=== PATIENT | male | born 1935 | race Caucasian/White ===

== ENCOUNTER → 2016-04-09 | Outpatient (REF) | payer MEDICARE, OTHER ==
[~2016-04-09] MED LIST: /TAMS4CA OR; ARTI99.0 OU; ARTISOL10 OU; ASPI81TA85 PO; AUGM875T27 PO; AZIT250T3 PO; BOTOX100 UNIT IM; CARB25TA PO; COLA100C PO; COLA100C2 OR; DELT1TAB PO; DULC5TAB PO; FISH500C PO; FLEEENE4 PR; FLOM5CAP PO; GABA300C3 PO; GLUC1000 OR; HUMALOG INJ; HUMALOG PEN SQ; HYDR25TA6 OR; INSUDET SC; INSUHUMDS SC; LEVE1INJ5 SC; LEVO137T2 PO; LISI20TA PO; LISI20TA5 OR; LISI20TA5 PO; LYRI100C10 PO; LYRI150C PO; LYRI75CA PO; M-VI27TA PO; MAGN400T5 PO; METF500T4 PO; METH-107 PO; MIRA3350 PO; MOM30SS PO; MULTIVIT PO; NEUR300C PO; NORC5TAB PO; OMACOR PO; OMEP20TA7 OR; OXYC15TA66 PO; PERC5TAB6 PO; PERC5TAB8 OR; POLYOPD OU; POTA99TA PO; PRED1TABL PO; PRED5TA PO; PRED5TAB OR; PRED5TAB PO; PRIL20CA PO; REGL5TAB2 PO; ROBA500T PO; ROXI1TAB2 PO; SENO8.6T2 PO; SERT50TA2 PO; SINE25TA2 OR; SINE25TA5 PO; SOMA350T PO; SYNT137T OR; SYNT137T PO; THERGRAN PO; TIZA4CAP3 PO; TRAM50TA2 PO; TYLE325T5 PO; ULTR100T6 PO; VITAMIN D50000 UNT PO; VITMTA PO; ZOLO50TA OR; carb/levo PO; novalog
[2016-04-09 16:04] LABS: CALCIUM LEVEL 8.6 MG/DL (8.8-10.2); CREATININE FOR GFR 1.41 MG/DL (0.70-1.30); GLOMERULAR FILTRATION RATE 51.5 (>35)
== END | disposition home or self-care (01) ==
LOC: M SFHCPLAZ 14:17
PROVIDERS: ATTEND Internal Medicine
DX: E11.29 Type 2 diabetes mellitus with other diabetic kidney complication (principal)

== ENCOUNTER → 2016-04-11 | Outpatient (CLI) | payer MEDICARE, OTHER ==
[~2016-04-11] MED LIST changes: +ISOVUE-370 76% 100ML VIAL (Q9967) As Ordered ONE
--- NOTE | 2016-04-11 12:03 | REP ---
CT study of the chest with IV contrast: History: Abnormal chest x-ray, [facility]. Comparison chest x-ray March 23, 2016. Comparison chest CT study is from December 16, 2015. The prior CT study showed right upper lobe and right lower lobe infiltrates. CT contrast dose: 75 ml of Isovue [address] findings: The previously noted infiltrates have resolved. No pulmonary mass lesion is seen. There are several old granulomatous calcifications noted in the right middle lobe. There are also several granulomatous calcifications in the lingular segment of the left upper lobe. No pulmonary mass or significant nodule is seen. No bony destructive lesion is seen. Granulomatous lymph node calcifications are seen in the right hilus and the subcarinal region. Heavy vascular calcification is seen along the course of the left coronary artery. No hilar or mediastinal adenopathy or mass lesion is seen. A small sliding-type hiatal hernia is noted. Cholecystectomy clips are seen. No adrenal abnormality is observed. Stable peripancreatic lymph nodes are again noted. Impression: Old granulomatous calcific residuals. Previously noted infiltrates have resolved. Stable upper abdominal lymph nodes. Small sliding-type hiatal hernia. Vascular calcification especially along the course of the left coronary artery. Otherwise no active disease. Signed by Juan Carlos Mckeon MD 04/11/2016 02:57 P
== END | disposition home or self-care (01) ==
LOC: M RAD 10:10
PROVIDERS: ATTEND Internal Medicine
DX: R93.8 Abnormal findings on diagnostic imaging of other specified body structures (principal); K44.9 Diaphragmatic hernia without obstruction or gangrene; I25.10 Atherosclerotic heart disease of native coronary artery without angina pectoris
CPT/HCPCS: 71260; Q9967

== ENCOUNTER → 2016-04-11 | Outpatient (CLI) | payer MEDICARE, OTHER ==
[~2016-04-11] MED LIST changes: -ISOVUE-370 76% 100ML VIAL (Q9967) As Ordered ONE; +PRIL20CA9 PO
--- NOTE | 2016-04-14 01:13 | ECWPNPC ---
PATIENT NAME: JUAN PABLO NARANJO : 1935 GENDER: MALE VISIT DATE: 04/11/2016 DISCHARGE DATE: 04/11/16 1614 VISIT LOCKED DATE TIME: PHYSICIAN: MEGHA DREW RESOURCE: MEGHA DREW REASON FOR APPOINTMENT 1. LOW BACK PAIN HISTORY OF PRESENT ILLNESS HISTORY OF PRESENT ILLNESS: PAIN THE PATIENT DESCRIBES THE PAIN... 81 YEAR OLD MALE PATIENT WITH HISTORY OF CHRONIC LOW BACK AND LEG PAIN. PATIENT DESCRIBES THE PAIN SHOOTING AND STABBING WITH A PAIN SCORE OF 8/10. MR. NARANJO STATES THAT HE HAS SEEN DR. MEJÍA WHO HAD HIM RECEIVE ANOTHER MRI FOR A POSSIBLE SURGERY. CURRENTLY THE PATIENT IS USING TRAMADOL AND LYRICA WHICH HE STATES HELPS WITH THE PAIN. MR. NARANJO STATES THAT HE IS RELATIVELY PAIN FREE UNTIL HE HAS TO WALK AND THEN HE HAS A SHOOTING PAIN THAT STARTS IN HIS LOWER BACK AND SHOOTS DOWN BOTH OF HIS LEGS. PATIENT DENIES UNEXPLAINABLE WEIGHT LOSS, FEVER, CHILLS, NEW CHANGES ON HIS URINARY OR BOWEL CONTROL. FALL RISK SCREENING: SCREENING :NO FALLS IN THE PAST YEAR CURRENT MEDICATIONS TAKING FLONASE 50 MCG/DOSE INHALER 2 SPRAYS IN EACH NOSTRIL NASALLY ONCE DAILY NEEDED TAKING SYNTHROID 137 MCG TABLET 1 TABLET EVERY MORNING ON AN EMPTY STOMACH ORALLY ONCE A DAY TAKING HUMALOG KWIKPEN 100 UNIT/ML SOLUTION INJECTION SUBCUTANEOUS PER SS THREE TIMES A DAY MDD 25 UNITS TAKING MULTIVITAMIN TABLETS ORALLY DAILY TAKING PRILOSEC 20 MG CAPSULE DELAYED RELEASE 1 CAPSULE ORALLY ONCE A DAY TAKING TYLENOL EXTRA STRENGTH 500 MG TABLET 1 TABLET NEEDED ORALLY EVERY 8 HRS NEEDED TAKING MAG-OX 400 400 MG TABLET 2 TABS ORALLY BID TAKING SINEMET 25-100 MG TABLET 3 TABLETS ORALLY THREE TIMES A DAY TAKING PREDNISONE 5 MG TABLET 1 TAB(S) ORALLY ONCE A DAY TAKING BLOOD GLUCOSE TEST - STRIP DIRECTED IN VITRO, DX: E11.9 ONE TOUCH ULTRA BLUE--TEST GLUCOSES 4 TIMES A DAY AND NEEDED TAKING ASPIR-81 81 MG TABLET DELAYED RELEASE 1 TABLET ORALLY ONCE A DAY TAKING LEVEMIR FLEXTOUCH 100 UNIT/ML SOLUTION PEN-INJECTOR 16 UNITS SUBCUTANEOUS TWICE DAILY. DX:E11.9 TAKING FLOMAX 0.4 MG CAPSULE EXTENDED RELEASE 24 HOUR 1 CAPSULE 30 MINUTES AFTER THE SAME MEAL EACH DAY ORALLY ONCE A DAY TAKING LYRICA 150 MG CAPSULE 1 CAPSULE ORALLY CODE D FOR CHRONIC PAIN 3 TIMES PER DAY FOR PAIN MDD3 TAKING TRAMADOL HCL 50 MG TABLET 1 ORALLY CODE D CHRONIC PAIN Q8H PRN MDD2 MEDICATION LIST REVIEWED AND RECONCILED WITH THE PATIENT PAST MEDICAL HISTORY DIABETES HIGH BLOOD PRESSURE THYROID CARDIAC CATH PARKINSON'S DISEASE DIABETES ALLERGIES N.K.D.A. SURGICAL HISTORY RIGHT INGUINAL HERNIA REPAIR IN THE PAST KNEE SURGERY LEFT 1975 CHOLECYSTECTOMY CATARACT EXTRACTION OD 02/06 CATARACT EXTRACTION OS 04/09 RIGHT EYE PTOSIS REPAIR 04/10 L3, L4, L5 RIGHT LAMINECTOMY 07/11/10 LAD CORONARY ARTERY STENT PLACEMENT JULY 2010 COLONOSCOPY 01/2015 FAMILY HISTORY NO FAMILY HISTORY DOCUMENTED. SOCIAL HISTORY GENERAL: TOBACCO USE ARE YOU A:NONSMOKER LEARNING BARRIERS / SPECIAL NEEDS ORIENTED TO PLAN OF CARE: PATIENT, PAIN MANAGEMENT PATIENT, ORIENTED TO PLAN OF CARE: PATIENT, PAIN MANAGEMENT PATIENT. NEW PATIENT PAIN DIARY TODAY'S VISITNOTES FROM 0-10, WHAT LEVEL IS YOUR PAIN TODAY?0 PAIN CLINIC PFS, CLERGY, PUBLIC HEALTH REFERRALS PFS REFERRAL NEEDED?NO CLERGY REFERRAL NEEDED?NO PUBLIC HEALTH REFERRAL NEEDED?NO WAS THE PROVIDER NOTIFIED OF ANY PERTINENT INFO?NO PFS REFERRAL NEEDED?NO CLERGY REFERRAL NEEDED?NO PUBLIC HEALTH REFERRAL NEEDED?NO WAS THE PROVIDER NOTIFIED OF ANY PERTINENT INFO?NO HOSPITALIZATION/MAJOR DIAGNOSTIC PROCEDURE SURGERY RELATED REVIEW OF SYSTEMS CONSTITUTIONAL: ANY CHANGE IN YOUR MEDICAL CONDITION? NO . CHILLS NO . FEVER NO . INFECTION: DO YOU HAVE NEW INFECTIONS? NO . DO YOU HAVE HISTORY OF MRSA? NO . MUSCULOSKELETAL: ANY NEW PATTERNS OF PAIN OR NUMBNESS? NO . GASTROENTEROLOGY: ANY NEW CHANGE IN BOWEL CONTROL? NO . GENITOURINARY: ANY NEW CHANGE IN BLADDER CONTROL? NO . IS THERE A CHANCE YOU COULD BE ? NO . HEMATOLOGY/LYMPH: DO YOU TAKE ANY BLOOD THINNERS? (FOR EXAMPLE- COUMADIN, PLAVIX, AGGRENOX, PLATEL, PRADAXA, OR XARELTO) NO . WHEN WAS YOUR LAST DOSE? DATE: TIME: . NEUROLOGY: HAVE YOU FALLEN IN THE PAST 6 MONTHS? NO . ANY NEW EXTREMITY NUMBNESS OR WEAKNESS? NO . CARDIOLOGY: DO YOU HAVE A PACEMAKER OR DEFIBRILLATOR? NO . RESPIRATORY: HAVE YOU BEEN SICK IN THE PAST WEEK? NO . FEVER NO . FLU LIKE SYMPTOMS? NO . COUGH NO . INTEGUMENTARY: DO YOU HAVE ANY RASHES OR OPEN SORES? NO . ALLERGIC/IMMUNO: ARE YOU ALLERGIC TO SHELLFISH OR IV DYE? NO . ANY NEW ALLERGIES? NO . PSYCHIATRIC: DO YOU HAVE THOUGHTS OF HURTING YOURSELF OR SOMEONE ELSE? NO . ARE YOU ABUSED, NEGLECTED, OR IN AN UNSAFE ENVIRONMENT? NO . ENDOCRINOLOGY: ARE YOU DIABETIC? YES . OTHER: DO YOU NEED ANY PRESCRIPTIONS? YES LYRICA AND TRAMDOL . IF YES, PLEASE LIST: ____ . ANY NEW PROBLEMS WITH YOUR MEDICATIONS? NO . WHEN DID YOU LAST EAT? ____ . WHEN DID YOU LAST DRINK? ____ . WHAT DID YOU LAST DRINK? ____ . NAME OF PERSON DRIVING YOU HOME? ____ . DO YOU HAVE ANY OTHER QUESTIONS OR CONCERNS NO . REVIEWED BY: PROVIDER: MEGHA DREW MD . VITAL SIGNS WT 201 LBS, HT 70 IN, BMI 28.84 INDEX, BP 168/90 MM HG, HR 70 /MIN, RR 18 /MIN, TEMP 95.7 F, OXYGEN SAT % 95%, NA INITIALS SC 14:42. EXAMINATION : PATIENT IS ALERT O X 3 AND COOPERATIVE. THERE IS TENDERNESS IN THE LOWER BACK AND IN THE PARASPINAL MUSCLE GROUP CLOSE TO THE SURGICAL SITE. LEFT LEG IS WEAKER THAN THE RIGHT LEG. PATIENT USES CANE TO AMBULATE. MRI OF THE LUMBAR SPINE DONE ON 04/26/15 SHOWS CANAL STENOSIS AT L2-L3 THROUGH L4-L5, DISC BULGES AT L2-L3 THROUGH L5-S1, AND HYPERTROPHY. ASSESSMENTS POSTLAMINECTOMY SYNDROME, NOT ELSEWHERE CLASSIFIED - M96.1 (PRIMARY) INTERVERTEBRAL DISC DISORDERS WITH RADICULOPATHY, LUMBAR REGION - M51.16 INTERVERTEBRAL DISC DISORDERS WITH RADICULOPATHY, LUMBOSACRAL REGION - M51.17 TREATMENT POSTLAMINECTOMY SYNDROME, NOT ELSEWHERE CLASSIFIED REFILL LYRICA CAPSULE, 150 MG, 1 CAPSULE, ORALLY CODE D FOR CHRONIC PAIN, 3 TIMES PER DAY FOR PAIN MDD3, 60 DAYS, 180, REFILLS 0 REFILL TRAMADOL HCL TABLET, 50 MG, 1, ORALLY CODE D CHRONIC PAIN, Q8H PRN MDD2, 60 DAYS, 120, REFILLS 0 NOTES: WE DISCUSSED SEVERAL ISSUES WITH MR. NARANJO'S PAIN MANAGEMENT CASE. AT THIS TIME THE PATIENT WILL CONTINUE WITH THE SAME MEDICATION REGIME BEFORE. PATIENT DENIES ABUSE OF MEDICATION, DENIES USE OF ILLEGAL SUBSTANCES, AND STATES THAT HE ONLY USES THE MEDICATION FOR PAIN MANAGEMENT. MR. NARANJO WILL HAVE A URINE TOXICOLOGY REPORT DONE AT TODAY'S VISIT. PATIENT WILL BE SEEING DR. MEJÍA TO DISCUSS THE RECENT MRI THE PATIENT HAD. I WOULD LIKE TO SPEAK WITH DR. MEJÍA ABOUT THIS PATIENT AND POSSIBLE OPTIONS OTHER THEN SURGERY. MR. NARANJO WILL RETURN TO THE CLINIC IN 10 WEEKS TO FURTHER DISCUSS HIS CASE WITH ROSHAN GORE. PROCEDURE CODES FA211 ESTABILISHED PATIENT [facility] CHARGE G8427 DOC MEDS VERIFIED W/PT OR RE G8730 PAIN ASSESS POS TOOL F/U PLAN DOC FOLLOW UP 10 WEEKS ELECTRONICALLY SIGNED BY MEGHA DREW MD ON 04/13/2016 AT 06:15 PM EST DISCLAIMER : THIS IS A VISIT SUMMARY EXTRACTED FROM THE [employer] CHART. IT IS NOT A COPY OF THE [employer] PROGRESS NOTE. KRISTINA
== END ==
LOC: M PAIN 14:20
PROVIDERS: ATTEND Anesthesiology
DX: M96.1 Postlaminectomy syndrome, not elsewhere classified (principal); M51.16 Intervertebral disc disorders with radiculopathy, lumbar region; M51.17 Intervertebral disc disorders with radiculopathy, lumbosacral region; G89.29 Other chronic pain; M54.5 Low back pain; Z79.891 Long term (current) use of opiate analgesic; Z79.82 Long term (current) use of aspirin; Z79.4 Long term (current) use of insulin; E11.9 Type 2 diabetes mellitus without complications; I10 Essential (primary) hypertension; E07.9 Disorder of thyroid, unspecified; G20 Parkinson's disease
CPT/HCPCS: 71260; G0463; Q9967

== ENCOUNTER → 2016-06-29 | Outpatient (CLI) | payer MEDICARE, OTHER ==
[~2016-06-29] MED LIST changes: -COLA100C PO; +COLA100C3 PO; +GABA-282 PO; -GABA300C3 PO; +NORC1TAB4 PO; -NORC5TAB PO
--- NOTE | 2016-06-30 23:38 | ECWPNPC ---
PATIENT NAME: JUAN PABLO NARANJO : 1935 GENDER: MALE VISIT DATE: 06/29/2016 DISCHARGE DATE: 06/29/16 1229 VISIT LOCKED DATE TIME: PHYSICIAN: ROSHAN GONZALEZ RESOURCE: ROSHAN GONZALEZ REASON FOR APPOINTMENT 1. LOW BACK/LEG PAIN HISTORY OF PRESENT ILLNESS HISTORY OF PRESENT ILLNESS: HERE FOR F/U AND MANAGEMENT OF CHRONIC LOW BACK PAIN.DESCRIBES PAIN INTERMITTENT MUSCLE CRAMPING IN LOW BACK.COMPLAINING OF FORGETFULLNESS LATELY AND IS WONDERING IF THIS COULD BE RELATED TO LYRICA.RATING PAIN VAS 6/10.REPORTS INTERMITTENT LOWER EXTREMITY WEAKNESS THAT CAUSES HIM TO GO TO HIS KNEES.THIS IS UNPREDICTABLE AND CAN HAPPEN WALKING SHORT DISTANCE OR LONG DISTANCE.HAS SEEN NEUROLOGY HERE LOCALLY WELL IN [place].HAS HX OF PARKINSONS SYNDROME. FALL RISK SCREENING: SCREENING :NO FALLS IN THE PAST YEAR CURRENT MEDICATIONS TAKING FLONASE 50 MCG/DOSE INHALER 2 SPRAYS IN EACH NOSTRIL NASALLY ONCE DAILY NEEDED TAKING HUMALOG KWIKPEN 100 UNIT/ML SOLUTION INJECTION SUBCUTANEOUS PER SS THREE TIMES A DAY MDD 25 UNITS TAKING MULTIVITAMIN TABLETS ORALLY DAILY TAKING PRILOSEC 20 MG CAPSULE DELAYED RELEASE 1 CAPSULE ORALLY ONCE A DAY TAKING TYLENOL EXTRA STRENGTH 500 MG TABLET 1 TABLET NEEDED ORALLY EVERY 8 HRS NEEDED TAKING MAG-OX 400 400 MG TABLET 2 TABS ORALLY BID TAKING SINEMET 25-100 MG TABLET 3 TABLETS ORALLY THREE TIMES A DAY TAKING PREDNISONE 5 MG TABLET 1 TAB(S) ORALLY ONCE A DAY TAKING BLOOD GLUCOSE TEST - STRIP DIRECTED IN VITRO, DX: E11.9 ONE TOUCH ULTRA BLUE--TEST GLUCOSES 4 TIMES A DAY AND NEEDED TAKING ASPIR-81 81 MG TABLET DELAYED RELEASE 1 TABLET ORALLY ONCE A DAY TAKING LEVEMIR FLEXTOUCH 100 UNIT/ML SOLUTION PEN-INJECTOR 16 UNITS SUBCUTANEOUS TWICE DAILY. DX:E11.9 TAKING FLOMAX 0.4 MG CAPSULE EXTENDED RELEASE 24 HOUR 1 CAPSULE 30 MINUTES AFTER THE SAME MEAL EACH DAY ORALLY ONCE A DAY TAKING LYRICA 150 MG CAPSULE 1 CAPSULE ORALLY CODE D FOR CHRONIC PAIN 3 TIMES PER DAY FOR PAIN MDD3 TAKING TRAMADOL HCL 50 MG TABLET 1 ORALLY CODE D CHRONIC PAIN Q8H PRN MDD2 TAKING SYNTHROID 137 MCG TABLET 1 TABLET EVERY MORNING ON AN EMPTY STOMACH ORALLY ONCE A DAY MEDICATION LIST REVIEWED AND RECONCILED WITH THE PATIENT PAST MEDICAL HISTORY DIABETES HIGH BLOOD PRESSURE THYROID CARDIAC CATH PARKINSON'S DISEASE DIABETES ALLERGIES N.K.D.A. SOCIAL HISTORY GENERAL: PAIN CLINIC PFS, CLERGY, PUBLIC HEALTH REFERRALS CLERGY REFERRAL NEEDED?NO WAS THE PROVIDER NOTIFIED OF ANY PERTINENT INFO?NO PFS REFERRAL NEEDED?NO PUBLIC HEALTH REFERRAL NEEDED?NO PATIENT: ____. REVIEW OF SYSTEMS CONSTITUTIONAL: ANY CHANGE IN YOUR MEDICAL CONDITION? NO . RECENT ILLNESS DENIES . CHILLS NO . FEVER NO . WEIGHT LOSS DENIES . INFECTION: DO YOU HAVE NEW INFECTIONS? NO . DO YOU HAVE HISTORY OF MRSA? NO . MUSCULOSKELETAL: ANY NEW PATTERNS OF PAIN OR NUMBNESS? YES, PAIN LEFT SHOULDER, HE THINKS IT IS COMING FROM HIS NECK . GASTROENTEROLOGY: ANY NEW CHANGE IN BOWEL CONTROL? YES, CONSTIPATED ALL THE TIME . GENITOURINARY: ANY NEW CHANGE IN BLADDER CONTROL? NO . IS THERE A CHANCE YOU COULD BE ? NO . HEMATOLOGY/LYMPH: DO YOU TAKE ANY BLOOD THINNERS? (FOR EXAMPLE- COUMADIN, PLAVIX, AGGRENOX, PLATEL, PRADAXA, OR XARELTO) NO . WHEN WAS YOUR LAST DOSE? DATE: TIME: . NEUROLOGY: HAVE YOU FALLEN IN THE PAST 6 MONTHS? NO . ANY NEW EXTREMITY NUMBNESS OR WEAKNESS? NO . CARDIOLOGY: DO YOU HAVE A PACEMAKER OR DEFIBRILLATOR? NO . CHEST PAIN DENIES . SHORTNESS OF BREATH DENIES . RESPIRATORY: HAVE YOU BEEN SICK IN THE PAST WEEK? NO . FEVER NO . FLU LIKE SYMPTOMS? NO . COUGH NO, DENIES . SHORTNESS OF BREATH DENIES . INTEGUMENTARY: DO YOU HAVE ANY RASHES OR OPEN SORES? NO . ALLERGIC/IMMUNO: ARE YOU ALLERGIC TO SHELLFISH OR IV DYE? NO . ANY NEW ALLERGIES? NO . PSYCHIATRIC: DO YOU HAVE THOUGHTS OF HURTING YOURSELF OR SOMEONE ELSE? NO . ARE YOU ABUSED, NEGLECTED, OR IN AN UNSAFE ENVIRONMENT? NO . ENDOCRINOLOGY: ARE YOU DIABETIC? YES FSBS 147 THIS A.M. . OTHER: DO YOU NEED ANY PRESCRIPTIONS? YES . IF YES, PLEASE LIST: ____LYRICA, TRAMADOL . ANY NEW PROBLEMS WITH YOUR MEDICATIONS? NO . WHEN DID YOU LAST EAT? ____ . WHEN DID YOU LAST DRINK? ____ . WHAT DID YOU LAST DRINK? ____ . NAME OF PERSON DRIVING YOU HOME? ____ . DO YOU HAVE ANY OTHER QUESTIONS OR CONCERNS YES, FORGETTING THINGS ALL THE TIME. NOT SURE IF IT IS RELATED TO THE LYRICA . REVIEWED BY: PROVIDER: ROSHAN GORE . VITAL SIGNS WT 197.4 LBS, HT 70 IN, BMI 28.32 INDEX, BP 160/74 MM HG, HR 75 /MIN, RR 18 /MIN, TEMP 97.4 F, OXYGEN SAT % 95%, NA INITIALS AW 11:27, REVIEWED BY: AD. EXAMINATION GENERAL EXAMINATION: LUNGS:LUNG SOUNDS ARE CLEAR. HEART:HEART RATE REGULAR. MUSCULOSKELETAL:*, MUSCLE STRENGTH TESTING 3/5 RIGHT LOWER EXTREMITY.4/5 LEFT LOWER EXTREMITY. , PALPATION: NEGATIVE FOR PAIN OVER L/S SPINE. NEGATIVE FOR PAIN OVER L/S PARASPINALS.NORMAL SENSATION LIGHT TOUCH LOWER EXTREMITIES.. DIAGNOSTIC:MRI L/S SPINE-REVIEWED. NEUROLOGICAL: TREMORS:RESTING TREMOR RIGHT HAND NOTED .RHYTHMIC SWAYING OF HEAD AND NECK/EXTRAPYRAMIDAL MOTIONS NOTED.. ASSESSMENTS POSTLAMINECTOMY SYNDROME, NOT ELSEWHERE CLASSIFIED - M96.1 (PRIMARY) INTERVERTEBRAL DISC DISORDERS WITH RADICULOPATHY, LUMBAR REGION - M51.16 INTERVERTEBRAL DISC DISORDERS WITH RADICULOPATHY, LUMBOSACRAL REGION - M51.17 TREATMENT POSTLAMINECTOMY SYNDROME, NOT ELSEWHERE CLASSIFIED DECREASE LYRICA CAPSULE, 100 MG, 1 CAPSULE, ORALLY, Q8-12H DIRECTED MDD3-3X DAILY X10 DAYS,2 TAB DAILY X10 DAYS THEN ONE DAILY X5 DAYS THEN D/C, 25 DAYS, 55, REFILLS 0 REFILL TRAMADOL HCL TABLET, 50 MG, 1, ORALLY CODE D CHRONIC PAIN, Q8H PRN MDD2, 60 DAYS, 120, REFILLS 0 PROCEDURE CODES FA211 ESTABILISHED PATIENT [facility] FACILITY CHARGE G8730 PAIN ASSESS POS TOOL F/U PLAN DOC G8427 DOC MEDS VERIFIED W/PT OR RE DISPOSITION & COMMUNICATION FOLLOW UP 6 WEEKS ELECTRONICALLY SIGNED BY BAO WILSON ON 06/29/2016 AT 01:22 PM EDT DISCLAIMER : THIS IS A VISIT SUMMARY EXTRACTED FROM THE [facility] [facility] CHART. IT IS NOT A COPY OF THE [facility] [facility] PROGRESS NOTE. MTDD
== END ==
LOC: M PAIN 11:20
PROVIDERS: ATTEND Nurse Practitioner Family
DX: Z09 Encounter for follow-up examination after completed treatment for conditions other than malignant neoplasm (principal); G89.29 Other chronic pain; M96.1 Postlaminectomy syndrome, not elsewhere classified; M51.16 Intervertebral disc disorders with radiculopathy, lumbar region; M51.17 Intervertebral disc disorders with radiculopathy, lumbosacral region; E11.9 Type 2 diabetes mellitus without complications; G20 Parkinson's disease; Z79.4 Long term (current) use of insulin; Z79.52 Long term (current) use of systemic steroids; Z79.82 Long term (current) use of aspirin; Z79.891 Long term (current) use of opiate analgesic

== ENCOUNTER → 2016-07-23 | Outpatient (REF) | payer MEDICARE, OTHER ==
[2016-07-23 11:56] LABS: MEAN CORPUSCULAR HEMOGLOBIN 28.9 pg (27.0-33.0); MEAN CORPUSCULAR HGB CONC 31.9 g/dl (32.0-36.5); MEAN CORPUSCULAR VOLUME 90.7 fl (80.0-96.0); RED CELL DISTRIBUTION WIDTH 15.3 % (11.5-14.5); WHITE BLOOD COUNT 6.1 K/mm3 (4.0-10.0)
[2016-07-23 12:09] LABS: ALBUMIN 3.4 GM/DL (3.2-5.2); ALBUMIN/GLOBULIN RATIO 1.06 (1.00-1.93); ALKALINE PHOSPHATASE 135 U/L (45-117); ALT/SGPT 13 U/L (12-78); ANION GAP 5 MEQ/L (8-16); AST/SGOT 20 U/L (15-37); BILIRUBIN,TOTAL 0.5 MG/DL (0.2-1.0); BLOOD UREA NITROGEN 32 MG/DL (7-18); CALCIUM LEVEL 8.5 MG/DL (8.8-10.2); CARBON DIOXIDE LEVEL 35 MEQ/L (21-32); CHLORIDE LEVEL 103 MEQ/L (98-107); CHOLESTEROL LEVEL 140 MG/DL (<200); CREATININE FOR GFR 1.11 MG/DL (0.70-1.30); GLOMERULAR FILTRATION RATE > 60.0 (>35); GLUCOSE, FASTING 104 MG/DL (83-110); POTASSIUM SERUM 4.1 MEQ/L (3.5-5.1); SODIUM LEVEL 143 MEQ/L (136-145); TOTAL PROTEIN 6.6 GM/DL (6.4-8.2); TRIGLYCERIDES LEVEL 56 MG/DL (<150)
== END ==
LOC: M SFHCPLAZ 09:17
PROVIDERS: ATTEND Internal Medicine
DX: Z51.81 Encounter for therapeutic drug level monitoring (principal); Z79.52 Long term (current) use of systemic steroids; E11.29 Type 2 diabetes mellitus with other diabetic kidney complication; I25.10 Atherosclerotic heart disease of native coronary artery without angina pectoris

== ENCOUNTER → 2016-08-10 | Outpatient (CLI) | payer MEDICARE, OTHER ==
--- NOTE | 2016-08-23 01:35 | ECWPNPC ---
PATIENT NAME: JUAN PABLO NARANJO : 1935 GENDER: MALE VISIT DATE: 08/10/2016 DISCHARGE DATE: 08/10/16 1144 VISIT LOCKED DATE TIME: PHYSICIAN: ROSHAN GONZALEZ RESOURCE: ROSHAN GONZALEZ REASON FOR APPOINTMENT 1. FOLLOWUP HISTORY OF PRESENT ILLNESS HISTORY OF PRESENT ILLNESS: HERE FOR F/U AND MANAGEMENT OF CHRONIC LOW BACK PAIN.DESCRIBES PAIN INTERMITTENT MUSCLE CRAMPING IN LOW BACK.WAS COMPLAINING OF FORGETFULLNESS LAST VISIT SO WE REDUCED AND DISCONTINUED LYRICA.THERE WAS NO CHANGE IN HIS MENTATION BUT HE IS HAVING INCREASE IN PAIN. RATING PAIN VAS 7/10.REPORTS INTERMITTENT LOWER EXTREMITY WEAKNESS THAT CAUSES HIM TO GO TO HIS KNEES.THIS IS UNPREDICTABLE AND CAN HAPPEN WALKING SHORT DISTANCE OR LONG DISTANCE.HAS SEEN NEUROLOGY HERE LOCALLY WELL IN [place].HAS HX OF PARKINSONS SYNDROME.DESCRIBES MUSCLE SPASM TYPE PAIN. PAIN THE PATIENT DESCRIBES THE PAIN... THE PATIENT DESCRIBES THE PAIN... FALL RISK SCREENING: SCREENING :NO FALLS IN THE PAST YEAR CURRENT MEDICATIONS TAKING FLONASE 50 MCG/DOSE INHALER 2 SPRAYS IN EACH NOSTRIL NASALLY ONCE DAILY NEEDED TAKING HUMALOG KWIKPEN 100 UNIT/ML SOLUTION INJECTION SUBCUTANEOUS PER SS THREE TIMES A DAY MDD 25 UNITS TAKING MULTIVITAMIN TABLETS ORALLY DAILY TAKING PRILOSEC 20 MG CAPSULE DELAYED RELEASE 1 CAPSULE ORALLY ONCE A DAY TAKING TYLENOL EXTRA STRENGTH 500 MG TABLET 1 TABLET NEEDED ORALLY EVERY 8 HRS NEEDED TAKING MAG-OX 400 400 MG TABLET 2 TABS ORALLY THREE TIMES DAILY TAKING BLOOD GLUCOSE TEST - STRIP DIRECTED IN VITRO, DX: E11.9 ONE TOUCH ULTRA BLUE--TEST GLUCOSES 4 TIMES A DAY AND NEEDED TAKING ASPIR-81 81 MG TABLET DELAYED RELEASE 1 TABLET ORALLY ONCE A DAY TAKING LEVEMIR FLEXTOUCH 100 UNIT/ML SOLUTION PEN-INJECTOR 16 UNITS SUBCUTANEOUS TWICE DAILY. DX:E11.9 TAKING FLOMAX 0.4 MG CAPSULE EXTENDED RELEASE 24 HOUR 1 CAPSULE 30 MINUTES AFTER THE SAME MEAL EACH DAY ORALLY ONCE A DAY TAKING LYRICA 100 MG CAPSULE 1 CAPSULE ORALLY BID TAKING TRAMADOL HCL 50 MG TABLET 1 ORALLY CODE D CHRONIC PAIN Q8H PRN MDD2 TAKING SYNTHROID 137 MCG TABLET 1 TABLET EVERY MORNING ON AN EMPTY STOMACH ORALLY ONCE A DAY TAKING SINEMET 25-100 MG TABLET 3 TABLETS ORALLY THREE TIMES A DAY TAKING PREDNISONE 5 MG TABLET 1 TAB(S) ORALLY ONCE A DAY, OR DIRECTED MEDICATION LIST REVIEWED AND RECONCILED WITH THE PATIENT PAST MEDICAL HISTORY DIABETES HIGH BLOOD PRESSURE THYROID CARDIAC CATH PARKINSON'S DISEASE DIABETES ALLERGIES N.K.D.A. SURGICAL HISTORY RIGHT INGUINAL HERNIA REPAIR IN THE PAST KNEE SURGERY LEFT 1974 CHOLECYSTECTOMY CATARACT EXTRACTION OD 02/06 CATARACT EXTRACTION OS 04/09 RIGHT EYE PTOSIS REPAIR 04/10 L3, L4, L5 RIGHT LAMINECTOMY 07/11/10 LAD CORONARY ARTERY STENT PLACEMENT JULY 2010 COLONOSCOPY 01/2015 HOSPITALIZATION/MAJOR DIAGNOSTIC PROCEDURE SURGERY RELATED REVIEW OF SYSTEMS CONSTITUTIONAL: ANY CHANGE IN YOUR MEDICAL CONDITION? NO. PT REPORTS HE IS TRYING TO TAPER DOWN ON PAIN MEDICATIONS HE EXPRESSES GREAT CONCERN OF ADDICTION. PT STATES THAT HE TAKES TRAMADOL ONCE DAILY, RATES PAIN 10. PT EXPRESSES DIFFICULTY IN RATING PAIN. PT STATES PAIN IS WORST IN AM HE HAS TO CRAWL TO BATHROOM FOR PAIN. THEN PAIN GETS A LITTLE BETTER. PT STATES THAT PAIN COMES IN WAVES AND CAN BE DEBILITATING. . CHILLS NO . FEVER NO . INFECTION: DO YOU HAVE NEW INFECTIONS? NO . DO YOU HAVE HISTORY OF MRSA? NO . MUSCULOSKELETAL: ANY NEW PATTERNS OF PAIN OR NUMBNESS? NO . GASTROENTEROLOGY: ANY NEW CHANGE IN BOWEL CONTROL? NO . GENITOURINARY: ANY NEW CHANGE IN BLADDER CONTROL? NO . IS THERE A CHANCE YOU COULD BE ? NO . HEMATOLOGY/LYMPH: DO YOU TAKE ANY BLOOD THINNERS? (FOR EXAMPLE- COUMADIN, PLAVIX, AGGRENOX, PLATEL, PRADAXA, OR XARELTO) NO . WHEN WAS YOUR LAST DOSE? DATE: TIME: . NEUROLOGY: HAVE YOU FALLEN IN THE PAST 6 MONTHS? NO . ANY NEW EXTREMITY NUMBNESS OR WEAKNESS? NO . CARDIOLOGY: DO YOU HAVE A PACEMAKER OR DEFIBRILLATOR? NO . RESPIRATORY: HAVE YOU BEEN SICK IN THE PAST WEEK? NO . FEVER NO . FLU LIKE SYMPTOMS? NO . COUGH NO . INTEGUMENTARY: DO YOU HAVE ANY RASHES OR OPEN SORES? NO . ALLERGIC/IMMUNO: ARE YOU ALLERGIC TO SHELLFISH OR IV DYE? NO . ANY NEW ALLERGIES? NO . PSYCHIATRIC: DO YOU HAVE THOUGHTS OF HURTING YOURSELF OR SOMEONE ELSE? NO . ARE YOU ABUSED, NEGLECTED, OR IN AN UNSAFE ENVIRONMENT? NO . ENDOCRINOLOGY: ARE YOU DIABETIC? YES . OTHER: DO YOU NEED ANY PRESCRIPTIONS? YES. LYRICA . IF YES, PLEASE LIST: ____ . ANY NEW PROBLEMS WITH YOUR MEDICATIONS? NO . WHEN DID YOU LAST EAT? ____ . WHEN DID YOU LAST DRINK? ____ . WHAT DID YOU LAST DRINK? ____ . NAME OF PERSON DRIVING YOU HOME? ____ . DO YOU HAVE ANY OTHER QUESTIONS OR CONCERNS NO . REVIEWED BY: PROVIDER: ROSHAN GORE . VITAL SIGNS WT 194.8 LBS, HT 70 IN, BMI 27.95 INDEX, BP 121/69 MM HG, HR 87 /MIN, RR 18 /MIN, TEMP 98.2 F, OXYGEN SAT % 95%, SAFE IN ENV? (Y/N) Y, NA INITIALS SC10:45, REVIEWED BY: EM. EXAMINATION GENERAL EXAMINATION: LUNGS:LUNG SOUNDS ARE CLEAR. HEART:HEART RATE REGULAR. MUSCULOSKELETAL:*, MUSCLE STRENGTH TESTING 3/5 RIGHT LOWER EXTREMITY.4/5 LEFT LOWER EXTREMITY. , PALPATION: NEGATIVE FOR PAIN OVER L/S SPINE. NEGATIVE FOR PAIN OVER L/S PARASPINALS.NORMAL SENSATION LIGHT TOUCH LOWER EXTREMITIES.. DIAGNOSTIC:MRI L/S SPINE-REVIEWED. NEUROLOGICAL: TREMORS:RESTING TREMOR RIGHT HAND NOTED .RHYTHMIC SWAYING OF HEAD AND NECK/EXTRAPYRAMIDAL MOTIONS NOTED.. ASSESSMENTS POSTLAMINECTOMY SYNDROME, NOT ELSEWHERE CLASSIFIED - M96.1 (PRIMARY) INTERVERTEBRAL DISC DISORDERS WITH RADICULOPATHY, LUMBAR REGION - M51.16 INTERVERTEBRAL DISC DISORDERS WITH RADICULOPATHY, LUMBOSACRAL REGION - M51.17 TREATMENT POSTLAMINECTOMY SYNDROME, NOT ELSEWHERE CLASSIFIED REFILL TRAMADOL HCL TABLET, 50 MG, 1, ORALLY CODE D CHRONIC PAIN, Q8H PRN MDD2, 60 DAYS, 120, REFILLS 0 INCREASE LYRICA CAPSULE, 100 MG, 1 CAPSULE, ORALLY, THREE TIMES DAILY, 30 DAY(S), 90, REFILLS 2 START BACLOFEN TABLET, 10 MG, 1/2, ORALLY, THREE TIMES A DAY, 30 DAY(S), 45, REFILLS 1 PREVENTIVE MEDICINE PAIN CLINIC TEACHING: MEDICATIONS BACLOFEN INFORMATION REVIEWED WITH AND GIVEN TO PT. PT EXPRESSES UNDERSTANDING.. PROCEDURE CODES FA211 ESTABILISHED PATIENT [facility] CHARGE T7416 PAIN ASSESS POS TOOL F/U PLAN DOC G8427 DOC MEDS VERIFIED W/PT OR RE DISPOSITION & COMMUNICATION FOLLOW UP 4 WEEKS (REASON: MEDICINE MANAGEMENT) ELECTRONICALLY SIGNED BY BAO WILSON ON 08/22/2016 AT 02:21 PM EDT DISCLAIMER : THIS IS A VISIT SUMMARY EXTRACTED FROM THE [employer] CHART. IT IS NOT A COPY OF THE [employer] PROGRESS NOTE. KRISTINA
== END | disposition home or self-care (01) ==
LOC: M PAIN 10:40
PROVIDERS: ATTEND Nurse Practitioner Family
DX: G89.29 Other chronic pain (principal); M96.1 Postlaminectomy syndrome, not elsewhere classified; M51.16 Intervertebral disc disorders with radiculopathy, lumbar region; M51.17 Intervertebral disc disorders with radiculopathy, lumbosacral region; E11.9 Type 2 diabetes mellitus without complications; I10 Essential (primary) hypertension; E07.9 Disorder of thyroid, unspecified; G20 Parkinson's disease; Z79.899 Other long term (current) drug therapy; Z79.4 Long term (current) use of insulin; Z79.82 Long term (current) use of aspirin

== ENCOUNTER → 2016-09-07 | Outpatient (CLI) | payer MEDICARE, OTHER ==
--- NOTE | 2016-09-08 00:49 | ECWPNPC ---
PATIENT NAME: JUAN PABLO NARANJO : 1935 GENDER: MALE VISIT DATE: 09/07/2016 DISCHARGE DATE: 09/07/16 1144 VISIT LOCKED DATE TIME: PHYSICIAN: ROSHAN GONZALEZ RESOURCE: ROSHAN GONZALEZ HISTORY OF PRESENT ILLNESS HISTORY OF PRESENT ILLNESS: HERE FOR F/U AND MANAGEMENT OF CHRONIC LOW BACK PAIN. RATING PAIN VAS 8/10.REPORTS INTERMITTENT LOWER EXTREMITY WEAKNESS THAT CAUSES HIM TO GO TO HIS KNEES.THIS IS UNPREDICTABLE AND CAN HAPPEN WALKING SHORT DISTANCE OR LONG DISTANCE.HAS SEEN NEUROLOGY HERE LOCALLY WELL IN [place].HAS HX OF PARKINSONS SYNDROME.DESCRIBES MUSCLE SPASM TYPE PAIN.CURRENTLY TAKING LYRICA 100MG DAILY,BACLOFEN 10MG 1/2 TAB TID AND TRAMADOL 50MG TID.CONTINUES WITH SIGNIFICANT AMOUNT OF PAIN.DISCUSSED MEDICATION ADJUSTMENTS. PAIN THE PATIENT DESCRIBES THE PAIN... THE PATIENT DESCRIBES THE PAIN... THE PATIENT DESCRIBES THE PAIN... FALL RISK SCREENING: SCREENING :NO FALLS IN THE PAST YEAR CURRENT MEDICATIONS TAKING FLONASE 50 MCG/DOSE INHALER 2 SPRAYS IN EACH NOSTRIL NASALLY ONCE DAILY NEEDED TAKING HUMALOG KWIKPEN 100 UNIT/ML SOLUTION INJECTION SUBCUTANEOUS PER SS THREE TIMES A DAY MDD 25 UNITS TAKING PRILOSEC 20 MG CAPSULE DELAYED RELEASE 1 CAPSULE ORALLY ONCE A DAY TAKING TYLENOL EXTRA STRENGTH 500 MG TABLET 1 TABLET NEEDED ORALLY EVERY 8 HRS NEEDED TAKING MAG-OX 400 400 MG TABLET 2 TABS ORALLY THREE TIMES DAILY TAKING BLOOD GLUCOSE TEST - STRIP DIRECTED IN VITRO, DX: E11.9 ONE TOUCH ULTRA BLUE--TEST GLUCOSES 4 TIMES A DAY AND NEEDED TAKING ASPIR-81 81 MG TABLET DELAYED RELEASE 1 TABLET ORALLY ONCE A DAY TAKING LEVEMIR FLEXTOUCH 100 UNIT/ML SOLUTION PEN-INJECTOR 16 UNITS SUBCUTANEOUS TWICE DAILY. DX:E11.9 TAKING FLOMAX 0.4 MG CAPSULE EXTENDED RELEASE 24 HOUR 1 CAPSULE 30 MINUTES AFTER THE SAME MEAL EACH DAY ORALLY ONCE A DAY TAKING SYNTHROID 137 MCG TABLET 1 TABLET EVERY MORNING ON AN EMPTY STOMACH ORALLY ONCE A DAY TAKING SINEMET 25-100 MG TABLET 3 TABLETS ORALLY THREE TIMES A DAY TAKING PREDNISONE 5 MG TABLET 1 1/2 TAB(S) ORALLY ONCE A DAY, OR DIRECTED TAKING TRAMADOL HCL 50 MG TABLET 1 ORALLY CODE D CHRONIC PAIN Q8H PRN MDD2, NOTES: TAKING TID TAKING LYRICA 100 MG CAPSULE 1 CAPSULE ORALLY THREE TIMES DAILY, NOTES: ONLY TAKING DAILY TAKING BACLOFEN 10 MG TABLET 1/2 ORALLY THREE TIMES A DAY NOT-TAKING MULTIVITAMIN TABLETS ORALLY DAILY MEDICATION LIST REVIEWED AND RECONCILED WITH THE PATIENT PAST MEDICAL HISTORY DIABETES HIGH BLOOD PRESSURE THYROID CARDIAC CATH PARKINSON'S DISEASE DIABETES SURGICAL HISTORY RIGHT INGUINAL HERNIA REPAIR IN THE PAST KNEE SURGERY LEFT 1974 CHOLECYSTECTOMY CATARACT EXTRACTION OD 02/06 CATARACT EXTRACTION OS 04/09 RIGHT EYE PTOSIS REPAIR 04/10 L3, L4, L5 RIGHT LAMINECTOMY 07/11/10 LAD CORONARY ARTERY STENT PLACEMENT JULY 2010 COLONOSCOPY 01/2015 HOSPITALIZATION/MAJOR DIAGNOSTIC PROCEDURE SURGERY RELATED REVIEW OF SYSTEMS CONSTITUTIONAL: ANY CHANGE IN YOUR MEDICAL CONDITION? NO . CHILLS NO . FEVER NO . INFECTION: DO YOU HAVE NEW INFECTIONS? NO . DO YOU HAVE HISTORY OF MRSA? NO . MUSCULOSKELETAL: ANY NEW PATTERNS OF PAIN OR NUMBNESS? YES, LEGS GET &QUOT;ELECTRIC SHOCK&QUOT; THROUGH THEM CAUSING HIM TO COLLASP . GASTROENTEROLOGY: ANY NEW CHANGE IN BOWEL CONTROL? NO . GENITOURINARY: ANY NEW CHANGE IN BLADDER CONTROL? NO . IS THERE A CHANCE YOU COULD BE ? NO . HEMATOLOGY/LYMPH: DO YOU TAKE ANY BLOOD THINNERS? (FOR EXAMPLE- COUMADIN, PLAVIX, AGGRENOX, PLATEL, PRADAXA, OR XARELTO) NO . WHEN WAS YOUR LAST DOSE? DATE: TIME: . NEUROLOGY: HAVE YOU FALLEN IN THE PAST 6 MONTHS? NO . ANY NEW EXTREMITY NUMBNESS OR WEAKNESS? NO . CARDIOLOGY: DO YOU HAVE A PACEMAKER OR DEFIBRILLATOR? NO . RESPIRATORY: HAVE YOU BEEN SICK IN THE PAST WEEK? NO . FEVER NO . FLU LIKE SYMPTOMS? NO . COUGH NO . INTEGUMENTARY: DO YOU HAVE ANY RASHES OR OPEN SORES? NO . ALLERGIC/IMMUNO: ARE YOU ALLERGIC TO SHELLFISH OR IV DYE? NO . ANY NEW ALLERGIES? NO . PSYCHIATRIC: DO YOU HAVE THOUGHTS OF HURTING YOURSELF OR SOMEONE ELSE? NO . ARE YOU ABUSED, NEGLECTED, OR IN AN UNSAFE ENVIRONMENT? NO . ENDOCRINOLOGY: ARE YOU DIABETIC? YES . OTHER: DO YOU NEED ANY PRESCRIPTIONS? YES . IF YES, PLEASE LIST: TRAMADOL, BACLOFEN . ANY NEW PROBLEMS WITH YOUR MEDICATIONS? NO . WHEN DID YOU LAST EAT? ____ . WHEN DID YOU LAST DRINK? ____ . WHAT DID YOU LAST DRINK? ____ . NAME OF PERSON DRIVING YOU HOME? ____ . DO YOU HAVE ANY OTHER QUESTIONS OR CONCERNS TAKING THE TRAMADOL TID AND IS TRYING TO CUT DOWN ON THE LYRICA SO IS ONLY TAKING IT DAILY. HAS TO CRAWL TO THE BR DURING THE NIGHT DUE TO THE PAIN. . REVIEWED BY: PROVIDER: ROSHAN GORE . VITAL SIGNS WT 191.8 LBS, HT 70 IN, BMI 27.52 INDEX, BP 145/70 MM HG, HR 79 /MIN, RR 16 /MIN, TEMP 97.2 F, OXYGEN SAT % 92%, NA INITIALS TL 1058, REVIEWED BY: AD. EXAMINATION GENERAL EXAMINATION: LUNGS:LUNG SOUNDS ARE CLEAR. HEART:HEART RATE REGULAR. MUSCULOSKELETAL:*, MUSCLE STRENGTH TESTING 3/5 RIGHT LOWER EXTREMITY.4/5 LEFT LOWER EXTREMITY. , PALPATION: NEGATIVE FOR PAIN OVER L/S SPINE. NEGATIVE FOR PAIN OVER L/S PARASPINALS.NORMAL SENSATION LIGHT TOUCH LOWER EXTREMITIES.. DIAGNOSTIC:MRI L/S SPINE-REVIEWED. ASSESSMENTS POSTLAMINECTOMY SYNDROME, NOT ELSEWHERE CLASSIFIED - M96.1 (PRIMARY) INTERVERTEBRAL DISC DISORDERS WITH RADICULOPATHY, LUMBOSACRAL REGION - M51.17 TREATMENT POSTLAMINECTOMY SYNDROME, NOT ELSEWHERE CLASSIFIED INCREASE TRAMADOL HCL TABLET, 50 MG, 1, ORALLY, Q 4-6H PRN MDD4, 30 DAY(S), 120, REFILLS 2, NOTES: TAKING TID CONTINUE LYRICA CAPSULE, 100 MG, 1 CAPSULE, ORALLY, THREE TIMES DAILY, NOTES: ONLY TAKING DAILY INCREASE BACLOFEN TABLET, 10 MG, 1, ORALLY, THREE TIMES A DAY, 30 DAY(S), 90, REFILLS 2 PROCEDURE CODES FA211 ESTABILISHED PATIENT [facility] FACILITY CHARGE G8730 PAIN ASSESS POS TOOL F/U PLAN DOC G8427 DOC MEDS VERIFIED W/PT OR RE DISPOSITION & COMMUNICATION FOLLOW UP 6 WEEKS ELECTRONICALLY SIGNED BY BAO WILSON ON 09/07/2016 AT 11:55 AM EDT DISCLAIMER : THIS IS A VISIT SUMMARY EXTRACTED FROM THE [employer] CHART. IT IS NOT A COPY OF THE [employer] PROGRESS NOTE. MTDD
== END ==
LOC: M PAIN 11:00
PROVIDERS: ATTEND Nurse Practitioner Family
DX: G89.29 Other chronic pain (principal); M96.1 Postlaminectomy syndrome, not elsewhere classified; M51.17 Intervertebral disc disorders with radiculopathy, lumbosacral region; E11.9 Type 2 diabetes mellitus without complications; G20 Parkinson's disease; E07.9 Disorder of thyroid, unspecified; Z79.4 Long term (current) use of insulin; Z79.82 Long term (current) use of aspirin; Z79.52 Long term (current) use of systemic steroids; Z79.899 Other long term (current) drug therapy

== ENCOUNTER → 2016-10-24 | Outpatient (CLI) | payer MEDICARE, OTHER ==
[~2016-10-24] MED LIST changes: -AUGM875T27 PO; +AUGM875T28 PO; +AZIT-12 PO; -AZIT250T3 PO; +BACL10TA2 PO; -COLA100C3 PO; +COLA100C5 PO; -LYRI100C10 PO; -METH-107 PO; +METH1TAB40 PO; +PERC5TAB12 PO; -PERC5TAB6 PO; +PREG100CA PO; -SENO8.6T2 PO; +SENO8.6T5 PO
--- NOTE | 2016-11-16 00:36 | ECWPNPC ---
PATIENT NAME: JUAN PABLO NARANJO : 1935 GENDER: MALE VISIT DATE: 10/24/2016 DISCHARGE DATE: 10/24/16 1145 VISIT LOCKED DATE TIME: PHYSICIAN: ROSHAN GONZALEZ RESOURCE: ROSHAN GONZALEZ HISTORY OF PRESENT ILLNESS HISTORY OF PRESENT ILLNESS: HERE FOR F/U AND MANAGEMENT OF CHRONIC LOW BACK PAIN. RATING PAIN VAS 8/10.REPORTS INTERMITTENT LOWER EXTREMITY WEAKNESS THAT CAUSES HIM TO GO TO HIS KNEES.THIS IS UNPREDICTABLE AND CAN HAPPEN WALKING SHORT DISTANCE OR LONG DISTANCE.HAS SEEN NEUROLOGY HERE LOCALLY WELL IN [place].HAS HX OF PARKINSONS SYNDROME.DESCRIBES MUSCLE SPASM TYPE PAIN.CURRENTLY TAKING LYRICA 100MG DAILY,BACLOFEN 10MG 1/2 TAB TID AND TRAMADOL 50MG TID.CONTINUES WITH SIGNIFICANT AMOUNT OF PAIN.DISCUSSED MEDICATION ADJUSTMENTS. PAIN THE PATIENT DESCRIBES THE PAIN... THE PATIENT DESCRIBES THE PAIN... THE PATIENT DESCRIBES THE PAIN... THE PATIENT DESCRIBES THE PAIN... PAIN THE PATIENT DESCRIBES THE PAIN... THE PATIENT DESCRIBES THE PAIN... THE PATIENT DESCRIBES THE PAIN... THE PATIENT DESCRIBES THE PAIN... FALL RISK SCREENING: SCREENING :NO FALLS IN THE PAST YEAR CURRENT MEDICATIONS TAKING FLONASE 50 MCG/DOSE INHALER 2 SPRAYS IN EACH NOSTRIL NASALLY ONCE DAILY NEEDED TAKING HUMALOG KWIKPEN 100 UNIT/ML SOLUTION INJECTION SUBCUTANEOUS PER SS THREE TIMES A DAY MDD 25 UNITS TAKING PRILOSEC 20 MG CAPSULE DELAYED RELEASE 1 CAPSULE ORALLY ONCE A DAY TAKING TYLENOL EXTRA STRENGTH 500 MG TABLET 1 TABLET NEEDED ORALLY EVERY 8 HRS NEEDED TAKING MAG-OX 400 400 MG TABLET 2 TABS ORALLY THREE TIMES DAILY TAKING BLOOD GLUCOSE TEST - STRIP DIRECTED IN VITRO, DX: E11.9 ONE TOUCH ULTRA BLUE--TEST GLUCOSES 4 TIMES A DAY AND NEEDED TAKING ASPIR-81 81 MG TABLET DELAYED RELEASE 1 TABLET ORALLY ONCE A DAY TAKING LEVEMIR FLEXTOUCH 100 UNIT/ML SOLUTION PEN-INJECTOR 16 UNITS SUBCUTANEOUS TWICE DAILY. DX:E11.9 TAKING FLOMAX 0.4 MG CAPSULE EXTENDED RELEASE 24 HOUR 1 CAPSULE 30 MINUTES AFTER THE SAME MEAL EACH DAY ORALLY ONCE A DAY TAKING SYNTHROID 137 MCG TABLET 1 TABLET EVERY MORNING ON AN EMPTY STOMACH ORALLY ONCE A DAY TAKING SINEMET 25-100 MG TABLET 3 TABLETS ORALLY THREE TIMES A DAY TAKING PREDNISONE 5 MG TABLET 1 1/2 TAB(S) ORALLY ONCE A DAY, OR DIRECTED TAKING TRAMADOL HCL 50 MG TABLET 1 ORALLY Q 4-6H PRN MDD4, NOTES: TAKING TID TAKING LYRICA 100 MG CAPSULE 1 CAPSULE ORALLY THREE TIMES DAILY, NOTES: ONLY TAKING DAILY TAKING BACLOFEN 10 MG TABLET 1 ORALLY THREE TIMES A DAY NOT-TAKING MULTIVITAMIN TABLETS ORALLY DAILY MEDICATION LIST REVIEWED AND RECONCILED WITH THE PATIENT PAST MEDICAL HISTORY DIABETES HIGH BLOOD PRESSURE THYROID CARDIAC CATH PARKINSON'S DISEASE DIABETES ALLERGIES N.K.D.A. SURGICAL HISTORY RIGHT INGUINAL HERNIA REPAIR IN THE PAST KNEE SURGERY LEFT 1974 CHOLECYSTECTOMY CATARACT EXTRACTION OD 02/06 CATARACT EXTRACTION OS 04/09 RIGHT EYE PTOSIS REPAIR 04/10 L3, L4, L5 RIGHT LAMINECTOMY 07/11/10 LAD CORONARY ARTERY STENT PLACEMENT JULY 2010 COLONOSCOPY 01/2015 HOSPITALIZATION/MAJOR DIAGNOSTIC PROCEDURE SURGERY RELATED REVIEW OF SYSTEMS REVIEWED BY: PROVIDER: ROSHAN GORE . CONSTITUTIONAL: ANY CHANGE IN YOUR MEDICAL CONDITION? NO . CHILLS NO . FEVER NO . INFECTION: DO YOU HAVE NEW INFECTIONS? NO . DO YOU HAVE HISTORY OF MRSA? NO . MUSCULOSKELETAL: ANY NEW PATTERNS OF PAIN OR NUMBNESS? NO . GASTROENTEROLOGY: ANY NEW CHANGE IN BOWEL CONTROL? NO . GENITOURINARY: ANY NEW CHANGE IN BLADDER CONTROL? NO . IS THERE A CHANCE YOU COULD BE ? NO . HEMATOLOGY/LYMPH: DO YOU TAKE ANY BLOOD THINNERS? (FOR EXAMPLE- COUMADIN, PLAVIX, AGGRENOX, PLATEL, PRADAXA, OR XARELTO) NO . WHEN WAS YOUR LAST DOSE? DATE: TIME: . NEUROLOGY: HAVE YOU FALLEN IN THE PAST 6 MONTHS? NO . ANY NEW EXTREMITY NUMBNESS OR WEAKNESS? NO . CARDIOLOGY: DO YOU HAVE A PACEMAKER OR DEFIBRILLATOR? NO . RESPIRATORY: HAVE YOU BEEN SICK IN THE PAST WEEK? NO . FEVER NO . FLU LIKE SYMPTOMS? NO . COUGH NO . INTEGUMENTARY: DO YOU HAVE ANY RASHES OR OPEN SORES? NO . ALLERGIC/IMMUNO: ARE YOU ALLERGIC TO SHELLFISH OR IV DYE? NO . ANY NEW ALLERGIES? NO . PSYCHIATRIC: DO YOU HAVE THOUGHTS OF HURTING YOURSELF OR SOMEONE ELSE? NO . ARE YOU ABUSED, NEGLECTED, OR IN AN UNSAFE ENVIRONMENT? NO . ENDOCRINOLOGY: ARE YOU DIABETIC? YES . OTHER: DO YOU NEED ANY PRESCRIPTIONS? NO . IF YES, PLEASE LIST: ____ . ANY NEW PROBLEMS WITH YOUR MEDICATIONS? NO . WHEN DID YOU LAST EAT? ____ . WHEN DID YOU LAST DRINK? ____ . WHAT DID YOU LAST DRINK? ____ . NAME OF PERSON DRIVING YOU HOME? ____ . DO YOU HAVE ANY OTHER QUESTIONS OR CONCERNS NO . VITAL SIGNS WT 186.8 LBS, HT 70 IN, BMI 26.80 INDEX, BP 149/71 MM HG, HR 74 /MIN, RR 16 /MIN, TEMP 97.9 F, OXYGEN SAT % 93%, SAFE IN ENV? (Y/N) Y, NA INITIALS ID 11:[id number], REVIEWED BY: EM. EXAMINATION GENERAL EXAMINATION: LUNGS:LUNG SOUNDS ARE CLEAR. HEART:HEART RATE REGULAR. MUSCULOSKELETAL:*, MUSCLE STRENGTH TESTING 3/5 RIGHT LOWER EXTREMITY.4/5 LEFT LOWER EXTREMITY. , PALPATION: NEGATIVE FOR PAIN OVER L/S SPINE. NEGATIVE FOR PAIN OVER L/S PARASPINALS.NORMAL SENSATION LIGHT TOUCH LOWER EXTREMITIES.. DIAGNOSTIC:MRI L/S SPINE-REVIEWED. ASSESSMENTS POSTLAMINECTOMY SYNDROME, NOT ELSEWHERE CLASSIFIED - M96.1 (PRIMARY) INTERVERTEBRAL DISC DISORDERS WITH RADICULOPATHY, LUMBOSACRAL REGION - M51.17 TREATMENT POSTLAMINECTOMY SYNDROME, NOT ELSEWHERE CLASSIFIED CONTINUE TRAMADOL HCL TABLET, 50 MG, 1, ORALLY, Q 4-6H PRN MDD4, NOTES: TAKING TID CONTINUE LYRICA CAPSULE, 100 MG, 1 CAPSULE, ORALLY, THREE TIMES DAILY, NOTES: ONLY TAKING DAILY INCREASE BACLOFEN TABLET, 10 MG, 2, ORALLY, BID, 30 DAY(S), 120, REFILLS 1 NOTES: SLOWLY INCREASE BACLOFEN 10MG TWO TAB IN AM AND ONE TAB AT BEDTIME X 5 DAYS THEN TRY 2 TAB AM AND PM, FALLS CARE PLAN: 1. RECOMMEND REMOVING ALL THROW RUGS. 2. RECOMMEND NIGHT LIGHTS 3. RECOMMEND WEARING RUBBER SOLED SHOES AND TO NOT GO BAREFOOT. 4.. ADVISED TO CHANGE POSITION SLOWLY FROM SUPINE TO STANDING TO AVOID DIZZINESS. 5. ADVISED TO USE ASSISTIVE DEVICE SUCH CANE OR WALKER 6. USE LIF[employer]INE SERVICES OR KEEP PORTABLE PHONE READILY AVAILABLE. PROCEDURE CODES FA211 ESTABILISHED PATIENT [facility] FACILITY CHARGE G3849 BP SCR PRFRM RCMDD DEFIND SCR INTVL G3185 PAIN ASSESS POS TOOL F/U PLAN DOC 3016F PT SCRND UNHLTHY [place] USE 1123F ACP DISCUSS/DSCN MKR DOCD 0518F FALL PLAN OF CARE DOCD G8427 DOC MEDS VERIFIED W/PT OR RE G8420 BMI<30 AND >=22 CALC & DOCU 3288F FALL RISK ASSESSMENT DOCD DISPOSITION & COMMUNICATION FOLLOW UP 2 MONTHS ELECTRONICALLY SIGNED BY BAO WILSON ON 11/14/2016 AT 05:16 PM EDT DISCLAIMER : THIS IS A VISIT SUMMARY EXTRACTED FROM THE [employer] CHART. IT IS NOT A COPY OF THE [employer] PROGRESS NOTE. MTDJordan
== END ==
LOC: M PAIN 11:00
PROVIDERS: ATTEND Nurse Practitioner Family
DX: M96.1 Postlaminectomy syndrome, not elsewhere classified (principal); M51.17 Intervertebral disc disorders with radiculopathy, lumbosacral region; G89.29 Other chronic pain; Z79.4 Long term (current) use of insulin; Z79.82 Long term (current) use of aspirin; Z79.84 Long term (current) use of oral hypoglycemic drugs; Z79.891 Long term (current) use of opiate analgesic; Z79.899 Other long term (current) drug therapy

== ENCOUNTER 2016-11-05 17:00 | Emergency (ER) | payer MEDICARE, OTHER ==
[~2016-11-05] VITALS: Ht 177.8 cm; Wt 84.0 kg
[~2016-11-05 17:00] MED LIST changes: -BACL10TA2 PO
[2016-11-05] MEDS ORDERED: BACL10TA2 PO (17:14)
[2016-11-05] MEDS ORDERED: MORPHINE 2 MG/ML 1ML SYRINGE IV PRN (19:30)
[2016-11-05] MEDS ORDERED: NS 1,000 ML IV ONE (19:30)
[2016-11-05] MEDS ORDERED: READI-CAT 2 PO ONE ×2 (19:50→20:50)
[2016-11-05 19:56] LABS: BASO % 0.4 % (0.0-1.0); EOS # 0.1 K/mm3 (0.0-0.50); EOS % 1.3 % (0.0-3.0); LARGE UNSTAINED CELL # 0.1 K/mm3 (0.0-0.4); LARGE UNSTAINED CELL % 0.8 % (0.0-4.0); LYMPH # 0.9 K/mm3 (1.5-4.5); LYMPH % 11.6 % (24.0-44.0); MEAN CORPUSCULAR HEMOGLOBIN 30.8 pg (27.0-33.0); MEAN CORPUSCULAR VOLUME 93.4 fl (80.0-96.0); MONO # 0.5 K/mm3 (0.0-0.8); MONO % 6.1 % (0.0-5.0); NEUTROPHILS # 6.2 K/mm3 (1.8-7.7); NEUTROPHILS % 79.8 % (36.0-66.0); PLATELET COUNT, AUTOMATED 178 k/mm3 (150-450); RED CELL DISTRIBUTION WIDTH 14.3 % (11.5-14.5); WHITE BLOOD COUNT 7.7 K/mm3 (4.0-10.0)
[2016-11-05 20:28] LABS: ALBUMIN 3.8 GM/DL (3.2-5.2); ALBUMIN/GLOBULIN RATIO 1.15 (1.00-1.93); ALKALINE PHOSPHATASE 137 U/L (45-117); ALT/SGPT 7 U/L (12-78); ANION GAP 7 MEQ/L (8-16); AST/SGOT 18 U/L (15-37); BILIRUBIN,DIRECT 0.2 MG/DL (0.0-0.2); BILIRUBIN,TOTAL 0.7 MG/DL (0.2-1.0); BLOOD UREA NITROGEN 22 MG/DL (7-18); CALCIUM LEVEL 8.9 MG/DL (8.8-10.2); CARBON DIOXIDE LEVEL 33 MEQ/L (21-32); CHLORIDE LEVEL 103 MEQ/L (98-107); GLOMERULAR FILTRATION RATE > 60.0 (>35); GLUCOSE, FASTING 89 MG/DL (83-110); POTASSIUM SERUM 4.2 MEQ/L (3.5-5.1); SODIUM LEVEL 143 MEQ/L (136-145); TOTAL PROTEIN 7.1 GM/DL (6.4-8.2)
--- NOTE | 2016-11-05 23:30 | REPUSA ---
CLINICAL HISTORY: Right lower quadrant pain. TECHNIQUE: CT abdomen and pelvis without contrast. Total DLP 617.4 mGy*cm COMPARISON: December 16, 2015. CT ABDOMEN WITHOUT CONTRAST: Lung bases: No lung base infiltrate or effusion. Coronary artery calcification. Calcified hilar lymph nodes and lower lobe nodules. Esophagus: Contrast in the esophagus may represent reflux. Small hiatal hernia. Liver: Decreased size may indicate cirrhosis. No intrahepatic ductal dilation. Gallbladder: Cholecystectomy. Pancreas: Severe atrophy. Small islands of pancreatic tissue versus lymph nodes are noted in the panc reatic beta. Bowel loops: Nondistended. Spleen: Normal size. Adrenals: Normal size. Right kidney: Nonobstructive 3 mm upper pole stone without hydronephrosis. Small parapelvic cysts. Left kidney: No stones or hydronephrosis. Small parapelvic cysts. Aorta: Normal caliber. Peritoneum: No free air. Lumbar spine: Severe spondylotic changes at multiple levels with mild levoscoliosis. Right L4 laminec [place]. CT PELVIS WITHOUT CONTRAST: Colon: Multiple colonic diverticula without evidence of diverticulitis. There is a 7.5 cm stool ball in the rectum. Appendix: Normal appendix is seen. Bladder: Normally distended. Pelvic organs: Prostate 5 cm diameter. Peritoneum: No fluid. Inguinal: Fat is noted within both inguinal canals. IMPRESSION: 1. No acute abdominal findings to explain right lower quadrant symptoms. Normal appendix. 2. Diverticulosis without CT evidence of diverticulitis. 3. Small hiatal hernia with evidence of barium reflux. 4. Right nephrolithiasis without evidence of ureteral stones or hydronephrosis. 5. Mild prostatomegaly. 6. Severe lumbar spondylosis with levoscoliosis.
[2016-11-05] MEDS: FLEET ENEMA PR PRN ×2 (23:50→23:51)
[2016-11-06] MEDS ORDERED: traMADol 50 MG TAB PO ONE (00:30)
[2016-11-06] MEDS ORDERED: MIRA3350 PO (00:33)
[2016-11-06 00:47] VITALS: BP 193/92
== END 2016-11-06 00:53 | disposition home or self-care (01) ==
LOC: M ED 17:00
DX: K59.00 Constipation, unspecified (principal); R14.2 Eructation; E11.9 Type 2 diabetes mellitus without complications; K57.92 Diverticulitis of intestine, part unspecified, without perforation or abscess without bleeding; G20 Parkinson's disease; K44.9 Diaphragmatic hernia without obstruction or gangrene; N40.0 Benign prostatic hyperplasia without lower urinary tract symptoms; M54.9 Dorsalgia, unspecified; Z95.5 Presence of coronary angioplasty implant and graft; Z91.041 Radiographic dye allergy status; Z79.899 Other long term (current) drug therapy; Z79.82 Long term (current) use of aspirin; Z79.4 Long term (current) use of insulin; Z79.52 Long term (current) use of systemic steroids

== ENCOUNTER → 2016-11-30 | Outpatient (REF) | payer MEDICARE, OTHER ==
[~2016-11-30] MED LIST changes: +BACL10TA2 PO
[2016-11-30 13:03] LABS: ALBUMIN 3.2 GM/DL (3.2-5.2); ALBUMIN/GLOBULIN RATIO 1.03 (1.00-1.93); ALKALINE PHOSPHATASE 151 U/L (45-117); ALT/SGPT 26 U/L (12-78); ANION GAP 5 MEQ/L (8-16); AST/SGOT 14 U/L (15-37); BILIRUBIN,TOTAL 0.4 MG/DL (0.2-1.0); BLOOD UREA NITROGEN 23 MG/DL (7-18); CALCIUM LEVEL 8.1 MG/DL (8.8-10.2); CARBON DIOXIDE LEVEL 33 MEQ/L (21-32); CHLORIDE LEVEL 104 MEQ/L (98-107); CREATININE FOR GFR 1.09 MG/DL (0.70-1.30); GLOMERULAR FILTRATION RATE > 60.0 (>35); GLUCOSE, FASTING 132 MG/DL (83-110); POTASSIUM SERUM 4.5 MEQ/L (3.5-5.1); SODIUM LEVEL 142 MEQ/L (136-145); TOTAL PROTEIN 6.3 GM/DL (6.4-8.2)
== END ==
LOC: M SFHCPLAZ 09:44
PROVIDERS: ATTEND Internal Medicine
DX: E11.29 Type 2 diabetes mellitus with other diabetic kidney complication (principal); M35.3 Polymyalgia rheumatica; E03.9 Hypothyroidism, unspecified

== ENCOUNTER → 2017-01-02 | Outpatient (CLI) | payer MEDICARE, OTHER ==
--- NOTE | 2017-01-22 01:57 | ECWPNPC ---
PATIENT NAME: JUAN PABLO NARANJO : 1935 GENDER: MALE VISIT DATE: 01/02/2017 DISCHARGE DATE: 01/02/17 1219 VISIT LOCKED DATE TIME: PHYSICIAN: ROSHAN GONZALEZ RESOURCE: ROSHAN GONZALEZ REASON FOR APPOINTMENT 1. MEDS HISTORY OF PRESENT ILLNESS HISTORY OF PRESENT ILLNESS: HERE FOR F/U AND MANAGEMENT OF CHRONIC LOW BACK PAIN. RATING PAIN VAS 8/10.REPORTS INTERMITTENT LOWER EXTREMITY WEAKNESS THAT CAUSES HIM TO GO TO HIS KNEES.THIS IS UNPREDICTABLE AND CAN HAPPEN WALKING SHORT DISTANCE OR LONG DISTANCE.HAS SEEN NEUROLOGY HERE LOCALLY WELL IN [place].HAS HX OF PARKINSONS SYNDROME.STARTED BACLOFEN 10MG TIDBHAS BEEN VERY HELPFUL AT REDUCING SEVERE MUSCLE SPASM PAIN.CURRENTLY TAKING LYRICA 100MG TID,BACLOFEN 10MG TAB TID AND TRAMADOL 50MG TID.CONTINUES WITH SIGNIFICANT AMOUNT OF PAIN BUT OVERALL DOING BETTER WITH THIS REGIMEN. PAIN THE PATIENT DESCRIBES THE PAIN... THE PATIENT DESCRIBES THE PAIN... THE PATIENT DESCRIBES THE PAIN... THE PATIENT DESCRIBES THE PAIN... THE PATIENT DESCRIBES THE PAIN... FALL RISK SCREENING: SCREENING :NO FALLS IN THE PAST YEAR CURRENT MEDICATIONS TAKING FLONASE 50 MCG/DOSE INHALER 2 SPRAYS IN EACH NOSTRIL NASALLY ONCE DAILY NEEDED TAKING PRILOSEC 20 MG CAPSULE DELAYED RELEASE 1 CAPSULE ORALLY ONCE A DAY TAKING TYLENOL EXTRA STRENGTH 500 MG TABLET 1 TABLET NEEDED ORALLY EVERY 8 HRS NEEDED TAKING MAG-OX 400 400 MG TABLET 2 TABS ORALLY TWICE DAILY TAKING ASPIR-81 81 MG TABLET DELAYED RELEASE 1 TABLET ORALLY ONCE A DAY TAKING LEVEMIR FLEXTOUCH 100 UNIT/ML SOLUTION PEN-INJECTOR 18 UNITS SUBCUTANEOUS TWICE DAILY. DX:E11.9 TAKING SYNTHROID 137 MCG TABLET 1 TABLET EVERY MORNING ON AN EMPTY STOMACH ORALLY ONCE A DAY TAKING SINEMET 25-100 MG TABLET 3 TABLETS ORALLY THREE TIMES A DAY TAKING TRAMADOL HCL 50 MG TABLET 1 ORALLY Q 4-6H PRN MDD4, NOTES: TAKES ABOUT 3 OR 4 DAILY TAKING LYRICA 100 MG CAPSULE 1 CAPSULE ORALLY THREE TIMES DAILY TAKING BLOOD GLUCOSE TEST - STRIP DIRECTED IN VITRO, DX: E11.9 ONE TOUCH ULTRA BLUE--TEST GLUCOSES 4 TIMES A DAY AND NEEDED TAKING FLOMAX 0.4 MG CAPSULE EXTENDED RELEASE 24 HOUR 1 CAPSULE 30 MINUTES AFTER THE SAME MEAL EACH DAY ORALLY ONCE A DAY TAKING HUMALOG KWIKPEN 100 UNIT/ML SOLUTION INJECTION SUBCUTANEOUS PER SS THREE TIMES A DAY MDD 25 UNITS TAKING PREDNISONE 5 MG TABLET 1 TAB ORALLY ONCE DAILY TAKING BACLOFEN 10 MG TABLET 1 TABLET WITH FOOD OR MILK ORALLY TID NOT-TAKING CHLORTHALIDONE 25 MG TABLET 1/2 TABLET IN THE MORNING ORALLY ONCE A DAY MEDICATION LIST REVIEWED AND RECONCILED WITH THE PATIENT PAST MEDICAL HISTORY DIABETES HIGH BLOOD PRESSURE THYROID CARDIAC CATH PARKINSON'S DISEASE DIABETES ALLERGIES N.K.D.A. SOCIAL HISTORY GENERAL: TOBACCO USE ARE YOU A: NONSMOKER . ALCOHOL SCREENING HOW OFTEN DID YOU HAVE A DRINK CONTAINING ALCOHOL IN THE PAST YEAR? MONTHLY OR LESS (1 POINT) , DID YOU HAVE A DRINK CONTAINING ALCOHOL IN THE PAST YEAR? YES , POINTS 0 , INTERPRETATION NEGATIVE . RECREATIONAL DRUG USE DRUG USE? NO . CAFFEINE CAFFEINE USE?YES HOW OFTEN AND HOW MUCH? 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 MARITAL STATUS: . ZOROASTRIANISM NO ISLAM BELIEFS THAT WOULD IMPACT HEALTH CARE. LANGUAGE ZAMBIAN. 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 REVIEW OF SYSTEMS REVIEWED BY: PROVIDER: ROSHAN GORE . CONSTITUTIONAL: ANY CHANGE IN YOUR MEDICAL CONDITION? NO . CHILLS NO . FEVER NO . INFECTION: DO YOU HAVE NEW INFECTIONS? NO . DO YOU HAVE HISTORY OF MRSA? NO . MUSCULOSKELETAL: ANY NEW PATTERNS OF PAIN OR NUMBNESS? NO . GASTROENTEROLOGY: ANY NEW CHANGE IN BOWEL CONTROL? NO . GENITOURINARY: ANY NEW CHANGE IN BLADDER CONTROL? NO . IS THERE A CHANCE YOU COULD BE ? NO . HEMATOLOGY/LYMPH: DO YOU TAKE ANY BLOOD THINNERS? (FOR EXAMPLE- COUMADIN, PLAVIX, AGGRENOX, PLATEL, PRADAXA, OR XARELTO) NO . WHEN WAS YOUR LAST DOSE? DATE: TIME: . NEUROLOGY: HAVE YOU FALLEN IN THE PAST 6 MONTHS? NO, BUT LOSES BALANCE. BEEN HAVING PROBLEMS WITH EARS AND SEES ENT NEXT WEEK . ANY NEW EXTREMITY NUMBNESS OR WEAKNESS? NO . CARDIOLOGY: DO YOU HAVE A PACEMAKER OR DEFIBRILLATOR? NO . RESPIRATORY: HAVE YOU BEEN SICK IN THE PAST WEEK? NO . FEVER NO . FLU LIKE SYMPTOMS? NO . COUGH NO . INTEGUMENTARY: DO YOU HAVE ANY RASHES OR OPEN SORES? NO . ALLERGIC/IMMUNO: ARE YOU ALLERGIC TO SHELLFISH OR IV DYE? NO . ANY NEW ALLERGIES? NO . PSYCHIATRIC: DO YOU HAVE THOUGHTS OF HURTING YOURSELF OR SOMEONE ELSE? NO . ARE YOU ABUSED, NEGLECTED, OR IN AN UNSAFE ENVIRONMENT? NO . ENDOCRINOLOGY: ARE YOU DIABETIC? YES . OTHER: DO YOU NEED ANY PRESCRIPTIONS? YES . IF YES, PLEASE LIST: LYRICA . ANY NEW PROBLEMS WITH YOUR MEDICATIONS? NO . WHEN DID YOU LAST EAT? ____ . WHEN DID YOU LAST DRINK? ____ . WHAT DID YOU LAST DRINK? ____ . NAME OF PERSON DRIVING YOU HOME? ____ . DO YOU HAVE ANY OTHER QUESTIONS OR CONCERNS NO . VITAL SIGNS WT 192.0 LBS, HT 70 IN, BMI 27.55 INDEX, BP 125/60 MM HG, HR 78 /MIN, RR 18 /MIN, TEMP 98.8 F, OXYGEN SAT % 94%, NA INITIALS AW 1147, REVIEWED BY: CS. EXAMINATION GENERAL EXAMINATION: LUNGS:LUNG SOUNDS ARE CLEAR. HEART:HEART RATE REGULAR. MUSCULOSKELETAL:*, MUSCLE STRENGTH TESTING 3/5 RIGHT LOWER EXTREMITY.4/5 LEFT LOWER EXTREMITY. , PALPATION: NEGATIVE FOR PAIN OVER L/S SPINE. NEGATIVE FOR PAIN OVER L/S PARASPINALS.NORMAL SENSATION LIGHT TOUCH LOWER EXTREMITIES.. DIAGNOSTIC:MRI L/S SPINE-REVIEWED. ASSESSMENTS POSTLAMINECTOMY SYNDROME, NOT ELSEWHERE CLASSIFIED - M96.1 (PRIMARY) INTERVERTEBRAL DISC DISORDERS WITH RADICULOPATHY, LUMBOSACRAL REGION - M51.17 TREATMENT POSTLAMINECTOMY SYNDROME, NOT ELSEWHERE CLASSIFIED REFILL TRAMADOL HCL TABLET, 50 MG, 1, ORALLY, Q 4-6H PRN MDD4, 30 DAY(S), 120, REFILLS 2, NOTES: TAKES ABOUT 3 OR 4 DAILY REFILL LYRICA CAPSULE, 100 MG, 1 CAPSULE, ORALLY, THREE TIMES DAILY, 30 DAY(S), 90, REFILLS 2 CONTINUE BACLOFEN TABLET, 10 MG, 1 TABLET WITH FOOD OR MILK, ORALLY, TID, 30 DAYS, 90 TABLET, REFILLS 2 PROCEDURE CODES FA211 ESTABILISHED PATIENT [facility] CHARGE G8730 PAIN ASSESS POS TOOL F/U PLAN DOC G8427 DOC MEDS VERIFIED W/PT OR RE DISPOSITION & COMMUNICATION FOLLOW UP 3 MONTHS ELECTRONICALLY SIGNED BY BAO WILSON ON 01/21/2017 AT 09:00 AM EDT DISCLAIMER : THIS IS A VISIT SUMMARY EXTRACTED FROM THE [employer] CHART. IT IS NOT A COPY OF THE [employer] PROGRESS NOTE. DEANDRED
== END ==
LOC: M PAIN 10:45
PROVIDERS: ATTEND Nurse Practitioner Family
DX: G89.29 Other chronic pain (principal); M96.1 Postlaminectomy syndrome, not elsewhere classified; M51.17 Intervertebral disc disorders with radiculopathy, lumbosacral region; E11.9 Type 2 diabetes mellitus without complications; G20 Parkinson's disease; Z79.4 Long term (current) use of insulin; Z79.52 Long term (current) use of systemic steroids; Z79.899 Other long term (current) drug therapy

== ENCOUNTER → 2017-01-03 | Outpatient (CLI) | payer MEDICARE, OTHER ==
--- NOTE | 2017-01-03 16:01 | REP ---
CT Head without contrast HISTORY: Headache COMPARISON: 11/05/2013 Areas of decreased attenuation are present in the periventricular white matter. This represents small-vessel ischemic disease. There is no intraparenchymal hemorrhage, acute infarct, mass or midline shift. The ventricular system and cortical sulci are dilated consistent with minimal volume loss. There is no extra cerebral collection. There is no fracture. A diffuse heterogeneous mixed density is present in the calvarium. This may represent Paget's disease. The calvarium is minimally thickened. The visualized sinuses are clear. IMPRESSION: 1. Small vessel ischemic disease. 2. Minimal volume loss. Signed by Fabiano Celestin MD 01/03/2017 03:53 P
[2017-01-03 16:45] LABS: BASO % 0.2 % (0.0-1.0); EOS # 0.1 10^3/uL (0.0-0.50); EOS % 0.3 % (0.0-3.0); IMMATURE GRANULOCYTE % 0.4 % (0-0); LYMPH # 0.9 10^3/uL (1.5-4.5); LYMPH % 5.6 % (24.0-44.0); MEAN CORPUSCULAR HEMOGLOBIN 30.6 pg (27.0-33.0); MEAN CORPUSCULAR VOLUME 95.8 fl (80.0-96.0); MONO # 0.7 10^3/uL (0.0-0.8); MONO % 4.4 % (0.0-5.0); NEUTROPHILS # 13.9 10^3/uL (1.8-7.7); NEUTROPHILS % 89.1 % (36.0-66.0); PLATELET COUNT, AUTOMATED 150 10^3/uL (150-450); RED CELL DISTRIBUTION WIDTH 13.9 % (11.5-14.5); WHITE BLOOD COUNT 15.6 10^3/uL (4.0-10.0)
[2017-01-03 16:53] LABS: ADD MORPHOLOGY? NO
[2017-01-03 17:03] LABS: ALBUMIN 3.2 GM/DL (3.2-5.2); ALBUMIN/GLOBULIN RATIO 1.1 (1.00-1.93); BILIRUBIN,TOTAL 0.7 MG/DL (0.2-1.0); CALCIUM LEVEL 8.2 MG/DL (8.8-10.2); CREATININE FOR GFR 1.26 MG/DL (0.70-1.30); GLOMERULAR FILTRATION RATE 58.6 (>35); POTASSIUM SERUM 4.4 MEQ/L (3.5-5.1); TOTAL PROTEIN 6.1 GM/DL (6.4-8.2)
== END ==
LOC: M LAB 15:08
PROVIDERS: ATTEND Physician Assistant
DX: S00.83XA Contusion of other part of head, initial encounter (principal); R51 Headache; R50.9 Fever, unspecified; I73.9 Peripheral vascular disease, unspecified; G93.9 Disorder of brain, unspecified; X58.XXXA Exposure to other specified factors, initial encounter; Y92.9 Unspecified place or not applicable; Y93.9 Activity, unspecified; Y99.9 Unspecified external cause status

== ENCOUNTER → 2017-01-04 | Outpatient (REF) | payer MEDICARE, OTHER ==
[2017-01-04 19:38] LABS: BASO % 0.3 % (0.0-1.0); EOS # 0.1 10^3/uL (0.0-0.50); EOS % 0.9 % (0.0-3.0); IMMATURE GRANULOCYTE % 0.3 % (0-0); LYMPH # 0.8 10^3/uL (1.5-4.5); MEAN CORPUSCULAR HEMOGLOBIN 30.3 pg (27.0-33.0); MEAN CORPUSCULAR HGB CONC 31.6 g/dl (32.0-36.5); MONO # 0.8 10^3/uL (0.0-0.8); MONO % 6.7 % (0.0-5.0); NEUTROPHILS # 9.5 10^3/uL (1.8-7.7); NEUTROPHILS % 84.8 % (36.0-66.0); PLATELET COUNT, AUTOMATED 146 10^3/uL (150-450); RED CELL DISTRIBUTION WIDTH 13.8 % (11.5-14.5); WHITE BLOOD COUNT 11.2 10^3/uL (4.0-10.0)
[2017-01-04 20:07] LABS: ERYTHROCYTE SEDIMENTATION RATE 7 mm/hr (0-20)
== END ==
LOC: M SFHCPLAZ 15:48
PROVIDERS: ATTEND Family Medicine
DX: D72.829 Elevated white blood cell count, unspecified (principal); R74.8 Abnormal levels of other serum enzymes; G44.52 New daily persistent headache (NDPH)
CPT/HCPCS: 81002; 84075; 85025; 85652; 86140; G0463

== ENCOUNTER → 2017-01-07 | Outpatient (REF) | payer MEDICARE, OTHER | LOC: M SFHCPLAZ 12:39 | PROVIDERS: ATTEND Family Medicine | DX: G44.52 New daily persistent headache (NDPH) (principal) | CPT/HCPCS: 36415; 86140; G0463 ==

== ENCOUNTER → 2017-01-11 | Outpatient (CLI) | payer MEDICARE, OTHER ==
--- NOTE | 2017-01-11 11:06 | REP ---
MR BRAIN WITHOUT CONTRAST: HISTORY: Headache. COMPARISON: 05/13/2015 Areas of increased signal intensity on T2-weighted images are present in the periventricular and subcortical white matter. This represents small vessel ischemic disease. There is no intraparenchymal hemorrhage, infarct, mass or midline shift. The ventricular system and cortical sulci are dilated consistent with minimal volume loss. There is no extracerebral collection. The sinuses are clear. IMPRESSION: 1. Small vessel ischemic disease. 2. Minimal volume loss. Signed by Fabiano Celestin MD 01/11/2017 11:28 A
== END ==
LOC: M RAD 09:57
PROVIDERS: ATTEND Family Medicine
DX: G44.52 New daily persistent headache (NDPH) (principal); I73.9 Peripheral vascular disease, unspecified

== ENCOUNTER 2017-03-10 14:53 | Emergency (ER) | payer MEDICARE, OTHER ==
[~2017-03-10] VITALS: Ht 170.2 cm; Wt 81.8 kg
[2017-03-10 15:56] LABS: BASO % 0.3 % (0.0-1.0); EOS # 0.1 10^3/uL (0.0-0.50); EOS % 1.6 % (0.0-3.0); IMMATURE GRANULOCYTE % 0.3 % (0-0); LYMPH # 0.7 10^3/uL (1.5-4.5); LYMPH % 9.1 % (24.0-44.0); MEAN CORPUSCULAR HEMOGLOBIN 29.8 pg (27.0-33.0); MEAN CORPUSCULAR HGB CONC 31.8 g/dl (32.0-36.5); MEAN CORPUSCULAR VOLUME 93.7 fl (80.0-96.0); MONO # 0.6 10^3/uL (0.0-0.8); MONO % 7.6 % (0.0-5.0); NEUTROPHILS # 6.5 10^3/uL (1.8-7.7); NEUTROPHILS % 81.1 % (36.0-66.0); PLATELET COUNT, AUTOMATED 143 10^3/uL (150-450); RED CELL DISTRIBUTION WIDTH 14.3 % (11.5-14.5)
[2017-03-10 16:08] LABS: ALBUMIN 3.1 GM/DL (3.2-5.2); ALBUMIN/GLOBULIN RATIO 0.82 (1.00-1.93); BILIRUBIN,DIRECT 0.1 MG/DL (0.0-0.2); BILIRUBIN,TOTAL 0.6 MG/DL (0.2-1.0); CALCIUM LEVEL 8.1 MG/DL (8.8-10.2); CREATININE FOR GFR 1.62 MG/DL (0.70-1.30); GLOMERULAR FILTRATION RATE 43.9 (>35); POTASSIUM SERUM 4.5 MEQ/L (3.5-5.1); TOTAL PROTEIN 6.9 GM/DL (6.4-8.2)
[2017-03-10] MEDS ORDERED: NS 1,000 ML IV ONE (18:00)
[2017-03-10 18:48] VITALS: BP 176/84
--- NOTE | 2017-03-11 07:35 | REP ---
REASON FOR EXAM: Trauma. COMPARISON: 01/03/2017, which showed no acute disease. Today's exam is unchanged from the prior exam. There is small vessel ischemic disease and minimal volume loss status quo. There is no change in the ventricles or sulci. There is no change in the deep white matter. There are no extra-axial fluid collections. There is no shift of the midline structures. There is no change in the appearance of the skull. The imaged paranasal sinuses and mastoid air cells are unchanged. IMPRESSION: No acute intracranial pathology. Stable exam and findings as described above. Signed by Poncho Ojeda DO 03/11/2017 02:06 P
[2017-03-11] MEDS ORDERED: PREG100CA PO (18:58)
[2017-03-11] MEDS ORDERED: MIRA3350 PO (18:58)
[2017-03-11] MEDS ORDERED: BOTO10VL IM (19:14)
[2017-03-11] MEDS ORDERED: VITMTA PO (19:14)
[2017-03-11] MEDS ORDERED: COLA100C5 PO (19:14)
[2017-03-11] MEDS ORDERED: LEVE1INJ5 SC (19:22)
== END 2017-03-10 19:07 | disposition home or self-care (01) ==
LOC: M ED 14:53
DX: G20 Parkinson's disease (principal); R26.89 Other abnormalities of gait and mobility; I25.10 Atherosclerotic heart disease of native coronary artery without angina pectoris; E11.9 Type 2 diabetes mellitus without complications; I10 Essential (primary) hypertension; Z95.5 Presence of coronary angioplasty implant and graft; Z79.4 Long term (current) use of insulin; Z79.899 Other long term (current) drug therapy; Z79.52 Long term (current) use of systemic steroids; Z79.82 Long term (current) use of aspirin; Z91.041 Radiographic dye allergy status; Z88.8 Allergy status to other drugs, medicaments and biological substances

== ENCOUNTER 2017-03-11 13:43 | Inpatient (IN) | payer MEDICARE, OTHER ==
[2017-03-11 14:58] LABS: BASO % 0.4 % (0.0-1.0); EOS % 0.1 % (0.0-3.0); HEMATOCRIT 42.5 % (42.0-52.0); HEMOGLOBIN 13.5 g/dl (14.0-18.0); IMMATURE GRANULOCYTE % 0.4 % (0-0); LYMPH # 0.3 10^3/uL (1.5-4.5); LYMPH % 4.5 % (24.0-44.0); MEAN CORPUSCULAR HEMOGLOBIN 29.3 pg (27.0-33.0); MEAN CORPUSCULAR HGB CONC 31.8 g/dl (32.0-36.5); MEAN CORPUSCULAR VOLUME 92.2 fl (80.0-96.0); MONO # 0.3 10^3/uL (0.0-0.8); MONO % 3.6 % (0.0-5.0); NEUTROPHILS # 6.9 10^3/uL (1.8-7.7); PLATELET COUNT, AUTOMATED 121 10^3/uL (150-450); RED BLOOD COUNT 4.61 10^6/uL (4.30-6.10); RED CELL DISTRIBUTION WIDTH 14.5 % (11.5-14.5); WHITE BLOOD COUNT 7.6 10^3/uL (4.0-10.0)
[2017-03-11 15:04] LABS: ANION GAP 6 MEQ/L (8-16); BLOOD UREA NITROGEN 44 MG/DL (7-18); CARBON DIOXIDE LEVEL 30 MEQ/L (21-32); CHLORIDE LEVEL 103 MEQ/L (98-107); CREATININE FOR GFR 1.64 MG/DL (0.70-1.30); GLOMERULAR FILTRATION RATE 43.2 (>35); GLUCOSE, FASTING 330 MG/DL (83-110); SODIUM LEVEL 139 MEQ/L (136-145)
[2017-03-11 15:11] LABS: POTASSIUM SERUM 5.5 MEQ/L (3.5-5.1)
[2017-03-11] MEDS: NS 500 ML IV (15:21)
[2017-03-11 15:40] LABS: ESTIMATED AVERAGE GLUCOSE 160 MG/DL (60-110); HEMOGLOBIN A1c 7.2 %
[2017-03-11] MEDS: SINEMET 25-100 MG TAB PO ×2 (16:41→22:43)
[2017-03-11 16:54] LABS: BEDSIDE GLUCOSE 264 MG/DL (83-110)
[2017-03-11] MEDS: LORazepam 2 MG/ML VIAL (J2060) IV (18:50)
[2017-03-11 19:09] LABS: ANION GAP 8 MEQ/L (8-16); BLOOD UREA NITROGEN 42 MG/DL (7-18); CALCIUM LEVEL 7.7 MG/DL (8.8-10.2); CARBON DIOXIDE LEVEL 27 MEQ/L (21-32); CHLORIDE LEVEL 106 MEQ/L (98-107); CREATININE FOR GFR 1.63 MG/DL (0.70-1.30); GLOMERULAR FILTRATION RATE 43.6 (>35); GLUCOSE, FASTING 330 MG/DL (83-110); SODIUM LEVEL 141 MEQ/L (136-145)
[2017-03-11 19:18] LABS: POTASSIUM SERUM 5.7 MEQ/L (3.5-5.1)
[2017-03-11] MEDS ORDERED: DEXTROSE 50% 50 ML SYRINGE IV (20:15)
[2017-03-11] MEDS ORDERED: GLUCAGON FOR INJ 1 MG VIAL (J1610) SC (20:15)
[2017-03-11] MEDS ORDERED: GLUCOSE 4 GM CHEW TABLET PO (20:15)
[2017-03-11 20:30] LABS: MAGNESIUM LEVEL 2.7 MG/DL (1.8-2.4)
[2017-03-11 22:19] LABS: BEDSIDE GLUCOSE 277 MG/DL (83-110)
[2017-03-11] MEDS: TAMSULOSIN 0.4 MG CAP PO (22:41)
[2017-03-11] MEDS: traMADol 50 MG TAB PO (22:42)
[2017-03-11] MEDS: PREGABALIN 100 MG CAP (LYRICA) PO (22:42)
[2017-03-11] MEDS: LEVEMIR (INSULIN DETEMIR) 1 UNITS/0.01ML SC (22:43)
[2017-03-11] MEDS: MAGNESIUM OXIDE 400 MG TAB (MAG-OX) PO (22:43)
[2017-03-11] MEDS: ENOXAPARIN 30 MG/0.3 ML SYR (J1650) SC (22:44)
[2017-03-11] MEDS: HumaLOG INSULIN (NovoLOG) PER UNIT SC (22:54)
[2017-03-11] MEDS: POLYVINYL ALCOHOL OPHTH SOLN 15 ML(LIQUITEARS) OU ×2 (22:55→23:19)
[2017-03-12] MEDS: POLYVINYL ALCOHOL OPHTH SOLN 15 ML(LIQUITEARS) OU ×11 (02:16→20:33)
[2017-03-12] MEDS: LEVOTHYROXINE 137MCG TABLET (0.137MG) PO (06:22)
[2017-03-12 06:46] LABS: HEMATOCRIT 37.6 % (42.0-52.0); HEMOGLOBIN 12.1 g/dl (14.0-18.0); MEAN CORPUSCULAR HEMOGLOBIN 29.4 pg (27.0-33.0); MEAN CORPUSCULAR HGB CONC 32.2 g/dl (32.0-36.5); MEAN CORPUSCULAR VOLUME 91.3 fl (80.0-96.0); PLATELET COUNT, AUTOMATED 119 10^3/uL (150-450); RED BLOOD COUNT 4.12 10^6/uL (4.30-6.10); RED CELL DISTRIBUTION WIDTH 14.5 % (11.5-14.5); WHITE BLOOD COUNT 6.4 10^3/uL (4.0-10.0)
[2017-03-12 07:03] LABS: ALBUMIN 2.6 GM/DL (3.2-5.2); ALKALINE PHOSPHATASE 104 U/L (45-117); ALT/SGPT < 6 U/L (12-78); ANION GAP 4 MEQ/L (8-16); AST/SGOT 12 U/L (7-37); BILIRUBIN,TOTAL 0.6 MG/DL (0.2-1.0); BLOOD UREA NITROGEN 44 MG/DL (7-18); CALCIUM LEVEL 7.5 MG/DL (8.8-10.2); CARBON DIOXIDE LEVEL 31 MEQ/L (21-32); CHLORIDE LEVEL 107 MEQ/L (98-107); CREATININE FOR GFR 1.59 MG/DL (0.70-1.30); GLOMERULAR FILTRATION RATE 44.8 (>35); GLUCOSE, FASTING 200 MG/DL (83-110); MAGNESIUM LEVEL 2.8 MG/DL (1.8-2.4); POTASSIUM SERUM 4.7 MEQ/L (3.5-5.1); SODIUM LEVEL 142 MEQ/L (136-145); TOTAL PROTEIN 5.5 GM/DL (6.4-8.2)
[2017-03-12] MEDS: MIRALAX *UNIT DOSE* 17GM PACKET PO (08:10)
[2017-03-12] MEDS: MAGNESIUM OXIDE 400 MG TAB (MAG-OX) PO ×2 (08:10→20:31)
[2017-03-12] MEDS: SINEMET 25-100 MG TAB PO ×3 (08:10→20:32)
[2017-03-12] MEDS: DOCUSATE SODIUM 100 MG CAP PO (08:11)
[2017-03-12] MEDS: predniSONE 5 MG TAB PO (08:11)
[2017-03-12] MEDS: OMEPRAZOLE 20 MG CAP PO (08:11)
[2017-03-12] MEDS: ASPIRIN 81 MG ENTERIC TAB PO (08:11)
[2017-03-12] MEDS: MULTIVITAMINS/MINERALS THERAP 1 TAB PO (08:11)
[2017-03-12] MEDS: traMADol 50 MG TAB PO ×3 (08:11→20:31)
[2017-03-12] MEDS: PREGABALIN 100 MG CAP (LYRICA) PO (08:11)
[2017-03-12] MEDS: HumaLOG INSULIN (NovoLOG) PER UNIT SC ×4 (08:12→21:00)
[2017-03-12 12:30] LABS: BEDSIDE GLUCOSE 110 MG/DL (83-110)
[2017-03-12 12:34] LABS: AMMONIA 12 uMOL/L (<32)
[2017-03-12] MEDS: NS 1,000 ML IV (12:48)
[2017-03-12 12:55] LABS: FREE THYROXINE INDEX 3.2 % (1.4-3.8); T UPTAKE 38 % (33-40); THYROXINE (T4) 8.4 UG/DL (4.5-12.0)
[2017-03-12 16:30] LABS: BEDSIDE GLUCOSE 153 MG/DL (83-110)
[2017-03-12 17:44] LABS: BEDSIDE GLUCOSE 166 MG/DL (83-110)
[2017-03-12 18:08] LABS: AMORPHOUS SEDIMENT SMALL (NEGATIVE); APPEARANCE, URINE HAZY (CLEAR); BACTERIA, URINE AUTO 1+ (NEGATIVE); BILIRUBIN, URINE AUTO NEGATIVE (NEGATIVE); BLOOD, URINE BLOOD 2+ (NEGATIVE); COLOR, URINE YELLOW (YELLOW); GLUCOSE, URINE (UA) AUTO NEGATIVE (NEGATIVE); KETONE, URINE AUTO NEGATIVE (NEGATIVE); LEUKOCYTE ESTERASE, URINE AUTO NEGATIVE (NEGATIVE); NITRITE, URINE AUTO NEGATIVE (NEGATIVE); PROTEIN, URINE AUTO 2+ mg/dL (NEGATIVE); RBC, URINE AUTO 12 /HPF (0-3); SPECIFIC GRAVITY URINE AUTO 1.005 (1.002-1.035); SQUAMOUS EPITHELIAL CELL UR AU 1 /HPF (0-6); UROBILINOGEN, URINE AUTO 0.2 mg/dL (0.0-2.0); WBC, URINE AUTO 1 /HPF (0-3)
[2017-03-12 20:24] LABS: BEDSIDE GLUCOSE 243 MG/DL (83-110)
[2017-03-12] MEDS: ENOXAPARIN 30 MG/0.3 ML SYR (J1650) SC (20:30)
[2017-03-12] MEDS: TAMSULOSIN 0.4 MG CAP PO (20:32)
[2017-03-13] MEDS: POLYVINYL ALCOHOL OPHTH SOLN 15 ML(LIQUITEARS) OU ×13 (01:00→23:00)
[2017-03-13] MEDS: LEVOTHYROXINE 137MCG TABLET (0.137MG) PO (05:41)
[2017-03-13 07:09] LABS: HEMATOCRIT 40.1 % (42.0-52.0); HEMOGLOBIN 12.9 g/dl (14.0-18.0); MEAN CORPUSCULAR HEMOGLOBIN 29.7 pg (27.0-33.0); MEAN CORPUSCULAR HGB CONC 32.2 g/dl (32.0-36.5); MEAN CORPUSCULAR VOLUME 92.2 fl (80.0-96.0); PLATELET COUNT, AUTOMATED 116 10^3/uL (150-450); RED BLOOD COUNT 4.35 10^6/uL (4.30-6.10); RED CELL DISTRIBUTION WIDTH 14.3 % (11.5-14.5); WHITE BLOOD COUNT 6.7 10^3/uL (4.0-10.0)
[2017-03-13 07:29] LABS: ALBUMIN 2.9 GM/DL (3.2-5.2); ALBUMIN/GLOBULIN RATIO 0.88 (1.00-1.93); ALKALINE PHOSPHATASE 112 U/L (45-117); ALT/SGPT 7 U/L (12-78); ANION GAP 7 MEQ/L (8-16); AST/SGOT 22 U/L (7-37); BILIRUBIN,TOTAL 0.7 MG/DL (0.2-1.0); BLOOD UREA NITROGEN 44 MG/DL (7-18); CARBON DIOXIDE LEVEL 30 MEQ/L (21-32); CHLORIDE LEVEL 100 MEQ/L (98-107); CREATININE FOR GFR 1.54 MG/DL (0.70-1.30); GLOMERULAR FILTRATION RATE 46.5 (>35); GLUCOSE, FASTING 270 MG/DL (83-110); SODIUM LEVEL 137 MEQ/L (136-145); TOTAL PROTEIN 6.2 GM/DL (6.4-8.2)
[2017-03-13] MEDS: MAGNESIUM OXIDE 400 MG TAB (MAG-OX) PO ×2 (08:09→21:54)
[2017-03-13] MEDS: MULTIVITAMINS/MINERALS THERAP 1 TAB PO (08:09)
[2017-03-13] MEDS: SINEMET 25-100 MG TAB PO ×3 (08:09→21:54)
[2017-03-13] MEDS: HumaLOG INSULIN (NovoLOG) PER UNIT SC ×4 (08:09→21:00)
[2017-03-13] MEDS: DOCUSATE SODIUM 100 MG CAP PO (08:09)
[2017-03-13] MEDS: MIRALAX *UNIT DOSE* 17GM PACKET PO (08:09)
[2017-03-13] MEDS: ASPIRIN 81 MG ENTERIC TAB PO (08:10)
[2017-03-13] MEDS: PREGABALIN 50 MG CAP (LYRICA) PO ×2 (08:10→21:54)
[2017-03-13] MEDS: traMADol 50 MG TAB PO (08:10)
[2017-03-13] MEDS: OMEPRAZOLE 20 MG CAP PO (08:10)
[2017-03-13] MEDS: predniSONE 5 MG TAB PO (08:11)
[2017-03-13 10:51] LABS: BEDSIDE GLUCOSE 145 MG/DL (83-110)
[2017-03-13 10:51] LABS: BEDSIDE GLUCOSE 186 MG/DL (83-110)
[2017-03-13] MEDS: ENOXAPARIN 30 MG/0.3 ML SYR (J1650) SC (21:52)
[2017-03-13] MEDS: QUEtiapine FUMARATE 12.5 MG HALF-TAB PO (21:53)
[2017-03-13] MEDS: TAMSULOSIN 0.4 MG CAP PO (21:53)
[2017-03-14] MEDS: POLYVINYL ALCOHOL OPHTH SOLN 15 ML(LIQUITEARS) OU ×12 (01:00→23:00)
[2017-03-14 01:29] LABS: BEDSIDE GLUCOSE 218 MG/DL (83-110)
[2017-03-14] MEDS: LEVOTHYROXINE 137MCG TABLET (0.137MG) PO (05:53)
[2017-03-14 06:35] LABS: BEDSIDE GLUCOSE 150 MG/DL (83-110)
[2017-03-14 06:35] LABS: BEDSIDE GLUCOSE 209 MG/DL (83-110)
[2017-03-14 06:44] LABS: HEMATOCRIT 39.9 % (42.0-52.0); HEMOGLOBIN 12.7 g/dl (14.0-18.0); MEAN CORPUSCULAR HEMOGLOBIN 29.3 pg (27.0-33.0); MEAN CORPUSCULAR HGB CONC 31.8 g/dl (32.0-36.5); MEAN CORPUSCULAR VOLUME 91.9 fl (80.0-96.0); PLATELET COUNT, AUTOMATED 105 10^3/uL (150-450); RED BLOOD COUNT 4.34 10^6/uL (4.30-6.10); RED CELL DISTRIBUTION WIDTH 14.4 % (11.5-14.5); WHITE BLOOD COUNT 6.3 10^3/uL (4.0-10.0)
[2017-03-14 09:54] LABS: ALBUMIN 2.6 GM/DL (3.2-5.2); ALBUMIN/GLOBULIN RATIO 0.87 (1.00-1.93); ALKALINE PHOSPHATASE 109 U/L (45-117); ALT/SGPT 7 U/L (12-78); ANION GAP 7 MEQ/L (8-16); AST/SGOT 17 U/L (7-37); BILIRUBIN,TOTAL 0.6 MG/DL (0.2-1.0); BLOOD UREA NITROGEN 43 MG/DL (7-18); CALCIUM LEVEL 7.6 MG/DL (8.8-10.2); CARBON DIOXIDE LEVEL 27 MEQ/L (21-32); CHLORIDE LEVEL 104 MEQ/L (98-107); CREATININE FOR GFR 1.48 MG/DL (0.70-1.30); GLOMERULAR FILTRATION RATE 48.6 (>35); GLUCOSE, FASTING 225 MG/DL (83-110); POTASSIUM SERUM 4.9 MEQ/L (3.5-5.1); SODIUM LEVEL 138 MEQ/L (136-145); TOTAL PROTEIN 5.6 GM/DL (6.4-8.2)
[2017-03-14] MEDS: MIRALAX *UNIT DOSE* 17GM PACKET PO (10:03)
[2017-03-14] MEDS: DOCUSATE SODIUM 100 MG CAP PO (10:04)
[2017-03-14] MEDS: OMEPRAZOLE 20 MG CAP PO (10:04)
[2017-03-14] MEDS: SINEMET 25-100 MG TAB PO ×2 (10:04→15:05)
[2017-03-14] MEDS: MAGNESIUM OXIDE 400 MG TAB (MAG-OX) PO ×2 (10:04→21:42)
[2017-03-14] MEDS: predniSONE 5 MG TAB PO (10:04)
[2017-03-14] MEDS: ASPIRIN 81 MG ENTERIC TAB PO (10:04)
[2017-03-14] MEDS: MULTIVITAMINS/MINERALS THERAP 1 TAB PO (10:04)
[2017-03-14] MEDS: HumaLOG INSULIN (NovoLOG) PER UNIT SC ×4 (10:05→21:00)
[2017-03-14 10:07] LABS: BEDSIDE GLUCOSE 319 MG/DL (83-110)
[2017-03-14 11:57] LABS: BEDSIDE GLUCOSE 180 MG/DL (83-110)
[2017-03-14 16:59] LABS: BEDSIDE GLUCOSE 98 MG/DL (83-110)
[2017-03-14] MEDS: traMADol 50 MG TAB PO (17:04)
[2017-03-14 21:01] LABS: BEDSIDE GLUCOSE 174 MG/DL (83-110)
[2017-03-14] MEDS: TAMSULOSIN 0.4 MG CAP PO (21:42)
[2017-03-14] MEDS: QUEtiapine FUMARATE 25 MG TAB PO (21:42)
[2017-03-14] MEDS: ENOXAPARIN 30 MG/0.3 ML SYR (J1650) SC (21:43)
[2017-03-15] MEDS: POLYVINYL ALCOHOL OPHTH SOLN 15 ML(LIQUITEARS) OU ×12 (01:00→23:00)
[2017-03-15] MEDS: LEVOTHYROXINE 137MCG TABLET (0.137MG) PO (05:21)
[2017-03-15 07:32] LABS: BEDSIDE GLUCOSE 175 MG/DL (83-110)
[2017-03-15 08:00] LABS: HEMATOCRIT 39.9 % (42.0-52.0); HEMOGLOBIN 12.8 g/dl (14.0-18.0); MEAN CORPUSCULAR HEMOGLOBIN 29.4 pg (27.0-33.0); MEAN CORPUSCULAR HGB CONC 32.1 g/dl (32.0-36.5); MEAN CORPUSCULAR VOLUME 91.7 fl (80.0-96.0); PLATELET COUNT, AUTOMATED 104 10^3/uL (150-450); RED BLOOD COUNT 4.35 10^6/uL (4.30-6.10); RED CELL DISTRIBUTION WIDTH 14.7 % (11.5-14.5); WHITE BLOOD COUNT 6.4 10^3/uL (4.0-10.0)
[2017-03-15 08:22] LABS: ALBUMIN 2.6 GM/DL (3.2-5.2); ALBUMIN/GLOBULIN RATIO 0.87 (1.00-1.93); ALKALINE PHOSPHATASE 103 U/L (45-117); ALT/SGPT 10 U/L (12-78); ANION GAP 7 MEQ/L (8-16); AST/SGOT 18 U/L (7-37); BILIRUBIN,TOTAL 0.7 MG/DL (0.2-1.0); BLOOD UREA NITROGEN 40 MG/DL (7-18); CALCIUM LEVEL 7.7 MG/DL (8.8-10.2); CARBON DIOXIDE LEVEL 27 MEQ/L (21-32); CHLORIDE LEVEL 106 MEQ/L (98-107); CREATININE FOR GFR 1.53 MG/DL (0.70-1.30); GLOMERULAR FILTRATION RATE 46.7 (>35); GLUCOSE, FASTING 210 MG/DL (83-110); SODIUM LEVEL 140 MEQ/L (136-145); TOTAL PROTEIN 5.6 GM/DL (6.4-8.2)
[2017-03-15 08:27] LABS: POTASSIUM SERUM 5.3 MEQ/L (3.5-5.1)
[2017-03-15] MEDS: HumaLOG INSULIN (NovoLOG) PER UNIT SC ×4 (08:59→20:32)
[2017-03-15] MEDS: ASPIRIN 81 MG ENTERIC TAB PO (09:00)
[2017-03-15] MEDS: SINEMET 25-100 MG TAB PO ×3 (09:00→16:59)
[2017-03-15] MEDS: OMEPRAZOLE 20 MG CAP PO (09:00)
[2017-03-15] MEDS: MULTIVITAMINS/MINERALS THERAP 1 TAB PO (09:00)
[2017-03-15] MEDS: DOCUSATE SODIUM 100 MG CAP PO (09:00)
[2017-03-15] MEDS: predniSONE 5 MG TAB PO (09:00)
[2017-03-15] MEDS: MAGNESIUM OXIDE 400 MG TAB (MAG-OX) PO ×2 (09:00→20:32)
[2017-03-15] MEDS: MIRALAX *UNIT DOSE* 17GM PACKET PO (09:00)
[2017-03-15] MEDS: traMADol 50 MG TAB PO ×2 (09:36→20:33)
[2017-03-15 12:14] LABS: BEDSIDE GLUCOSE 176 MG/DL (83-110)
[2017-03-15] MEDS: NS 750 ML IV (13:15)
[2017-03-15 16:55] LABS: BEDSIDE GLUCOSE 149 MG/DL (83-110)
[2017-03-15 20:30] LABS: BEDSIDE GLUCOSE 237 MG/DL (83-110)
[2017-03-15] MEDS: QUEtiapine FUMARATE 50 MG TAB PO (20:32)
[2017-03-15] MEDS: TAMSULOSIN 0.4 MG CAP PO (20:32)
[2017-03-15] MEDS: ENOXAPARIN 30 MG/0.3 ML SYR (J1650) SC (20:33)
[2017-03-15] MEDS: diphenhydrAMINE INJ 50MG/ML VIAL (J1200) IM (21:31)
[2017-03-16] MEDS: POLYVINYL ALCOHOL OPHTH SOLN 15 ML(LIQUITEARS) OU ×12 (01:20→23:00)
[2017-03-16] MEDS: LEVOTHYROXINE 137MCG TABLET (0.137MG) PO (05:15)
[2017-03-16 07:08] LABS: HEMATOCRIT 36.7 % (42.0-52.0); HEMOGLOBIN 11.9 g/dl (14.0-18.0); MEAN CORPUSCULAR HEMOGLOBIN 29.9 pg (27.0-33.0); MEAN CORPUSCULAR HGB CONC 32.4 g/dl (32.0-36.5); MEAN CORPUSCULAR VOLUME 92.2 fl (80.0-96.0); PLATELET COUNT, AUTOMATED 107 10^3/uL (150-450); RED BLOOD COUNT 3.98 10^6/uL (4.30-6.10); RED CELL DISTRIBUTION WIDTH 14.8 % (11.5-14.5); WHITE BLOOD COUNT 6.3 10^3/uL (4.0-10.0)
[2017-03-16 07:35] LABS: ALBUMIN 2.5 GM/DL (3.2-5.2); ALBUMIN/GLOBULIN RATIO 0.83 (1.00-1.93); ALKALINE PHOSPHATASE 97 U/L (45-117); ALT/SGPT 11 U/L (12-78); ANION GAP 3 MEQ/L (8-16); AST/SGOT 19 U/L (7-37); BILIRUBIN,TOTAL 0.7 MG/DL (0.2-1.0); BLOOD UREA NITROGEN 38 MG/DL (7-18); CALCIUM LEVEL 7.7 MG/DL (8.8-10.2); CARBON DIOXIDE LEVEL 31 MEQ/L (21-32); CHLORIDE LEVEL 106 MEQ/L (98-107); CREATININE FOR GFR 1.42 MG/DL (0.70-1.30); GLOMERULAR FILTRATION RATE 50.9 (>35); GLUCOSE, FASTING 218 MG/DL (83-110); SODIUM LEVEL 140 MEQ/L (136-145); TOTAL PROTEIN 5.5 GM/DL (6.4-8.2)
[2017-03-16] MEDS: predniSONE 5 MG TAB PO (08:20)
[2017-03-16] MEDS: OMEPRAZOLE 20 MG CAP PO (08:20)
[2017-03-16] MEDS: methylPREDNISolone INJ 125 MG/2 ML VIAL (J2930) IV (08:20)
[2017-03-16] MEDS: ASPIRIN 81 MG ENTERIC TAB PO (08:21)
[2017-03-16] MEDS: DOCUSATE SODIUM 100 MG CAP PO (08:21)
[2017-03-16] MEDS: MULTIVITAMINS/MINERALS THERAP 1 TAB PO (08:21)
[2017-03-16] MEDS: MAGNESIUM OXIDE 400 MG TAB (MAG-OX) PO ×2 (08:21→21:10)
[2017-03-16] MEDS: SINEMET 25-100 MG TAB PO ×3 (08:21→18:05)
[2017-03-16] MEDS: HumaLOG INSULIN (NovoLOG) PER UNIT SC ×4 (08:22→20:59)
[2017-03-16 11:45] LABS: BEDSIDE GLUCOSE 127 MG/DL (83-110)
[2017-03-16] MEDS: MIRALAX *UNIT DOSE* 17GM PACKET PO (12:00)
[2017-03-16] MEDS: QUEtiapine FUMARATE 25 MG TAB PO (15:14)
[2017-03-16 17:27] LABS: BEDSIDE GLUCOSE 236 MG/DL (83-110)
[2017-03-16 20:54] LABS: BEDSIDE GLUCOSE 224 MG/DL (83-110)
[2017-03-16] MEDS: traMADol 50 MG TAB PO (21:09)
[2017-03-16] MEDS: TAMSULOSIN 0.4 MG CAP PO (21:09)
[2017-03-16] MEDS: QUEtiapine FUMARATE 100 MG TAB PO (21:10)
[2017-03-16] MEDS: ENOXAPARIN 30 MG/0.3 ML SYR (J1650) SC (21:10)
[2017-03-16] MEDS ORDERED: LORazepam 1 MG TAB PO (22:00)
[2017-03-16] MEDS ORDERED: LORazepam 1 MG TAB As Ordered (22:10)
[2017-03-16] MEDS: LORazepam 1 MG TAB PO (22:45)
[2017-03-16] MEDS: LORazepam 2 MG/ML VIAL (J2060) IV ×2 (22:46→23:06)
[2017-03-17] MEDS ORDERED: LORazepam 2 MG/ML VIAL (J2060) IV (00:30)
[2017-03-17] MEDS: POLYVINYL ALCOHOL OPHTH SOLN 15 ML(LIQUITEARS) OU ×12 (01:00→23:00)
[2017-03-17] MEDS: OLANZapine INTRAMUSCULAR 10 MG VIAL (S0166) IM (02:59)
[2017-03-17 05:54] LABS: HEMATOCRIT 35.6 % (42.0-52.0); HEMOGLOBIN 11.4 g/dl (14.0-18.0); MEAN CORPUSCULAR HEMOGLOBIN 29.6 pg (27.0-33.0); MEAN CORPUSCULAR VOLUME 92.5 fl (80.0-96.0); PLATELET COUNT, AUTOMATED 129 10^3/uL (150-450); RED BLOOD COUNT 3.85 10^6/uL (4.30-6.10); RED CELL DISTRIBUTION WIDTH 14.9 % (11.5-14.5); WHITE BLOOD COUNT 8.6 10^3/uL (4.0-10.0)
[2017-03-17] MEDS: LEVOTHYROXINE 137MCG TABLET (0.137MG) PO (05:56)
[2017-03-17 06:23] LABS: ALBUMIN 2.6 GM/DL (3.2-5.2); ALBUMIN/GLOBULIN RATIO 0.87 (1.00-1.93); ALKALINE PHOSPHATASE 94 U/L (45-117); ALT/SGPT 9 U/L (12-78); ANION GAP 4 MEQ/L (8-16); AST/SGOT 18 U/L (7-37); BILIRUBIN,TOTAL 0.5 MG/DL (0.2-1.0); BLOOD UREA NITROGEN 40 MG/DL (7-18); CALCIUM LEVEL 7.2 MG/DL (8.8-10.2); CARBON DIOXIDE LEVEL 31 MEQ/L (21-32); CHLORIDE LEVEL 106 MEQ/L (98-107); CREATININE FOR GFR 1.76 MG/DL (0.70-1.30); GLOMERULAR FILTRATION RATE 39.8 (>35); GLUCOSE, FASTING 320 MG/DL (83-110); SODIUM LEVEL 141 MEQ/L (136-145); TOTAL PROTEIN 5.6 GM/DL (6.4-8.2)
[2017-03-17 06:25] LABS: POTASSIUM SERUM 5.7 MEQ/L (3.5-5.1)
[2017-03-17] MEDS: HumaLOG INSULIN (NovoLOG) PER UNIT SC ×4 (07:30→21:00)
[2017-03-17] MEDS: SOD POLYSTYRENE SULFONATE SUSP 15 GM/60 ML UD PO ×2 (07:30→08:05)
[2017-03-17] MEDS: NS 1,000 ML IV ×2 (08:05→22:22)
[2017-03-17] MEDS: CALCIUM GLUCONATE 1,000 MG in D5W MINI-BAG PLUS 100 ML IV (08:05)
[2017-03-17] MEDS: predniSONE 5 MG TAB PO (09:00)
[2017-03-17] MEDS: MAGNESIUM OXIDE 400 MG TAB (MAG-OX) PO ×2 (09:00→20:51)
[2017-03-17] MEDS: QUEtiapine FUMARATE 25 MG TAB PO (09:00)
[2017-03-17] MEDS: ASPIRIN 81 MG ENTERIC TAB PO (09:00)
[2017-03-17] MEDS: SINEMET 25-100 MG TAB PO ×3 (09:00→16:18)
[2017-03-17] MEDS: DOCUSATE SODIUM 100 MG CAP PO (09:00)
[2017-03-17] MEDS: MIRALAX *UNIT DOSE* 17GM PACKET PO (09:00)
[2017-03-17] MEDS: OMEPRAZOLE 20 MG CAP PO (09:00)
[2017-03-17] MEDS: MULTIVITAMINS/MINERALS THERAP 1 TAB PO (09:00)
[2017-03-17 09:03] LABS: ABG BASE EXCESS -0.4 (-2.0-2.0); ABG HCO3 23.9 MEQ/L (22.0-26.0); ABG O2 SATURATION 93.2 % (95.0-99.0); ABG PARTIAL PRESSURE CO2 37.8 mmHg (35.0-45.0); ABG PARTIAL PRESSURE O2 67.9 mmHg (75.0-100.0); ABG STANDARD HCO3 24.1 MEQ/L (22.0-26.0); ABG pH (ARTERIAL) 7.418 UNITS (7.350-7.450)
[2017-03-17 09:10] LABS: AMMONIA 12 uMOL/L (<32)
[2017-03-17 12:02] LABS: BEDSIDE GLUCOSE 121 MG/DL (83-110)
[2017-03-17] MEDS: LORazepam 2 MG/ML VIAL (J2060) IV (12:03)
[2017-03-17 18:08] LABS: BEDSIDE GLUCOSE 123 MG/DL (83-110)
[2017-03-17] MEDS: OLANZapine 2.5MG TABLET PO (20:51)
[2017-03-17] MEDS: TAMSULOSIN 0.4 MG CAP PO (20:51)
[2017-03-17] MEDS: QUEtiapine FUMARATE 50 MG TAB PO (20:51)
[2017-03-17 22:12] LABS: BEDSIDE GLUCOSE 171 MG/DL (83-110)
[2017-03-17] MEDS: ENOXAPARIN 30 MG/0.3 ML SYR (J1650) SC (22:22)
[2017-03-18] MEDS: POLYVINYL ALCOHOL OPHTH SOLN 15 ML(LIQUITEARS) OU ×12 (01:00→23:00)
[2017-03-18] MEDS: LEVOTHYROXINE 137MCG TABLET (0.137MG) PO (05:51)
[2017-03-18 06:15] LABS: HEMATOCRIT 38.5 % (42.0-52.0); HEMOGLOBIN 12.3 g/dl (14.0-18.0); MEAN CORPUSCULAR HEMOGLOBIN 29.9 pg (27.0-33.0); MEAN CORPUSCULAR HGB CONC 31.9 g/dl (32.0-36.5); MEAN CORPUSCULAR VOLUME 93.7 fl (80.0-96.0); PLATELET COUNT, AUTOMATED 121 10^3/uL (150-450); RED BLOOD COUNT 4.11 10^6/uL (4.30-6.10); RED CELL DISTRIBUTION WIDTH 15.4 % (11.5-14.5); WHITE BLOOD COUNT 11.2 10^3/uL (4.0-10.0)
[2017-03-18 06:39] LABS: ALBUMIN 2.5 GM/DL (3.2-5.2); ALBUMIN/GLOBULIN RATIO 0.81 (1.00-1.93); ALKALINE PHOSPHATASE 95 U/L (45-117); ALT/SGPT 23 U/L (12-78); ANION GAP 6 MEQ/L (8-16); AST/SGOT 32 U/L (7-37); BILIRUBIN,TOTAL 0.8 MG/DL (0.2-1.0); BLOOD UREA NITROGEN 39 MG/DL (7-18); CALCIUM LEVEL 7.8 MG/DL (8.8-10.2); CARBON DIOXIDE LEVEL 27 MEQ/L (21-32); CHLORIDE LEVEL 110 MEQ/L (98-107); CREATININE FOR GFR 1.55 MG/DL (0.70-1.30); GLUCOSE, FASTING 200 MG/DL (83-110); POTASSIUM SERUM 4.8 MEQ/L (3.5-5.1); SODIUM LEVEL 143 MEQ/L (136-145); TOTAL PROTEIN 5.6 GM/DL (6.4-8.2)
[2017-03-18] MEDS: predniSONE 5 MG TAB PO (08:13)
[2017-03-18] MEDS: DOCUSATE SODIUM 100 MG CAP PO (08:13)
[2017-03-18] MEDS: OMEPRAZOLE 20 MG CAP PO (08:13)
[2017-03-18] MEDS: MIRALAX *UNIT DOSE* 17GM PACKET PO (08:13)
[2017-03-18] MEDS: MULTIVITAMINS/MINERALS THERAP 1 TAB PO (08:13)
[2017-03-18] MEDS: ASPIRIN 81 MG ENTERIC TAB PO (08:13)
[2017-03-18] MEDS: SINEMET 25-100 MG TAB PO ×3 (08:13→17:00)
[2017-03-18] MEDS: QUEtiapine FUMARATE 50 MG TAB PO ×2 (08:14→21:00)
[2017-03-18] MEDS: MAGNESIUM OXIDE 400 MG TAB (MAG-OX) PO (08:14)
[2017-03-18] MEDS: NS 1,000 ML IV ×2 (08:15→21:33)
[2017-03-18] MEDS: HumaLOG INSULIN (NovoLOG) PER UNIT SC ×4 (08:16→20:53)
[2017-03-18 10:54] LABS: THYROID PEROXIDASE ANTIBODY 70.3 U/ML (<60.0)
[2017-03-18 10:55] LABS: THYROGLOBULIN ANTIBODY < 15.0 U/ML (<60.0)
[2017-03-18 12:07] LABS: BEDSIDE GLUCOSE 132 MG/DL (83-110)
[2017-03-18 18:37] LABS: BEDSIDE GLUCOSE 179 MG/DL (83-110)
[2017-03-18] MEDS: OLANZapine 2.5MG TABLET PO (21:00)
[2017-03-18] MEDS: ENOXAPARIN 30 MG/0.3 ML SYR (J1650) SC (21:00)
[2017-03-18] MEDS: TAMSULOSIN 0.4 MG CAP PO (21:00)
[2017-03-18 21:45] LABS: BEDSIDE GLUCOSE 170 MG/DL (83-110)
[2017-03-19 00:19] LABS: HIV SCREEN CENTAUR SOURCE NEGATIVE (NEGATIVE)
[2017-03-19] MEDS: POLYVINYL ALCOHOL OPHTH SOLN 15 ML(LIQUITEARS) OU ×12 (01:00→23:00)
[2017-03-19] MEDS: LEVOTHYROXINE 137MCG TABLET (0.137MG) PO (05:59)
[2017-03-19] MEDS: ACETAMINOPHEN TAB 650MG DOSE (2X325MG) PO ×2 (05:59→21:04)
[2017-03-19 06:23] LABS: MAGNESIUM LEVEL 2.9 MG/DL (1.8-2.4)
[2017-03-19] MEDS: MIRALAX *UNIT DOSE* 17GM PACKET PO (08:35)
[2017-03-19] MEDS: DOCUSATE SODIUM 100 MG CAP PO (08:35)
[2017-03-19] MEDS: OMEPRAZOLE 20 MG CAP PO (08:35)
[2017-03-19] MEDS: predniSONE 5 MG TAB PO (08:35)
[2017-03-19] MEDS: MULTIVITAMINS/MINERALS THERAP 1 TAB PO (08:35)
[2017-03-19] MEDS: QUEtiapine FUMARATE 50 MG TAB PO ×2 (08:35→21:04)
[2017-03-19] MEDS: SINEMET 25-100 MG TAB PO ×3 (08:35→17:00)
[2017-03-19] MEDS: ASPIRIN 81 MG ENTERIC TAB PO (08:35)
[2017-03-19] MEDS: NS 1,000 ML IV (08:36)
[2017-03-19] MEDS: HumaLOG INSULIN (NovoLOG) PER UNIT SC ×4 (08:36→20:57)
[2017-03-19 11:40] LABS: BEDSIDE GLUCOSE 275 MG/DL (83-110)
[2017-03-19 11:40] LABS: BEDSIDE GLUCOSE 266 MG/DL (83-110)
[2017-03-19 11:46] LABS: BEDSIDE GLUCOSE 189 MG/DL (83-110)
[2017-03-19 13:30] LABS: BASO % 0.1 % (0.0-1.0); EOS # 0.1 10^3/uL (0.0-0.50); EOS % 1.7 % (0.0-3.0); HEMATOCRIT 36.2 % (42.0-52.0); HEMOGLOBIN 11.4 g/dl (14.0-18.0); IMMATURE GRANULOCYTE % 0.3 % (0-0); LYMPH # 0.3 10^3/uL (1.5-4.5); LYMPH % 4.8 % (24.0-44.0); MEAN CORPUSCULAR HEMOGLOBIN 29.8 pg (27.0-33.0); MEAN CORPUSCULAR HGB CONC 31.5 g/dl (32.0-36.5); MEAN CORPUSCULAR VOLUME 94.5 fl (80.0-96.0); MONO # 0.6 10^3/uL (0.0-0.8); MONO % 8.4 % (0.0-5.0); NEUTROPHILS # 6.1 10^3/uL (1.8-7.7); NEUTROPHILS % 84.7 % (36.0-66.0); RED BLOOD COUNT 3.83 10^6/uL (4.30-6.10); RED CELL DISTRIBUTION WIDTH 15.8 % (11.5-14.5); WHITE BLOOD COUNT 7.2 10^3/uL (4.0-10.0)
[2017-03-19 13:49] LABS: ALBUMIN 2.4 GM/DL (3.2-5.2); ALBUMIN/GLOBULIN RATIO 0.89 (1.00-1.93); ALKALINE PHOSPHATASE 88 U/L (45-117); ALT/SGPT 12 U/L (12-78); ANION GAP 7 MEQ/L (8-16); AST/SGOT 21 U/L (7-37); BILIRUBIN,TOTAL 0.7 MG/DL (0.2-1.0); BLOOD UREA NITROGEN 38 MG/DL (7-18); C REACTIVE PROTEIN QUANTITATIV 9.36 MG/DL (0.00-0.30); CARBON DIOXIDE LEVEL 30 MEQ/L (21-32); CHLORIDE LEVEL 111 MEQ/L (98-107); CREATININE FOR GFR 1.47 MG/DL (0.70-1.30); GLOMERULAR FILTRATION RATE 48.9 (>35); GLUCOSE, FASTING 214 MG/DL (83-110); POTASSIUM SERUM 4.6 MEQ/L (3.5-5.1); SODIUM LEVEL 148 MEQ/L (136-145); TOTAL PROTEIN 5.1 GM/DL (6.4-8.2); URIC ACID 7.8 MG/DL (3.5-7.2)
[2017-03-19 13:56] LABS: PLATELET COUNT, AUTOMATED 98 10^3/uL (150-450)
[2017-03-19 14:10] LABS: AMMONIA 15 uMOL/L (<32)
[2017-03-19 16:21] LABS: CSF RBC < 2 10^3/uL (<2)
[2017-03-19 16:22] LABS: APPEARANCE, CSF CLEAR (CLEAR); COLOR, CSF COLORLESS (COLORLESS); CSF DIFF IF INDICATED? NO (NO); CSF TUBE# CELL CNT TUBE 1; CSF WBC 9 /uL (0-10)
[2017-03-19 16:23] LABS: APPEARANCE, CSF CLEAR (CLEAR); COLOR, CSF COLORLESS (COLORLESS); CSF DIFF IF INDICATED? YES (NO); CSF RBC < 2 10^3/uL (<2); CSF TUBE# CELL CNT TUBE 2; CSF WBC 10 /uL (0-10)
[2017-03-19 16:31] LABS: CSF TUBE# GLU TUBE 2; CSF TUBE# TP TUBE 2; GLUCOSE CSF 129 MG/DL (40-75); TOTAL PROTEIN,CSF 99.8 MG/DL (15-45)
[2017-03-19 17:21] LABS: BEDSIDE GLUCOSE 250 MG/DL (83-110)
[2017-03-19] MEDS ORDERED: ACYCLOVIR 1,000 MG in D5W 250 ML IV (18:00)
[2017-03-19 18:32] LABS: APPEARANCE, URINE HAZY (CLEAR); BACTERIA, URINE AUTO NEGATIVE (NEGATIVE); BILIRUBIN, URINE AUTO NEGATIVE (NEGATIVE); BLOOD, URINE BLOOD 2+ (NEGATIVE); COLOR, URINE YELLOW (YELLOW); GLUCOSE, URINE (UA) AUTO 1+ mg/dL (NEGATIVE); KETONE, URINE AUTO 1+ mg/dL (NEGATIVE); LEUKOCYTE ESTERASE, URINE AUTO NEGATIVE (NEGATIVE); MUCUS, URINE SMALL (NEGATIVE); NITRITE, URINE AUTO NEGATIVE (NEGATIVE); PROTEIN, URINE AUTO 3+ mg/dL (NEGATIVE); RBC, URINE AUTO 11 /HPF (0-3); SPECIFIC GRAVITY URINE AUTO 1.022 (1.002-1.035); SQUAMOUS EPITHELIAL CELL UR AU 0 /HPF (0-6); UROBILINOGEN, URINE AUTO 0.2 mg/dL (0.0-2.0); WBC, URINE AUTO 4 /HPF (0-3)
[2017-03-19] MEDS: ACYCLOVIR 1,000 MG in D5W 250 ML IV (19:00)
[2017-03-19 20:57] LABS: BEDSIDE GLUCOSE 213 MG/DL (83-110)
[2017-03-19] MEDS: OLANZapine 2.5MG TABLET PO (21:04)
[2017-03-19] MEDS: TAMSULOSIN 0.4 MG CAP PO (21:04)
[2017-03-19] MEDS: ENOXAPARIN 30 MG/0.3 ML SYR (J1650) SC (21:05)
[2017-03-20] MEDS: POLYVINYL ALCOHOL OPHTH SOLN 15 ML(LIQUITEARS) OU ×12 (01:00→23:00)
[2017-03-20] MEDS: NS 1,000 ML IV (02:09)
[2017-03-20] MEDS: LEVOTHYROXINE 137MCG TABLET (0.137MG) PO (06:17)
[2017-03-20 06:25] LABS: HEMATOCRIT 37.4 % (42.0-52.0); HEMOGLOBIN 11.9 g/dl (14.0-18.0); MEAN CORPUSCULAR HEMOGLOBIN 29.8 pg (27.0-33.0); MEAN CORPUSCULAR HGB CONC 31.8 g/dl (32.0-36.5); MEAN CORPUSCULAR VOLUME 93.5 fl (80.0-96.0); PLATELET COUNT, AUTOMATED 107 10^3/uL (150-450); RED CELL DISTRIBUTION WIDTH 15.9 % (11.5-14.5); WHITE BLOOD COUNT 10.5 10^3/uL (4.0-10.0)
[2017-03-20 06:41] LABS: ANION GAP 10 MEQ/L (8-16); BLOOD UREA NITROGEN 38 MG/DL (7-18); CALCIUM LEVEL 6.8 MG/DL (8.8-10.2); CARBON DIOXIDE LEVEL 26 MEQ/L (21-32); CHLORIDE LEVEL 111 MEQ/L (98-107); CREATININE FOR GFR 1.59 MG/DL (0.70-1.30); GLOMERULAR FILTRATION RATE 44.7 (>35); GLUCOSE, FASTING 297 MG/DL (83-110); MAGNESIUM LEVEL 2.8 MG/DL (1.8-2.4); POTASSIUM SERUM 4.9 MEQ/L (3.5-5.1); SODIUM LEVEL 147 MEQ/L (136-145)
[2017-03-20] MEDS: ACYCLOVIR 1,000 MG in D5W 250 ML IV ×2 (07:33→18:58)
[2017-03-20] MEDS: HumaLOG INSULIN (NovoLOG) PER UNIT SC ×3 (07:51→16:59)
[2017-03-20] MEDS: DOCUSATE SODIUM 100 MG CAP PO (07:52)
[2017-03-20] MEDS: ASPIRIN 81 MG ENTERIC TAB PO (07:53)
[2017-03-20] MEDS: predniSONE 5 MG TAB PO (07:53)
[2017-03-20] MEDS: MULTIVITAMINS/MINERALS THERAP 1 TAB PO (07:53)
[2017-03-20] MEDS: QUEtiapine FUMARATE 50 MG TAB PO ×2 (07:53→22:29)
[2017-03-20] MEDS: SINEMET 25-100 MG TAB PO ×3 (07:53→16:58)
[2017-03-20] MEDS: OMEPRAZOLE 20 MG CAP PO (07:53)
[2017-03-20] MEDS: MIRALAX *UNIT DOSE* 17GM PACKET PO (07:53)
[2017-03-20 08:07] LABS: N-METHYL-D-ASPARTATE RECPT IGG <1:10 (<1:10)
[2017-03-20 11:19] LABS: HEPATITIS B SURFACE ANTIGEN NEGATIVE (NEGATIVE)
[2017-03-20 11:46] LABS: HEP C VIRUS AB INDEX SOURCE PT 0.1 INDEX (0.0-0.8)
[2017-03-20 13:07] LABS: BEDSIDE GLUCOSE 262 MG/DL (83-110)
[2017-03-20] MEDS: PIPERACILLIN/TAZOBACTAM SOD 3.375 GM in APPROPRIATE DILUENT 1 EA IV ×2 (13:44→17:00)
[2017-03-20] MEDS: ACETAMINOPHEN TAB 650MG DOSE (2X325MG) PO (16:58)
[2017-03-20 17:01] LABS: BEDSIDE GLUCOSE 201 MG/DL (83-110)
[2017-03-20] MEDS: IBUPROFEN 600 MG TAB PO (18:49)
[2017-03-20] MEDS: TAMSULOSIN 0.4 MG CAP PO (22:29)
[2017-03-20] MEDS: OLANZapine 2.5MG TABLET PO (22:29)
[2017-03-20] MEDS: ENOXAPARIN 30 MG/0.3 ML SYR (J1650) SC (22:30)
[2017-03-21 00:07] LABS: HSV-1 DNA Negative (Negative); HSV-2 DNA Negative (Negative)
[2017-03-21 00:08] LABS: BEDSIDE GLUCOSE 178 MG/DL (83-110)
[2017-03-21] MEDS: PIPERACILLIN/TAZOBACTAM SOD 3.375 GM in APPROPRIATE DILUENT 1 EA IV ×2 (00:14→06:00)
[2017-03-21] MEDS: POLYVINYL ALCOHOL OPHTH SOLN 15 ML(LIQUITEARS) OU ×12 (01:13→23:00)
[2017-03-21] MEDS: LEVOTHYROXINE 137MCG TABLET (0.137MG) PO (05:59)
[2017-03-21] MEDS: HumaLOG INSULIN (NovoLOG) PER UNIT SC ×4 (05:59→17:54)
[2017-03-21] MEDS: ACETAMINOPHEN TAB 650MG DOSE (2X325MG) PO (06:00)
[2017-03-21 06:07] LABS: BEDSIDE GLUCOSE 238 MG/DL (83-110)
[2017-03-21 06:57] LABS: HEMOGLOBIN 10.8 g/dl (14.0-18.0); MEAN CORPUSCULAR HEMOGLOBIN 29.6 pg (27.0-33.0); MEAN CORPUSCULAR HGB CONC 30.9 g/dl (32.0-36.5); MEAN CORPUSCULAR VOLUME 95.9 fl (80.0-96.0); PLATELET COUNT, AUTOMATED 101 10^3/uL (150-450); RED BLOOD COUNT 3.65 10^6/uL (4.30-6.10); RED CELL DISTRIBUTION WIDTH 16.5 % (11.5-14.5); WHITE BLOOD COUNT 12.9 10^3/uL (4.0-10.0)
[2017-03-21 07:15] LABS: ANION GAP 8 MEQ/L (8-16); BLOOD UREA NITROGEN 51 MG/DL (7-18); CALCIUM LEVEL 7.1 MG/DL (8.8-10.2); CARBON DIOXIDE LEVEL 28 MEQ/L (21-32); CHLORIDE LEVEL 111 MEQ/L (98-107); GLUCOSE, FASTING 258 MG/DL (83-110); MAGNESIUM LEVEL 2.8 MG/DL (1.8-2.4); SODIUM LEVEL 147 MEQ/L (136-145)
[2017-03-21 07:36] LABS: CREATININE FOR GFR 2.65 MG/DL (0.70-1.30); GLOMERULAR FILTRATION RATE 24.8 (>35)
[2017-03-21] MEDS: ACYCLOVIR 1,000 MG in D5W 250 ML IV (07:36)
[2017-03-21 07:37] LABS: POTASSIUM SERUM 5.2 MEQ/L (3.5-5.1)
[2017-03-21] MEDS: OMEPRAZOLE 20 MG CAP PO (09:00)
[2017-03-21] MEDS: DOCUSATE SODIUM 100 MG CAP PO (09:00)
[2017-03-21] MEDS: NS 1,000 ML IV (09:01)
[2017-03-21] MEDS: predniSONE 5 MG TAB PO (09:59)
[2017-03-21] MEDS: MIRALAX *UNIT DOSE* 17GM PACKET PO (09:59)
[2017-03-21] MEDS: SINEMET 25-100 MG TAB PO (09:59)
[2017-03-21] MEDS: MULTIVITAMINS/MINERALS THERAP 1 TAB PO (09:59)
[2017-03-21] MEDS: QUEtiapine FUMARATE 50 MG TAB PO (09:59)
[2017-03-21] MEDS: ASPIRIN 81 MG ENTERIC TAB PO (09:59)
[2017-03-21 11:36] LABS: OSMOLALITY URINE 480 MOSM/KG (500-800)
[2017-03-21] MEDS ORDERED: PIPERACILLIN/TAZOBACTAM SOD 2.25 GM in APPROPRIATE DILUENT 1 EA IV (12:00)
[2017-03-21] MEDS ORDERED: NS 0.45% 1,000 ML IV (12:15)
[2017-03-21 12:22] LABS: CHLORIDE,RANDOM URINE 23 MEQ/L; POTASSIUM RANDOM URINE 63.5 MEQ/L; SODIUM,RANDOM URINE 14 MEQ/L
[2017-03-21] MEDS ORDERED: GLUCOSE 4 GM CHEW TABLET NG (12:30)
[2017-03-21 12:40] LABS: TOTAL PROTEIN,RANDOM URINE 1135.1 MG/DL (0.0-12.0)
[2017-03-21] MEDS: D5W 1,000 ML IV (13:30)
[2017-03-21] MEDS: SINEMET 25-100 MG TAB NG ×2 (13:34→17:53)
[2017-03-21] MEDS: ACETAMINOPHEN 325 MG/10.15 ML UDC NG ×2 (13:38→22:07)
[2017-03-21] MEDS: PIPERACILLIN/TAZOBACTAM SOD 2.25 GM in APPROPRIATE DILUENT 1 EA IV ×2 (13:58→20:00)
[2017-03-21 17:13] LABS: BEDSIDE GLUCOSE 318 MG/DL (83-110)
[2017-03-21] MEDS: methylPREDNISolone INJ 125 MG/2 ML VIAL (J2930) IV ×2 (17:53→22:07)
[2017-03-21 20:41] LABS: ANION GAP 7 MEQ/L (8-16); BLOOD UREA NITROGEN 59 MG/DL (7-18); CALCIUM LEVEL 7.3 MG/DL (8.8-10.2); CARBON DIOXIDE LEVEL 28 MEQ/L (21-32); CHLORIDE LEVEL 108 MEQ/L (98-107); CREATININE FOR GFR 3.89 MG/DL (0.70-1.30); GLOMERULAR FILTRATION RATE 15.9 (>35); GLUCOSE, FASTING 288 MG/DL (83-110); POTASSIUM SERUM 4.9 MEQ/L (3.5-5.1); SODIUM LEVEL 143 MEQ/L (136-145)
[2017-03-21] MEDS: QUEtiapine FUMARATE 50 MG TAB NG (22:07)
[2017-03-21] MEDS: ENOXAPARIN 30 MG/0.3 ML SYR (J1650) SC (22:08)
[2017-03-21] MEDS: OLANZapine 2.5MG TABLET NG (22:11)
[2017-03-22] MEDS: POLYVINYL ALCOHOL OPHTH SOLN 15 ML(LIQUITEARS) OU ×12 (01:00→23:19)
[2017-03-22] MEDS: PIPERACILLIN/TAZOBACTAM SOD 2.25 GM in APPROPRIATE DILUENT 1 EA IV ×2 (02:52→08:49)
[2017-03-22] MEDS: HumaLOG INSULIN (NovoLOG) PER UNIT SC ×5 (02:52→23:19)
[2017-03-22 06:17] LABS: BEDSIDE GLUCOSE 410 MG/DL (83-110)
[2017-03-22] MEDS: LEVOTHYROXINE 137MCG TABLET (0.137MG) NG (06:31)
[2017-03-22] MEDS: D5W 1,000 ML IV (06:31)
[2017-03-22] MEDS: methylPREDNISolone INJ 125 MG/2 ML VIAL (J2930) IV ×4 (06:33→23:19)
[2017-03-22 06:42] LABS: HEMATOCRIT 36.2 % (42.0-52.0); HEMOGLOBIN 11.6 g/dl (14.0-18.0); MEAN CORPUSCULAR VOLUME 93.5 fl (80.0-96.0); PLATELET COUNT, AUTOMATED 119 10^3/uL (150-450); RED BLOOD COUNT 3.87 10^6/uL (4.30-6.10); RED CELL DISTRIBUTION WIDTH 16.6 % (11.5-14.5); WHITE BLOOD COUNT 15.6 10^3/uL (4.0-10.0)
[2017-03-22 07:04] LABS: ANION GAP 7 MEQ/L (8-16); BLOOD UREA NITROGEN 71 MG/DL (7-18); CALCIUM LEVEL 7.4 MG/DL (8.8-10.2); CARBON DIOXIDE LEVEL 27 MEQ/L (21-32); CHLORIDE LEVEL 105 MEQ/L (98-107); CREATININE FOR GFR 4.48 MG/DL (0.70-1.30); GLOMERULAR FILTRATION RATE 13.5 (>35); MAGNESIUM LEVEL 2.9 MG/DL (1.8-2.4); SODIUM LEVEL 139 MEQ/L (136-145)
[2017-03-22 07:06] LABS: GLUCOSE, FASTING 422 MG/DL (83-110)
[2017-03-22 07:07] LABS: POTASSIUM SERUM 5.2 MEQ/L (3.5-5.1)
[2017-03-22] MEDS: LANSOPRAZOLE SUSPENSION 30 MG/10 ML ORAL SYRINGE (FIRST-LANSOPRAZOLE) NG (08:49)
[2017-03-22] MEDS: MULTIVITAMIN/MINERALS LIQUID 15ML ORAL SYRINGE NG (08:49)
[2017-03-22] MEDS: ASPIRIN 81 MG CHEW TABLET NG (08:50)
[2017-03-22] MEDS: QUEtiapine FUMARATE 50 MG TAB NG (08:50)
[2017-03-22] MEDS: SINEMET 25-100 MG TAB NG ×3 (08:50→18:05)
[2017-03-22] MEDS: DOCUSATE SOD LIQ 100MG/10ML UDC NG (08:50)
[2017-03-22] MEDS: MIRALAX *UNIT DOSE* 17GM PACKET NG (08:50)
[2017-03-22] MEDS: FINASTERIDE 5 MG TAB NG (08:50)
[2017-03-22] MEDS: LEVEMIR (INSULIN DETEMIR) 1 UNITS/0.01ML SC (08:54)
[2017-03-22 08:57] LABS: BEDSIDE GLUCOSE 331 MG/DL (83-110)
[2017-03-22] MEDS: CHLORHEXIDINE ORAL RINSE 0.12%/15ML 120ML BOTTLE MT ×3 (09:00→21:04)
[2017-03-22] MEDS ORDERED: predniSONE 5 MG TAB NG (09:00)
[2017-03-22 09:37] LABS: WBC, URINE 20-30 /hpf (0-3)
[2017-03-22 09:39] LABS: RBC, URINE 15-20 /hpf (0-3); SQUAMOUS EPITHELIAL CELL URINE SMALL AMOUNT /hpf (SMALL AMT)
[2017-03-22 09:40] LABS: RENAL EPITHELIAL CELLS, URINE SMALL AMOUNT /hpf
[2017-03-22 09:42] LABS: AMORPHOUS SEDIMENT, URINE MOD AMOUNT (NEGATIVE); BACTERIA, URINE SMALL AMOUNT; HYALINE CAST, URINE NONE SEEN /lpf (0-1); MICROSCOPIC EXAM PERFORMED; MUCUS, URINE SMALL AMOUNT (NEGATIVE); SPERM, URINE MOD AMOUNT
[2017-03-22] MEDS: NS 0.45% 1,000 ML IV (09:50)
[2017-03-22 11:26] LABS: BEDSIDE GLUCOSE 346 MG/DL (83-110)
[2017-03-22] MEDS: VANCOMYCIN HCL 1,000 MG, VIAL MATE ADAPTER 1 EACH in D5W 250 ML IV (12:09)
[2017-03-22] MEDS ORDERED: VANCOMYCIN INTERMITTENT/PULSE DOSING BY CLINICAL PHARMACIST PER DOSING PROTOCOL XX (14:00)
[2017-03-22 14:04] LABS: VOLTAGE-GATED POTASSIUM CHANNE SEE SEPARATE REPORT
[2017-03-22 14:05] LABS: BEDSIDE GLUCOSE 323 MG/DL (83-110)
[2017-03-22 14:29] LABS: ANION GAP 9 MEQ/L (8-16); BLOOD UREA NITROGEN 79 MG/DL (7-18); CALCIUM LEVEL 7.5 MG/DL (8.8-10.2); CARBON DIOXIDE LEVEL 25 MEQ/L (21-32); CHLORIDE LEVEL 107 MEQ/L (98-107); CREATININE FOR GFR 5.01 MG/DL (0.70-1.30); GLOMERULAR FILTRATION RATE 11.9 (>35); GLUCOSE, FASTING 270 MG/DL (83-110); POTASSIUM SERUM 4.8 MEQ/L (3.5-5.1); SODIUM LEVEL 141 MEQ/L (136-145)
[2017-03-22] MEDS ORDERED: HYDROmorphone HCL 1 MG/ML SYRINGE (J1170) IV (15:45)
[2017-03-22] MEDS: HYDROmorphone HCL 1 MG/ML SYRINGE (J1170) IV ×2 (15:51→21:04)
[2017-03-22] MEDS: MEROPENEM INJ 500 MG in APPROPRIATE DILUENT 1 EA IV (16:32)
[2017-03-22 18:24] LABS: BEDSIDE GLUCOSE 295 MG/DL (83-110)
[2017-03-22] MEDS: HEPARIN SOD (PORCINE) 5000 UNITS/ML VIAL SQ (21:04)
[2017-03-22] MEDS ORDERED: NS 0.45% 1,000 ML IV (22:15)
[2017-03-22 23:21] LABS: BEDSIDE GLUCOSE 297 MG/DL (83-110)
[2017-03-23] MEDS: POLYVINYL ALCOHOL OPHTH SOLN 15 ML(LIQUITEARS) OU ×12 (01:00→23:12)
[2017-03-23] MEDS: MEROPENEM INJ 500 MG in APPROPRIATE DILUENT 1 EA IV ×2 (02:09→13:12)
[2017-03-23] MEDS: HYDROmorphone HCL 1 MG/ML SYRINGE (J1170) IV ×2 (02:11→11:40)
[2017-03-23 04:22] LABS: HEMOGLOBIN 11.5 g/dl (14.0-18.0); MEAN CORPUSCULAR HEMOGLOBIN 29.3 pg (27.0-33.0); MEAN CORPUSCULAR HGB CONC 31.1 g/dl (32.0-36.5); MEAN CORPUSCULAR VOLUME 94.4 fl (80.0-96.0); PLATELET COUNT, AUTOMATED 166 10^3/uL (150-450); RED BLOOD COUNT 3.92 10^6/uL (4.30-6.10); RED CELL DISTRIBUTION WIDTH 16.4 % (11.5-14.5); WHITE BLOOD COUNT 22.1 10^3/uL (4.0-10.0)
[2017-03-23 04:45] LABS: ANION GAP 9 MEQ/L (8-16); BLOOD UREA NITROGEN 91 MG/DL (7-18); CALCIUM LEVEL 7.8 MG/DL (8.8-10.2); CARBON DIOXIDE LEVEL 29 MEQ/L (21-32); CHLORIDE LEVEL 105 MEQ/L (98-107); CREATININE FOR GFR 5.82 MG/DL (0.70-1.30); GLUCOSE, FASTING 214 MG/DL (83-110); MAGNESIUM LEVEL 3.2 MG/DL (1.8-2.4); SODIUM LEVEL 143 MEQ/L (136-145); VANCOMYCIN RANDOM 11.1 UG/ML
[2017-03-23 04:50] LABS: POTASSIUM SERUM 5.8 MEQ/L (3.5-5.1)
[2017-03-23] MEDS: LEVOTHYROXINE 137MCG TABLET (0.137MG) NG (06:00)
[2017-03-23] MEDS: methylPREDNISolone INJ 125 MG/2 ML VIAL (J2930) IV ×2 (06:00→17:52)
[2017-03-23] MEDS: VANCOMYCIN HCL 1,000 MG, VIAL MATE ADAPTER 1 EACH in D5W 250 ML IV (06:01)
[2017-03-23] MEDS: HumaLOG INSULIN (NovoLOG) PER UNIT SC ×4 (06:01→23:51)
[2017-03-23] MEDS: MIRALAX *UNIT DOSE* 17GM PACKET NG (08:47)
[2017-03-23] MEDS: LANSOPRAZOLE SUSPENSION 30 MG/10 ML ORAL SYRINGE (FIRST-LANSOPRAZOLE) NG (08:47)
[2017-03-23] MEDS: DOCUSATE SOD LIQ 100MG/10ML UDC NG (08:47)
[2017-03-23] MEDS: FINASTERIDE 5 MG TAB NG (08:47)
[2017-03-23] MEDS: MULTIVITAMIN/MINERALS LIQUID 15ML ORAL SYRINGE NG (08:47)
[2017-03-23] MEDS: LEVEMIR (INSULIN DETEMIR) 1 UNITS/0.01ML SC (08:48)
[2017-03-23] MEDS: SINEMET 25-100 MG TAB NG ×3 (08:48→17:52)
[2017-03-23] MEDS: HEPARIN SOD (PORCINE) 5000 UNITS/ML VIAL SQ ×2 (08:48→20:50)
[2017-03-23] MEDS: ASPIRIN 81 MG CHEW TABLET NG (08:48)
[2017-03-23] MEDS: CHLORHEXIDINE ORAL RINSE 0.12%/15ML 120ML BOTTLE MT ×3 (08:49→20:50)
[2017-03-23] MEDS ORDERED: MIDAZOLAM INJ 2 MG/2 ML VIAL (J2250) As Ordered ×2 (09:28→11:56)
[2017-03-23] MEDS: MIDAZOLAM INJ 2 MG/2 ML VIAL (J2250) IV ×2 (09:30→12:00)
[2017-03-23] MEDS: HEPARIN 1,000 UNITS/ML 10ML VIAL (FOR RADIOLOGY& DIALYSIS ONLY) IV (10:15)
[2017-03-23 10:48] LABS: INR 1.18; PROTHROMBIN TIME 15.2 SECONDS (12.4-14.5)
[2017-03-23 10:49] LABS: PARTIAL THROMBOPLASTIN TIME 36.5 SECONDS (26.8-37.9)
[2017-03-23] MEDS ORDERED: NALOXONE INJ 0.4 MG/1 ML VIAL (J2310) As Ordered (12:45)
[2017-03-23] MEDS ORDERED: FLUMAZENIL 0.5 MG/5 ML VIAL As Ordered (12:49)
[2017-03-23] MEDS: NALOXONE INJ 0.4 MG/1 ML VIAL (J2310) IV (12:50)
[2017-03-23] MEDS ORDERED: AMIODARONE HCL 150 MG/100 ML PREMIXED BAG (NEXTERONE) As Ordered (12:53)
[2017-03-23 13:00] LABS: ABG BASE EXCESS -2.6 (-2.0-2.0); ABG HCO3 24.9 MEQ/L (22.0-26.0); ABG O2 SATURATION 96.1 % (95.0-99.0); ABG PARTIAL PRESSURE CO2 55.5 mmHg (35.0-45.0); ABG PARTIAL PRESSURE O2 86.8 mmHg (75.0-100.0); ABG STANDARD HCO3 22.3 MEQ/L (22.0-26.0); ABG TOTAL CO2 26.6 MEQ/L (23.0-31.0)
[2017-03-23] MEDS: FLUMAZENIL 0.5 MG/5 ML VIAL IV (13:00)
[2017-03-23] MEDS: AMIODARONE HCL 150 MG in APPROPRIATE DILUENT 1 EA IV ×2 (13:01→14:01)
[2017-03-23 13:15] LABS: BEDSIDE GLUCOSE 215 MG/DL (83-110)
[2017-03-23] MEDS: METOPROLOL 5 MG/5 ML VIAL IV ×4 (15:18→23:52)
[2017-03-23 15:19] LABS: ABG BASE EXCESS -1.8 (-2.0-2.0); ABG HCO3 25.9 MEQ/L (22.0-26.0); ABG O2 SATURATION 96.2 % (95.0-99.0); ABG PARTIAL PRESSURE CO2 57.2 mmHg (35.0-45.0); ABG PARTIAL PRESSURE O2 85.5 mmHg (75.0-100.0); ABG TOTAL CO2 27.6 MEQ/L (23.0-31.0); ABG pH (ARTERIAL) 7.273 UNITS (7.350-7.450)
[2017-03-23] MEDS ORDERED: METOPROLOL TART 12.5 MG PER 1/2 TAB NG (15:30)
[2017-03-23 15:41] LABS: ALBUMIN 1.8 GM/DL (3.2-5.2); ALBUMIN/GLOBULIN RATIO 0.46 (1.00-1.93); ALKALINE PHOSPHATASE 142 U/L (45-117); ALT/SGPT < 6 U/L (12-78); ANION GAP 9 MEQ/L (8-16); AST/SGOT 31 U/L (7-37); BILIRUBIN,TOTAL 0.5 MG/DL (0.2-1.0); BLOOD UREA NITROGEN 61 MG/DL (7-18); CALCIUM LEVEL 7.5 MG/DL (8.8-10.2); CARBON DIOXIDE LEVEL 27 MEQ/L (21-32); CHLORIDE LEVEL 104 MEQ/L (98-107); CK-MB VALUE MASS 5.3 NG/ML (0.0-3.6); CPK CREATINE PHOSPHOKINASE 126 U/L (39-308); CREATININE FOR GFR 4.46 MG/DL (0.70-1.30); GLOMERULAR FILTRATION RATE 13.6 (>35); GLUCOSE, FASTING 249 MG/DL (83-110); MAGNESIUM LEVEL 2.7 MG/DL (1.8-2.4); POTASSIUM SERUM 4.7 MEQ/L (3.5-5.1); SODIUM LEVEL 140 MEQ/L (136-145); TOTAL PROTEIN 5.7 GM/DL (6.4-8.2); TROPONIN I 0.04 NG/ML (< 0.10)
[2017-03-23 16:30] LABS: ABG BASE EXCESS -1.2 (-2.0-2.0); ABG HCO3 26.3 MEQ/L (22.0-26.0); ABG O2 SATURATION 90.7 % (95.0-99.0); ABG PARTIAL PRESSURE CO2 57.3 mmHg (35.0-45.0); ABG PARTIAL PRESSURE O2 62.3 mmHg (75.0-100.0); ABG STANDARD HCO3 23.3 MEQ/L (22.0-26.0); ABG TOTAL CO2 28.1 MEQ/L (23.0-31.0)
[2017-03-23 17:02] LABS: BEDSIDE GLUCOSE 237 MG/DL (83-110)
[2017-03-23 22:51] LABS: CPK CREATINE PHOSPHOKINASE 126 U/L (39-308); MB/CK RELATIVE INDEX 3.96 (< OR =4); TROPONIN I 0.21 NG/ML (< 0.10)
[2017-03-24 00:08] LABS: BEDSIDE GLUCOSE 135 MG/DL (83-110)
[2017-03-24] MEDS: POLYVINYL ALCOHOL OPHTH SOLN 15 ML(LIQUITEARS) OU ×12 (01:13→23:16)
[2017-03-24] MEDS: MEROPENEM INJ 500 MG in APPROPRIATE DILUENT 1 EA IV ×2 (02:06→13:03)
[2017-03-24 04:21] LABS: HEMATOCRIT 35.4 % (42.0-52.0); HEMOGLOBIN 11.4 g/dl (14.0-18.0); MEAN CORPUSCULAR HEMOGLOBIN 30.1 pg (27.0-33.0); MEAN CORPUSCULAR HGB CONC 32.2 g/dl (32.0-36.5); MEAN CORPUSCULAR VOLUME 93.4 fl (80.0-96.0); PLATELET COUNT, AUTOMATED 223 10^3/uL (150-450); RED BLOOD COUNT 3.79 10^6/uL (4.30-6.10); RED CELL DISTRIBUTION WIDTH 16.8 % (11.5-14.5); WHITE BLOOD COUNT 21.5 10^3/uL (4.0-10.0)
[2017-03-24] MEDS: methylPREDNISolone INJ 125 MG/2 ML VIAL (J2930) IV ×2 (04:33→17:04)
[2017-03-24] MEDS: METOPROLOL 5 MG/5 ML VIAL IV ×6 (04:33→23:39)
[2017-03-24 05:05] LABS: ANION GAP 9 MEQ/L (8-16); BLOOD UREA NITROGEN 80 MG/DL (7-18); CARBON DIOXIDE LEVEL 27 MEQ/L (21-32); CHLORIDE LEVEL 106 MEQ/L (98-107); CREATININE FOR GFR 5.46 MG/DL (0.70-1.30); GLOMERULAR FILTRATION RATE 10.8 (>35); GLUCOSE, FASTING 132 MG/DL (83-110); SODIUM LEVEL 142 MEQ/L (136-145); TROPONIN I 0.24 NG/ML (< 0.10); VANCOMYCIN RANDOM 13.9 UG/ML
[2017-03-24 05:08] LABS: POTASSIUM SERUM 5.3 MEQ/L (3.5-5.1)
[2017-03-24 05:40] LABS: ABG BASE EXCESS -3.9 (-2.0-2.0); ABG HCO3 20.8 MEQ/L (22.0-26.0); ABG O2 SATURATION 97.7 % (95.0-99.0); ABG PARTIAL PRESSURE CO2 36.6 mmHg (35.0-45.0); ABG PARTIAL PRESSURE O2 96.1 mmHg (75.0-100.0); ABG STANDARD HCO3 21.3 MEQ/L (22.0-26.0); ABG pH (ARTERIAL) 7.373 UNITS (7.350-7.450)
[2017-03-24] MEDS: LEVOTHYROXINE 137MCG TABLET (0.137MG) NG (06:22)
[2017-03-24] MEDS: VANCOMYCIN HCL 1,000 MG, VIAL MATE ADAPTER 1 EACH in D5W 250 ML IV (06:23)
[2017-03-24] MEDS: HumaLOG INSULIN (NovoLOG) PER UNIT SC ×4 (06:23→23:40)
[2017-03-24 08:30] LABS: HEPATITIS B CORE ANTIBODY IGG Negative (Negative)
[2017-03-24] MEDS: SINEMET 25-100 MG TAB NG ×3 (08:37→17:04)
[2017-03-24] MEDS: MULTIVITAMIN/MINERALS LIQUID 15ML ORAL SYRINGE NG (08:37)
[2017-03-24] MEDS: HEPARIN SOD (PORCINE) 5000 UNITS/ML VIAL SQ ×2 (08:37→21:47)
[2017-03-24] MEDS: FINASTERIDE 5 MG TAB NG (08:37)
[2017-03-24] MEDS: ASPIRIN 81 MG CHEW TABLET NG (08:37)
[2017-03-24] MEDS: LANSOPRAZOLE SUSPENSION 30 MG/10 ML ORAL SYRINGE (FIRST-LANSOPRAZOLE) NG (08:37)
[2017-03-24] MEDS: DOCUSATE SOD LIQ 100MG/10ML UDC NG (08:38)
[2017-03-24] MEDS: CHLORHEXIDINE ORAL RINSE 0.12%/15ML 120ML BOTTLE MT ×3 (08:38→21:47)
[2017-03-24] MEDS: MIRALAX *UNIT DOSE* 17GM PACKET NG (08:38)
[2017-03-24] MEDS: LEVEMIR (INSULIN DETEMIR) 1 UNITS/0.01ML SC (08:38)
[2017-03-24] MEDS: DIGOXIN INJ 0.5 MG/2 ML AMP (J1160) IV (10:37)
[2017-03-24 12:23] LABS: BEDSIDE GLUCOSE 331 MG/DL (83-110)
[2017-03-24] MEDS: HEPARIN 1,000 UNITS/ML 10ML VIAL (FOR RADIOLOGY& DIALYSIS ONLY) IV (12:43)
[2017-03-24 17:40] LABS: BEDSIDE GLUCOSE 159 MG/DL (83-110)
[2017-03-24 23:49] LABS: BEDSIDE GLUCOSE 132 MG/DL (83-110)
[2017-03-25] MEDS: POLYVINYL ALCOHOL OPHTH SOLN 15 ML(LIQUITEARS) OU ×12 (01:09→23:00)
[2017-03-25] MEDS: MEROPENEM INJ 500 MG in APPROPRIATE DILUENT 1 EA IV (02:27)
[2017-03-25] MEDS: METOPROLOL 5 MG/5 ML VIAL IV ×4 (04:15→20:00)
[2017-03-25 05:32] LABS: HEMOGLOBIN 12.1 g/dl (14.0-18.0); MEAN CORPUSCULAR HEMOGLOBIN 29.1 pg (27.0-33.0); MEAN CORPUSCULAR HGB CONC 31.8 g/dl (32.0-36.5); MEAN CORPUSCULAR VOLUME 91.3 fl (80.0-96.0); PLATELET COUNT, AUTOMATED 253 10^3/uL (150-450); RED BLOOD COUNT 4.16 10^6/uL (4.30-6.10); RED CELL DISTRIBUTION WIDTH 16.4 % (11.5-14.5); WHITE BLOOD COUNT 17.3 10^3/uL (4.0-10.0)
[2017-03-25] MEDS: methylPREDNISolone INJ 125 MG/2 ML VIAL (J2930) IV (05:33)
[2017-03-25] MEDS: LEVOTHYROXINE 137MCG TABLET (0.137MG) NG (05:33)
[2017-03-25] MEDS: HumaLOG INSULIN (NovoLOG) PER UNIT SC ×3 (05:34→17:47)
[2017-03-25 05:59] LABS: ANION GAP 10 MEQ/L (8-16); BLOOD UREA NITROGEN 74 MG/DL (7-18); C REACTIVE PROTEIN QUANTITATIV 8.83 MG/DL (0.00-0.30); CALCIUM LEVEL 6.7 MG/DL (8.8-10.2); CARBON DIOXIDE LEVEL 26 MEQ/L (21-32); CHLORIDE LEVEL 103 MEQ/L (98-107); CREATININE FOR GFR 5.14 MG/DL (0.70-1.30); GLOMERULAR FILTRATION RATE 11.5 (>35); GLUCOSE, FASTING 275 MG/DL (83-110); MAGNESIUM LEVEL 2.9 MG/DL (1.8-2.4); SODIUM LEVEL 139 MEQ/L (136-145); VANCOMYCIN RANDOM 18.3 UG/ML
[2017-03-25 06:04] LABS: POTASSIUM SERUM 5.4 MEQ/L (3.5-5.1)
[2017-03-25 06:25] LABS: BEDSIDE GLUCOSE 240 MG/DL (83-110)
[2017-03-25] MEDS: SOD POLYSTYRENE SULFONATE SUSP 15 GM/60 ML UD NG (08:11)
[2017-03-25] MEDS: CHLORHEXIDINE ORAL RINSE 0.12%/15ML 120ML BOTTLE MT ×3 (08:47→20:58)
[2017-03-25] MEDS: ASPIRIN 81 MG CHEW TABLET NG (08:48)
[2017-03-25] MEDS: SINEMET 25-100 MG TAB NG ×3 (08:48→16:40)
[2017-03-25] MEDS: FINASTERIDE 5 MG TAB NG (08:48)
[2017-03-25] MEDS: DOCUSATE SOD LIQ 100MG/10ML UDC NG (08:48)
[2017-03-25] MEDS: LEVEMIR (INSULIN DETEMIR) 1 UNITS/0.01ML SC (08:49)
[2017-03-25] MEDS: MULTIVITAMIN/MINERALS LIQUID 15ML ORAL SYRINGE NG (08:49)
[2017-03-25] MEDS: HEPARIN SOD (PORCINE) 5000 UNITS/ML VIAL SQ ×2 (08:49→20:58)
[2017-03-25] MEDS: MIRALAX *UNIT DOSE* 17GM PACKET NG (08:50)
[2017-03-25] MEDS: LANSOPRAZOLE SUSPENSION 30 MG/10 ML ORAL SYRINGE (FIRST-LANSOPRAZOLE) NG (08:52)
[2017-03-25] MEDS: FUROSEMIDE 100 MG/10 ML VIAL (J1940) IV (11:03)
[2017-03-25] MEDS: ISOSORBIDE DIN. (ISORDIL) 20 MG TAB NG ×2 (11:23→17:48)
[2017-03-25 12:05] LABS: BEDSIDE GLUCOSE 265 MG/DL (83-110)
[2017-03-25] MEDS: **hydrALAZINE HCL** 25 MG TAB NG ×3 (13:56→20:57)
[2017-03-25] MEDS: methylPREDNISolone INJ 40 MG/1 ML VIAL (J2920) IV (16:39)
[2017-03-25 17:46] LABS: BEDSIDE GLUCOSE 244 MG/DL (83-110)
[2017-03-26] MEDS: ISOSORBIDE DIN. (ISORDIL) 20 MG TAB NG ×4 (00:52→17:07)
[2017-03-26] MEDS: HumaLOG INSULIN (NovoLOG) PER UNIT SC ×5 (00:53→23:37)
[2017-03-26 00:55] LABS: BEDSIDE GLUCOSE 226 MG/DL (83-110)
[2017-03-26] MEDS: POLYVINYL ALCOHOL OPHTH SOLN 15 ML(LIQUITEARS) OU ×12 (01:00→23:35)
[2017-03-26] MEDS: METOPROLOL 5 MG/5 ML VIAL IV ×4 (02:00→20:00)
[2017-03-26 05:30] LABS: HEMOGLOBIN 11.9 g/dl (14.0-18.0); MEAN CORPUSCULAR HEMOGLOBIN 29.6 pg (27.0-33.0); MEAN CORPUSCULAR HGB CONC 33.1 g/dl (32.0-36.5); MEAN CORPUSCULAR VOLUME 89.6 fl (80.0-96.0); PLATELET COUNT, AUTOMATED 284 10^3/uL (150-450); RED BLOOD COUNT 4.02 10^6/uL (4.30-6.10); RED CELL DISTRIBUTION WIDTH 16.2 % (11.5-14.5); WHITE BLOOD COUNT 15.4 10^3/uL (4.0-10.0)
[2017-03-26] MEDS: LEVOTHYROXINE 137MCG TABLET (0.137MG) NG (05:37)
[2017-03-26] MEDS: methylPREDNISolone INJ 40 MG/1 ML VIAL (J2920) IV ×2 (05:38→18:04)
[2017-03-26 05:52] LABS: ABG BASE EXCESS -1.9 (-2.0-2.0); ABG HCO3 21.8 MEQ/L (22.0-26.0); ABG O2 SATURATION 96.3 % (95.0-99.0); ABG PARTIAL PRESSURE CO2 33.7 mmHg (35.0-45.0); ABG PARTIAL PRESSURE O2 78.1 mmHg (75.0-100.0); ABG STANDARD HCO3 22.9 MEQ/L (22.0-26.0); ABG TOTAL CO2 22.9 MEQ/L (23.0-31.0); ABG pH (ARTERIAL) 7.429 UNITS (7.350-7.450)
[2017-03-26 05:54] LABS: ALBUMIN 1.7 GM/DL (3.2-5.2); ANION GAP 10 MEQ/L (8-16); BLOOD UREA NITROGEN 103 MG/DL (7-18); C REACTIVE PROTEIN QUANTITATIV 4.81 MG/DL (0.00-0.30); CALCIUM LEVEL 6.2 MG/DL (8.8-10.2); CARBON DIOXIDE LEVEL 27 MEQ/L (21-32); CHLORIDE LEVEL 104 MEQ/L (98-107); CREATININE FOR GFR 6.19 MG/DL (0.70-1.30); GLOMERULAR FILTRATION RATE 9.3 (>35); GLUCOSE, FASTING 271 MG/DL (83-110); MAGNESIUM LEVEL 2.9 MG/DL (1.8-2.4); PHOSPHORUS LEVEL 6.5 MG/DL (2.5-4.9); SODIUM LEVEL 141 MEQ/L (136-145)
[2017-03-26] MEDS: CALCIUM GLUCONATE 1,000 MG in D5W MINI-BAG PLUS 100 ML IV ×2 (08:22→14:00)
[2017-03-26] MEDS: DOCUSATE SOD LIQ 100MG/10ML UDC NG (08:23)
[2017-03-26] MEDS: LEVEMIR (INSULIN DETEMIR) 1 UNITS/0.01ML SC (08:24)
[2017-03-26] MEDS: **hydrALAZINE HCL** 25 MG TAB NG ×4 (08:24→21:00)
[2017-03-26] MEDS: MIRALAX *UNIT DOSE* 17GM PACKET NG (08:24)
[2017-03-26] MEDS: ASPIRIN 81 MG CHEW TABLET NG (08:24)
[2017-03-26] MEDS: FINASTERIDE 5 MG TAB NG (08:24)
[2017-03-26] MEDS: MULTIVITAMIN/MINERALS LIQUID 15ML ORAL SYRINGE NG (08:25)
[2017-03-26] MEDS: LANSOPRAZOLE SUSPENSION 30 MG/10 ML ORAL SYRINGE (FIRST-LANSOPRAZOLE) NG (08:25)
[2017-03-26] MEDS: CHLORHEXIDINE ORAL RINSE 0.12%/15ML 120ML BOTTLE MT ×3 (08:25→21:07)
[2017-03-26] MEDS: HEPARIN SOD (PORCINE) 5000 UNITS/ML VIAL SQ ×2 (08:25→21:08)
[2017-03-26] MEDS: SINEMET 25-100 MG TAB NG ×3 (08:25→18:04)
[2017-03-26 12:12] LABS: BEDSIDE GLUCOSE 201 MG/DL (83-110)
[2017-03-26] MEDS: ATROPINE SULF 1MG/10ML SYRINGE (J0461) IV (14:12)
[2017-03-26 14:17] LABS: ABG BASE EXCESS -3.5 (-2.0-2.0); ABG HCO3 22.1 MEQ/L (22.0-26.0); ABG O2 SATURATION 98.8 % (95.0-99.0); ABG PARTIAL PRESSURE CO2 41.7 mmHg (35.0-45.0); ABG PARTIAL PRESSURE O2 146.9 mmHg (75.0-100.0); ABG STANDARD HCO3 21.6 MEQ/L (22.0-26.0); ABG TOTAL CO2 23.4 MEQ/L (23.0-31.0); ABG pH (ARTERIAL) 7.342 UNITS (7.350-7.450)
[2017-03-26 15:02] LABS: HEMATOCRIT 36.8 % (42.0-52.0); HEMOGLOBIN 12.1 g/dl (14.0-18.0); MEAN CORPUSCULAR HEMOGLOBIN 29.9 pg (27.0-33.0); MEAN CORPUSCULAR HGB CONC 32.9 g/dl (32.0-36.5); MEAN CORPUSCULAR VOLUME 90.9 fl (80.0-96.0); PLATELET COUNT, AUTOMATED 322 10^3/uL (150-450); RED BLOOD COUNT 4.05 10^6/uL (4.30-6.10); RED CELL DISTRIBUTION WIDTH 16.2 % (11.5-14.5); WHITE BLOOD COUNT 24.8 10^3/uL (4.0-10.0)
[2017-03-26 15:27] LABS: ANION GAP 9 MEQ/L (8-16); BLOOD UREA NITROGEN 93 MG/DL (7-18); CALCIUM LEVEL 6.7 MG/DL (8.8-10.2); CARBON DIOXIDE LEVEL 29 MEQ/L (21-32); CHLORIDE LEVEL 104 MEQ/L (98-107); CREATININE FOR GFR 5.63 MG/DL (0.70-1.30); GLOMERULAR FILTRATION RATE 10.4 (>35); GLUCOSE, FASTING 193 MG/DL (83-110); MAGNESIUM LEVEL 2.8 MG/DL (1.8-2.4); POTASSIUM SERUM 4.1 MEQ/L (3.5-5.1); SODIUM LEVEL 142 MEQ/L (136-145)
[2017-03-26 15:32] LABS: LACTIC ACID SEPSIS PROTOCOL 1.2 MMOL/L (0.4-2.0)
[2017-03-26] MEDS: HEPARIN 1,000 UNITS/ML 10ML VIAL (FOR RADIOLOGY& DIALYSIS ONLY) IV (17:45)
[2017-03-26 17:49] LABS: BEDSIDE GLUCOSE 155 MG/DL (83-110)
[2017-03-26] MEDS ORDERED: ATROPINE SULF 1MG/10ML SYRINGE (J0461) (18:28)
[2017-03-26 23:30] LABS: BEDSIDE GLUCOSE 199 MG/DL (83-110)
[2017-03-27] MEDS: ISOSORBIDE DIN. (ISORDIL) 20 MG TAB NG ×2 (00:05→06:10)
[2017-03-27] MEDS: POLYVINYL ALCOHOL OPHTH SOLN 15 ML(LIQUITEARS) OU ×12 (01:00→23:00)
[2017-03-27] MEDS: METOPROLOL 5 MG/5 ML VIAL IV ×4 (02:00→20:00)
[2017-03-27] MEDS: methylPREDNISolone INJ 40 MG/1 ML VIAL (J2920) IV ×2 (04:37→17:12)
[2017-03-27 05:42] LABS: BEDSIDE GLUCOSE 284 MG/DL (83-110)
[2017-03-27 05:53] LABS: HEMATOCRIT 34.7 % (42.0-52.0); HEMOGLOBIN 11.3 g/dl (14.0-18.0); MEAN CORPUSCULAR HEMOGLOBIN 29.4 pg (27.0-33.0); MEAN CORPUSCULAR HGB CONC 32.6 g/dl (32.0-36.5); MEAN CORPUSCULAR VOLUME 90.4 fl (80.0-96.0); PLATELET COUNT, AUTOMATED 279 10^3/uL (150-450); RED BLOOD COUNT 3.84 10^6/uL (4.30-6.10); RED CELL DISTRIBUTION WIDTH 16.2 % (11.5-14.5); WHITE BLOOD COUNT 13.5 10^3/uL (4.0-10.0)
[2017-03-27] MEDS: LEVOTHYROXINE 137MCG TABLET (0.137MG) NG (06:10)
[2017-03-27] MEDS: HumaLOG INSULIN (NovoLOG) PER UNIT SC ×4 (06:11→20:41)
[2017-03-27 06:13] LABS: ALBUMIN 1.7 GM/DL (3.2-5.2); ANION GAP 9 MEQ/L (8-16); BLOOD UREA NITROGEN 75 MG/DL (7-18); C REACTIVE PROTEIN QUANTITATIV 3.17 MG/DL (0.00-0.30); CALCIUM LEVEL 6.6 MG/DL (8.8-10.2); CARBON DIOXIDE LEVEL 29 MEQ/L (21-32); CHLORIDE LEVEL 101 MEQ/L (98-107); CREATININE FOR GFR 4.77 MG/DL (0.70-1.30); GLOMERULAR FILTRATION RATE 12.6 (>35); GLUCOSE, FASTING 283 MG/DL (83-110); MAGNESIUM LEVEL 2.7 MG/DL (1.8-2.4); PHOSPHORUS LEVEL 5.9 MG/DL (2.5-4.9); POTASSIUM SERUM 4.9 MEQ/L (3.5-5.1); SODIUM LEVEL 139 MEQ/L (136-145)
[2017-03-27] MEDS: **hydrALAZINE HCL** 25 MG TAB NG (09:00)
[2017-03-27] MEDS: MULTIVITAMIN/MINERALS LIQUID 15ML ORAL SYRINGE NG (09:11)
[2017-03-27] MEDS: HEPARIN SOD (PORCINE) 5000 UNITS/ML VIAL SQ ×2 (09:11→20:40)
[2017-03-27] MEDS: LEVEMIR (INSULIN DETEMIR) 1 UNITS/0.01ML SC (09:11)
[2017-03-27] MEDS: LANSOPRAZOLE SUSPENSION 30 MG/10 ML ORAL SYRINGE (FIRST-LANSOPRAZOLE) NG (09:11)
[2017-03-27] MEDS: CALCIUM GLUCONATE 1,000 MG in D5W MINI-BAG PLUS 100 ML IV (09:11)
[2017-03-27] MEDS: ASPIRIN 81 MG CHEW TABLET NG (09:12)
[2017-03-27] MEDS: CHLORHEXIDINE ORAL RINSE 0.12%/15ML 120ML BOTTLE MT ×2 (09:12→17:05)
[2017-03-27] MEDS: MIRALAX *UNIT DOSE* 17GM PACKET NG (09:12)
[2017-03-27] MEDS: SINEMET 25-100 MG TAB NG (09:12)
[2017-03-27] MEDS: FINASTERIDE 5 MG TAB NG (09:12)
[2017-03-27] MEDS: DOCUSATE SOD LIQ 100MG/10ML UDC NG (09:16)
[2017-03-27 10:13] LABS: HEPATITIS B SURFACE ANTIBODY NEGATIVE (POSITIVE)
[2017-03-27 10:22] LABS: HEPATITIS B SURFACE ANTIGEN NEGATIVE (NEGATIVE)
[2017-03-27 10:48] LABS: HEPATITIS C VIRUS ABY INDEX < 0.0 INDEX (<0.8)
[2017-03-27 10:49] LABS: HEPATITIS B CORE ANTIBODY IGM NEGATIVE (NEGATIVE)
[2017-03-27] MEDS: SINEMET 25-100 MG TAB PO ×2 (12:24→17:11)
[2017-03-27 12:25] LABS: BEDSIDE GLUCOSE 339 MG/DL (83-110)
[2017-03-27] MEDS: ISOSORBIDE DIN. (ISORDIL) 20 MG TAB PO ×2 (12:25→17:12)
[2017-03-27] MEDS: **hydrALAZINE HCL** 25 MG TAB PO ×3 (12:27→20:42)
[2017-03-27 16:49] LABS: BEDSIDE GLUCOSE 316 MG/DL (83-110)
[2017-03-27 21:02] LABS: BEDSIDE GLUCOSE 274 MG/DL (83-110)
[2017-03-28] MEDS: POLYVINYL ALCOHOL OPHTH SOLN 15 ML(LIQUITEARS) OU ×12 (01:00→22:31)
[2017-03-28] MEDS: METOPROLOL 5 MG/5 ML VIAL IV ×4 (02:00→19:30)
[2017-03-28] MEDS: LEVOTHYROXINE 137MCG TABLET (0.137MG) PO (05:08)
[2017-03-28] MEDS: methylPREDNISolone INJ 40 MG/1 ML VIAL (J2920) IV (05:08)
[2017-03-28] MEDS: ISOSORBIDE DIN. (ISORDIL) 20 MG TAB PO ×4 (05:11→17:09)
[2017-03-28 05:35] LABS: HEMATOCRIT 31.7 % (42.0-52.0); HEMOGLOBIN 10.5 g/dl (14.0-18.0); MEAN CORPUSCULAR HEMOGLOBIN 29.4 pg (27.0-33.0); MEAN CORPUSCULAR HGB CONC 33.1 g/dl (32.0-36.5); MEAN CORPUSCULAR VOLUME 88.8 fl (80.0-96.0); PLATELET COUNT, AUTOMATED 253 10^3/uL (150-450); RED BLOOD COUNT 3.57 10^6/uL (4.30-6.10); RED CELL DISTRIBUTION WIDTH 15.9 % (11.5-14.5); WHITE BLOOD COUNT 11.8 10^3/uL (4.0-10.0)
[2017-03-28 05:59] LABS: ALBUMIN 1.6 GM/DL (3.2-5.2); ANION GAP 11 MEQ/L (8-16); BLOOD UREA NITROGEN 100 MG/DL (7-18); C REACTIVE PROTEIN QUANTITATIV 2.42 MG/DL (0.00-0.30); CALCIUM LEVEL 6.2 MG/DL (8.8-10.2); CARBON DIOXIDE LEVEL 26 MEQ/L (21-32); CHLORIDE LEVEL 101 MEQ/L (98-107); CREATININE FOR GFR 6.02 MG/DL (0.70-1.30); GLOMERULAR FILTRATION RATE 9.6 (>35); GLUCOSE, FASTING 308 MG/DL (83-110); MAGNESIUM LEVEL 2.8 MG/DL (1.8-2.4); PHOSPHORUS LEVEL 6.6 MG/DL (2.5-4.9); SODIUM LEVEL 138 MEQ/L (136-145)
[2017-03-28] MEDS: DOCUSATE SODIUM 100 MG CAP PO (07:10)
[2017-03-28] MEDS: **hydrALAZINE HCL** 25 MG TAB PO ×4 (07:24→20:01)
[2017-03-28] MEDS: HumaLOG INSULIN (NovoLOG) PER UNIT SC ×4 (07:38→20:54)
[2017-03-28] MEDS: MULTIVITAMIN/MINERALS LIQUID 15ML ORAL SYRINGE PO (08:44)
[2017-03-28] MEDS: LEVEMIR (INSULIN DETEMIR) 1 UNITS/0.01ML SC ×2 (08:44→20:55)
[2017-03-28] MEDS: FINASTERIDE 5 MG TAB PO (08:44)
[2017-03-28] MEDS: SINEMET 25-100 MG TAB PO ×3 (08:44→17:04)
[2017-03-28] MEDS: HEPARIN SOD (PORCINE) 5000 UNITS/ML VIAL SQ ×2 (08:45→20:55)
[2017-03-28] MEDS: ASPIRIN 81 MG CHEW TABLET PO (08:45)
[2017-03-28] MEDS: MIRALAX *UNIT DOSE* 17GM PACKET PO (08:45)
[2017-03-28] MEDS: LANSOPRAZOLE SUSPENSION 30 MG/10 ML ORAL SYRINGE (FIRST-LANSOPRAZOLE) PO (08:50)
[2017-03-28] MEDS: predniSONE 10 MG TAB PO (11:52)
[2017-03-28] MEDS: HEPARIN 1,000 UNITS/ML 10ML VIAL (FOR RADIOLOGY& DIALYSIS ONLY) XX (12:15)
[2017-03-28] MEDS: HEPARIN 1,000 UNITS/ML 10ML VIAL (FOR RADIOLOGY& DIALYSIS ONLY) IV (12:15)
[2017-03-28 12:19] LABS: BEDSIDE GLUCOSE 374 MG/DL (83-110)
[2017-03-28 16:57] LABS: BEDSIDE GLUCOSE 237 MG/DL (83-110)
[2017-03-28 20:40] LABS: BEDSIDE GLUCOSE 260 MG/DL (83-110)
[2017-03-28] MEDS ORDERED: SODIUM CHLORIDE 0.9% INJ 10 ML SYR IV (20:45)
[2017-03-28] MEDS: SODIUM CHLORIDE 0.9% INJ 10 ML SYR IV (20:55)
[2017-03-29] MEDS: POLYVINYL ALCOHOL OPHTH SOLN 15 ML(LIQUITEARS) OU ×12 (00:29→23:35)
[2017-03-29] MEDS: ISOSORBIDE DIN. (ISORDIL) 20 MG TAB PO ×5 (00:29→23:35)
[2017-03-29] MEDS: SIMETHICONE 80 MG CHEW TAB PO (01:05)
[2017-03-29] MEDS: METOPROLOL 5 MG/5 ML VIAL IV ×2 (01:33→07:51)
[2017-03-29] MEDS: LEVOTHYROXINE 137MCG TABLET (0.137MG) PO (05:32)
[2017-03-29] MEDS: SODIUM CHLORIDE 0.9% INJ 10 ML SYR IV (05:32)
[2017-03-29 05:43] LABS: HEMATOCRIT 32.5 % (42.0-52.0); HEMOGLOBIN 10.7 g/dl (14.0-18.0); MEAN CORPUSCULAR HEMOGLOBIN 29.3 pg (27.0-33.0); MEAN CORPUSCULAR HGB CONC 32.9 g/dl (32.0-36.5); PLATELET COUNT, AUTOMATED 259 10^3/uL (150-450); RED BLOOD COUNT 3.65 10^6/uL (4.30-6.10); WHITE BLOOD COUNT 13.4 10^3/uL (4.0-10.0)
[2017-03-29] MEDS: ACETAMINOPHEN 325 MG/10.15 ML UDC PO (06:01)
[2017-03-29 06:05] LABS: ALBUMIN 1.7 GM/DL (3.2-5.2); ANION GAP 9 MEQ/L (8-16); BLOOD UREA NITROGEN 84 MG/DL (7-18); C REACTIVE PROTEIN QUANTITATIV 2.04 MG/DL (0.00-0.30); CALCIUM LEVEL 6.7 MG/DL (8.8-10.2); CARBON DIOXIDE LEVEL 27 MEQ/L (21-32); CHLORIDE LEVEL 104 MEQ/L (98-107); CREATININE FOR GFR 5.32 MG/DL (0.70-1.30); GLOMERULAR FILTRATION RATE 11.1 (>35); GLUCOSE, FASTING 167 MG/DL (83-110); MAGNESIUM LEVEL 2.6 MG/DL (1.8-2.4); PHOSPHORUS LEVEL 5.9 MG/DL (2.5-4.9); POTASSIUM SERUM 4.5 MEQ/L (3.5-5.1); SODIUM LEVEL 140 MEQ/L (136-145)
[2017-03-29 07:51] LABS: BEDSIDE GLUCOSE 133 MG/DL (83-110)
[2017-03-29] MEDS: HumaLOG INSULIN (NovoLOG) PER UNIT SC ×4 (07:51→21:00)
[2017-03-29] MEDS: LEVEMIR (INSULIN DETEMIR) 1 UNITS/0.01ML SC ×2 (08:12→21:38)
[2017-03-29] MEDS: MULTIVITAMIN/MINERALS LIQUID 15ML ORAL SYRINGE PO (08:13)
[2017-03-29] MEDS: LANSOPRAZOLE SUSPENSION 30 MG/10 ML ORAL SYRINGE (FIRST-LANSOPRAZOLE) PO (08:13)
[2017-03-29] MEDS: SINEMET 25-100 MG TAB PO ×3 (08:14→18:16)
[2017-03-29] MEDS: predniSONE 10 MG TAB PO (08:14)
[2017-03-29] MEDS: HEPARIN SOD (PORCINE) 5000 UNITS/ML VIAL SQ ×2 (08:14→21:38)
[2017-03-29] MEDS: ASPIRIN 81 MG CHEW TABLET PO (08:14)
[2017-03-29] MEDS: FINASTERIDE 5 MG TAB PO (08:14)
[2017-03-29] MEDS: **hydrALAZINE HCL** 25 MG TAB PO ×4 (08:18→21:40)
[2017-03-29] MEDS ORDERED: LIDOCAINE 1% MDV 20ML VIAL As Ordered (11:59)
[2017-03-29] MEDS: HEPARIN 1,000 UNITS/ML 10ML VIAL (FOR RADIOLOGY& DIALYSIS ONLY) XX (12:19)
[2017-03-29 12:22] LABS: BEDSIDE GLUCOSE 197 MG/DL (83-110)
[2017-03-29] MEDS: LIDOCAINE 1% MDV 20ML VIAL SC (12:26)
[2017-03-29 18:20] LABS: BEDSIDE GLUCOSE 169 MG/DL (83-110)
[2017-03-29 21:39] LABS: BEDSIDE GLUCOSE 211 MG/DL (83-110)
[2017-03-30] MEDS: POLYVINYL ALCOHOL OPHTH SOLN 15 ML(LIQUITEARS) OU ×13 (00:39→23:32)
[2017-03-30 04:29] LABS: HEMATOCRIT 33.3 % (42.0-52.0); HEMOGLOBIN 10.7 g/dl (14.0-18.0); MEAN CORPUSCULAR HEMOGLOBIN 29.1 pg (27.0-33.0); MEAN CORPUSCULAR HGB CONC 32.1 g/dl (32.0-36.5); MEAN CORPUSCULAR VOLUME 90.5 fl (80.0-96.0); PLATELET COUNT, AUTOMATED 228 10^3/uL (150-450); RED BLOOD COUNT 3.68 10^6/uL (4.30-6.10); RED CELL DISTRIBUTION WIDTH 16.1 % (11.5-14.5); WHITE BLOOD COUNT 12.5 10^3/uL (4.0-10.0)
[2017-03-30 04:45] LABS: ALBUMIN 1.7 GM/DL (3.2-5.2); ANION GAP 10 MEQ/L (8-16); BLOOD UREA NITROGEN 59 MG/DL (7-18); C REACTIVE PROTEIN QUANTITATIV 2.51 MG/DL (0.00-0.30); CALCIUM LEVEL 6.3 MG/DL (8.8-10.2); CARBON DIOXIDE LEVEL 27 MEQ/L (21-32); CHLORIDE LEVEL 104 MEQ/L (98-107); CREATININE FOR GFR 4.25 MG/DL (0.70-1.30); GLOMERULAR FILTRATION RATE 14.4 (>35); GLUCOSE, FASTING 153 MG/DL (83-110); MAGNESIUM LEVEL 2.4 MG/DL (1.8-2.4); PHOSPHORUS LEVEL 5.6 MG/DL (2.5-4.9); POTASSIUM SERUM 4.4 MEQ/L (3.5-5.1); SODIUM LEVEL 141 MEQ/L (136-145)
[2017-03-30] MEDS: LEVOTHYROXINE 137MCG TABLET (0.137MG) PO (06:16)
[2017-03-30] MEDS: ISOSORBIDE DIN. (ISORDIL) 20 MG TAB PO ×4 (06:16→23:32)
[2017-03-30] MEDS: SIMETHICONE 80 MG CHEW TAB PO ×2 (06:18→23:47)
[2017-03-30] MEDS: MIRALAX *UNIT DOSE* 17GM PACKET PO (06:57)
[2017-03-30] MEDS: HumaLOG INSULIN (NovoLOG) PER UNIT SC ×4 (07:30→20:43)
[2017-03-30 08:42] LABS: BEDSIDE GLUCOSE 80 MG/DL (83-110)
[2017-03-30] MEDS: predniSONE 10 MG TAB PO (08:51)
[2017-03-30] MEDS: ASPIRIN 81 MG CHEW TABLET PO (08:51)
[2017-03-30] MEDS: FINASTERIDE 5 MG TAB PO (08:52)
[2017-03-30] MEDS: LEVEMIR (INSULIN DETEMIR) 1 UNITS/0.01ML SC ×2 (08:52→20:56)
[2017-03-30] MEDS: SINEMET 25-100 MG TAB PO ×3 (08:53→16:27)
[2017-03-30] MEDS: ACETAMINOPHEN TAB 650MG DOSE (2X325MG) PO ×3 (08:53→23:50)
[2017-03-30] MEDS: HEPARIN SOD (PORCINE) 5000 UNITS/ML VIAL SQ ×2 (08:54→20:56)
[2017-03-30] MEDS: DOCUSATE SODIUM 100 MG CAP PO (08:54)
[2017-03-30] MEDS: amLODIPine 10 MG TAB PO (08:55)
[2017-03-30] MEDS: LANSOPRAZOLE SUSPENSION 30 MG/10 ML ORAL SYRINGE (FIRST-LANSOPRAZOLE) PO (08:55)
[2017-03-30] MEDS: MULTIVITAMIN/MINERALS LIQUID 15ML ORAL SYRINGE PO (08:56)
[2017-03-30 12:31] LABS: BEDSIDE GLUCOSE 76 MG/DL (83-110)
[2017-03-30] MEDS: QUEtiapine FUMARATE 25 MG TAB PO (16:28)
[2017-03-30 17:07] LABS: BEDSIDE GLUCOSE 137 MG/DL (83-110)
[2017-03-30 20:48] LABS: BEDSIDE GLUCOSE 179 MG/DL (83-110)
[2017-03-30] MEDS: CALCIUM GLUCONATE 1,000 MG in D5W MINI-BAG PLUS 100 ML IV (20:55)
[2017-03-31] MEDS: ACETAMINOPHEN 650 MG SUPP PR ×2 (00:59→20:40)
[2017-03-31] MEDS: POLYVINYL ALCOHOL OPHTH SOLN 15 ML(LIQUITEARS) OU ×12 (01:00→23:00)
[2017-03-31 05:34] LABS: HEMATOCRIT 32.1 % (42.0-52.0); HEMOGLOBIN 10.6 g/dl (14.0-18.0); MEAN CORPUSCULAR HEMOGLOBIN 29.2 pg (27.0-33.0); MEAN CORPUSCULAR VOLUME 88.4 fl (80.0-96.0); PLATELET COUNT, AUTOMATED 242 10^3/uL (150-450); RED BLOOD COUNT 3.63 10^6/uL (4.30-6.10); RED CELL DISTRIBUTION WIDTH 16.3 % (11.5-14.5)
[2017-03-31 05:50] LABS: ALBUMIN 1.8 GM/DL (3.2-5.2); ANION GAP 13 MEQ/L (8-16); BLOOD UREA NITROGEN 75 MG/DL (7-18); C REACTIVE PROTEIN QUANTITATIV 2.76 MG/DL (0.00-0.30); CALCIUM LEVEL 6.7 MG/DL (8.8-10.2); CARBON DIOXIDE LEVEL 26 MEQ/L (21-32); CHLORIDE LEVEL 101 MEQ/L (98-107); CREATININE FOR GFR 5.25 MG/DL (0.70-1.30); GLOMERULAR FILTRATION RATE 11.3 (>35); GLUCOSE, FASTING 165 MG/DL (83-110); MAGNESIUM LEVEL 2.7 MG/DL (1.8-2.4); PHOSPHORUS LEVEL 6.6 MG/DL (2.5-4.9); POTASSIUM SERUM 4.4 MEQ/L (3.5-5.1); SODIUM LEVEL 140 MEQ/L (136-145)
[2017-03-31] MEDS: LEVOTHYROXINE 137MCG TABLET (0.137MG) PO (05:56)
[2017-03-31] MEDS: ISOSORBIDE DIN. (ISORDIL) 20 MG TAB PO ×3 (06:01→17:50)
[2017-03-31] MEDS: LEVEMIR (INSULIN DETEMIR) 1 UNITS/0.01ML SC (08:22)
[2017-03-31] MEDS: HEPARIN SOD (PORCINE) 5000 UNITS/ML VIAL SQ (08:22)
[2017-03-31] MEDS: ACETAMINOPHEN TAB 650MG DOSE (2X325MG) PO (08:23)
[2017-03-31] MEDS: HumaLOG INSULIN (NovoLOG) PER UNIT SC ×4 (08:27→20:29)
[2017-03-31] MEDS: QUEtiapine FUMARATE 25 MG TAB PO (09:00)
[2017-03-31] MEDS: SINEMET 25-100 MG TAB PO ×3 (09:00→16:46)
[2017-03-31] MEDS: LANSOPRAZOLE SUSPENSION 30 MG/10 ML ORAL SYRINGE (FIRST-LANSOPRAZOLE) PO (09:00)
[2017-03-31] MEDS: predniSONE 10 MG TAB PO (09:00)
[2017-03-31] MEDS: FINASTERIDE 5 MG TAB PO (09:00)
[2017-03-31] MEDS: amLODIPine 10 MG TAB PO (09:00)
[2017-03-31] MEDS: MULTIVITAMIN/MINERALS LIQUID 15ML ORAL SYRINGE PO (09:00)
[2017-03-31] MEDS: ASPIRIN 81 MG CHEW TABLET PO (09:00)
[2017-03-31] MEDS: HEPARIN 1,000 UNITS/ML 10ML VIAL (FOR RADIOLOGY& DIALYSIS ONLY) IV (10:45)
[2017-03-31] MEDS: HEPARIN 1,000 UNITS/ML 10ML VIAL (FOR RADIOLOGY& DIALYSIS ONLY) XX (10:45)
[2017-03-31 12:14] LABS: BEDSIDE GLUCOSE 128 MG/DL (83-110)
[2017-03-31 15:19] LABS: ABG BASE EXCESS -1.4 (-2.0-2.0); ABG HCO3 21.7 MEQ/L (22.0-26.0); ABG O2 SATURATION 86.3 % (95.0-99.0); ABG PARTIAL PRESSURE CO2 31.7 mmHg (35.0-45.0); ABG PARTIAL PRESSURE O2 51.4 mmHg (75.0-100.0); ABG TOTAL CO2 22.7 MEQ/L (23.0-31.0); ABG pH (ARTERIAL) 7.454 UNITS (7.350-7.450)
[2017-03-31 15:24] LABS: HEMATOCRIT 33.6 % (42.0-52.0); HEMOGLOBIN 11.2 g/dl (14.0-18.0); MEAN CORPUSCULAR HEMOGLOBIN 29.8 pg (27.0-33.0); MEAN CORPUSCULAR HGB CONC 33.3 g/dl (32.0-36.5); MEAN CORPUSCULAR VOLUME 89.4 fl (80.0-96.0); PLATELET COUNT, AUTOMATED 284 10^3/uL (150-450); RED BLOOD COUNT 3.76 10^6/uL (4.30-6.10); RED CELL DISTRIBUTION WIDTH 16.5 % (11.5-14.5); WHITE BLOOD COUNT 25.2 10^3/uL (4.0-10.0)
[2017-03-31 15:41] LABS: BEDSIDE GLUCOSE 84 MG/DL (83-110)
[2017-03-31] MEDS: levETIRAcetam INJection 1,000 MG in D5W 100 ML IV (15:44)
[2017-03-31 16:03] LABS: AMMONIA 14 uMOL/L (<32)
[2017-03-31 16:21] LABS: ALBUMIN 2.1 GM/DL (3.2-5.2); ALKALINE PHOSPHATASE 91 U/L (45-117); ALT/SGPT 6 U/L (12-78); ANION GAP 11 MEQ/L (8-16); AST/SGOT 29 U/L (7-37); BILIRUBIN,TOTAL 0.5 MG/DL (0.2-1.0); BLOOD UREA NITROGEN 45 MG/DL (7-18); CALCIUM LEVEL 7.6 MG/DL (8.8-10.2); CARBON DIOXIDE LEVEL 24 MEQ/L (21-32); CHLORIDE LEVEL 104 MEQ/L (98-107); CREATININE FOR GFR 3.89 MG/DL (0.70-1.30); GLOMERULAR FILTRATION RATE 15.9 (>35); GLUCOSE, FASTING 90 MG/DL (83-110); MAGNESIUM LEVEL 2.2 MG/DL (1.8-2.4); POTASSIUM SERUM 4.2 MEQ/L (3.5-5.1); SODIUM LEVEL 139 MEQ/L (136-145); TOTAL PROTEIN 5.6 GM/DL (6.4-8.2)
[2017-03-31] MEDS: hydrALAZINE INJ 20 MG/ML VIAL IV (18:00)
[2017-04-01] MEDS: POLYVINYL ALCOHOL OPHTH SOLN 15 ML(LIQUITEARS) OU ×12 (00:13→23:00)
[2017-04-01 04:38] LABS: HEMATOCRIT 31.2 % (42.0-52.0); HEMOGLOBIN 10.1 g/dl (14.0-18.0); MEAN CORPUSCULAR HEMOGLOBIN 29.5 pg (27.0-33.0); MEAN CORPUSCULAR HGB CONC 32.4 g/dl (32.0-36.5); MEAN CORPUSCULAR VOLUME 91.2 fl (80.0-96.0); PLATELET COUNT, AUTOMATED 187 10^3/uL (150-450); RED BLOOD COUNT 3.42 10^6/uL (4.30-6.10); RED CELL DISTRIBUTION WIDTH 16.5 % (11.5-14.5); WHITE BLOOD COUNT 13.4 10^3/uL (4.0-10.0)
[2017-04-01 04:52] LABS: MAGNESIUM LEVEL 2.4 MG/DL (1.8-2.4)
[2017-04-01] MEDS: ISOSORBIDE DIN. (ISORDIL) 20 MG TAB PO ×4 (05:59→18:00)
[2017-04-01] MEDS: hydrALAZINE INJ 20 MG/ML VIAL IV ×4 (06:00→18:00)
[2017-04-01] MEDS: LEVOTHYROXINE 137MCG TABLET (0.137MG) PO (06:00)
[2017-04-01] MEDS: HumaLOG INSULIN (NovoLOG) PER UNIT SC ×4 (07:48→21:00)
[2017-04-01 07:56] LABS: BEDSIDE GLUCOSE 150 MG/DL (83-110)
[2017-04-01 08:41] LABS: ALBUMIN 1.7 GM/DL (3.2-5.2); ALBUMIN/GLOBULIN RATIO 0.53 (1.00-1.93); ALKALINE PHOSPHATASE 82 U/L (45-117); ALT/SGPT 7 U/L (12-78); ANION GAP 11 MEQ/L (8-16); AST/SGOT 25 U/L (7-37); BILIRUBIN,TOTAL 0.4 MG/DL (0.2-1.0); BLOOD UREA NITROGEN 58 MG/DL (7-18); C REACTIVE PROTEIN QUANTITATIV 7.21 MG/DL (0.00-0.30); CALCIUM LEVEL 6.9 MG/DL (8.8-10.2); CARBON DIOXIDE LEVEL 24 MEQ/L (21-32); CHLORIDE LEVEL 105 MEQ/L (98-107); CREATININE FOR GFR 4.72 MG/DL (0.70-1.30); GLOMERULAR FILTRATION RATE 12.7 (>35); GLUCOSE, FASTING 147 MG/DL (83-110); POTASSIUM SERUM 4.7 MEQ/L (3.5-5.1); SODIUM LEVEL 140 MEQ/L (136-145); TOTAL PROTEIN 4.9 GM/DL (6.4-8.2)
[2017-04-01] MEDS: SINEMET 25-100 MG TAB PO ×3 (09:00→17:00)
[2017-04-01] MEDS: amLODIPine 10 MG TAB PO (09:00)
[2017-04-01] MEDS: predniSONE 10 MG TAB PO (09:00)
[2017-04-01] MEDS: FINASTERIDE 5 MG TAB PO (09:00)
[2017-04-01] MEDS: MULTIVITAMIN/MINERALS LIQUID 15ML ORAL SYRINGE PO (09:00)
[2017-04-01] MEDS: LANSOPRAZOLE SUSPENSION 30 MG/10 ML ORAL SYRINGE (FIRST-LANSOPRAZOLE) PO (09:00)
[2017-04-01] MEDS: levETIRAcetam INJection 500 MG in D5W MINI-BAG PLUS 100 ML IV ×2 (09:03→21:46)
[2017-04-01 10:44] LABS: PROLACTIN 41.3 NG/ML (2.1-17.7)
[2017-04-01 11:58] LABS: BEDSIDE GLUCOSE 123 MG/DL (83-110)
[2017-04-01] MEDS: methylPREDNISolone INJ 40 MG/1 ML VIAL (J2920) IV (12:23)
[2017-04-01] MEDS: PANTOPRAZOLE 40MG INJ (PROTONIX) (C9113) IV (12:23)
[2017-04-01] MEDS: LEVOTHYROXINE 100 MCG (0.1MG) VIAL IV (12:24)
[2017-04-01 18:34] LABS: BEDSIDE GLUCOSE 123 MG/DL (83-110)
[2017-04-02] MEDS: POLYVINYL ALCOHOL OPHTH SOLN 15 ML(LIQUITEARS) OU ×12 (00:39→23:00)
[2017-04-02 04:19] LABS: BEDSIDE GLUCOSE 150 MG/DL (83-110)
[2017-04-02] MEDS: hydrALAZINE INJ 20 MG/ML VIAL IV ×4 (05:31→18:00)
[2017-04-02] MEDS: ISOSORBIDE DIN. (ISORDIL) 20 MG TAB PO ×4 (05:31→18:00)
[2017-04-02 06:05] LABS: HEMATOCRIT 34.9 % (42.0-52.0); HEMOGLOBIN 11.2 g/dl (14.0-18.0); MEAN CORPUSCULAR HGB CONC 32.1 g/dl (32.0-36.5); MEAN CORPUSCULAR VOLUME 93.6 fl (80.0-96.0); PLATELET COUNT, AUTOMATED 211 10^3/uL (150-450); RED BLOOD COUNT 3.73 10^6/uL (4.30-6.10); RED CELL DISTRIBUTION WIDTH 16.7 % (11.5-14.5); WHITE BLOOD COUNT 17.8 10^3/uL (4.0-10.0)
[2017-04-02 06:30] LABS: ALBUMIN 1.8 GM/DL (3.2-5.2); ALBUMIN/GLOBULIN RATIO 0.53 (1.00-1.93); ALKALINE PHOSPHATASE 89 U/L (45-117); ALT/SGPT < 6 U/L (12-78); ANION GAP 18 MEQ/L (8-16); AST/SGOT 19 U/L (7-37); BILIRUBIN,TOTAL 0.4 MG/DL (0.2-1.0); BLOOD UREA NITROGEN 80 MG/DL (7-18); CARBON DIOXIDE LEVEL 18 MEQ/L (21-32); CHLORIDE LEVEL 104 MEQ/L (98-107); CREATININE FOR GFR 5.66 MG/DL (0.70-1.30); GLOMERULAR FILTRATION RATE 10.3 (>35); GLUCOSE, FASTING 209 MG/DL (83-110); MAGNESIUM LEVEL 2.8 MG/DL (1.8-2.4); SODIUM LEVEL 140 MEQ/L (136-145); TOTAL PROTEIN 5.2 GM/DL (6.4-8.2)
[2017-04-02 06:52] LABS: PHOSPHORUS LEVEL 9.3 MG/DL (2.5-4.9); POTASSIUM SERUM 5.6 MEQ/L (3.5-5.1)
[2017-04-02] MEDS: HumaLOG INSULIN (NovoLOG) PER UNIT SC ×4 (07:29→20:59)
[2017-04-02] MEDS: levETIRAcetam INJection 500 MG in D5W MINI-BAG PLUS 100 ML IV ×2 (08:51→20:58)
[2017-04-02] MEDS: methylPREDNISolone INJ 40 MG/1 ML VIAL (J2920) IV (08:55)
[2017-04-02] MEDS: PANTOPRAZOLE 40MG INJ (PROTONIX) (C9113) IV (08:55)
[2017-04-02] MEDS: LEVOTHYROXINE 100 MCG (0.1MG) VIAL IV (08:57)
[2017-04-02] MEDS: amLODIPine 10 MG TAB PO (08:58)
[2017-04-02] MEDS: FINASTERIDE 5 MG TAB PO (08:58)
[2017-04-02] MEDS: SINEMET 25-100 MG TAB PO ×3 (08:58→16:37)
[2017-04-02] MEDS: MULTIVITAMIN/MINERALS LIQUID 15ML ORAL SYRINGE PO (08:59)
[2017-04-02] MEDS ORDERED: SLF 3 ML SYR IV (09:30)
[2017-04-02 12:51] LABS: BEDSIDE GLUCOSE 150 MG/DL (83-110)
[2017-04-02] MEDS: HEPARIN 1,000 UNITS/ML 10ML VIAL (FOR RADIOLOGY& DIALYSIS ONLY) XX (13:30)
[2017-04-02] MEDS: SLF 3 ML SYR IV ×2 (14:04→22:00)
[2017-04-02 17:57] LABS: BEDSIDE GLUCOSE 138 MG/DL (83-110)
[2017-04-02 20:54] LABS: BEDSIDE GLUCOSE 132 MG/DL (83-110)
[2017-04-03] MEDS: POLYVINYL ALCOHOL OPHTH SOLN 15 ML(LIQUITEARS) OU ×12 (01:00→23:00)
[2017-04-03 05:00] LABS: HEMATOCRIT 35.1 % (42.0-52.0); HEMOGLOBIN 11.3 g/dl (14.0-18.0); MEAN CORPUSCULAR HEMOGLOBIN 29.7 pg (27.0-33.0); MEAN CORPUSCULAR HGB CONC 32.2 g/dl (32.0-36.5); MEAN CORPUSCULAR VOLUME 92.4 fl (80.0-96.0); PLATELET COUNT, AUTOMATED 196 10^3/uL (150-450); WHITE BLOOD COUNT 26.3 10^3/uL (4.0-10.0)
[2017-04-03 05:36] LABS: ALBUMIN/GLOBULIN RATIO 0.56 (1.00-1.93); ALKALINE PHOSPHATASE 94 U/L (45-117); ALT/SGPT 8 U/L (12-78); ANION GAP 15 MEQ/L (8-16); AST/SGOT 17 U/L (7-37); BILIRUBIN,TOTAL 0.4 MG/DL (0.2-1.0); BLOOD UREA NITROGEN 55 MG/DL (7-18); CALCIUM LEVEL 7.3 MG/DL (8.8-10.2); CARBON DIOXIDE LEVEL 21 MEQ/L (21-32); CHLORIDE LEVEL 103 MEQ/L (98-107); CREATININE FOR GFR 4.29 MG/DL (0.70-1.30); GLOMERULAR FILTRATION RATE 14.2 (>35); GLUCOSE, FASTING 206 MG/DL (83-110); MAGNESIUM LEVEL 2.6 MG/DL (1.8-2.4); SODIUM LEVEL 139 MEQ/L (136-145); TOTAL PROTEIN 5.6 GM/DL (6.4-8.2)
[2017-04-03 05:57] LABS: POTASSIUM SERUM 5.2 MEQ/L (3.5-5.1)
[2017-04-03] MEDS: hydrALAZINE INJ 20 MG/ML VIAL IV ×4 (06:52→17:38)
[2017-04-03] MEDS: SLF 3 ML SYR IV ×3 (06:52→21:44)
[2017-04-03] MEDS: ISOSORBIDE DIN. (ISORDIL) 20 MG TAB PO ×4 (06:53→18:00)
[2017-04-03] MEDS: HumaLOG INSULIN (NovoLOG) PER UNIT SC ×4 (07:30→21:43)
[2017-04-03] MEDS: FINASTERIDE 5 MG TAB PO (09:00)
[2017-04-03] MEDS: amLODIPine 10 MG TAB PO (09:00)
[2017-04-03] MEDS: MULTIVITAMIN/MINERALS LIQUID 15ML ORAL SYRINGE PO (09:00)
[2017-04-03] MEDS: SINEMET 25-100 MG TAB PO ×3 (09:00→17:16)
[2017-04-03] MEDS: LEVOTHYROXINE 100 MCG (0.1MG) VIAL IV (09:28)
[2017-04-03] MEDS: levETIRAcetam INJection 500 MG in D5W MINI-BAG PLUS 100 ML IV ×2 (09:28→21:43)
[2017-04-03] MEDS: PANTOPRAZOLE 40MG INJ (PROTONIX) (C9113) IV (09:28)
[2017-04-03] MEDS: methylPREDNISolone INJ 40 MG/1 ML VIAL (J2920) IV (09:28)
[2017-04-03 11:52] LABS: BEDSIDE GLUCOSE 221 MG/DL (83-110)
[2017-04-03 17:33] LABS: AMORPHOUS SEDIMENT SMALL (NEGATIVE); APPEARANCE, URINE CLOUDY (CLEAR); BACTERIA, URINE AUTO NEGATIVE (NEGATIVE); BILIRUBIN, URINE AUTO NEGATIVE (NEGATIVE); BLOOD, URINE BLOOD 2+ (NEGATIVE); COLOR, URINE AMBER (YELLOW); GLUCOSE, URINE (UA) AUTO 1+ mg/dL (NEGATIVE); KETONE, URINE AUTO TRACE mg/dL (NEGATIVE); LEUKOCYTE ESTERASE, URINE AUTO TRACE (NEGATIVE); NITRITE, URINE AUTO NEGATIVE (NEGATIVE); PROTEIN, URINE AUTO 2+ mg/dL (NEGATIVE); RBC, URINE AUTO 5 /HPF (0-3); SPECIFIC GRAVITY URINE AUTO 1.014 (1.002-1.035); SQUAMOUS EPITHELIAL CELL UR AU 0 /HPF (0-6); UROBILINOGEN, URINE AUTO 0.2 mg/dL (0.0-2.0); WBC, URINE AUTO 4 /HPF (0-3)
[2017-04-03 19:52] LABS: BEDSIDE GLUCOSE 206 MG/DL (83-110)
[2017-04-03 21:51] LABS: BEDSIDE GLUCOSE 171 MG/DL (83-110)
[2017-04-04] MEDS: hydrALAZINE INJ 20 MG/ML VIAL IV ×2 (00:20→06:20)
[2017-04-04] MEDS: POLYVINYL ALCOHOL OPHTH SOLN 15 ML(LIQUITEARS) OU ×12 (00:21→23:27)
[2017-04-04] MEDS: ISOSORBIDE DIN. (ISORDIL) 20 MG TAB PO ×2 (00:22→06:20)
[2017-04-04 05:14] LABS: BASO % 0.1 % (0.0-1.0); EOS % 0.2 % (0.0-3.0); HEMATOCRIT 31.1 % (42.0-52.0); HEMATOCRIT 31.9 % (42.0-52.0); HEMOGLOBIN 9.8 g/dl (14.0-18.0); IMMATURE GRANULOCYTE # 0.1 10^3/uL (0-0); IMMATURE GRANULOCYTE % 0.6 % (0-0); MEAN CORPUSCULAR HEMOGLOBIN 29.2 pg (27.0-33.0); MEAN CORPUSCULAR HEMOGLOBIN 29.7 pg (27.0-33.0); MEAN CORPUSCULAR HGB CONC 31.3 g/dl (32.0-36.5); MEAN CORPUSCULAR HGB CONC 31.5 g/dl (32.0-36.5); MEAN CORPUSCULAR VOLUME 93.3 fl (80.0-96.0); MEAN CORPUSCULAR VOLUME 94.2 fl (80.0-96.0); MONO # 0.7 10^3/uL (0.0-0.8); MONO % 3.9 % (0.0-5.0); NEUTROPHILS # 16.6 10^3/uL (1.8-7.7); NEUTROPHILS % 94.2 % (36.0-66.0); PLATELET COUNT, AUTOMATED 159 10^3/uL (150-450); PLATELET COUNT, AUTOMATED 168 10^3/uL (150-450); RED BLOOD COUNT 3.42 10^6/uL (4.30-6.10); RED CELL DISTRIBUTION WIDTH 17.2 % (11.5-14.5); WHITE BLOOD COUNT 17.5 10^3/uL (4.0-10.0); WHITE BLOOD COUNT 17.6 10^3/uL (4.0-10.0)
[2017-04-04 05:21] LABS: REASON FOR REVIEW COMPREHENSIVE REVIEW; SLIDE REVIEW Report; SOURCE PERIPHERAL SMEAR
[2017-04-04 05:35] LABS: ALBUMIN 1.9 GM/DL (3.2-5.2); ALBUMIN/GLOBULIN RATIO 0.58 (1.00-1.93); ALKALINE PHOSPHATASE 82 U/L (45-117); ALT/SGPT < 6 U/L (12-78); ANION GAP 13 MEQ/L (8-16); AST/SGOT 14 U/L (7-37); BILIRUBIN,TOTAL 0.3 MG/DL (0.2-1.0); BLOOD UREA NITROGEN 84 MG/DL (7-18); CALCIUM LEVEL 6.9 MG/DL (8.8-10.2); CARBON DIOXIDE LEVEL 24 MEQ/L (21-32); CHLORIDE LEVEL 104 MEQ/L (98-107); CREATININE FOR GFR 5.55 MG/DL (0.70-1.30); GLOMERULAR FILTRATION RATE 10.6 (>35); GLUCOSE, FASTING 252 MG/DL (83-110); MAGNESIUM LEVEL 2.9 MG/DL (1.8-2.4); SODIUM LEVEL 141 MEQ/L (136-145); TOTAL PROTEIN 5.2 GM/DL (6.4-8.2)
[2017-04-04 05:36] LABS: POTASSIUM SERUM 5.6 MEQ/L (3.5-5.1)
[2017-04-04 05:47] LABS: LYMPH # 0.2 10^3/uL (1.5-4.5); POSITIVE DIFF POS FLAG
[2017-04-04] MEDS: SLF 3 ML SYR IV ×3 (06:20→21:05)
[2017-04-04] MEDS: HumaLOG INSULIN (NovoLOG) PER UNIT SC ×4 (07:39→23:28)
[2017-04-04] MEDS: LEVOTHYROXINE 100 MCG (0.1MG) VIAL IV (08:26)
[2017-04-04] MEDS: PANTOPRAZOLE 40MG INJ (PROTONIX) (C9113) IV (08:27)
[2017-04-04] MEDS: SINEMET 25-100 MG TAB PO ×4 (08:27→16:48)
[2017-04-04] MEDS: methylPREDNISolone INJ 40 MG/1 ML VIAL (J2920) IV (08:27)
[2017-04-04] MEDS: levETIRAcetam INJection 500 MG in D5W MINI-BAG PLUS 100 ML IV ×2 (08:27→21:05)
[2017-04-04] MEDS: FINASTERIDE 5 MG TAB PO (08:49)
[2017-04-04] MEDS: MULTIVITAMIN/MINERALS LIQUID 15ML ORAL SYRINGE PO (08:49)
[2017-04-04] MEDS: amLODIPine 10 MG TAB PO (08:49)
[2017-04-04 09:37] LABS: ABG BASE EXCESS -6.7 (-2.0-2.0); ABG HCO3 19.2 MEQ/L (22.0-26.0); ABG O2 SATURATION 96.3 % (95.0-99.0); ABG PARTIAL PRESSURE CO2 40.2 mmHg (35.0-45.0); ABG PARTIAL PRESSURE O2 88.7 mmHg (75.0-100.0); ABG STANDARD HCO3 18.9 MEQ/L (22.0-26.0); ABG TOTAL CO2 20.5 MEQ/L (23.0-31.0); ABG pH (ARTERIAL) 7.298 UNITS (7.350-7.450)
[2017-04-04 09:39] LABS: BEDSIDE GLUCOSE 236 MG/DL (83-110)
[2017-04-04] MEDS: HEPARIN 1,000 UNITS/ML 10ML VIAL (FOR RADIOLOGY& DIALYSIS ONLY) XX (11:45)
[2017-04-04] MEDS: HEPARIN 1,000 UNITS/ML 10ML VIAL (FOR RADIOLOGY& DIALYSIS ONLY) IV (11:45)
[2017-04-04 12:22] LABS: BEDSIDE GLUCOSE 273 MG/DL (83-110)
[2017-04-04] MEDS: PIPERACILLIN/TAZOBACTAM SOD 3.375 GM in APPROPRIATE DILUENT 1 EA IV (18:09)
[2017-04-05] MEDS: POLYVINYL ALCOHOL OPHTH SOLN 15 ML(LIQUITEARS) OU ×13 (00:09→23:57)
[2017-04-05 05:15] LABS: HEMATOCRIT 32.9 % (42.0-52.0); HEMOGLOBIN 10.3 g/dl (14.0-18.0); MEAN CORPUSCULAR HEMOGLOBIN 29.3 pg (27.0-33.0); MEAN CORPUSCULAR HGB CONC 31.3 g/dl (32.0-36.5); MEAN CORPUSCULAR VOLUME 93.7 fl (80.0-96.0); RED BLOOD COUNT 3.51 10^6/uL (4.30-6.10); RED CELL DISTRIBUTION WIDTH 17.1 % (11.5-14.5); WHITE BLOOD COUNT 19.9 10^3/uL (4.0-10.0)
[2017-04-05] MEDS: HumaLOG INSULIN (NovoLOG) PER UNIT SC ×4 (05:17→23:57)
[2017-04-05] MEDS: PIPERACILLIN/TAZOBACTAM SOD 2.25 GM in APPROPRIATE DILUENT 1 EA IV ×3 (05:17→20:36)
[2017-04-05] MEDS: SLF 3 ML SYR IV ×3 (05:18→20:54)
[2017-04-05 05:27] LABS: ALBUMIN/GLOBULIN RATIO 0.61 (1.00-1.93); ALKALINE PHOSPHATASE 97 U/L (45-117); ALT/SGPT < 6 U/L (12-78); ANION GAP 9 MEQ/L (8-16); AST/SGOT 14 U/L (7-37); BILIRUBIN,TOTAL 0.3 MG/DL (0.2-1.0); BLOOD UREA NITROGEN 60 MG/DL (7-18); C REACTIVE PROTEIN QUANTITATIV 6.49 MG/DL (0.00-0.30); CALCIUM LEVEL 6.6 MG/DL (8.8-10.2); CARBON DIOXIDE LEVEL 28 MEQ/L (21-32); CHLORIDE LEVEL 105 MEQ/L (98-107); CREATININE FOR GFR 4.12 MG/DL (0.70-1.30); GLOMERULAR FILTRATION RATE 14.9 (>35); GLUCOSE, FASTING 290 MG/DL (83-110); MAGNESIUM LEVEL 2.7 MG/DL (1.8-2.4); POTASSIUM SERUM 4.6 MEQ/L (3.5-5.1); SODIUM LEVEL 142 MEQ/L (136-145); TOTAL PROTEIN 5.3 GM/DL (6.4-8.2)
[2017-04-05 05:40] LABS: PLATELET COUNT, AUTOMATED 60 10^3/uL (150-450)
[2017-04-05 05:41] LABS: IMMATURE PLATELET FRACTION % 4.9 % (0.0-10.9)
[2017-04-05 08:06] LABS: CRYPTOCOCCUS ANTIBODY SERUM Negative (Neg:<1:2); CRYPTOCOCCUS ANTIGEN SER Negative (Negative)
[2017-04-05] MEDS: LEVOTHYROXINE 100 MCG (0.1MG) VIAL IV (08:26)
[2017-04-05] MEDS: PANTOPRAZOLE 40MG INJ (PROTONIX) (C9113) IV (08:28)
[2017-04-05] MEDS: SINEMET 25-100 MG TAB PO ×3 (08:28→18:34)
[2017-04-05] MEDS: MULTIVITAMIN/MINERALS LIQUID 15ML ORAL SYRINGE PO (08:28)
[2017-04-05] MEDS: FINASTERIDE 5 MG TAB PO (08:29)
[2017-04-05] MEDS: methylPREDNISolone INJ 40 MG/1 ML VIAL (J2920) IV (08:29)
[2017-04-05] MEDS: levETIRAcetam INJection 500 MG in D5W MINI-BAG PLUS 100 ML IV ×2 (08:47→20:36)
[2017-04-05 09:16] LABS: PHOSPHORUS LEVEL 7.4 MG/DL (2.5-4.9)
[2017-04-05] MEDS: VANCOMYCIN HCL 1,000 MG, VIAL MATE ADAPTER 1 EACH in D5W 250 ML IV (09:57)
[2017-04-05 11:11] LABS: BEDSIDE GLUCOSE 253 MG/DL (83-110)
[2017-04-05 11:11] LABS: BEDSIDE GLUCOSE 280 MG/DL (83-110)
[2017-04-05 11:11] LABS: BEDSIDE GLUCOSE 169 MG/DL (83-110)
[2017-04-05 12:10] LABS: BEDSIDE GLUCOSE 369 MG/DL (83-110)
[2017-04-05] MEDS: CALCIUM ACETATE 667 MG/5 ML JT ×2 (12:30→18:00)
[2017-04-05] MEDS ORDERED: CALCIUM ACETATE 667 MG GELCAP JT (16:00)
[2017-04-05] MEDS ORDERED: (RENVELA) SEVELAMER **CARBONate** 800 MG TAB NG (16:00)
[2017-04-05 17:15] LABS: BEDSIDE GLUCOSE 350 MG/DL (83-110)
[2017-04-06 00:12] LABS: BEDSIDE GLUCOSE 215 MG/DL (83-110)
[2017-04-06] MEDS: POLYVINYL ALCOHOL OPHTH SOLN 15 ML(LIQUITEARS) OU ×11 (04:18→22:18)
[2017-04-06 04:32] LABS: HEMATOCRIT 30.9 % (42.0-52.0); HEMOGLOBIN 9.9 g/dl (14.0-18.0); MEAN CORPUSCULAR HEMOGLOBIN 29.6 pg (27.0-33.0); MEAN CORPUSCULAR VOLUME 92.5 fl (80.0-96.0); RED BLOOD COUNT 3.34 10^6/uL (4.30-6.10); RED CELL DISTRIBUTION WIDTH 16.7 % (11.5-14.5); WHITE BLOOD COUNT 13.6 10^3/uL (4.0-10.0)
[2017-04-06 04:34] LABS: PLATELET COUNT, AUTOMATED 51 10^3/uL (150-450)
[2017-04-06 04:50] LABS: ALBUMIN/GLOBULIN RATIO 0.61 (1.00-1.93); ALKALINE PHOSPHATASE 77 U/L (45-117); ALT/SGPT 6 U/L (12-78); ANION GAP 11 MEQ/L (8-16); AST/SGOT 10 U/L (7-37); BILIRUBIN,TOTAL 0.5 MG/DL (0.2-1.0); BLOOD UREA NITROGEN 83 MG/DL (7-18); C REACTIVE PROTEIN QUANTITATIV 7.52 MG/DL (0.00-0.30); CALCIUM LEVEL 6.7 MG/DL (8.8-10.2); CARBON DIOXIDE LEVEL 28 MEQ/L (21-32); CHLORIDE LEVEL 103 MEQ/L (98-107); CREATININE FOR GFR 5.09 MG/DL (0.70-1.30); GLOMERULAR FILTRATION RATE 11.7 (>35); GLUCOSE, FASTING 202 MG/DL (83-110); MAGNESIUM LEVEL 2.7 MG/DL (1.8-2.4); POTASSIUM SERUM 4.6 MEQ/L (3.5-5.1); SODIUM LEVEL 142 MEQ/L (136-145); TOTAL PROTEIN 5.3 GM/DL (6.4-8.2)
[2017-04-06] MEDS: HumaLOG INSULIN (NovoLOG) PER UNIT SC ×3 (06:39→18:18)
[2017-04-06] MEDS: SLF 3 ML SYR IV ×3 (06:39→22:18)
[2017-04-06] MEDS: PIPERACILLIN/TAZOBACTAM SOD 2.25 GM in APPROPRIATE DILUENT 1 EA IV ×3 (06:42→22:50)
[2017-04-06 06:46] LABS: BEDSIDE GLUCOSE 234 MG/DL (83-110)
[2017-04-06] MEDS: CALCIUM ACETATE 667 MG/5 ML JT ×3 (08:00→18:18)
[2017-04-06] MEDS: PANTOPRAZOLE 40MG INJ (PROTONIX) (C9113) IV (08:19)
[2017-04-06] MEDS: LEVOTHYROXINE 100 MCG (0.1MG) VIAL IV (08:19)
[2017-04-06] MEDS: FINASTERIDE 5 MG TAB PO (08:20)
[2017-04-06] MEDS: SINEMET 25-100 MG TAB PO ×3 (08:20→16:40)
[2017-04-06] MEDS: levETIRAcetam INJection 500 MG in D5W MINI-BAG PLUS 100 ML IV ×2 (08:20→22:18)
[2017-04-06] MEDS: methylPREDNISolone INJ 40 MG/1 ML VIAL (J2920) IV (08:20)
[2017-04-06] MEDS: MULTIVITAMIN/MINERALS LIQUID 15ML ORAL SYRINGE PO (08:38)
[2017-04-06 11:33] LABS: BEDSIDE GLUCOSE 199 MG/DL (83-110)
[2017-04-06] MEDS: HEPARIN 1,000 UNITS/ML 10ML VIAL (FOR RADIOLOGY& DIALYSIS ONLY) XX (13:30)
[2017-04-06] MEDS: ACETAMINOPHEN TAB 650MG DOSE (2X325MG) PO ×2 (16:41→23:50)
[2017-04-06 18:23] LABS: BEDSIDE GLUCOSE 246 MG/DL (83-110)
[2017-04-06 20:05] LABS: VANCOMYCIN RANDOM 8.4 UG/ML
[2017-04-06] MEDS: VANCOMYCIN HCL 1,000 MG, VIAL MATE ADAPTER 1 EACH in D5W 250 ML IV (21:00)
[2017-04-07 00:10] LABS: BEDSIDE GLUCOSE 330 MG/DL (83-110)
[2017-04-07] MEDS: HumaLOG INSULIN (NovoLOG) PER UNIT SC ×4 (00:24→17:06)
[2017-04-07] MEDS: PREGABALIN 75 MG CAP(LYRICA) PO (00:54)
[2017-04-07] MEDS: POLYVINYL ALCOHOL OPHTH SOLN 15 ML(LIQUITEARS) OU ×12 (00:55→23:07)
[2017-04-07 04:29] LABS: HEMATOCRIT 29.1 % (42.0-52.0); HEMOGLOBIN 9.5 g/dl (14.0-18.0); MEAN CORPUSCULAR HEMOGLOBIN 29.8 pg (27.0-33.0); MEAN CORPUSCULAR HGB CONC 32.6 g/dl (32.0-36.5); MEAN CORPUSCULAR VOLUME 91.2 fl (80.0-96.0); RED BLOOD COUNT 3.19 10^6/uL (4.30-6.10); WHITE BLOOD COUNT 12.4 10^3/uL (4.0-10.0)
[2017-04-07 04:30] LABS: PLATELET COUNT, AUTOMATED 43 10^3/uL (150-450)
[2017-04-07 04:31] LABS: IMMATURE PLATELET FRACTION % 8.9 % (0.0-10.9)
[2017-04-07 04:45] LABS: ALBUMIN 1.8 GM/DL (3.2-5.2); ALBUMIN/GLOBULIN RATIO 0.55 (1.00-1.93); ALKALINE PHOSPHATASE 81 U/L (45-117); ALT/SGPT < 6 U/L (12-78); ANION GAP 9 MEQ/L (8-16); AST/SGOT 13 U/L (7-37); BILIRUBIN,TOTAL 0.4 MG/DL (0.2-1.0); BLOOD UREA NITROGEN 54 MG/DL (7-18); C REACTIVE PROTEIN QUANTITATIV 5.57 MG/DL (0.00-0.30); CARBON DIOXIDE LEVEL 27 MEQ/L (21-32); CHLORIDE LEVEL 103 MEQ/L (98-107); CREATININE FOR GFR 3.75 MG/DL (0.70-1.30); GLOMERULAR FILTRATION RATE 16.6 (>35); GLUCOSE, FASTING 297 MG/DL (83-110); MAGNESIUM LEVEL 2.3 MG/DL (1.8-2.4); SODIUM LEVEL 139 MEQ/L (136-145); TOTAL PROTEIN 5.1 GM/DL (6.4-8.2); VANCOMYCIN RANDOM 20.6 UG/ML
[2017-04-07] MEDS: SLF 3 ML SYR IV ×3 (06:39→21:45)
[2017-04-07] MEDS: PIPERACILLIN/TAZOBACTAM SOD 2.25 GM in APPROPRIATE DILUENT 1 EA IV ×3 (06:39→21:43)
[2017-04-07] MEDS: CALCIUM ACETATE 667 MG/5 ML JT ×3 (08:02→17:05)
[2017-04-07] MEDS: LEVOTHYROXINE 100 MCG (0.1MG) VIAL IV (08:02)
[2017-04-07] MEDS: methylPREDNISolone INJ 40 MG/1 ML VIAL (J2920) IV (08:03)
[2017-04-07] MEDS: SINEMET 25-100 MG TAB PO ×3 (08:03→17:05)
[2017-04-07] MEDS: MULTIVITAMIN/MINERALS LIQUID 15ML ORAL SYRINGE PO (08:03)
[2017-04-07] MEDS: levETIRAcetam INJection 500 MG in D5W MINI-BAG PLUS 100 ML IV ×2 (08:03→21:44)
[2017-04-07] MEDS: FINASTERIDE 5 MG TAB PO (08:03)
[2017-04-07] MEDS: ACETAMINOPHEN TAB 650MG DOSE (2X325MG) PO (08:05)
[2017-04-07] MEDS: LEVEMIR (INSULIN DETEMIR) 1 UNITS/0.01ML SC ×2 (09:16→21:44)
[2017-04-07 11:42] LABS: BEDSIDE GLUCOSE 396 MG/DL (83-110)
[2017-04-07] MEDS: HYDROcodone/APAP LIQUID 7.5-325MG 15ML UDC (LORTAB ELIXIR) GT ×2 (11:53→19:33)
[2017-04-07] MEDS: CHECK TO SEE IF PATIENT IS RECEIVING DIALYSIS TODAY AND REFER TO THE VANCOMYCIN ORDER XX (14:47)
[2017-04-07 17:16] LABS: BEDSIDE GLUCOSE 405 MG/DL (83-110)
[2017-04-08] MEDS: POLYVINYL ALCOHOL OPHTH SOLN 15 ML(LIQUITEARS) OU ×12 (00:16→23:00)
[2017-04-08] MEDS: HumaLOG INSULIN (NovoLOG) PER UNIT SC ×4 (00:16→17:28)
[2017-04-08 00:25] LABS: BEDSIDE GLUCOSE 349 MG/DL (83-110)
[2017-04-08 04:35] LABS: HEMATOCRIT 29.2 % (42.0-52.0); HEMOGLOBIN 9.5 g/dl (14.0-18.0); MEAN CORPUSCULAR HEMOGLOBIN 29.4 pg (27.0-33.0); MEAN CORPUSCULAR HGB CONC 32.5 g/dl (32.0-36.5); MEAN CORPUSCULAR VOLUME 90.4 fl (80.0-96.0); RED BLOOD COUNT 3.23 10^6/uL (4.30-6.10); RED CELL DISTRIBUTION WIDTH 16.2 % (11.5-14.5); WHITE BLOOD COUNT 12.4 10^3/uL (4.0-10.0)
[2017-04-08 04:41] LABS: PLATELET COUNT, AUTOMATED 39 10^3/uL (150-450)
[2017-04-08 04:42] LABS: IMMATURE PLATELET FRACTION % 8.4 % (0.0-10.9); PLTBLUE- EDTA FREE CALC 36 K/mm3 (172-450)
[2017-04-08 04:44] LABS: PLTBLUE- EDTA FREE MACHINE 33 10^3/uL (172-450)
[2017-04-08 04:59] LABS: ALBUMIN 1.8 GM/DL (3.2-5.2); ALBUMIN/GLOBULIN RATIO 0.55 (1.00-1.93); ALKALINE PHOSPHATASE 79 U/L (45-117); ALT/SGPT < 6 U/L (12-78); ANION GAP 10 MEQ/L (8-16); AST/SGOT 9 U/L (7-37); BILIRUBIN,TOTAL 0.3 MG/DL (0.2-1.0); BLOOD UREA NITROGEN 79 MG/DL (7-18); C REACTIVE PROTEIN QUANTITATIV 3.36 MG/DL (0.00-0.30); CARBON DIOXIDE LEVEL 26 MEQ/L (21-32); CHLORIDE LEVEL 102 MEQ/L (98-107); GLOMERULAR FILTRATION RATE 13.1 (>35); GLUCOSE, FASTING 280 MG/DL (83-110); MAGNESIUM LEVEL 2.5 MG/DL (1.8-2.4); POTASSIUM SERUM 4.1 MEQ/L (3.5-5.1); SODIUM LEVEL 138 MEQ/L (136-145); TOTAL PROTEIN 5.1 GM/DL (6.4-8.2); VANCOMYCIN RANDOM 16.9 UG/ML
[2017-04-08] MEDS: PIPERACILLIN/TAZOBACTAM SOD 2.25 GM in APPROPRIATE DILUENT 1 EA IV ×3 (05:11→22:09)
[2017-04-08] MEDS: SLF 3 ML SYR IV ×3 (05:11→21:33)
[2017-04-08] MEDS: ACETAMINOPHEN TAB 650MG DOSE (2X325MG) PO (05:14)
[2017-04-08 08:17] LABS: BEDSIDE GLUCOSE 275 MG/DL (83-110)
[2017-04-08] MEDS: CALCIUM ACETATE 667 MG/5 ML JT ×3 (08:29→17:28)
[2017-04-08] MEDS: levETIRAcetam INJection 500 MG in D5W MINI-BAG PLUS 100 ML IV ×2 (08:29→21:33)
[2017-04-08] MEDS: LEVEMIR (INSULIN DETEMIR) 1 UNITS/0.01ML SC ×2 (08:30→21:33)
[2017-04-08] MEDS: predniSONE 5MG/5ML SOLN ORAL SYRINGE PEG (08:30)
[2017-04-08] MEDS: FINASTERIDE 5 MG TAB PO (08:30)
[2017-04-08] MEDS: MULTIVITAMIN/MINERALS LIQUID 15ML ORAL SYRINGE PO (08:30)
[2017-04-08] MEDS: SINEMET 25-100 MG TAB PO ×3 (08:32→17:28)
[2017-04-08] MEDS: LEVOTHYROXINE 100 MCG (0.1MG) VIAL IV (08:59)
[2017-04-08 11:53] LABS: BEDSIDE GLUCOSE 248 MG/DL (83-110)
[2017-04-08] MEDS: CHECK TO SEE IF PATIENT IS RECEIVING DIALYSIS TODAY AND REFER TO THE VANCOMYCIN ORDER XX (15:59)
[2017-04-08 17:30] LABS: BEDSIDE GLUCOSE 303 MG/DL (83-110)
[2017-04-08] MEDS: HYDROcodone/APAP LIQUID 7.5-325MG 15ML UDC (LORTAB ELIXIR) GT (21:35)
[2017-04-08 21:52] LABS: BEDSIDE GLUCOSE 257 MG/DL (83-110)
[2017-04-09] MEDS: POLYVINYL ALCOHOL OPHTH SOLN 15 ML(LIQUITEARS) OU ×12 (00:20→22:55)
[2017-04-09] MEDS: HumaLOG INSULIN (NovoLOG) PER UNIT SC ×5 (00:20→23:41)
[2017-04-09 00:27] LABS: BEDSIDE GLUCOSE 261 MG/DL (83-110)
[2017-04-09] MEDS: HYDROcodone/APAP LIQUID 7.5-325MG 15ML UDC (LORTAB ELIXIR) GT ×3 (01:35→21:10)
[2017-04-09 05:08] LABS: HEMATOCRIT 29.6 % (42.0-52.0); HEMOGLOBIN 9.5 g/dl (14.0-18.0); MEAN CORPUSCULAR HEMOGLOBIN 29.1 pg (27.0-33.0); MEAN CORPUSCULAR HGB CONC 32.1 g/dl (32.0-36.5); MEAN CORPUSCULAR VOLUME 90.5 fl (80.0-96.0); RED BLOOD COUNT 3.27 10^6/uL (4.30-6.10); RED CELL DISTRIBUTION WIDTH 16.3 % (11.5-14.5)
[2017-04-09 05:19] LABS: PLATELET COUNT, AUTOMATED 41 10^3/uL (150-450)
[2017-04-09 05:20] LABS: IMMATURE PLATELET FRACTION % 5.5 % (0.0-10.9)
[2017-04-09 05:28] LABS: ALBUMIN 1.8 GM/DL (3.2-5.2); ANION GAP 8 MEQ/L (8-16); BLOOD UREA NITROGEN 103 MG/DL (7-18); CALCIUM LEVEL 7.4 MG/DL (8.8-10.2); CARBON DIOXIDE LEVEL 29 MEQ/L (21-32); CHLORIDE LEVEL 102 MEQ/L (98-107); CREATININE FOR GFR 5.42 MG/DL (0.70-1.30); GLOMERULAR FILTRATION RATE 10.9 (>35); GLUCOSE, FASTING 260 MG/DL (83-110); PHOSPHORUS LEVEL 4.6 MG/DL (2.5-4.9); POTASSIUM SERUM 4.2 MEQ/L (3.5-5.1); PREALBUMIN 17.9 MG/DL (20.0-40.0); SODIUM LEVEL 139 MEQ/L (136-145)
[2017-04-09] MEDS: SLF 3 ML SYR IV ×3 (05:41→22:03)
[2017-04-09] MEDS: PIPERACILLIN/TAZOBACTAM SOD 2.25 GM in APPROPRIATE DILUENT 1 EA IV ×3 (05:41→21:53)
[2017-04-09] MEDS: ACETAMINOPHEN TAB 650MG DOSE (2X325MG) PO (08:22)
[2017-04-09] MEDS: MULTIVITAMIN/MINERALS LIQUID 15ML ORAL SYRINGE PO (08:25)
[2017-04-09] MEDS: levETIRAcetam INJection 500 MG in D5W MINI-BAG PLUS 100 ML IV ×2 (08:25→21:23)
[2017-04-09] MEDS: SINEMET 25-100 MG TAB PO ×3 (08:25→16:25)
[2017-04-09] MEDS: LEVOTHYROXINE 100 MCG (0.1MG) VIAL IV (08:25)
[2017-04-09] MEDS: CALCIUM ACETATE 667 MG/5 ML JT ×3 (08:25→17:59)
[2017-04-09] MEDS: FINASTERIDE 5 MG TAB PO (08:25)
[2017-04-09] MEDS: predniSONE 5MG/5ML SOLN ORAL SYRINGE PEG (08:26)
[2017-04-09 13:23] LABS: BEDSIDE GLUCOSE 166 MG/DL (83-110)
[2017-04-09] MEDS: LEVEMIR (INSULIN DETEMIR) 1 UNITS/0.01ML SC ×2 (13:25→21:10)
[2017-04-09] MEDS: HEPARIN 1,000 UNITS/ML 10ML VIAL (FOR RADIOLOGY& DIALYSIS ONLY) IV (14:55)
[2017-04-09] MEDS: VANCOMYCIN HCL 1,000 MG, VIAL MATE ADAPTER 1 EACH in D5W 250 ML IV (16:01)
[2017-04-09] MEDS: CHECK TO SEE IF PATIENT IS RECEIVING DIALYSIS TODAY AND REFER TO THE VANCOMYCIN ORDER XX (16:04)
[2017-04-09 17:44] LABS: BEDSIDE GLUCOSE 184 MG/DL (83-110)
[2017-04-09 23:50] LABS: BEDSIDE GLUCOSE 157 MG/DL (83-110)
[2017-04-10 00:07] LABS: HEPARIN INDUCED PLATELET ABY 2.952 OD (0.000-0.400)
[2017-04-10] MEDS: POLYVINYL ALCOHOL OPHTH SOLN 15 ML(LIQUITEARS) OU ×10 (01:36→21:08)
[2017-04-10 05:44] LABS: BEDSIDE GLUCOSE 141 MG/DL (83-110)
[2017-04-10] MEDS: HumaLOG INSULIN (NovoLOG) PER UNIT SC ×4 (05:57→23:36)
[2017-04-10] MEDS: PIPERACILLIN/TAZOBACTAM SOD 2.25 GM in APPROPRIATE DILUENT 1 EA IV ×3 (05:57→21:54)
[2017-04-10] MEDS: SLF 3 ML SYR IV ×3 (05:58→21:09)
[2017-04-10 06:20] LABS: HEMATOCRIT 28.9 % (42.0-52.0); HEMOGLOBIN 9.3 g/dl (14.0-18.0); MEAN CORPUSCULAR HEMOGLOBIN 29.6 pg (27.0-33.0); MEAN CORPUSCULAR HGB CONC 32.2 g/dl (32.0-36.5); RED BLOOD COUNT 3.14 10^6/uL (4.30-6.10); RED CELL DISTRIBUTION WIDTH 16.5 % (11.5-14.5); WHITE BLOOD COUNT 10.3 10^3/uL (4.0-10.0)
[2017-04-10 06:27] LABS: IMMATURE PLATELET FRACTION % 9.8 % (0.0-10.9); PLATELET COUNT, AUTOMATED 36 10^3/uL (150-450); PLATELET F 31
[2017-04-10 06:31] LABS: ALBUMIN 1.8 GM/DL (3.2-5.2); ANION GAP 6 MEQ/L (8-16); BLOOD UREA NITROGEN 71 MG/DL (7-18); CALCIUM LEVEL 7.9 MG/DL (8.8-10.2); CARBON DIOXIDE LEVEL 31 MEQ/L (21-32); CHLORIDE LEVEL 102 MEQ/L (98-107); CREATININE FOR GFR 4.09 MG/DL (0.70-1.30); GLUCOSE, FASTING 125 MG/DL (83-110); PHOSPHORUS LEVEL 3.6 MG/DL (2.5-4.9); POTASSIUM SERUM 4.3 MEQ/L (3.5-5.1); SODIUM LEVEL 139 MEQ/L (136-145)
[2017-04-10] MEDS: CALCIUM ACETATE 667 MG/5 ML JT ×3 (08:00→18:34)
[2017-04-10] MEDS: levETIRAcetam INJection 500 MG in D5W MINI-BAG PLUS 100 ML IV ×2 (08:23→21:09)
[2017-04-10] MEDS: MULTIVITAMIN/MINERALS LIQUID 15ML ORAL SYRINGE PO (08:24)
[2017-04-10] MEDS: FINASTERIDE 5 MG TAB PO (08:24)
[2017-04-10] MEDS: SINEMET 25-100 MG TAB PO ×3 (08:24→18:34)
[2017-04-10] MEDS: LEVEMIR (INSULIN DETEMIR) 1 UNITS/0.01ML SC ×2 (08:24→21:09)
[2017-04-10] MEDS: LEVOTHYROXINE 100 MCG (0.1MG) VIAL IV (10:17)
[2017-04-10] MEDS: predniSONE 5MG/5ML SOLN ORAL SYRINGE PEG (10:18)
[2017-04-10] MEDS: HYDROcodone/APAP LIQUID 7.5-325MG 15ML UDC (LORTAB ELIXIR) GT (10:37)
[2017-04-10] MEDS: CHECK TO SEE IF PATIENT IS RECEIVING DIALYSIS TODAY AND REFER TO THE VANCOMYCIN ORDER XX (10:42)
[2017-04-10 12:06] LABS: BEDSIDE GLUCOSE 150 MG/DL (83-110)
[2017-04-10 17:55] LABS: BEDSIDE GLUCOSE 137 MG/DL (83-110)
[2017-04-10 21:14] LABS: BEDSIDE GLUCOSE 166 MG/DL (83-110)
[2017-04-10 23:45] LABS: BEDSIDE GLUCOSE 211 MG/DL (83-110)
[2017-04-11] MEDS: SLF 3 ML SYR IV ×3 (05:29→21:21)
[2017-04-11] MEDS: PIPERACILLIN/TAZOBACTAM SOD 2.25 GM in APPROPRIATE DILUENT 1 EA IV ×2 (05:30→17:40)
[2017-04-11] MEDS: HumaLOG INSULIN (NovoLOG) PER UNIT SC ×3 (05:37→17:41)
[2017-04-11 05:43] LABS: BEDSIDE GLUCOSE 148 MG/DL (83-110)
[2017-04-11] MEDS: SINEMET 25-100 MG TAB PO ×3 (06:34→17:40)
[2017-04-11] MEDS: FINASTERIDE 5 MG TAB PO (06:34)
[2017-04-11] MEDS: LEVOTHYROXINE 100 MCG (0.1MG) VIAL IV (06:34)
[2017-04-11] MEDS: MULTIVITAMIN/MINERALS LIQUID 15ML ORAL SYRINGE PO (06:35)
[2017-04-11] MEDS: CALCIUM ACETATE 667 MG/5 ML JT ×3 (06:35→17:40)
[2017-04-11] MEDS: predniSONE 5MG/5ML SOLN ORAL SYRINGE PEG (06:35)
[2017-04-11] MEDS: levETIRAcetam INJection 500 MG in D5W MINI-BAG PLUS 100 ML IV ×2 (06:35→21:21)
[2017-04-11 06:47] LABS: HEMATOCRIT 26.3 % (42.0-52.0); HEMOGLOBIN 8.4 g/dl (14.0-18.0); MEAN CORPUSCULAR HEMOGLOBIN 29.5 pg (27.0-33.0); MEAN CORPUSCULAR HGB CONC 31.9 g/dl (32.0-36.5); MEAN CORPUSCULAR VOLUME 92.3 fl (80.0-96.0); PLATELET COUNT, AUTOMATED 41 10^3/uL (150-450); RED BLOOD COUNT 2.85 10^6/uL (4.30-6.10); RED CELL DISTRIBUTION WIDTH 16.5 % (11.5-14.5); WHITE BLOOD COUNT 7.7 10^3/uL (4.0-10.0)
[2017-04-11 06:48] LABS: IMMATURE PLATELET FRACTION % 9.8 % (0.0-10.9)
[2017-04-11 07:09] LABS: ALBUMIN 1.8 GM/DL (3.2-5.2); ANION GAP 8 MEQ/L (8-16); BLOOD UREA NITROGEN 91 MG/DL (7-18); CALCIUM LEVEL 7.1 MG/DL (8.8-10.2); CARBON DIOXIDE LEVEL 29 MEQ/L (21-32); CHLORIDE LEVEL 102 MEQ/L (98-107); CREATININE FOR GFR 4.67 MG/DL (0.70-1.30); GLOMERULAR FILTRATION RATE 12.9 (>35); GLUCOSE, FASTING 147 MG/DL (83-110); PHOSPHORUS LEVEL 4.8 MG/DL (2.5-4.9); POTASSIUM SERUM 4.7 MEQ/L (3.5-5.1); SODIUM LEVEL 139 MEQ/L (136-145); VANCOMYCIN RANDOM 18.2 UG/ML
[2017-04-11] MEDS: LEVEMIR (INSULIN DETEMIR) 1 UNITS/0.01ML SC ×2 (09:10→21:22)
[2017-04-11] MEDS ORDERED: DARBEPOETIN 100 MCG/0.5 ML *DIALYSIS* SYRINGE (J0882) IV (11:45)
[2017-04-11 12:32] LABS: BEDSIDE GLUCOSE 211 MG/DL (83-110)
[2017-04-11] MEDS: HEPARIN 1,000 UNITS/ML 10ML VIAL (FOR RADIOLOGY& DIALYSIS ONLY) XX (13:15)
[2017-04-11] MEDS: CHECK TO SEE IF PATIENT IS RECEIVING DIALYSIS TODAY AND REFER TO THE VANCOMYCIN ORDER XX (16:00)
[2017-04-11 17:43] LABS: BEDSIDE GLUCOSE 136 MG/DL (83-110)
[2017-04-11] MEDS: VANCOMYCIN HCL 1,000 MG, VIAL MATE ADAPTER 1 EACH in D5W 250 ML IV (18:28)
[2017-04-11] MEDS: HYDROcodone/APAP LIQUID 7.5-325MG 15ML UDC (LORTAB ELIXIR) GT (21:21)
[2017-04-11 22:41] LABS: BEDSIDE GLUCOSE 178 MG/DL (83-110)
[2017-04-11 23:53] LABS: BEDSIDE GLUCOSE 176 MG/DL (83-110)
[2017-04-12] MEDS: PIPERACILLIN/TAZOBACTAM SOD 2.25 GM in APPROPRIATE DILUENT 1 EA IV (00:19)
[2017-04-12] MEDS: HumaLOG INSULIN (NovoLOG) PER UNIT SC ×4 (00:20→17:32)
[2017-04-12] MEDS: HYDROcodone/APAP LIQUID 7.5-325MG 15ML UDC (LORTAB ELIXIR) GT (02:29)
[2017-04-12 05:33] LABS: BEDSIDE GLUCOSE 91 MG/DL (83-110)
[2017-04-12] MEDS: SLF 3 ML SYR IV ×3 (06:13→20:59)
[2017-04-12 06:26] LABS: HEMATOCRIT 27.2 % (42.0-52.0); HEMOGLOBIN 8.8 g/dl (14.0-18.0); MEAN CORPUSCULAR HEMOGLOBIN 29.7 pg (27.0-33.0); MEAN CORPUSCULAR HGB CONC 32.4 g/dl (32.0-36.5); MEAN CORPUSCULAR VOLUME 91.9 fl (80.0-96.0); RED BLOOD COUNT 2.96 10^6/uL (4.30-6.10); RED CELL DISTRIBUTION WIDTH 16.5 % (11.5-14.5); WHITE BLOOD COUNT 7.2 10^3/uL (4.0-10.0)
[2017-04-12 06:28] LABS: PLATELET COUNT, AUTOMATED 51 10^3/uL (150-450)
[2017-04-12 06:52] LABS: ALBUMIN 1.9 GM/DL (3.2-5.2); ANION GAP 5 MEQ/L (8-16); BLOOD UREA NITROGEN 58 MG/DL (7-18); CALCIUM LEVEL 7.4 MG/DL (8.8-10.2); CARBON DIOXIDE LEVEL 32 MEQ/L (21-32); CHLORIDE LEVEL 100 MEQ/L (98-107); CREATININE FOR GFR 3.07 MG/DL (0.70-1.30); GLOMERULAR FILTRATION RATE 20.9 (>35); GLUCOSE, FASTING 89 MG/DL (83-110); PHOSPHORUS LEVEL 3.6 MG/DL (2.5-4.9); POTASSIUM SERUM 3.9 MEQ/L (3.5-5.1); SODIUM LEVEL 137 MEQ/L (136-145)
[2017-04-12] MEDS: levETIRAcetam INJection 500 MG in D5W MINI-BAG PLUS 100 ML IV (08:06)
[2017-04-12] MEDS: LEVOTHYROXINE 100 MCG (0.1MG) VIAL IV (08:06)
[2017-04-12] MEDS: SINEMET 25-100 MG TAB PO ×3 (08:06→17:31)
[2017-04-12] MEDS: predniSONE 5MG/5ML SOLN ORAL SYRINGE PEG (08:07)
[2017-04-12] MEDS: MULTIVITAMIN/MINERALS LIQUID 15ML ORAL SYRINGE PO (08:07)
[2017-04-12] MEDS: FINASTERIDE 5 MG TAB PO (08:07)
[2017-04-12] MEDS: CALCIUM ACETATE 667 MG/5 ML JT (08:07)
[2017-04-12] MEDS: LEVEMIR (INSULIN DETEMIR) 1 UNITS/0.01ML SC ×2 (09:00→20:58)
[2017-04-12 12:02] LABS: BEDSIDE GLUCOSE 141 MG/DL (83-110)
[2017-04-12] MEDS: CALCIUM ACETATE 667 MG/5 ML PO ×2 (12:30→17:32)
[2017-04-12] MEDS ORDERED: LIDOCAINE 2% MDV 20 ML VIAL As Ordered (14:14)
[2017-04-12] MEDS ORDERED: HEPARIN 1,000 UNITS/ML 10ML VIAL (FOR RADIOLOGY& DIALYSIS ONLY) As Ordered ×2 (14:14→14:45)
[2017-04-12] MEDS: CHECK TO SEE IF PATIENT IS RECEIVING DIALYSIS TODAY AND REFER TO THE VANCOMYCIN ORDER XX (15:08)
[2017-04-12 17:04] LABS: BEDSIDE GLUCOSE 238 MG/DL (83-110)
[2017-04-12] MEDS: ACETAMINOPHEN TAB 650MG DOSE (2X325MG) PO (17:34)
[2017-04-12] MEDS: levETIRAcetam 250MG TABLET (KEPPRA) PO (20:59)
[2017-04-13 00:24] LABS: BEDSIDE GLUCOSE 180 MG/DL (83-110)
[2017-04-13] MEDS: HumaLOG INSULIN (NovoLOG) PER UNIT SC ×5 (00:27→23:34)
[2017-04-13] MEDS: ACETAMINOPHEN 650 MG SUPP PR (02:45)
[2017-04-13 05:46] LABS: HEMATOCRIT 28.3 % (42.0-52.0); HEMOGLOBIN 9.2 g/dl (14.0-18.0); MEAN CORPUSCULAR HEMOGLOBIN 29.5 pg (27.0-33.0); MEAN CORPUSCULAR HGB CONC 32.5 g/dl (32.0-36.5); MEAN CORPUSCULAR VOLUME 90.7 fl (80.0-96.0); RED BLOOD COUNT 3.12 10^6/uL (4.30-6.10); RED CELL DISTRIBUTION WIDTH 16.8 % (11.5-14.5)
[2017-04-13 05:50] LABS: ALBUMIN 1.9 GM/DL (3.2-5.2); ANION GAP 7 MEQ/L (8-16); BLOOD UREA NITROGEN 73 MG/DL (7-18); CALCIUM LEVEL 7.4 MG/DL (8.8-10.2); CARBON DIOXIDE LEVEL 29 MEQ/L (21-32); CHLORIDE LEVEL 100 MEQ/L (98-107); CREATININE FOR GFR 3.62 MG/DL (0.70-1.30); GLOMERULAR FILTRATION RATE 17.3 (>35); GLUCOSE, FASTING 95 MG/DL (83-110); PHOSPHORUS LEVEL 4.2 MG/DL (2.5-4.9); POTASSIUM SERUM 4.5 MEQ/L (3.5-5.1); SODIUM LEVEL 136 MEQ/L (136-145)
[2017-04-13 05:57] LABS: PLATELET COUNT, AUTOMATED 85 10^3/uL (150-450)
[2017-04-13 05:58] LABS: IMMATURE PLATELET FRACTION % 9.8 % (0.0-10.9)
[2017-04-13] MEDS: SINEMET 25-100 MG TAB PO ×3 (06:07→17:11)
[2017-04-13] MEDS: LEVOTHYROXINE 137MCG TABLET (0.137MG) PO (06:08)
[2017-04-13] MEDS: FINASTERIDE 5 MG TAB PO (06:08)
[2017-04-13] MEDS: levETIRAcetam 250MG TABLET (KEPPRA) PO ×2 (06:08→20:06)
[2017-04-13] MEDS: MULTIVITAMIN/MINERALS LIQUID 15ML ORAL SYRINGE PO (06:08)
[2017-04-13] MEDS: predniSONE 5MG/5ML SOLN ORAL SYRINGE PO (06:12)
[2017-04-13 06:14] LABS: BEDSIDE GLUCOSE 93 MG/DL (83-110)
[2017-04-13] MEDS: SLF 3 ML SYR IV ×3 (06:26→21:09)
[2017-04-13] MEDS: CALCIUM ACETATE 667 MG/5 ML PO ×3 (08:03→17:12)
[2017-04-13] MEDS: LEVEMIR (INSULIN DETEMIR) 1 UNITS/0.01ML SC ×2 (08:03→20:07)
[2017-04-13] MEDS: HYDROcodone/APAP LIQUID 7.5-325MG 15ML UDC (LORTAB ELIXIR) PO ×2 (08:41→20:08)
[2017-04-13] MEDS: HEPARIN 1,000 UNITS/ML 10ML VIAL (FOR RADIOLOGY& DIALYSIS ONLY) XX (11:30)
[2017-04-13 13:07] LABS: BEDSIDE GLUCOSE 96 MG/DL (83-110)
[2017-04-13 17:04] LABS: BEDSIDE GLUCOSE 66 MG/DL (83-110)
[2017-04-13 18:30] LABS: BEDSIDE GLUCOSE 122 MG/DL (83-110)
[2017-04-13 23:40] LABS: BEDSIDE GLUCOSE 182 MG/DL (83-110)
[2017-04-14 05:53] LABS: BEDSIDE GLUCOSE 50 MG/DL (83-110)
[2017-04-14] MEDS: LEVOTHYROXINE 137MCG TABLET (0.137MG) PO (05:59)
[2017-04-14] MEDS: HumaLOG INSULIN (NovoLOG) PER UNIT SC ×3 (06:00→17:52)
[2017-04-14] MEDS: SLF 3 ML SYR IV ×3 (06:09→22:00)
[2017-04-14 06:13] LABS: HEMATOCRIT 28.7 % (42.0-52.0); HEMOGLOBIN 9.3 g/dl (14.0-18.0); MEAN CORPUSCULAR HEMOGLOBIN 29.8 pg (27.0-33.0); MEAN CORPUSCULAR HGB CONC 32.4 g/dl (32.0-36.5); PLATELET COUNT, AUTOMATED 126 10^3/uL (150-450); RED BLOOD COUNT 3.12 10^6/uL (4.30-6.10); WHITE BLOOD COUNT 7.3 10^3/uL (4.0-10.0)
[2017-04-14 06:31] LABS: ANION GAP 7 MEQ/L (8-16); BEDSIDE GLUCOSE CONFIRMATION 51 MG/DL (LESS THAN 200); BLOOD UREA NITROGEN 36 MG/DL (7-18); CALCIUM LEVEL 7.5 MG/DL (8.8-10.2); CARBON DIOXIDE LEVEL 29 MEQ/L (21-32); CHLORIDE LEVEL 104 MEQ/L (98-107); CREATININE FOR GFR 2.45 MG/DL (0.70-1.30); GLOMERULAR FILTRATION RATE 27.1 (>35); GLUCOSE, FASTING 51 MG/DL (83-110); PHOSPHORUS LEVEL 3.2 MG/DL (2.5-4.9); POTASSIUM SERUM 3.8 MEQ/L (3.5-5.1); SODIUM LEVEL 140 MEQ/L (136-145)
[2017-04-14 07:09] LABS: BEDSIDE GLUCOSE 113 MG/DL (83-110)
[2017-04-14] MEDS: LEVEMIR (INSULIN DETEMIR) 1 UNITS/0.01ML SC ×2 (09:00→21:11)
[2017-04-14] MEDS: FINASTERIDE 5 MG TAB PO (09:51)
[2017-04-14] MEDS: SINEMET 25-100 MG TAB PO ×3 (09:51→17:52)
[2017-04-14] MEDS: levETIRAcetam 250MG TABLET (KEPPRA) PO ×2 (09:51→21:10)
[2017-04-14] MEDS: predniSONE 5MG/5ML SOLN ORAL SYRINGE PO (09:52)
[2017-04-14] MEDS: MULTIVITAMIN/MINERALS LIQUID 15ML ORAL SYRINGE PO (09:52)
[2017-04-14 11:59] LABS: BEDSIDE GLUCOSE 113 MG/DL (83-110)
[2017-04-14] MEDS: HYDROcodone/APAP LIQUID 7.5-325MG 15ML UDC (LORTAB ELIXIR) PO (13:39)
[2017-04-14] MEDS: SODIUM CHLORIDE NASAL 0.65% SPRAY BTL (OCEAN) (15:33)
[2017-04-14 16:59] LABS: BEDSIDE GLUCOSE 299 MG/DL (83-110)
[2017-04-14 18:18] LABS: BEDSIDE GLUCOSE 318 MG/DL (83-110)
[2017-04-14 21:03] LABS: BEDSIDE GLUCOSE 367 MG/DL (83-110)
[2017-04-14] MEDS: ACETAMINOPHEN TAB 650MG DOSE (2X325MG) PO (21:15)
[2017-04-15] MEDS: HumaLOG INSULIN (NovoLOG) PER UNIT SC ×5 (00:15→23:47)
[2017-04-15 06:00] LABS: BEDSIDE GLUCOSE 115 MG/DL (83-110)
[2017-04-15] MEDS: LEVOTHYROXINE 137MCG TABLET (0.137MG) PO (06:16)
[2017-04-15] MEDS: SLF 3 ML SYR IV ×2 (06:17→12:31)
[2017-04-15 06:31] LABS: HEMATOCRIT 26.9 % (42.0-52.0); HEMOGLOBIN 8.6 g/dl (14.0-18.0); MEAN CORPUSCULAR HEMOGLOBIN 29.6 pg (27.0-33.0); MEAN CORPUSCULAR VOLUME 92.4 fl (80.0-96.0); PLATELET COUNT, AUTOMATED 143 10^3/uL (150-450); RED BLOOD COUNT 2.91 10^6/uL (4.30-6.10); WHITE BLOOD COUNT 6.2 10^3/uL (4.0-10.0)
[2017-04-15 06:51] LABS: ALBUMIN 2.1 GM/DL (3.2-5.2); ANION GAP 6 MEQ/L (8-16); BLOOD UREA NITROGEN 47 MG/DL (7-18); CALCIUM LEVEL 7.1 MG/DL (8.8-10.2); CARBON DIOXIDE LEVEL 31 MEQ/L (21-32); CHLORIDE LEVEL 102 MEQ/L (98-107); CREATININE FOR GFR 3.37 MG/DL (0.70-1.30); GLOMERULAR FILTRATION RATE 18.8 (>35); GLUCOSE, FASTING 96 MG/DL (83-110); PHOSPHORUS LEVEL 3.6 MG/DL (2.5-4.9); SODIUM LEVEL 139 MEQ/L (136-145)
[2017-04-15 09:15] LABS: BEDSIDE GLUCOSE 388 MG/DL (83-110)
[2017-04-15 09:15] LABS: BEDSIDE GLUCOSE 560 MG/DL (83-110)
[2017-04-15] MEDS: predniSONE 5MG/5ML SOLN ORAL SYRINGE PO (09:33)
[2017-04-15] MEDS: levETIRAcetam 250MG TABLET (KEPPRA) PO ×2 (09:34→20:15)
[2017-04-15] MEDS: SINEMET 25-100 MG TAB PO ×3 (09:34→17:25)
[2017-04-15] MEDS: LEVEMIR (INSULIN DETEMIR) 1 UNITS/0.01ML SC ×2 (09:34→20:14)
[2017-04-15] MEDS: FINASTERIDE 5 MG TAB PO (09:34)
[2017-04-15] MEDS: MULTIVITAMIN/MINERALS LIQUID 15ML ORAL SYRINGE PO (09:36)
[2017-04-15 11:45] LABS: BEDSIDE GLUCOSE 216 MG/DL (83-110)
[2017-04-15 12:06] LABS: BEDSIDE GLUCOSE 223 MG/DL (83-110)
[2017-04-15] MEDS: ACETAMINOPHEN TAB 650MG DOSE (2X325MG) PO (14:21)
[2017-04-15] MEDS: HYDROcodone/APAP LIQUID 7.5-325MG 15ML UDC (LORTAB ELIXIR) PO ×2 (18:16→23:25)
[2017-04-15 20:16] LABS: BEDSIDE GLUCOSE 236 MG/DL (83-110)
[2017-04-15] MEDS ORDERED: ANALGESIC BALM CRM 120 GM TOP (21:00)
[2017-04-16] MEDS: ANALGESIC BALM CRM 120 GM TOP ×2 (01:33→21:45)
[2017-04-16] MEDS: SODIUM CHLORIDE NASAL 0.65% SPRAY BTL (OCEAN) (03:00)
[2017-04-16] MEDS: levETIRAcetam 250MG TABLET (KEPPRA) PO ×2 (06:33→21:35)
[2017-04-16] MEDS: MULTIVITAMIN/MINERALS LIQUID 15ML ORAL SYRINGE PO (06:33)
[2017-04-16] MEDS: LEVOTHYROXINE 137MCG TABLET (0.137MG) PO (06:33)
[2017-04-16] MEDS: FINASTERIDE 5 MG TAB PO (06:33)
[2017-04-16] MEDS: predniSONE 5MG/5ML SOLN ORAL SYRINGE PO (06:33)
[2017-04-16] MEDS: SINEMET 25-100 MG TAB PO ×3 (06:33→16:44)
[2017-04-16] MEDS: HumaLOG INSULIN (NovoLOG) PER UNIT SC ×4 (06:34→21:00)
[2017-04-16 06:46] LABS: BEDSIDE GLUCOSE 132 MG/DL (83-110)
[2017-04-16 08:14] LABS: HEMATOCRIT 26.4 % (42.0-52.0); HEMOGLOBIN 8.4 g/dl (14.0-18.0); MEAN CORPUSCULAR HEMOGLOBIN 30.3 pg (27.0-33.0); MEAN CORPUSCULAR HGB CONC 31.8 g/dl (32.0-36.5); MEAN CORPUSCULAR VOLUME 95.3 fl (80.0-96.0); PLATELET COUNT, AUTOMATED 145 10^3/uL (150-450); RED BLOOD COUNT 2.77 10^6/uL (4.30-6.10); RED CELL DISTRIBUTION WIDTH 17.7 % (11.5-14.5); WHITE BLOOD COUNT 5.8 10^3/uL (4.0-10.0)
[2017-04-16 08:39] LABS: ANION GAP 7 MEQ/L (8-16); BLOOD UREA NITROGEN 52 MG/DL (7-18); CALCIUM LEVEL 7.5 MG/DL (8.8-10.2); CARBON DIOXIDE LEVEL 30 MEQ/L (21-32); CHLORIDE LEVEL 102 MEQ/L (98-107); CREATININE FOR GFR 3.69 MG/DL (0.70-1.30); GLOMERULAR FILTRATION RATE 16.9 (>35); GLUCOSE, FASTING 173 MG/DL (83-110); PHOSPHORUS LEVEL 3.6 MG/DL (2.5-4.9); POTASSIUM SERUM 4.2 MEQ/L (3.5-5.1); SODIUM LEVEL 139 MEQ/L (136-145)
[2017-04-16] MEDS ORDERED: GLUCOSE 4 GM CHEW TABLET PO (08:45)
[2017-04-16] MEDS ORDERED: GLUCAGON FOR INJ 1 MG VIAL (J1610) SC (08:45)
[2017-04-16] MEDS ORDERED: DEXTROSE 50% 50 ML SYRINGE IV (08:45)
[2017-04-16] MEDS: LEVEMIR (INSULIN DETEMIR) 1 UNITS/0.01ML SC ×2 (10:39→21:35)
[2017-04-16] MEDS: LIDOCAINE 5% (LIDODERM) PATCH TD (10:39)
[2017-04-16] MEDS: HEPARIN 1,000 UNITS/ML 10ML VIAL (FOR RADIOLOGY& DIALYSIS ONLY) IV (13:23)
[2017-04-16 13:26] LABS: BEDSIDE GLUCOSE 185 MG/DL (83-110)
[2017-04-16 15:14] LABS: BEDSIDE GLUCOSE 312 MG/DL (83-110)
[2017-04-16 15:14] LABS: BEDSIDE GLUCOSE 315 MG/DL (83-110)
[2017-04-16 15:21] LABS: BEDSIDE GLUCOSE 228 MG/DL (83-110)
[2017-04-16] MEDS: OMEPRAZOLE 20 MG CAP PO (16:44)
[2017-04-16 17:00] LABS: BEDSIDE GLUCOSE 213 MG/DL (83-110)
[2017-04-16 20:24] LABS: BEDSIDE GLUCOSE 240 MG/DL (83-110)
[2017-04-16] MEDS: **NOTE PATIENT COMMENT** MISC XX (21:00)
[2017-04-16] MEDS: HYDROcodone/APAP LIQUID 7.5-325MG 15ML UDC (LORTAB ELIXIR) PO (21:43)
[2017-04-17] MEDS: LEVOTHYROXINE 137MCG TABLET (0.137MG) PO (05:47)
[2017-04-17 05:50] LABS: BEDSIDE GLUCOSE 297 MG/DL (83-110)
[2017-04-17] MEDS: HumaLOG INSULIN (NovoLOG) PER UNIT SC ×4 (09:08→21:31)
[2017-04-17] MEDS: OMEPRAZOLE 20 MG CAP PO (09:09)
[2017-04-17] MEDS: levETIRAcetam 250MG TABLET (KEPPRA) PO ×2 (09:09→21:37)
[2017-04-17] MEDS: MULTIVITAMIN/MINERALS LIQUID 15ML ORAL SYRINGE PO (09:09)
[2017-04-17] MEDS: predniSONE 5MG/5ML SOLN ORAL SYRINGE PO (09:09)
[2017-04-17] MEDS: SINEMET 25-100 MG TAB PO ×3 (09:10→17:27)
[2017-04-17] MEDS: FINASTERIDE 5 MG TAB PO (09:10)
[2017-04-17] MEDS: LIDOCAINE 5% (LIDODERM) PATCH TD (09:10)
[2017-04-17] MEDS: ACETAMINOPHEN TAB 650MG DOSE (2X325MG) PO ×2 (09:10→18:09)
[2017-04-17] MEDS: LEVEMIR (INSULIN DETEMIR) 1 UNITS/0.01ML SC ×2 (09:11→21:37)
[2017-04-17] MEDS: HYDROcodone/APAP LIQUID 7.5-325MG 15ML UDC (LORTAB ELIXIR) PO ×2 (11:27→23:54)
[2017-04-17 11:49] LABS: BEDSIDE GLUCOSE 255 MG/DL (83-110)
[2017-04-17 16:53] LABS: BEDSIDE GLUCOSE 178 MG/DL (83-110)
[2017-04-17] MEDS: diphenhydrAMINE 25 MG CAP PO (18:08)
[2017-04-17 21:02] LABS: BEDSIDE GLUCOSE 226 MG/DL (83-110)
[2017-04-17] MEDS: **NOTE PATIENT COMMENT** MISC XX (21:38)
[2017-04-18] MEDS: LEVOTHYROXINE 137MCG TABLET (0.137MG) PO (06:20)
[2017-04-18] MEDS: ACETAMINOPHEN TAB 650MG DOSE (2X325MG) PO (06:21)
[2017-04-18] MEDS: predniSONE 5MG/5ML SOLN ORAL SYRINGE PO (06:21)
[2017-04-18] MEDS: MULTIVITAMIN/MINERALS LIQUID 15ML ORAL SYRINGE PO (06:21)
[2017-04-18] MEDS: OMEPRAZOLE 20 MG CAP PO (06:22)
[2017-04-18] MEDS: levETIRAcetam 250MG TABLET (KEPPRA) PO ×2 (06:22→21:07)
[2017-04-18] MEDS: FINASTERIDE 5 MG TAB PO (06:22)
[2017-04-18] MEDS: SINEMET 25-100 MG TAB PO ×3 (06:22→18:22)
[2017-04-18] MEDS: LIDOCAINE 5% (LIDODERM) PATCH TD (06:23)
[2017-04-18 06:47] LABS: HEMATOCRIT 27.8 % (42.0-52.0); HEMOGLOBIN 8.7 g/dl (14.0-18.0); MEAN CORPUSCULAR HEMOGLOBIN 29.4 pg (27.0-33.0); MEAN CORPUSCULAR HGB CONC 31.3 g/dl (32.0-36.5); MEAN CORPUSCULAR VOLUME 93.9 fl (80.0-96.0); PLATELET COUNT, AUTOMATED 160 10^3/uL (150-450); RED BLOOD COUNT 2.96 10^6/uL (4.30-6.10); RED CELL DISTRIBUTION WIDTH 18.3 % (11.5-14.5); WHITE BLOOD COUNT 5.5 10^3/uL (4.0-10.0)
[2017-04-18] MEDS: LEVEMIR (INSULIN DETEMIR) 1 UNITS/0.01ML SC ×2 (06:55→21:07)
[2017-04-18] MEDS: HumaLOG INSULIN (NovoLOG) PER UNIT SC ×4 (06:55→20:33)
[2017-04-18 07:11] LABS: ALBUMIN 2.2 GM/DL (3.2-5.2); ANION GAP 6 MEQ/L (8-16); BLOOD UREA NITROGEN 34 MG/DL (7-18); CALCIUM LEVEL 7.9 MG/DL (8.8-10.2); CARBON DIOXIDE LEVEL 30 MEQ/L (21-32); CHLORIDE LEVEL 101 MEQ/L (98-107); CREATININE FOR GFR 3.05 MG/DL (0.70-1.30); GLOMERULAR FILTRATION RATE 21.1 (>35); GLUCOSE, FASTING 221 MG/DL (83-110); PHOSPHORUS LEVEL 3.4 MG/DL (2.5-4.9); SODIUM LEVEL 137 MEQ/L (136-145)
[2017-04-18 08:50] LABS: BEDSIDE GLUCOSE 213 MG/DL (83-110)
[2017-04-18 12:17] LABS: BEDSIDE GLUCOSE 153 MG/DL (83-110)
[2017-04-18] MEDS: HYDROcodone/APAP LIQUID 7.5-325MG 15ML UDC (LORTAB ELIXIR) PO ×2 (12:40→21:09)
[2017-04-18] MEDS: HEPARIN 1,000 UNITS/ML 10ML VIAL (FOR RADIOLOGY& DIALYSIS ONLY) XX (13:30)
[2017-04-18 16:50] LABS: BEDSIDE GLUCOSE 181 MG/DL (83-110)
[2017-04-18] MEDS: ANALGESIC BALM CRM 120 GM TOP (18:25)
[2017-04-18 20:58] LABS: BEDSIDE GLUCOSE 230 MG/DL (83-110)
[2017-04-18] MEDS: **NOTE PATIENT COMMENT** MISC XX (21:08)
[2017-04-19] MEDS: ACETAMINOPHEN TAB 650MG DOSE (2X325MG) PO (03:35)
[2017-04-19] MEDS: ANALGESIC BALM CRM 120 GM TOP (03:36)
[2017-04-19] MEDS: LEVOTHYROXINE 137MCG TABLET (0.137MG) PO (05:43)
[2017-04-19 06:20] LABS: HEMATOCRIT 26.4 % (42.0-52.0); HEMOGLOBIN 8.3 g/dl (14.0-18.0); MEAN CORPUSCULAR HEMOGLOBIN 29.9 pg (27.0-33.0); MEAN CORPUSCULAR HGB CONC 31.4 g/dl (32.0-36.5); PLATELET COUNT, AUTOMATED 120 10^3/uL (150-450); RED BLOOD COUNT 2.78 10^6/uL (4.30-6.10); RED CELL DISTRIBUTION WIDTH 18.6 % (11.5-14.5); WHITE BLOOD COUNT 4.7 10^3/uL (4.0-10.0)
[2017-04-19 06:41] LABS: ALBUMIN 2.1 GM/DL (3.2-5.2); ANION GAP 5 MEQ/L (8-16); BLOOD UREA NITROGEN 20 MG/DL (7-18); CALCIUM LEVEL 7.6 MG/DL (8.8-10.2); CARBON DIOXIDE LEVEL 30 MEQ/L (21-32); CHLORIDE LEVEL 103 MEQ/L (98-107); CREATININE FOR GFR 2.29 MG/DL (0.70-1.30); FERRITIN 172 NG/ML (26-388); GLOMERULAR FILTRATION RATE 29.3 (>35); GLUCOSE, FASTING 206 MG/DL (83-110); IRON (FE) 27 UG/DL (65-175); PERCENT SATURATION 16.6 % (19.7-50.0); PHOSPHORUS LEVEL 2.7 MG/DL (2.5-4.9); POTASSIUM SERUM 3.9 MEQ/L (3.5-5.1); SODIUM LEVEL 138 MEQ/L (136-145); TOTAL IRON BINDING CAPACITY 163 UG/DL (250-450)
[2017-04-19] MEDS: levETIRAcetam 250MG TABLET (KEPPRA) PO ×2 (07:44→21:06)
[2017-04-19] MEDS: predniSONE 5MG/5ML SOLN ORAL SYRINGE PO (07:44)
[2017-04-19] MEDS: FINASTERIDE 5 MG TAB PO (07:44)
[2017-04-19] MEDS: OMEPRAZOLE 20 MG CAP PO (07:44)
[2017-04-19] MEDS: HumaLOG INSULIN (NovoLOG) PER UNIT SC ×4 (07:45→21:13)
[2017-04-19] MEDS: MULTIVITAMIN/MINERALS LIQUID 15ML ORAL SYRINGE PO (07:45)
[2017-04-19] MEDS: SINEMET 25-100 MG TAB PO ×3 (07:45→18:25)
[2017-04-19] MEDS: LIDOCAINE 5% (LIDODERM) PATCH TD (07:46)
[2017-04-19] MEDS: LEVEMIR (INSULIN DETEMIR) 1 UNITS/0.01ML SC ×2 (07:46→21:13)
[2017-04-19] MEDS ORDERED: IRON SUCROSE 100MG 5ML VIAL (J1756 PER 1MG) IV (09:15)
[2017-04-19 12:01] LABS: BEDSIDE GLUCOSE 135 MG/DL (83-110)
[2017-04-19] MEDS: VITAMIN D 1,000 INTERNATIONAL UNITS TABLET PO (12:41)
[2017-04-19] MEDS ORDERED: POLYVINYL ALCOHOL OPHTH SOLN 15 ML(LIQUITEARS) OU (16:00)
[2017-04-19] MEDS: **NOTE PATIENT COMMENT** MISC XX (21:07)
[2017-04-20 02:13] LABS: BEDSIDE GLUCOSE 243 MG/DL (83-110)
[2017-04-20 02:13] LABS: BEDSIDE GLUCOSE 253 MG/DL (83-110)
[2017-04-20] MEDS: LEVOTHYROXINE 137MCG TABLET (0.137MG) PO (05:16)
[2017-04-20] MEDS: predniSONE 5MG/5ML SOLN ORAL SYRINGE PO (05:17)
[2017-04-20] MEDS: OMEPRAZOLE 20 MG CAP PO (05:17)
[2017-04-20] MEDS: SINEMET 25-100 MG TAB PO ×3 (05:17→17:32)
[2017-04-20] MEDS: FINASTERIDE 5 MG TAB PO (05:17)
[2017-04-20] MEDS: levETIRAcetam 250MG TABLET (KEPPRA) PO ×2 (05:17→20:21)
[2017-04-20] MEDS: VITAMIN D 1,000 INTERNATIONAL UNITS TABLET PO (05:17)
[2017-04-20] MEDS: MULTIVITAMIN/MINERALS LIQUID 15ML ORAL SYRINGE PO (05:18)
[2017-04-20 06:49] LABS: HEMATOCRIT 27.2 % (42.0-52.0); HEMOGLOBIN 8.7 g/dl (14.0-18.0); MEAN CORPUSCULAR HEMOGLOBIN 30.2 pg (27.0-33.0); MEAN CORPUSCULAR VOLUME 94.4 fl (80.0-96.0); PLATELET COUNT, AUTOMATED 132 10^3/uL (150-450); RED BLOOD COUNT 2.88 10^6/uL (4.30-6.10); RED CELL DISTRIBUTION WIDTH 18.6 % (11.5-14.5); WHITE BLOOD COUNT 5.4 10^3/uL (4.0-10.0)
[2017-04-20 07:09] LABS: ALBUMIN 2.2 GM/DL (3.2-5.2); ANION GAP 5 MEQ/L (8-16); BLOOD UREA NITROGEN 23 MG/DL (7-18); CALCIUM LEVEL 7.8 MG/DL (8.8-10.2); CARBON DIOXIDE LEVEL 32 MEQ/L (21-32); CHLORIDE LEVEL 103 MEQ/L (98-107); CREATININE FOR GFR 2.63 MG/DL (0.70-1.30); GLUCOSE, FASTING 112 MG/DL (83-110); PHOSPHORUS LEVEL 2.8 MG/DL (2.5-4.9); SODIUM LEVEL 140 MEQ/L (136-145)
[2017-04-20] MEDS: HumaLOG INSULIN (NovoLOG) PER UNIT SC ×4 (07:30→20:21)
[2017-04-20 08:06] LABS: TRANSFERRIN 142 mg/dL (200-370)
[2017-04-20] MEDS: LEVEMIR (INSULIN DETEMIR) 1 UNITS/0.01ML SC ×2 (09:07→20:33)
[2017-04-20] MEDS: LIDOCAINE 5% (LIDODERM) PATCH TD (09:07)
[2017-04-20] MEDS: ACETAMINOPHEN TAB 650MG DOSE (2X325MG) PO ×2 (12:33→20:41)
[2017-04-20] MEDS: **NOTE PATIENT COMMENT** MISC XX (20:33)
[2017-04-20 21:30] LABS: BEDSIDE GLUCOSE 274 MG/DL (83-110)
[2017-04-20 21:30] LABS: BEDSIDE GLUCOSE 157 MG/DL (83-110)
[2017-04-20 21:30] LABS: BEDSIDE GLUCOSE 187 MG/DL (83-110)
[2017-04-21] MEDS: HYDROcodone/APAP LIQUID 7.5-325MG 15ML UDC (LORTAB ELIXIR) PO (04:09)
[2017-04-21] MEDS: diphenhydrAMINE 25 MG CAP PO (04:09)
[2017-04-21] MEDS: LEVOTHYROXINE 137MCG TABLET (0.137MG) PO (05:40)
[2017-04-21 06:33] LABS: HEMATOCRIT 27.8 % (42.0-52.0); HEMOGLOBIN 8.7 g/dl (14.0-18.0); MEAN CORPUSCULAR HEMOGLOBIN 29.6 pg (27.0-33.0); MEAN CORPUSCULAR HGB CONC 31.3 g/dl (32.0-36.5); MEAN CORPUSCULAR VOLUME 94.6 fl (80.0-96.0); PLATELET COUNT, AUTOMATED 128 10^3/uL (150-450); RED BLOOD COUNT 2.94 10^6/uL (4.30-6.10); WHITE BLOOD COUNT 4.7 10^3/uL (4.0-10.0)
[2017-04-21 06:50] LABS: ALBUMIN 2.1 GM/DL (3.2-5.2); ANION GAP 5 MEQ/L (8-16); BLOOD UREA NITROGEN 26 MG/DL (7-18); CALCIUM LEVEL 7.7 MG/DL (8.8-10.2); CARBON DIOXIDE LEVEL 31 MEQ/L (21-32); CHLORIDE LEVEL 105 MEQ/L (98-107); CREATININE FOR GFR 2.66 MG/DL (0.70-1.30); GLOMERULAR FILTRATION RATE 24.7 (>35); GLUCOSE, FASTING 101 MG/DL (83-110); PHOSPHORUS LEVEL 3.4 MG/DL (2.5-4.9); SODIUM LEVEL 141 MEQ/L (136-145)
[2017-04-21] MEDS: HumaLOG INSULIN (NovoLOG) PER UNIT SC ×4 (07:30→20:30)
[2017-04-21] MEDS: MULTIVITAMIN/MINERALS LIQUID 15ML ORAL SYRINGE PO (09:01)
[2017-04-21] MEDS: SINEMET 25-100 MG TAB PO ×3 (09:01→17:41)
[2017-04-21] MEDS: levETIRAcetam 250MG TABLET (KEPPRA) PO ×2 (09:01→20:27)
[2017-04-21] MEDS: LEVEMIR (INSULIN DETEMIR) 1 UNITS/0.01ML SC ×2 (09:01→20:27)
[2017-04-21] MEDS: OMEPRAZOLE 20 MG CAP PO (09:01)
[2017-04-21] MEDS: FINASTERIDE 5 MG TAB PO (09:01)
[2017-04-21] MEDS: predniSONE 5MG/5ML SOLN ORAL SYRINGE PO (09:01)
[2017-04-21] MEDS: VITAMIN D 1,000 INTERNATIONAL UNITS TABLET PO (09:01)
[2017-04-21] MEDS: LIDOCAINE 5% (LIDODERM) PATCH TD (09:01)
[2017-04-21 19:14] LABS: BEDSIDE GLUCOSE 264 MG/DL (83-110)
[2017-04-21] MEDS: ACETAMINOPHEN TAB 650MG DOSE (2X325MG) PO (20:28)
[2017-04-21] MEDS: **NOTE PATIENT COMMENT** MISC XX (20:29)
[2017-04-21 23:32] LABS: BEDSIDE GLUCOSE 186 MG/DL (83-110)
[2017-04-21 23:32] LABS: BEDSIDE GLUCOSE 191 MG/DL (83-110)
[2017-04-22] MEDS: ACETAMINOPHEN TAB 650MG DOSE (2X325MG) PO ×2 (04:40→20:41)
[2017-04-22] MEDS: LEVOTHYROXINE 137MCG TABLET (0.137MG) PO (06:42)
[2017-04-22 07:11] LABS: HEMATOCRIT 26.9 % (42.0-52.0); HEMOGLOBIN 8.4 g/dl (14.0-18.0); MEAN CORPUSCULAR HEMOGLOBIN 29.9 pg (27.0-33.0); MEAN CORPUSCULAR HGB CONC 31.2 g/dl (32.0-36.5); MEAN CORPUSCULAR VOLUME 95.7 fl (80.0-96.0); PLATELET COUNT, AUTOMATED 155 10^3/uL (150-450); RED BLOOD COUNT 2.81 10^6/uL (4.30-6.10); RED CELL DISTRIBUTION WIDTH 19.5 % (11.5-14.5)
[2017-04-22] MEDS: HumaLOG INSULIN (NovoLOG) PER UNIT SC ×4 (07:30→20:41)
[2017-04-22 07:39] LABS: ALBUMIN 2.1 GM/DL (3.2-5.2); ANION GAP 8 MEQ/L (8-16); BLOOD UREA NITROGEN 30 MG/DL (7-18); CALCIUM LEVEL 7.5 MG/DL (8.8-10.2); CARBON DIOXIDE LEVEL 30 MEQ/L (21-32); CHLORIDE LEVEL 105 MEQ/L (98-107); CREATININE FOR GFR 2.94 MG/DL (0.70-1.30); GLUCOSE, FASTING 124 MG/DL (83-110); PHOSPHORUS LEVEL 4.1 MG/DL (2.5-4.9); POTASSIUM SERUM 4.6 MEQ/L (3.5-5.1); SODIUM LEVEL 143 MEQ/L (136-145)
[2017-04-22] MEDS: SINEMET 25-100 MG TAB PO ×3 (09:06→16:57)
[2017-04-22] MEDS: LEVEMIR (INSULIN DETEMIR) 1 UNITS/0.01ML SC ×2 (09:06→20:41)
[2017-04-22] MEDS: LIDOCAINE 5% (LIDODERM) PATCH TD (09:06)
[2017-04-22] MEDS: VITAMIN D 1,000 INTERNATIONAL UNITS TABLET PO (09:06)
[2017-04-22] MEDS: levETIRAcetam 250MG TABLET (KEPPRA) PO ×2 (09:06→20:41)
[2017-04-22] MEDS: predniSONE 5MG/5ML SOLN ORAL SYRINGE PO (09:06)
[2017-04-22] MEDS: MULTIVITAMIN/MINERALS LIQUID 15ML ORAL SYRINGE PO (09:06)
[2017-04-22] MEDS: OMEPRAZOLE 20 MG CAP PO (09:06)
[2017-04-22] MEDS: FINASTERIDE 5 MG TAB PO (09:07)
[2017-04-22] MEDS: **NOTE PATIENT COMMENT** MISC XX (20:42)
[2017-04-23 03:56] LABS: BEDSIDE GLUCOSE 168 MG/DL (83-110)
[2017-04-23 03:56] LABS: BEDSIDE GLUCOSE 178 MG/DL (83-110)
[2017-04-23 03:56] LABS: BEDSIDE GLUCOSE 219 MG/DL (83-110)
[2017-04-23] MEDS: LEVOTHYROXINE 137MCG TABLET (0.137MG) PO (06:39)
[2017-04-23] MEDS: LIDOCAINE 5% (LIDODERM) PATCH TD (08:14)
[2017-04-23] MEDS: VITAMIN D 1,000 INTERNATIONAL UNITS TABLET PO (08:14)
[2017-04-23] MEDS: FINASTERIDE 5 MG TAB PO (08:14)
[2017-04-23] MEDS: MULTIVITAMIN/MINERALS LIQUID 15ML ORAL SYRINGE PO (08:14)
[2017-04-23] MEDS: SINEMET 25-100 MG TAB PO ×3 (08:15→17:36)
[2017-04-23] MEDS: OMEPRAZOLE 20 MG CAP PO (08:15)
[2017-04-23] MEDS: levETIRAcetam 250MG TABLET (KEPPRA) PO ×2 (08:15→20:39)
[2017-04-23] MEDS: HumaLOG INSULIN (NovoLOG) PER UNIT SC ×4 (08:20→20:39)
[2017-04-23] MEDS: predniSONE 5MG/5ML SOLN ORAL SYRINGE PO (08:20)
[2017-04-23] MEDS: LEVEMIR (INSULIN DETEMIR) 1 UNITS/0.01ML SC ×2 (08:21→20:39)
[2017-04-23 09:07] LABS: HEMATOCRIT 29.4 % (42.0-52.0); HEMOGLOBIN 9.1 g/dl (14.0-18.0); MEAN CORPUSCULAR HEMOGLOBIN 29.7 pg (27.0-33.0); MEAN CORPUSCULAR VOLUME 96.1 fl (80.0-96.0); PLATELET COUNT, AUTOMATED 161 10^3/uL (150-450); RED BLOOD COUNT 3.06 10^6/uL (4.30-6.10); RED CELL DISTRIBUTION WIDTH 19.7 % (11.5-14.5); WHITE BLOOD COUNT 7.6 10^3/uL (4.0-10.0)
[2017-04-23 09:24] LABS: ANION GAP 7 MEQ/L (8-16); BLOOD UREA NITROGEN 31 MG/DL (7-18); CALCIUM LEVEL 7.5 MG/DL (8.8-10.2); CARBON DIOXIDE LEVEL 30 MEQ/L (21-32); CHLORIDE LEVEL 106 MEQ/L (98-107); CREATININE FOR GFR 2.83 MG/DL (0.70-1.30); GLUCOSE, FASTING 177 MG/DL (70-100); MAGNESIUM LEVEL 1.9 MG/DL (1.8-2.4); POTASSIUM SERUM 4.5 MEQ/L (3.5-5.1); SODIUM LEVEL 143 MEQ/L (136-145)
[2017-04-23 16:58] LABS: BEDSIDE GLUCOSE 217 MG/DL (83-110)
[2017-04-23 20:26] LABS: BEDSIDE GLUCOSE 149 MG/DL (83-110)
[2017-04-23] MEDS: **NOTE PATIENT COMMENT** MISC XX (20:40)
[2017-04-24 03:12] LABS: BEDSIDE GLUCOSE 131 MG/DL (83-110)
[2017-04-24 03:12] LABS: BEDSIDE GLUCOSE 283 MG/DL (83-110)
[2017-04-24 03:12] LABS: BEDSIDE GLUCOSE 218 MG/DL (83-110)
[2017-04-24] MEDS: LEVOTHYROXINE 137MCG TABLET (0.137MG) PO (05:55)
[2017-04-24 05:58] LABS: HEMATOCRIT 26.8 % (42.0-52.0); HEMOGLOBIN 8.3 g/dl (14.0-18.0); MEAN CORPUSCULAR HEMOGLOBIN 30.1 pg (27.0-33.0); MEAN CORPUSCULAR VOLUME 97.1 fl (80.0-96.0); PLATELET COUNT, AUTOMATED 151 10^3/uL (150-450); RED BLOOD COUNT 2.76 10^6/uL (4.30-6.10); RED CELL DISTRIBUTION WIDTH 19.5 % (11.5-14.5); WHITE BLOOD COUNT 5.9 10^3/uL (4.0-10.0)
[2017-04-24 06:17] LABS: ANION GAP 5 MEQ/L (8-16); BLOOD UREA NITROGEN 31 MG/DL (7-18); CALCIUM LEVEL 7.2 MG/DL (8.8-10.2); CARBON DIOXIDE LEVEL 31 MEQ/L (21-32); CHLORIDE LEVEL 105 MEQ/L (98-107); CREATININE FOR GFR 2.71 MG/DL (0.70-1.30); GLOMERULAR FILTRATION RATE 24.2 (>35); GLUCOSE, FASTING 152 MG/DL (70-100); MAGNESIUM LEVEL 1.8 MG/DL (1.8-2.4); POTASSIUM SERUM 4.6 MEQ/L (3.5-5.1); SODIUM LEVEL 141 MEQ/L (136-145)
[2017-04-24] MEDS: predniSONE 5MG/5ML SOLN ORAL SYRINGE PO (08:30)
[2017-04-24] MEDS: MULTIVITAMIN/MINERALS LIQUID 15ML ORAL SYRINGE PO (08:30)
[2017-04-24] MEDS: levETIRAcetam 250MG TABLET (KEPPRA) PO ×2 (08:31→20:52)
[2017-04-24] MEDS: VITAMIN D 1,000 INTERNATIONAL UNITS TABLET PO (08:31)
[2017-04-24] MEDS: LEVEMIR (INSULIN DETEMIR) 1 UNITS/0.01ML SC ×2 (08:31→20:53)
[2017-04-24] MEDS: FINASTERIDE 5 MG TAB PO (08:31)
[2017-04-24] MEDS: OMEPRAZOLE 20 MG CAP PO (08:31)
[2017-04-24] MEDS: HumaLOG INSULIN (NovoLOG) PER UNIT SC ×4 (08:31→20:52)
[2017-04-24] MEDS: SINEMET 25-100 MG TAB PO ×3 (08:32→17:24)
[2017-04-24] MEDS: LIDOCAINE 5% (LIDODERM) PATCH TD (08:33)
[2017-04-24] MEDS: ACETAMINOPHEN TAB 650MG DOSE (2X325MG) PO (08:34)
[2017-04-24] MEDS: MIRALAX *UNIT DOSE* 17GM PACKET PO (10:34)
[2017-04-24] MEDS: DOCUSATE SODIUM 100 MG CAP PO (10:34)
[2017-04-24 12:14] LABS: BEDSIDE GLUCOSE 148 MG/DL (83-110)
[2017-04-24 16:53] LABS: BEDSIDE GLUCOSE 180 MG/DL (83-110)
[2017-04-24] MEDS: TAMSULOSIN 0.4 MG CAP PO (20:52)
[2017-04-24] MEDS: **NOTE PATIENT COMMENT** MISC XX (20:52)
[2017-04-24 22:05] LABS: BEDSIDE GLUCOSE 125 MG/DL (83-110)
[2017-04-25] MEDS: LEVOTHYROXINE 137MCG TABLET (0.137MG) PO (05:43)
[2017-04-25 06:16] LABS: HEMATOCRIT 27.9 % (42.0-52.0); HEMOGLOBIN 8.5 g/dl (14.0-18.0); MEAN CORPUSCULAR HEMOGLOBIN 29.1 pg (27.0-33.0); MEAN CORPUSCULAR HGB CONC 30.5 g/dl (32.0-36.5); MEAN CORPUSCULAR VOLUME 95.5 fl (80.0-96.0); PLATELET COUNT, AUTOMATED 200 10^3/uL (150-450); RED BLOOD COUNT 2.92 10^6/uL (4.30-6.10); RED CELL DISTRIBUTION WIDTH 18.8 % (11.5-14.5); WHITE BLOOD COUNT 6.1 10^3/uL (4.0-10.0)
[2017-04-25 06:39] LABS: ANION GAP 6 MEQ/L (8-16); BLOOD UREA NITROGEN 28 MG/DL (7-18); CALCIUM LEVEL 7.3 MG/DL (8.8-10.2); CARBON DIOXIDE LEVEL 30 MEQ/L (21-32); CHLORIDE LEVEL 107 MEQ/L (98-107); CREATININE FOR GFR 2.53 MG/DL (0.70-1.30); GLOMERULAR FILTRATION RATE 26.2 (>35); GLUCOSE, FASTING 78 MG/DL (70-100); MAGNESIUM LEVEL 1.7 MG/DL (1.8-2.4); POTASSIUM SERUM 4.6 MEQ/L (3.5-5.1); SODIUM LEVEL 143 MEQ/L (136-145)
[2017-04-25] MEDS: HumaLOG INSULIN (NovoLOG) PER UNIT SC ×4 (07:30→22:08)
[2017-04-25] MEDS: FINASTERIDE 5 MG TAB PO (08:48)
[2017-04-25] MEDS: SINEMET 25-100 MG TAB PO ×3 (08:48→17:03)
[2017-04-25] MEDS: predniSONE 5MG/5ML SOLN ORAL SYRINGE PO (08:48)
[2017-04-25] MEDS: MULTIVITAMINS CHILDREN'S CHEWABLE TABLET PO (08:48)
[2017-04-25] MEDS: levETIRAcetam 250MG TABLET (KEPPRA) PO ×2 (08:48→22:09)
[2017-04-25] MEDS: OMEPRAZOLE 20 MG CAP PO (08:48)
[2017-04-25] MEDS: LEVEMIR (INSULIN DETEMIR) 1 UNITS/0.01ML SC ×2 (08:49→22:08)
[2017-04-25] MEDS: LIDOCAINE 5% (LIDODERM) PATCH TD (08:49)
[2017-04-25] MEDS: VITAMIN D 1,000 INTERNATIONAL UNITS TABLET PO (08:49)
[2017-04-25 11:54] LABS: BEDSIDE GLUCOSE 203 MG/DL (83-110)
[2017-04-25 16:38] LABS: BEDSIDE GLUCOSE 145 MG/DL (83-110)
[2017-04-25] MEDS: **NOTE PATIENT COMMENT** MISC XX (21:00)
[2017-04-25 21:42] LABS: BEDSIDE GLUCOSE 290 MG/DL (83-110)
[2017-04-25] MEDS: TAMSULOSIN 0.4 MG CAP PO (22:09)
[2017-04-25] MEDS: ACETAMINOPHEN TAB 650MG DOSE (2X325MG) PO (22:09)
[2017-04-26] MEDS: HYDROcodone/APAP LIQUID 7.5-325MG 15ML UDC (LORTAB ELIXIR) PO (01:49)
[2017-04-26] MEDS: LEVOTHYROXINE 137MCG TABLET (0.137MG) PO (04:44)
[2017-04-26] MEDS: diphenhydrAMINE 25 MG CAP PO ×2 (04:44→04:45)
[2017-04-26 05:52] LABS: HEMATOCRIT 28.1 % (42.0-52.0); HEMOGLOBIN 8.8 g/dl (14.0-18.0); MEAN CORPUSCULAR HGB CONC 31.3 g/dl (32.0-36.5); MEAN CORPUSCULAR VOLUME 95.9 fl (80.0-96.0); PLATELET COUNT, AUTOMATED 202 10^3/uL (150-450); RED BLOOD COUNT 2.93 10^6/uL (4.30-6.10); RED CELL DISTRIBUTION WIDTH 18.4 % (11.5-14.5); WHITE BLOOD COUNT 4.4 10^3/uL (4.0-10.0)
[2017-04-26 06:10] LABS: ANION GAP 6 MEQ/L (8-16); BLOOD UREA NITROGEN 29 MG/DL (7-18); CALCIUM LEVEL 7.4 MG/DL (8.8-10.2); CARBON DIOXIDE LEVEL 31 MEQ/L (21-32); CHLORIDE LEVEL 108 MEQ/L (98-107); CREATININE FOR GFR 2.48 MG/DL (0.70-1.30); GLOMERULAR FILTRATION RATE 26.8 (>35); GLUCOSE, FASTING 124 MG/DL (70-100); MAGNESIUM LEVEL 1.6 MG/DL (1.8-2.4); POTASSIUM SERUM 4.4 MEQ/L (3.5-5.1); SODIUM LEVEL 145 MEQ/L (136-145)
[2017-04-26] MEDS: LIDOCAINE 5% (LIDODERM) PATCH TD (09:48)
[2017-04-26] MEDS: MULTIVITAMINS CHILDREN'S CHEWABLE TABLET PO (09:48)
[2017-04-26] MEDS: SINEMET 25-100 MG TAB PO ×3 (09:48→16:55)
[2017-04-26] MEDS: predniSONE 5MG/5ML SOLN ORAL SYRINGE PO (09:49)
[2017-04-26] MEDS: FINASTERIDE 5 MG TAB PO (09:49)
[2017-04-26] MEDS: MAGNESIUM OXIDE 400 MG TAB (MAG-OX) PO ×2 (09:49→20:53)
[2017-04-26] MEDS: VITAMIN D 1,000 INTERNATIONAL UNITS TABLET PO (09:49)
[2017-04-26] MEDS: levETIRAcetam 250MG TABLET (KEPPRA) PO ×2 (09:49→20:53)
[2017-04-26] MEDS: OMEPRAZOLE 20 MG CAP PO (09:49)
[2017-04-26] MEDS: HumaLOG INSULIN (NovoLOG) PER UNIT SC ×4 (09:50→20:48)
[2017-04-26] MEDS: LEVEMIR (INSULIN DETEMIR) 1 UNITS/0.01ML SC ×2 (09:50→20:54)
[2017-04-26 10:59] LABS: BEDSIDE GLUCOSE 234 MG/DL (83-110)
[2017-04-26] MEDS: DARBEPOETIN 100 MCG/0.5 ML *NON-DIALYSIS* SYRINGE (J0881) SC (16:55)
[2017-04-26 17:25] LABS: BEDSIDE GLUCOSE 246 MG/DL (83-110)
[2017-04-26 20:37] LABS: BEDSIDE GLUCOSE 244 MG/DL (83-110)
[2017-04-26] MEDS: TAMSULOSIN 0.4 MG CAP PO (20:53)
[2017-04-26] MEDS: **NOTE PATIENT COMMENT** MISC XX (21:00)
[2017-04-27] MEDS: ACETAMINOPHEN TAB 650MG DOSE (2X325MG) PO ×2 (00:56→17:00)
[2017-04-27 05:21] LABS: HEMATOCRIT 28.1 % (42.0-52.0); HEMOGLOBIN 8.7 g/dl (14.0-18.0); MEAN CORPUSCULAR HEMOGLOBIN 29.4 pg (27.0-33.0); MEAN CORPUSCULAR VOLUME 94.9 fl (80.0-96.0); PLATELET COUNT, AUTOMATED 200 10^3/uL (150-450); RED BLOOD COUNT 2.96 10^6/uL (4.30-6.10); RED CELL DISTRIBUTION WIDTH 17.9 % (11.5-14.5); WHITE BLOOD COUNT 4.3 10^3/uL (4.0-10.0)
[2017-04-27 05:39] LABS: ANION GAP 6 MEQ/L (8-16); BLOOD UREA NITROGEN 29 MG/DL (7-18); CALCIUM LEVEL 7.5 MG/DL (8.8-10.2); CARBON DIOXIDE LEVEL 31 MEQ/L (21-32); CHLORIDE LEVEL 108 MEQ/L (98-107); CREATININE FOR GFR 2.19 MG/DL (0.70-1.30); GLOMERULAR FILTRATION RATE 30.9 (>35); GLUCOSE, FASTING 132 MG/DL (70-100); MAGNESIUM LEVEL 1.6 MG/DL (1.8-2.4); POTASSIUM SERUM 4.2 MEQ/L (3.5-5.1); SODIUM LEVEL 145 MEQ/L (136-145)
[2017-04-27] MEDS: LEVOTHYROXINE 137MCG TABLET (0.137MG) PO (06:01)
[2017-04-27] MEDS: LEVEMIR (INSULIN DETEMIR) 1 UNITS/0.01ML SC ×2 (08:57→21:32)
[2017-04-27] MEDS: HumaLOG INSULIN (NovoLOG) PER UNIT SC ×4 (08:57→21:31)
[2017-04-27] MEDS: LIDOCAINE 5% (LIDODERM) PATCH TD (08:58)
[2017-04-27] MEDS: VITAMIN D 1,000 INTERNATIONAL UNITS TABLET PO (08:59)
[2017-04-27] MEDS: FINASTERIDE 5 MG TAB PO (08:59)
[2017-04-27] MEDS: OMEPRAZOLE 20 MG CAP PO (08:59)
[2017-04-27] MEDS: levETIRAcetam 250MG TABLET (KEPPRA) PO ×2 (08:59→21:30)
[2017-04-27] MEDS: SINEMET 25-100 MG TAB PO ×3 (08:59→17:00)
[2017-04-27] MEDS: MAGNESIUM OXIDE 400 MG TAB (MAG-OX) PO ×2 (09:00→21:30)
[2017-04-27] MEDS: KCL 20MEQ in NS 1000ML 1,000 ML IV (10:23)
[2017-04-27] MEDS: MULTIVITAMINS CHILDREN'S CHEWABLE TABLET PO (10:42)
[2017-04-27] MEDS: predniSONE 5MG/5ML SOLN ORAL SYRINGE PO (10:42)
[2017-04-27 11:35] LABS: BEDSIDE GLUCOSE 212 MG/DL (83-110)
[2017-04-27 16:58] LABS: BEDSIDE GLUCOSE 98 MG/DL (83-110)
[2017-04-27] MEDS: **NOTE PATIENT COMMENT** MISC XX (21:00)
[2017-04-27 21:22] LABS: BEDSIDE GLUCOSE 317 MG/DL (83-110)
[2017-04-27] MEDS: TAMSULOSIN 0.4 MG CAP PO (21:30)
[2017-04-28] MEDS: LEVOTHYROXINE 137MCG TABLET (0.137MG) PO (05:52)
[2017-04-28 06:00] LABS: HEMATOCRIT 27.2 % (42.0-52.0); HEMOGLOBIN 8.3 g/dl (14.0-18.0); MEAN CORPUSCULAR HEMOGLOBIN 29.2 pg (27.0-33.0); MEAN CORPUSCULAR HGB CONC 30.5 g/dl (32.0-36.5); MEAN CORPUSCULAR VOLUME 95.8 fl (80.0-96.0); PLATELET COUNT, AUTOMATED 209 10^3/uL (150-450); RED BLOOD COUNT 2.84 10^6/uL (4.30-6.10); RED CELL DISTRIBUTION WIDTH 17.6 % (11.5-14.5)
[2017-04-28 06:23] LABS: ANION GAP 7 MEQ/L (8-16); BLOOD UREA NITROGEN 27 MG/DL (7-18); CALCIUM LEVEL 7.5 MG/DL (8.8-10.2); CARBON DIOXIDE LEVEL 29 MEQ/L (21-32); CHLORIDE LEVEL 109 MEQ/L (98-107); CREATININE FOR GFR 1.96 MG/DL (0.70-1.30); GLOMERULAR FILTRATION RATE 35.1 (>35); GLUCOSE, FASTING 144 MG/DL (70-100); MAGNESIUM LEVEL 1.6 MG/DL (1.8-2.4); POTASSIUM SERUM 4.2 MEQ/L (3.5-5.1); SODIUM LEVEL 145 MEQ/L (136-145)
[2017-04-28] MEDS: VITAMIN D 1,000 INTERNATIONAL UNITS TABLET PO (09:27)
[2017-04-28] MEDS: HumaLOG INSULIN (NovoLOG) PER UNIT SC ×4 (09:27→21:00)
[2017-04-28] MEDS: levETIRAcetam 250MG TABLET (KEPPRA) PO ×2 (09:28→21:57)
[2017-04-28] MEDS: SINEMET 25-100 MG TAB PO ×3 (09:28→17:15)
[2017-04-28] MEDS: predniSONE 5MG/5ML SOLN ORAL SYRINGE PO (09:28)
[2017-04-28] MEDS: MULTIVITAMINS CHILDREN'S CHEWABLE TABLET PO (09:28)
[2017-04-28] MEDS: LEVEMIR (INSULIN DETEMIR) 1 UNITS/0.01ML SC ×2 (09:28→21:58)
[2017-04-28] MEDS: MAGNESIUM OXIDE 400 MG TAB (MAG-OX) PO ×2 (09:29→21:57)
[2017-04-28] MEDS: OMEPRAZOLE 20 MG CAP PO (09:29)
[2017-04-28] MEDS: FINASTERIDE 5 MG TAB PO (09:29)
[2017-04-28] MEDS: LIDOCAINE 5% (LIDODERM) PATCH TD (09:29)
[2017-04-28] MEDS: FERROUS GLUCONATE 324 MG TAB PO ×2 (12:38→21:58)
[2017-04-28 17:17] LABS: BEDSIDE GLUCOSE 105 MG/DL (83-110)
[2017-04-28] MEDS: **NOTE PATIENT COMMENT** MISC XX (21:00)
[2017-04-28] MEDS: TAMSULOSIN 0.4 MG CAP PO (21:58)
[2017-04-28 22:58] LABS: BEDSIDE GLUCOSE 192 MG/DL (83-110)
[2017-04-29] MEDS: LEVOTHYROXINE 137MCG TABLET (0.137MG) PO (06:10)
[2017-04-29 07:12] LABS: HEMATOCRIT 27.7 % (42.0-52.0); HEMOGLOBIN 8.4 g/dl (14.0-18.0); MEAN CORPUSCULAR HEMOGLOBIN 29.4 pg (27.0-33.0); MEAN CORPUSCULAR HGB CONC 30.3 g/dl (32.0-36.5); MEAN CORPUSCULAR VOLUME 96.9 fl (80.0-96.0); PLATELET COUNT, AUTOMATED 220 10^3/uL (150-450); RED BLOOD COUNT 2.86 10^6/uL (4.30-6.10); RED CELL DISTRIBUTION WIDTH 17.6 % (11.5-14.5); WHITE BLOOD COUNT 5.2 10^3/uL (4.0-10.0)
[2017-04-29 07:37] LABS: ANION GAP 6 MEQ/L (8-16); BLOOD UREA NITROGEN 23 MG/DL (7-18); CALCIUM LEVEL 7.8 MG/DL (8.8-10.2); CARBON DIOXIDE LEVEL 32 MEQ/L (21-32); CHLORIDE LEVEL 108 MEQ/L (98-107); CREATININE FOR GFR 1.78 MG/DL (0.70-1.30); GLOMERULAR FILTRATION RATE 39.2 (>35); GLUCOSE, FASTING 121 MG/DL (70-100); MAGNESIUM LEVEL 1.6 MG/DL (1.8-2.4); SODIUM LEVEL 146 MEQ/L (136-145)
[2017-04-29] MEDS: predniSONE 5MG/5ML SOLN ORAL SYRINGE PO (08:16)
[2017-04-29] MEDS: HumaLOG INSULIN (NovoLOG) PER UNIT SC ×4 (08:16→21:00)
[2017-04-29] MEDS: LEVEMIR (INSULIN DETEMIR) 1 UNITS/0.01ML SC ×2 (08:16→21:30)
[2017-04-29] MEDS: VITAMIN D 1,000 INTERNATIONAL UNITS TABLET PO (08:17)
[2017-04-29] MEDS: LIDOCAINE 5% (LIDODERM) PATCH TD (08:17)
[2017-04-29] MEDS: SINEMET 25-100 MG TAB PO ×3 (08:17→17:16)
[2017-04-29] MEDS: FINASTERIDE 5 MG TAB PO (08:17)
[2017-04-29] MEDS: FERROUS GLUCONATE 324 MG TAB PO ×2 (08:18→21:29)
[2017-04-29] MEDS: levETIRAcetam 250MG TABLET (KEPPRA) PO ×2 (08:18→21:29)
[2017-04-29] MEDS: MAGNESIUM OXIDE 400 MG TAB (MAG-OX) PO ×3 (08:18→21:29)
[2017-04-29] MEDS: OMEPRAZOLE 20 MG CAP PO (08:18)
[2017-04-29] MEDS: MULTIVITAMINS CHILDREN'S CHEWABLE TABLET PO (08:23)
[2017-04-29 12:08] LABS: BEDSIDE GLUCOSE 208 MG/DL (83-110)
[2017-04-29 16:46] LABS: BEDSIDE GLUCOSE 147 MG/DL (83-110)
[2017-04-29] MEDS ORDERED: SALIVA SUBSTITUTE(MOUTHKOTE) BTL MT (20:15)
[2017-04-29] MEDS: TAMSULOSIN 0.4 MG CAP PO (21:29)
[2017-04-29] MEDS: **NOTE PATIENT COMMENT** MISC XX (21:30)
[2017-04-29 21:47] LABS: BEDSIDE GLUCOSE 176 MG/DL (83-110)
[2017-04-30] MEDS: LEVOTHYROXINE 137MCG TABLET (0.137MG) PO (05:32)
[2017-04-30 06:53] LABS: HEMATOCRIT 28.6 % (42.0-52.0); HEMOGLOBIN 8.8 g/dl (14.0-18.0); MEAN CORPUSCULAR HEMOGLOBIN 29.5 pg (27.0-33.0); MEAN CORPUSCULAR HGB CONC 30.8 g/dl (32.0-36.5); PLATELET COUNT, AUTOMATED 232 10^3/uL (150-450); RED BLOOD COUNT 2.98 10^6/uL (4.30-6.10); RED CELL DISTRIBUTION WIDTH 17.7 % (11.5-14.5); WHITE BLOOD COUNT 5.5 10^3/uL (4.0-10.0)
[2017-04-30 07:07] LABS: ANION GAP 5 MEQ/L (8-16); BLOOD UREA NITROGEN 21 MG/DL (7-18); CALCIUM LEVEL 7.6 MG/DL (8.8-10.2); CARBON DIOXIDE LEVEL 31 MEQ/L (21-32); CHLORIDE LEVEL 107 MEQ/L (98-107); CREATININE FOR GFR 1.84 MG/DL (0.70-1.30); GLOMERULAR FILTRATION RATE 37.8 (>35); GLUCOSE, FASTING 110 MG/DL (70-100); MAGNESIUM LEVEL 1.6 MG/DL (1.8-2.4); POTASSIUM SERUM 4.1 MEQ/L (3.5-5.1); SODIUM LEVEL 143 MEQ/L (136-145)
[2017-04-30] MEDS: HumaLOG INSULIN (NovoLOG) PER UNIT SC ×4 (08:24→20:09)
[2017-04-30] MEDS: LIDOCAINE 5% (LIDODERM) PATCH TD (09:00)
[2017-04-30] MEDS: LEVEMIR (INSULIN DETEMIR) 1 UNITS/0.01ML SC ×2 (09:55→20:13)
[2017-04-30] MEDS: SINEMET 25-100 MG TAB PO ×3 (09:56→16:59)
[2017-04-30] MEDS: predniSONE 5MG/5ML SOLN ORAL SYRINGE PO (09:56)
[2017-04-30] MEDS: FERROUS GLUCONATE 324 MG TAB PO ×2 (09:56→20:13)
[2017-04-30] MEDS: OMEPRAZOLE 20 MG CAP PO (09:56)
[2017-04-30] MEDS: MULTIVITAMINS CHILDREN'S CHEWABLE TABLET PO (09:57)
[2017-04-30] MEDS: levETIRAcetam 250MG TABLET (KEPPRA) PO ×2 (09:57→20:13)
[2017-04-30] MEDS: FINASTERIDE 5 MG TAB PO (09:57)
[2017-04-30] MEDS: MAGNESIUM OXIDE 400 MG TAB (MAG-OX) PO ×2 (09:57→20:13)
[2017-04-30] MEDS: VITAMIN D 1,000 INTERNATIONAL UNITS TABLET PO (09:57)
[2017-04-30] MEDS: MAG SULF 1GM/100ML (MAG RUN) 1 GM in APPROPRIATE DILUENT 1 EA IV (09:58)
[2017-04-30 11:33] LABS: BEDSIDE GLUCOSE 134 MG/DL (83-110)
[2017-04-30 11:40] LABS: BEDSIDE GLUCOSE 229 MG/DL (83-110)
[2017-04-30] MEDS: CARBAMIDE PEROXIDE 6.5% OTIC SOLN 15ML AU ×2 (14:41→20:18)
[2017-04-30 16:44] LABS: BEDSIDE GLUCOSE 140 MG/DL (83-110)
[2017-04-30] MEDS: **NOTE PATIENT COMMENT** MISC XX (20:13)
[2017-04-30] MEDS: TAMSULOSIN 0.4 MG CAP PO (20:13)
[2017-04-30 20:33] LABS: BEDSIDE GLUCOSE 200 MG/DL (83-110)
[2017-05-01] MEDS: LEVOTHYROXINE 137MCG TABLET (0.137MG) PO (05:37)
[2017-05-01 06:50] LABS: ANION GAP 6 MEQ/L (8-16); BLOOD UREA NITROGEN 22 MG/DL (7-18); CARBON DIOXIDE LEVEL 32 MEQ/L (21-32); CHLORIDE LEVEL 104 MEQ/L (98-107); CREATININE FOR GFR 1.87 MG/DL (0.70-1.30); GLOMERULAR FILTRATION RATE 37.1 (>35); GLUCOSE, FASTING 139 MG/DL (70-100); PHOSPHORUS LEVEL 2.9 MG/DL (2.5-4.9); SODIUM LEVEL 142 MEQ/L (136-145)
[2017-05-01] MEDS: HumaLOG INSULIN (NovoLOG) PER UNIT SC (08:01)
[2017-05-01] MEDS: SINEMET 25-100 MG TAB PO (08:02)
[2017-05-01] MEDS: FERROUS GLUCONATE 324 MG TAB PO (08:02)
[2017-05-01] MEDS: predniSONE 5MG/5ML SOLN ORAL SYRINGE PO (08:02)
[2017-05-01] MEDS: VITAMIN D 1,000 INTERNATIONAL UNITS TABLET PO (08:02)
[2017-05-01] MEDS: MULTIVITAMINS CHILDREN'S CHEWABLE TABLET PO (08:02)
[2017-05-01] MEDS: MAGNESIUM OXIDE 400 MG TAB (MAG-OX) PO (08:02)
[2017-05-01] MEDS: FINASTERIDE 5 MG TAB PO (08:02)
[2017-05-01] MEDS: levETIRAcetam 250MG TABLET (KEPPRA) PO (08:02)
[2017-05-01] MEDS: OMEPRAZOLE 20 MG CAP PO (08:02)
[2017-05-01] MEDS: CARBAMIDE PEROXIDE 6.5% OTIC SOLN 15ML AU (08:03)
[2017-05-01] MEDS: LIDOCAINE 5% (LIDODERM) PATCH TD (08:03)
[2017-05-01] MEDS: LEVEMIR (INSULIN DETEMIR) 1 UNITS/0.01ML SC (08:03)
== END 2017-05-01 09:36 | DRG 97 ==
LOC: M MSPAV 03-16 09:13 → M MS5PR 04-19 16:25 → M MSPAV 04-27 20:00 → M MS4PR 03-14 20:20 → M ICU 03-22 13:43 → M MS4PR 04-23 16:35 → M ICU 03-31 15:24 → M MSPAV 04-09 17:18 → M PCU 04-23 21:47 → M ED 13:43 → M ED INP 20:22 → M MS5PR 22:00
PROC: 009U3ZX Drainage of Spinal Canal, Percutaneous Approach, Diagnostic (ICD-10-PCS; 2017-03-19)
PROC: 02HV33Z Insertion of Infusion Device into Superior Vena Cava, Percutaneous Approach (ICD-10-PCS; principal; 2017-03-23)
PROC: 02H633Z Insertion of Infusion Device into Right Atrium, Percutaneous Approach (ICD-10-PCS; 2017-03-23)
PROC: 5A1D70Z Performance of Urinary Filtration, Intermittent, Less than 6 Hours Per Day (ICD-10-PCS; 2017-03-23)
PROC: 06HM33Z Insertion of Infusion Device into Right Femoral Vein, Percutaneous Approach (ICD-10-PCS; 2017-03-23)
PROC: 5A09557 Assistance with Respiratory Ventilation, Greater than 96 Consecutive Hours, Continuous Positive Airway Pressure (ICD-10-PCS; 2017-03-23)
PROC: 02H633Z Insertion of Infusion Device into Right Atrium, Percutaneous Approach (ICD-10-PCS; 2017-03-29)
PROC: 02HV33Z Insertion of Infusion Device into Superior Vena Cava, Percutaneous Approach (ICD-10-PCS; 2017-04-12)
PROC: 05PY33Z Removal of Infusion Device from Upper Vein, Percutaneous Approach (ICD-10-PCS; 2017-04-23)
DX: A86 Unspecified viral encephalitis (principal); G93.41 Metabolic encephalopathy; J18.9 Pneumonia, unspecified organism; I62.01 Nontraumatic acute subdural hemorrhage; N18.6 End stage renal disease; J96.02 Acute respiratory failure with hypercapnia; J96.01 Acute respiratory failure with hypoxia; E27.40 Unspecified adrenocortical insufficiency; N17.9 Acute kidney failure, unspecified; E46 Unspecified protein-calorie malnutrition; G72.81 Critical illness myopathy; I12.0 Hypertensive chronic kidney disease with stage 5 chronic kidney disease or end stage renal disease; G31.83 Neurocognitive disorder with Lewy bodies; F02.80 Dementia in other diseases classified elsewhere, unspecified severity, without behavioral disturbance, psychotic disturbance, mood disturbance, and anxiety; H81.09 Meniere's disease, unspecified ear; M35.3 Polymyalgia rheumatica; M48.061 Spinal stenosis, lumbar region without neurogenic claudication; E11.42 Type 2 diabetes mellitus with diabetic polyneuropathy; Z66 Do not resuscitate; I25.10 Atherosclerotic heart disease of native coronary artery without angina pectoris; N40.1 Benign prostatic hyperplasia with lower urinary tract symptoms; E03.9 Hypothyroidism, unspecified; R29.6 Repeated falls; E11.22 Type 2 diabetes mellitus with diabetic chronic kidney disease; E87.5 Hyperkalemia; E86.0 Dehydration; E78.5 Hyperlipidemia, unspecified; I48.0 Paroxysmal atrial fibrillation; E11.65 Type 2 diabetes mellitus with hyperglycemia; M79.7 Fibromyalgia; K21.9 Gastro-esophageal reflux disease without esophagitis; R00.1 Bradycardia, unspecified; G40.409 Other generalized epilepsy and epileptic syndromes, not intractable, without status epilepticus; D63.1 Anemia in chronic kidney disease; D75.82 Heparin induced thrombocytopenia (HIT); K59.00 Constipation, unspecified; R32 Unspecified urinary incontinence; R33.9 Retention of urine, unspecified; Z95.5 Presence of coronary angioplasty implant and graft; Z79.4 Long term (current) use of insulin; Z79.52 Long term (current) use of systemic steroids; Z79.891 Long term (current) use of opiate analgesic; Z79.899 Other long term (current) drug therapy; Z79.82 Long term (current) use of aspirin

== ENCOUNTER → 2017-06-20 | Outpatient (REF) | payer MEDICARE, OTHER | LOC: M LABSMT 12:48 | DX: K21.9 Gastro-esophageal reflux disease without esophagitis (principal); E11.29 Type 2 diabetes mellitus with other diabetic kidney complication; M35.3 Polymyalgia rheumatica; I25.10 Atherosclerotic heart disease of native coronary artery without angina pectoris; E03.9 Hypothyroidism, unspecified ==

== ENCOUNTER → 2017-06-20 | Outpatient (REF) | payer MEDICARE, OTHER ==
[2017-06-20 19:20] LABS: HEMATOCRIT 33.4 % (42.0-52.0); HEMOGLOBIN 9.9 g/dl (14.0-18.0); MEAN CORPUSCULAR HEMOGLOBIN 27.8 pg (27.0-33.0); MEAN CORPUSCULAR HGB CONC 29.6 g/dl (32.0-36.5); MEAN CORPUSCULAR VOLUME 93.8 fl (80.0-96.0); PLATELET COUNT, AUTOMATED 198 10^3/uL (150-450); RED BLOOD COUNT 3.56 10^6/uL (4.30-6.10); RED CELL DISTRIBUTION WIDTH 19.2 % (11.5-14.5); WHITE BLOOD COUNT 6.3 10^3/uL (4.0-10.0)
== END ==
LOC: M LABDRAWP 17:28
DX: D64.9 Anemia, unspecified (principal)
CPT/HCPCS: 85027

== ENCOUNTER → 2017-08-20 | Outpatient (REF) | payer MEDICARE, OTHER ==
[2017-08-20 14:15] LABS: FERRITIN 84 NG/ML (26-388); IRON (FE) 71 UG/DL (65-175); PERCENT SATURATION 27.8 % (19.7-50.0); TOTAL IRON BINDING CAPACITY 255 UG/DL (250-450)
== END ==
LOC: M LAB REF 13:19
DX: D50.9 Iron deficiency anemia, unspecified (principal)
CPT/HCPCS: 83550

== ENCOUNTER → 2017-11-27 | Outpatient (REF) | payer MEDICARE, OTHER ==
[2017-11-27 11:47] LABS: CHOLESTEROL LEVEL 143 MG/DL (<200); HDL CHOLESTEROL 55 MG/DL (>40); NON-HDL-C 88 MG/DL; TRIGLYCERIDES LEVEL 125 MG/DL (<150)
[2017-11-27 11:53] LABS: ESTIMATED AVERAGE GLUCOSE 200 MG/DL (60-110); HEMOGLOBIN A1c 8.6 %
== END ==
LOC: M SFHCPLAZ 09:19
DX: E11.29 Type 2 diabetes mellitus with other diabetic kidney complication (principal); I25.10 Atherosclerotic heart disease of native coronary artery without angina pectoris
CPT/HCPCS: 83036

== ENCOUNTER → 2018-04-08 | Outpatient (REF) | payer MEDICARE, OTHER ==
[~2018-04-08] MED LIST changes: +BOTO10VL IM; -CARB25TA PO; +CARB25TA9 PO; +FERR32TA PO; +FINA5TAB2 PO; +FLOM0.4C39 PO; -FLOM5CAP PO; -GABA-282 PO; +GABA-843 PO; +KEPP250T5 PO; +TIZA4CAP PO; -TIZA4CAP3 PO
[2018-04-08 21:34] LABS: HEMOGLOBIN A1c 7.7 %
== END ==
LOC: M SFHCPLAZ 14:49
PROVIDERS: ATTEND Internal Medicine
DX: E03.9 Hypothyroidism, unspecified (principal); E11.29 Type 2 diabetes mellitus with other diabetic kidney complication
CPT/HCPCS: 36415; 83036; 84443; G0463

== ENCOUNTER → 2018-07-30 | Outpatient (CLI) | payer MEDICARE, OTHER ==
[~2018-07-30] MED LIST changes: -/TAMS4CA OR; +FLOM0.4C39 OR; -NORC1TAB4 PO; +NORC1TAB7 PO
--- NOTE | 2018-07-31 12:11 | REP ---
RIGHT HIP, TWO VIEWS: HISTORY: Hip pain. There is no acute fracture or dislocation. There is mild narrowing of the joint space with associated sclerosis. IMPRESSION: Degenerative change as described above. Electronically Signed by Fabiano Celestin MD 07/31/2018 12:23 P
--- NOTE | 2018-07-31 14:43 | REP ---
RIGHT KNEE, FOUR VIEWS: HISTORY: Knee pain. There is no acute fracture or dislocation. There is mild narrowing of the medial knee joint space. The lateral knee joint space is normal in appearance. Calcifications are present medial to the knee joint. This represents ligamentous or tendon calcification. IMPRESSION: Degenerative change as described above. Electronically Signed by Fabiano Celestin MD 07/31/2018 02:55 P
== END ==
LOC: M WUC 18:49
PROVIDERS: ATTEND Physician Assistant
DX: M16.11 Unilateral primary osteoarthritis, right hip (principal); M25.761 Osteophyte, right knee; M17.11 Unilateral primary osteoarthritis, right knee

== ENCOUNTER → 2018-11-26 | Outpatient (REF) | payer MEDICARE, OTHER ==
[~2018-11-26] MED LIST changes: -ARTI99.0 OU; +ARTIDRO2 OU; -LISI20TA PO; +LISI20TA18 PO
[2018-11-26 12:06] LABS: HEMOGLOBIN A1c 7.3 %
[2018-11-26 12:08] LABS: C REACTIVE PROTEIN QUANTITATIV 0.94 MG/DL (0.00-0.30); CHOLESTEROL RISK RATIO 2.561 (<5); THYROID STIMULATING HORMONE 0.46 uIU/ML (0.358-3.740)
== END ==
LOC: M SFHCLERA 09:15
PROVIDERS: ATTEND Internal Medicine
DX: M35.3 Polymyalgia rheumatica (principal); E11.29 Type 2 diabetes mellitus with other diabetic kidney complication; I25.10 Atherosclerotic heart disease of native coronary artery without angina pectoris; E03.9 Hypothyroidism, unspecified

== ENCOUNTER → 2019-03-03 | Outpatient (REF) | payer MEDICARE, OTHER ==
[~2019-03-03] MED LIST changes: -LISI20TA18 PO; +LISI20TA19 PO
== END ==
LOC: M LAB REF 17:16
PROVIDERS: ATTEND Nurse Practitioner Family
DX: N39.0 Urinary tract infection, site not specified (principal)

== ENCOUNTER → 2019-03-03 | Outpatient (CLI) | payer MEDICARE, OTHER ==
--- NOTE | 2019-03-03 15:09 | REPPI ---
Clinical: Kidney stone. Technique: Two supine views of the abdomen and pelvis. Findings: Examination is essentially nondiagnostic for urinary tract calcifications due to technique and overlying bowel gas pattern including marked fecal stasis. No bowel obstruction. Evidence of prior cholecystectomy. Skeletal structures demonstrate degenerative changes. Impression: Examination is nondiagnostic for urinary tract calcifications due to overlying bowel gas pattern with significant fecal stasis. Electronically Signed by Ross Tucker MD 03/03/2019 03:00 P
== END ==
LOC: M PLALAB 14:40 → M PLAIMG 14:40
PROVIDERS: ATTEND Nurse Practitioner Family
DX: N20.0 Calculus of kidney (principal)

== ENCOUNTER → 2019-05-20 | Outpatient (REF) | payer MEDICARE, OTHER ==
[~2019-05-20] MED LIST changes: -ARTIDRO2 OU
[2019-05-20 17:10] LABS: APPEARANCE, URINE CLOUDY (CLEAR); BACTERIA, URINE AUTO 2+ (NEGATIVE); BILIRUBIN, URINE AUTO NEGATIVE (NEGATIVE); BLOOD, URINE BLOOD 2+ (NEGATIVE); COLOR, URINE YELLOW (YELLOW); GLUCOSE, URINE (UA) AUTO 1+ mg/dL (NEGATIVE); KETONE, URINE AUTO TRACE mg/dL (NEGATIVE); LEUKOCYTE ESTERASE, URINE AUTO 3+ (NEGATIVE); MUCUS, URINE SMALL (NEGATIVE); NITRITE, URINE AUTO NEGATIVE (NEGATIVE); PROTEIN, URINE AUTO 2+ mg/dL (NEGATIVE); RBC, URINE AUTO 155 /HPF (0-3); SPECIFIC GRAVITY URINE AUTO 1.018 (1.002-1.035); SQUAMOUS EPITHELIAL CELL UR AU 0 /HPF (0-6); UROBILINOGEN, URINE AUTO 0.2 mg/dL (0.0-2.0); WBC, URINE AUTO TNTC /HPF (0-3)
[2019-05-20 17:23] LABS: HEMOGLOBIN A1c 7.2 %
[2019-05-20 18:17] LABS: CREATININE, URINE 95.8 MG/DL; MAU/CREAT RATIO 1670.1 MCG/MG (0.0-30.0)
== END ==
LOC: M SFHCPLAZ 15:53
PROVIDERS: ATTEND Internal Medicine
DX: N13.9 Obstructive and reflux uropathy, unspecified (principal); E11.29 Type 2 diabetes mellitus with other diabetic kidney complication; M35.3 Polymyalgia rheumatica; Z23 Encounter for immunization
CPT/HCPCS: 36415; 81001; 82043; 83036; 85652; 86140; 90471; 90715; G0463

== ENCOUNTER → 2019-06-02 | Outpatient (REF) | payer MEDICARE, OTHER ==
[2019-06-02 18:35] LABS: APPEARANCE, URINE TURBID (CLEAR); BACTERIA, URINE AUTO NEGATIVE (NEGATIVE); BILIRUBIN, URINE AUTO NEGATIVE (NEGATIVE); BLOOD, URINE BLOOD 3+ (NEGATIVE); COLOR, URINE YELLOW (YELLOW); GLUCOSE, URINE (UA) AUTO 1+ mg/dL (NEGATIVE); KETONE, URINE AUTO TRACE mg/dL (NEGATIVE); LEUKOCYTE ESTERASE, URINE AUTO 2+ (NEGATIVE); MUCUS, URINE SMALL (NEGATIVE); NITRITE, URINE AUTO NEGATIVE (NEGATIVE); PROTEIN, URINE AUTO 2+ mg/dL (NEGATIVE); RBC, URINE AUTO TNTC /HPF (0-3); SPECIFIC GRAVITY URINE AUTO 1.019 (1.002-1.035); SQUAMOUS EPITHELIAL CELL UR AU 5 /HPF (0-6); TRANSITIONAL EPITHELIAL AUTO 2 /HPF; UROBILINOGEN, URINE AUTO 0.2 mg/dL (0.0-2.0); WBC, URINE AUTO TNTC /HPF (0-3)
== END ==
LOC: M SMT 16:46
PROVIDERS: ATTEND Nurse Practitioner Family
DX: N40.1 Benign prostatic hyperplasia with lower urinary tract symptoms (principal)
CPT/HCPCS: 51798; 81001; G0463

== ENCOUNTER → 2019-09-03 | Outpatient (CLI) | payer MEDICARE, OTHER ==
--- NOTE | 2019-09-03 09:53 | REP ---
RENAL AND BLADDER ULTRASOUND: RENAL ULTRASOUND: Real-time sonographic evaluation of the kidneys performed. The kidneys are normal in size and echotexture, right kidney measuring 9.2 x 4.7 x 5.0 and left kidney 10.6 x 5.0 x 6.4 cm. There is no hydronephrosis or renal mass seen bilaterally. Duplex Doppler evaluation demonstrates resistive index right kidney 0.70 and left kidney 0.60. IMPRESSION: Negative renal ultrasound. BLADDER ULTRASOUND: Real-time sonographic evaluation of the bladder performed. Bladder measures 9.0 x 6.4 x 6.1 cm. Total volume is 228 mL. Postvoid residual is 86 mL. Oval hypoechoic area posteriorly along the bladder wall measures 2.7 x 1.7 x 3.2 cm. Patient was unable to change positions for further evaluation to see if this was mobile. This could represent a mass at the base of the bladder. Bladder wall is otherwise unremarkable. Ureteral jets could not be seen with Doppler color evaluation. IMPRESSION: Oval hypoechoic area at the base of the bladder 2.7 x 1.7 x 3.2 cm. This could represent a mass at the base of the bladder, versus a conglomerate of debris or clot. Postvoid residual 86 mL.
== END ==
LOC: M WHC 06:59
PROVIDERS: ATTEND Nurse Practitioner Family
DX: N18.3 Chronic kidney disease, stage 3 (moderate) (principal); R33.9 Retention of urine, unspecified; N32.89 Other specified disorders of bladder

== ENCOUNTER → 2019-09-25 | Outpatient (REF) | payer MEDICARE, OTHER ==
[2019-09-25 19:07] LABS: APPEARANCE, URINE TURBID (CLEAR); BACTERIA, URINE AUTO 1+ (NEGATIVE); BILIRUBIN, URINE AUTO NEGATIVE (NEGATIVE); BLOOD, URINE BLOOD 1+ (NEGATIVE); COLOR, URINE YELLOW (YELLOW); GLUCOSE, URINE (UA) AUTO NEGATIVE (NEGATIVE); KETONE, URINE AUTO TRACE mg/dL (NEGATIVE); LEUKOCYTE ESTERASE, URINE AUTO 3+ (NEGATIVE); NITRITE, URINE AUTO NEGATIVE (NEGATIVE); PROTEIN, URINE AUTO 2+ mg/dL (NEGATIVE); RBC, URINE AUTO 64 /HPF (0-3); SPECIFIC GRAVITY URINE AUTO 1.019 (1.002-1.035); SQUAMOUS EPITHELIAL CELL UR AU 0 /HPF (0-6); UROBILINOGEN, URINE AUTO 0.2 mg/dL (0.0-2.0); WBC, URINE AUTO TNTC /HPF (0-3)
== END ==
LOC: M SMT 16:42
PROVIDERS: ATTEND Nurse Practitioner Family
DX: N32.89 Other specified disorders of bladder (principal)

== ENCOUNTER → 2019-09-29 | Outpatient (REF) | payer MEDICARE, OTHER | LOC: M SMT 14:52 | PROVIDERS: ATTEND Urology | DX: N32.89 Other specified disorders of bladder (principal); Z79.899 Other long term (current) drug therapy ==

== ENCOUNTER → 2019-10-01 | Outpatient (REF) | payer MEDICARE, OTHER ==
[2019-10-01 17:32] LABS: ALBUMIN 3.1 GM/DL (3.2-5.2); BILIRUBIN,TOTAL 0.3 MG/DL (0.2-1.0); CALCIUM LEVEL 8.8 MG/DL (8.8-10.2); CHOLESTEROL RISK RATIO 2.562 (<5); CREATININE FOR GFR 1.42 MG/DL (0.70-1.30); GLOMERULAR FILTRATION RATE 50.7 (>35); POTASSIUM SERUM 4.4 MEQ/L (3.5-5.1); THYROID STIMULATING HORMONE 1.81 uIU/ML (0.358-3.740); TOTAL PROTEIN 6.6 GM/DL (6.4-8.2)
[2019-10-01 17:47] LABS: HEMOGLOBIN A1c 7.8 %
== END ==
LOC: M PLALAB 14:43
PROVIDERS: ATTEND Internal Medicine
DX: E11.29 Type 2 diabetes mellitus with other diabetic kidney complication (principal); I25.10 Atherosclerotic heart disease of native coronary artery without angina pectoris; E03.9 Hypothyroidism, unspecified

== ENCOUNTER → 2019-10-07 | Outpatient (CLI) | payer MEDICARE, OTHER ==
[~2019-10-07] MED LIST changes: -ASPI81TA85 PO; +ASPI81TA86 PO; +DONE10TA90 PO; -LISI20TA19 PO; +LISI20TA35 PO; +MAGN200T10 PO; +PRIL20TA2 PO
--- NOTE | 2019-10-08 00:11 | REP ---
SCROTAL ULTRASOUND: Real-time sonographic evaluation of scrotum and contents performed. Testicles are normal in size and echotexture, right testicle measuring 4.1 x 3.2 x 3.2 cm and left testicle 4.4 x 3.0 x 24 cm. There is no testicular mass or torsion. Blood flow is seen in each testicle with duplex Doppler evaluation. There are small bilateral hydroceles. There are two cysts in the right epididymis measuring 2 and 3 mm in diameter. There is a cyst in the left epididymis 8 x 5 mm. IMPRESSION: No testicular mass or torsion. Small bilateral hydroceles. Subcentimeter epididymal cysts.
== END ==
LOC: M PLAIMG 12:32
PROVIDERS: ATTEND Nurse Practitioner Family
DX: N50.811 Right testicular pain (principal); N50.3 Cyst of epididymis; N43.3 Hydrocele, unspecified

== ENCOUNTER → 2019-10-19 | Outpatient (CLI) | payer MEDICARE, OTHER ==
[2019-10-19 17:58] LABS: HEMATOCRIT 41.8 % (42.0-52.0); HEMOGLOBIN 13.5 g/dl (13.5-17.5); MEAN CORPUSCULAR HEMOGLOBIN 31.1 pg (27.0-33.0); MEAN CORPUSCULAR HGB CONC 32.3 g/dl (32.0-36.5); MEAN CORPUSCULAR VOLUME 96.3 fl (80.0-96.0); PLATELET COUNT, AUTOMATED 163 10^3/uL (150-450); RED BLOOD COUNT 4.34 10^6/uL (4.30-6.10)
[2019-10-19 18:13] LABS: HEMOGLOBIN A1c 7.2 %
[2019-10-19 18:25] LABS: BILIRUBIN,TOTAL 0.4 MG/DL (0.2-1.0); CALCIUM LEVEL 8.3 MG/DL (8.8-10.2); CREATININE FOR GFR 1.5 MG/DL (0.70-1.30); GLOMERULAR FILTRATION RATE 47.6 (>35); POTASSIUM SERUM 4.6 MEQ/L (3.5-5.1); TOTAL PROTEIN 6.3 GM/DL (6.4-8.2)
[2019-10-19 18:32] LABS: PTH INTACT 41.6 PG/ML (18.5-88.0)
[2019-10-19 18:57] LABS: MAU/CREAT RATIO 1082.7 MCG/MG (0.0-30.0)
== END ==
LOC: M PLALAB 14:16
PROVIDERS: ATTEND Internal Medicine
DX: E11.29 Type 2 diabetes mellitus with other diabetic kidney complication (principal); K21.9 Gastro-esophageal reflux disease without esophagitis; N18.3 Chronic kidney disease, stage 3 (moderate)

== ENCOUNTER → 2019-10-25 | Outpatient (REF) | payer MEDICARE, OTHER ==
[2019-11-19 21:48] LABS: HEMATOCRIT 55.2 % (42.0-52.0); HEMOGLOBIN 17.3 g/dl (13.5-17.5); MEAN CORPUSCULAR HEMOGLOBIN 30.3 pg (27.0-33.0); MEAN CORPUSCULAR HGB CONC 31.3 g/dl (32.0-36.5); MEAN CORPUSCULAR VOLUME 96.7 fl (80.0-96.0); PLATELET COUNT, AUTOMATED 105 10^3/uL (150-450); RED BLOOD COUNT 5.71 10^6/uL (4.30-6.10); WHITE BLOOD COUNT 5.3 10^3/uL (4.0-10.0)
[2019-11-20 11:10] LABS: CALCIUM LEVEL 8.3 MG/DL (8.8-10.2); CREATININE FOR GFR 1.47 MG/DL (0.70-1.30); GLOMERULAR FILTRATION RATE 48.7 (>35); POTASSIUM SERUM 4.5 MEQ/L (3.5-5.1)
== END ==
LOC: M WUC 07:46
PROVIDERS: ATTEND Urology
DX: N32.89 Other specified disorders of bladder (principal)

== ENCOUNTER → 2019-10-27 | Outpatient (CLI) | payer MEDICARE, OTHER ==
[2019-11-24 03:06] LABS: APPEARANCE, URINE TURBID (CLEAR); BACTERIA, URINE AUTO 1+ (NEGATIVE); BILIRUBIN, URINE AUTO NEGATIVE (NEGATIVE); BLOOD, URINE BLOOD 2+ (NEGATIVE); COLOR, URINE AMBER (YELLOW); GLUCOSE, URINE (UA) AUTO NEGATIVE (NEGATIVE); KETONE, URINE AUTO TRACE mg/dL (NEGATIVE); LEUKOCYTE ESTERASE, URINE AUTO 3+ (NEGATIVE); MUCUS, URINE SMALL (NEGATIVE); NITRITE, URINE AUTO NEGATIVE (NEGATIVE); PROTEIN, URINE AUTO 2+ mg/dL (NEGATIVE); RBC, URINE AUTO 152 /HPF (0-3); SPECIFIC GRAVITY URINE AUTO 1.012 (1.002-1.035); SQUAMOUS EPITHELIAL CELL UR AU 0 /HPF (0-6); UROBILINOGEN, URINE AUTO 0.2 mg/dL (0.0-2.0); WBC, URINE AUTO TNTC /HPF (0-3)
--- NOTE | 2019-12-18 09:51 | REP ---
CHEST X-RAY: 2-VIEWS HISTORY: Bladder tumor. This report was delayed due to an extended episode of computer network disruption experienced by this facility. COMPARISON: 04/04/2017. FINDINGS: Left hemidiaphragm is slightly elevated. The lungs are otherwise well-inflated and clear. The pleural angles are sharp. There are surgical clips in the right upper quadrant consistent with prior cholecystectomy. Heart is not felt to be enlarged. There is evidence of coronary artery stent material along the left heart border. The thoracic aorta is somewhat tortuous. Pulmonary vasculature is not increased. IMPRESSION: No active disease. Status post coronary artery stent. There are granulomatous calcifications projecting at the left base as well. MTDD
== END ==
LOC: M LAB 15:04
PROVIDERS: ATTEND Nurse Practitioner Family
DX: Z01.818 Encounter for other preprocedural examination (principal); C67.9 Malignant neoplasm of bladder, unspecified

== ENCOUNTER 2019-10-28 08:45 | Day surgery (SDC) | payer MEDICARE, OTHER ==
[~2019-10-28] VITALS: Ht 177.8 cm; Wt 86.2 kg
[~2019-10-28 08:45] MED LIST changes: +LIDOCAINE 2% 100MG/5ML SDV (FOR ANES.) ONE; +MIDAZOLAM INJ 2MG/2ML VIAL (J2250 PER 1MG) ONE; +ROCURONIUM BROMIDE 50 MG/5 ML VIAL ONE; +fentaNYL 250 MCG/5 ML INJECTION (J3010) ONE; +propofoL 200 MG/20 ML VIAL ONE
[2019-10-28] MEDS ORDERED: ceFAZolin 2 GM/D5W 50 ML IV BAG (J0690 PER 500MG) As Ordered ONE (08:46)
[2019-10-28] MEDS ORDERED: ASPIRIN 325 MG TAB As Ordered ONE (10:18)
[2019-10-28] MEDS ORDERED: diazePAM 5 MG TAB As Ordered ONE (10:18)
[2019-10-28] MEDS ORDERED: PHENYLephrine HCL 500 MCG/5 ML (100MCG/ML) SYRINGE (J2370) ONE (11:14)
[2019-10-28] MEDS ORDERED: ePHEDrine SULFATE 25 MG/5 ML(5MG/ML) SYRINGE ONE (11:14)
[2019-10-28] MEDS ORDERED: KETOROLAC 60MG 2ML VIAL ONE (11:14)
[2019-10-28] MEDS ORDERED: ONDANSETRON 4MG/2ML VIAL ONE (11:14)
[2019-10-28] MEDS ORDERED: SUGAMMADEX SODIUM 500 MG/5 ML VIAL (BRIDION) ONE (11:14)
[2019-12-17 21:04] LABS: INR 1.2; PARTIAL THROMBOPLASTIN TIME 30.7 SECONDS (24.2-38.5); PROTHROMBIN TIME 15.4 SECONDS (12.5-14.3)
--- NOTE | 2020-01-07 14:29 | RO ---
DATE OF PROCEDURE: 10/28/2019 PREOPERATIVE DIAGNOSIS: Bladder tumor. POSTOPERATIVE DIAGNOSIS: Bladder tumor. PROCEDURES: Cystoscopy. Transurethral resection of bladder tumor (less than 2 cm). SURGEON: Ashwin Berkowitz MD SPENT GRAIN DRYER: None. ANESTHESIA: General. OPERATIVE INDICATIONS: This is an 84-year-old male who was found to have lesions in his bladder concerning for bladder tumors. He was brought to the operating room today for the above listed procedure. DESCRIPTION OF PROCEDURE: The patient was brought to the operating room and general anesthesia was induced. Prophylactic antibiotics were infused. At this point, I attempted to insert a resectoscope into the urethral meatus, but it would not go into the meatus. I therefore dilated the urethral meatus to 30-Bengali using curved metal sounds. After I was done, a resectoscope was inserted into the urethral meatus and advanced into the bladder using a visual obturator. The bladder was then thoroughly examined. Of note, the bladder was moderately trabeculated. I could not examine the bladder that well with the resectoscope and no large tumors were seen. I therefore, traded the resectoscope out for a rigid cystoscope. Using the 30 and the 70 lens, the bladder was thoroughly examined. Of note, the patient did have some abnormal-appearing small lesions on the posterior bladder wall. This looked somewhat concerning for carcinoma in situ. At this point, the cystoscope was removed and a resectoscope inserted back in. Three areas of biopsies were obtained of this area and the tissue was sent off as bladder tumor for analysis. Once done, I cauterized the base of the resection using coagulation current. Once done, there was excellent hemostasis. The bladder was then removed of all fluids and the scope was removed. This marked the conclusion of the procedure. The patient was then taken out of lithotomy position, awakened from anesthesia, and transported to the recovery room in stable condition ESTIMATED BLOOD LOSS: 5 mL. COMPLICATIONS: None. SPECIMENS: Bladder tumor. PLAN: The patient will follow up in the clinic in about a week for pathology results. KRISTINA
== END 2019-10-28 15:47 | disposition home or self-care (01) ==
LOC: M SDC 08:45
PROVIDERS: ATTEND Urology
DX: N32.9 Bladder disorder, unspecified (principal); I10 Essential (primary) hypertension; I25.10 Atherosclerotic heart disease of native coronary artery without angina pectoris; E11.9 Type 2 diabetes mellitus without complications; E03.9 Hypothyroidism, unspecified; Z98.61 Coronary angioplasty status; Z91.041 Radiographic dye allergy status; K21.9 Gastro-esophageal reflux disease without esophagitis; M35.3 Polymyalgia rheumatica; N40.0 Benign prostatic hyperplasia without lower urinary tract symptoms; Z79.899 Other long term (current) drug therapy; G20 Parkinson's disease; I48.0 Paroxysmal atrial fibrillation
CPT/HCPCS: 52234; 82947; 85610; 85730; 88305; J0690; J1885; J2250; J2370; J2405; J3010

== ENCOUNTER → 2020-02-23 | Outpatient (REF) | payer MEDICARE, OTHER ==
[~2020-02-23] MED LIST changes: -LIDOCAINE 2% 100MG/5ML SDV (FOR ANES.) ONE; -MIDAZOLAM INJ 2MG/2ML VIAL (J2250 PER 1MG) ONE; -ROCURONIUM BROMIDE 50 MG/5 ML VIAL ONE; -fentaNYL 250 MCG/5 ML INJECTION (J3010) ONE; -propofoL 200 MG/20 ML VIAL ONE
[2020-02-23 17:21] LABS: C REACTIVE PROTEIN QUANTITATIV 1.21 MG/DL (0.00-0.30); URIC ACID 4.6 MG/DL (3.5-7.2)
== END ==
LOC: M SFHCPLAZ 14:43
PROVIDERS: ATTEND Physician Assistant
DX: M79.641 Pain in right hand (principal)
CPT/HCPCS: 36415; 84550; 85652; 86140; G0463

== ENCOUNTER → 2020-03-10 | Outpatient (REF) | payer MEDICARE, OTHER | LOC: M LAB REF 17:03 | PROVIDERS: ATTEND Nurse Practitioner Family | DX: N39.0 Urinary tract infection, site not specified (principal) ==

== ENCOUNTER → 2020-03-11 | Outpatient (CLI) | payer MEDICARE, OTHER ==
--- NOTE | 2020-03-11 10:05 | REP ---
INDICATION: ACUTE KIDNEY FAILURE, NEOPLASM OF BLADDER. COMPARISON: None. TECHNIQUE: Renal sonography. FINDINGS: . Renal cortical echogenicity pattern is normal bilaterally and contours are smooth. There is no evidence of hydronephrosis, cyst, mass, or calculus in either kidney. The right kidney measures 11.7 x 5.0 x 5.0 cm. Left renal dimensions are 11.8 x 5.3 x 5.8 cm. IMPRESSION: Unremarkable bilateral renal sonography.. <Electronically signed by Devyn Mckeon > 03/11/20 1002
--- NOTE | 2020-03-11 10:10 | REP ---
INDICATION: ACUTE KIDNEY FAILURE, NEOPLASM OF BLADDER. Patient reports removal of a mass from the bladder approximately 3 months ago. COMPARISON: Comparison sonography September 03, 2019.. TECHNIQUE: Transabdominal scanning. FINDINGS: Prostate is mildly prominent elevating the bladder base. Its dimensions are 4.0 x 4.0 x 4.8 cm on transabdominal scanning for a calculated volume of 40 mL. There is hypoechoic debris or wall thickening along the posterior wall of the urinary bladder versus residual mass. Calculated prevoid bladder volume is 84 mL indicating incomplete filling. A postvoid residual of 85%, 71 mL is seen. Bladder castillo are otherwise unremarkable. No extravesical lesion is seen. IMPRESSION: Limited bladder filling and large postvoid bladder residual. Wall thickening versus proteinaceous debris versus versus residual mass along the posterior wall of the urinary bladder. Mild prostate enlargement. <Electronically signed by Devyn Mckeon > 03/11/20 1553
== END ==
LOC: M RAD 08:58
PROVIDERS: ATTEND Nurse Practitioner Family
DX: N17.9 Acute kidney failure, unspecified (principal); D41.4 Neoplasm of uncertain behavior of bladder

== ENCOUNTER → 2020-03-22 | Outpatient (REF) | payer MEDICARE, OTHER ==
[2020-03-22 17:29] LABS: APPEARANCE, URINE TURBID (CLEAR); BACTERIA, URINE AUTO 1+ (NEGATIVE); BILIRUBIN, URINE AUTO NEGATIVE (NEGATIVE); BLOOD, URINE BLOOD 2+ (NEGATIVE); COLOR, URINE YELLOW (YELLOW); GLUCOSE, URINE (UA) AUTO NEGATIVE (NEGATIVE); KETONE, URINE AUTO TRACE mg/dL (NEGATIVE); LEUKOCYTE ESTERASE, URINE AUTO 3+ (NEGATIVE); NITRITE, URINE AUTO NEGATIVE (NEGATIVE); PROTEIN, URINE AUTO 3+ mg/dL (NEGATIVE); RBC, URINE AUTO TNTC /HPF (0-3); SPECIFIC GRAVITY URINE AUTO 1.018 (1.002-1.035); SQUAMOUS EPITHELIAL CELL UR AU 0 /HPF (0-6); TRANSITIONAL EPITHELIAL AUTO 1 /HPF; UROBILINOGEN, URINE AUTO 0.2 mg/dL (0.0-2.0); WBC, URINE AUTO TNTC /HPF (0-3)
== END ==
LOC: M SMT 16:43
PROVIDERS: ATTEND Nurse Practitioner Family
DX: N32.89 Other specified disorders of bladder (principal); Z79.899 Other long term (current) drug therapy
CPT/HCPCS: 81001; 87086; 88108; G0463

== ENCOUNTER → 2020-06-03 | Outpatient (CLI) | payer MEDICARE, OTHER ==
[~2020-06-03] MED LIST changes: +GABA-282 PO; -GABA-843 PO; +METH-1164 PO; -METH1TAB40 PO
--- NOTE | 2020-06-03 15:38 | REP ---
INDICATION: BLADDER WALL THICKENING COMPARISON: 03/11/2020 TECHNIQUE: Real time B-mode ultrasound examination using curved array transducer. FINDINGS: Chronic trabeculated appearance to the bladder wall without significant bladder wall thickening or focal bladder mass may be secondary to outlet obstruction. A right ureteral jet was identified while the left ureteral jet was not noted during examination-nonspecific finding. Prostate measures 4.5 x 5.1 x 4.1 cm (50 cc). Prevoid bladder measures 6.2 x 5.7 x 3.9 cm (90 cc). Postvoid bladder measures 4.3 x 7.0 x 3.2 cm (63 cc). Postvoid residual equals 70% IMPRESSION: 1. Markedly elevated residual bladder volume and trabeculated appearance to the bladder wall may be related to chronic outlet obstruction. <Electronically signed by Ross Tucker > 06/03/20 1539
== END ==
LOC: M RAD 13:28
PROVIDERS: ATTEND Nurse Practitioner Family
DX: N32.89 Other specified disorders of bladder (principal)

== ENCOUNTER → 2020-07-12 | Outpatient (REF) | payer MEDICARE, OTHER ==
[~2020-07-12] MED LIST changes: +CARB-89 PO; -SINE25TA5 PO
== END ==
LOC: M LAB REF 16:48
PROVIDERS: ATTEND Nurse Practitioner Family
DX: N39.0 Urinary tract infection, site not specified (principal)

== ENCOUNTER 2020-09-27 13:44 | Inpatient (IN) | payer MEDICARE, OTHER ==
[~2020-09-27] VITALS: Ht 177.8 cm; Wt 81.8 kg
[2020-09-27] MEDS ORDERED: EUTH175T PO (13:58)
[2020-09-27] MEDS ORDERED: PRIM50TA6 PO (13:58)
[2020-09-27 14:44] LABS: BASO % 0.4 % (0.0-1.0); EOS # 0.2 10^3/uL (0.0-0.5); EOS % 2.1 % (0.0-3.0); HEMATOCRIT 38.3 % (42.0-52.0); HEMOGLOBIN 12.2 g/dl (13.5-17.5); LYMPH # 1.1 10^3/uL (1.5-5.0); LYMPH % 13.8 % (24.0-44.0); MEAN CORPUSCULAR HEMOGLOBIN 30.2 pg (27.0-33.0); MEAN CORPUSCULAR HGB CONC 31.9 g/dl (32.0-36.5); MEAN CORPUSCULAR VOLUME 94.8 fl (80.0-96.0); MONO # 0.7 10^3/uL (0.0-0.8); MONO % 8.5 % (2.0-8.0); NEUTROPHILS # 5.8 10^3/uL (1.5-8.5); NEUTROPHILS % 74.8 % (36.0-66.0); PLATELET COUNT, AUTOMATED 153 10^3/uL (150-450); RED BLOOD COUNT 4.04 10^6/uL (4.30-6.10); WHITE BLOOD COUNT 7.8 10^3/uL (4.0-10.0)
--- NOTE | 2020-09-27 14:56 | REP ---
INDICATION: altered mentation, assess for pneumonia COMPARISON: 10/27/2019 TECHNIQUE: Portable AP view of the chest FINDINGS: Evaluation is limited by underpenetration, poor inspiratory effort, and portable technique. Cardiomegaly along with interstitial edema cannot be excluded. Subtle airspace disease primarily in the right lower lobe cannot be excluded. No pneumothorax. Skeletal structures intact. IMPRESSION: Limited portable examination. Cannot exclude interstitial edema or basilar opacities (right greater than left). <Electronically signed by Ross Tucker > 09/27/20 [id number]
[2020-09-27 15:24] LABS: ALBUMIN 3.1 GM/DL (3.2-5.2); ALT/SGPT 8 U/L (12-78); BILIRUBIN,DIRECT 0.1 MG/DL (0.0-0.2); BILIRUBIN,TOTAL 0.3 MG/DL (0.2-1.0); BLOOD UREA NITROGEN 34 MG/DL (7-18); CALCIUM LEVEL 8.8 MG/DL (8.8-10.2); CARBON DIOXIDE LEVEL 33 MEQ/L (21-32); CHLORIDE LEVEL 104 MEQ/L (98-107); CPK CREATINE PHOSPHOKINASE 154 U/L (39-308); GLOMERULAR FILTRATION RATE 44.1 (>35); GLUCOSE, FASTING 194 MG/DL (70-100); MB/CK RELATIVE INDEX 1.95 (< OR =4); POTASSIUM SERUM 4.6 MEQ/L (3.5-5.1); SODIUM LEVEL 141 MEQ/L (136-145); TOTAL PROTEIN 6.5 GM/DL (6.4-8.2); TROPONIN I < 0.02 NG/ML (< 0.10)
--- NOTE | 2020-09-27 18:18 | REPVR ---
PROCEDURE INFORMATION: Exam: CT Head Without Contrast Exam date and time: 09/27/2020 5:48 PM Age: 85 years old Clinical indication: Altered mental status/memory loss; Additional info: Altered mentation TECHNIQUE: Imaging protocol: Computed tomography of the head without contrast. Radiation optimization: All CT scans at this facility use at least one of these dose optimization techniques: automated exposure control; mA and/or kV adjustment per patient size (includes targeted exams where dose is matched to clinical indication); or iterative reconstruction. COMPARISON: CT Head without contrast 04/03/2017 8:30 AM FINDINGS: Brain: There is no acute intracranial hemorrhage or mass effect. Moderate diffuse volume loss is within the range of normal for patient age. There are small vessel ischemic changes within the periventricular and subcortical white matter, but the normal plunkett-white matter delineation is maintained. Cerebral ventricles: No ventriculomegaly. Paranasal sinuses: Visualized sinuses are unremarkable. No fluid levels. Mastoid air cells: Visualized mastoid air cells are well aerated. Bones/joints: There is abnormal diffuse marrow heterogeneity and lucency. This was present previously and appears unchanged. Soft tissues: Unremarkable. IMPRESSION: 1. No acute intracranial hemorrhage or edema. 2. Stable diffuse marrow heterogeneity and lucency. Marrow infiltrative processes such as multiple myeloma are a consideration in the appropriate clinical setting. Electronically signed by: Noreen Cooley On 09/27/2020 18:17:51 PM
[2020-09-27] MEDS ORDERED: CARB25TA9 PO (18:30)
[2020-09-27] MEDS ORDERED: PREG100C PO (18:30)
[2020-09-27] MEDS ORDERED: MAGN400T2 PO (18:30)
[2020-09-27] MEDS ORDERED: [UNRECOGNIZED DRUG - OTHER] PO (18:32)
[2020-09-27] MEDS ORDERED: [UNRECOGNIZED DRUG - OTHER] PO (18:32)
[2020-09-27] MEDS ORDERED: TUMS500C PO (18:32)
[2020-09-27] MEDS ORDERED: PRED25TA PO (18:34)
[2020-09-27] MEDS ORDERED: MOM 30ML SUSPENSION UDC PO PRN (19:15)
[2020-09-27] MEDS ORDERED: ACETAMINOPHEN TAB 650MG DOSE (2X325MG) PO PRN (19:15)
[2020-09-27] MEDS ORDERED: MAALOX 30 ML SUSP *UDC PO PRN (19:15)
[2020-09-27 19:20] LABS: RSV AMPLIFICATION NEGATIVE (NEGATIVE)
[2020-09-27] MEDS ORDERED: DEXTROSE 50% 50 ML SYRINGE IV PRN (19:40)
[2020-09-27] MEDS ORDERED: GLUCOSE 4GM CHEW TABLET PO PRN (19:40)
[2020-09-27] MEDS ORDERED: GLUCAGON INJ 1MG VIAL SC PRN (19:40)
--- NOTE | 2020-09-27 19:47 | HPEPDOC ---
[facility] Medical History & Physical Date of Admission Sep 27, 2020 Date of Service: Sep 27, 2020 Primary Care Physician: Isaac Cisneros Attending Physician: HUMBERTO HUFF DO History and Physical CHIEF COMPLAINT: Increasing weakness, multiple falls at home and increasing confusion HISTORY OF PRESENT ILLNESS: Mr. Dela Cruz is an 85-year-old male with a history of Parkinson's disease and polymyalgia rheumatica on chronic steroids who presents to the ER with complaints of multiple falls at home as well as increasing confusion. The patient states he falls 4-5 times per day and this has been going on for about a year. He states 5 or 6 days ago something "changed". It "felt different". The patient could not be more specific. He lives with his who is unable to assist him when he falls. He states he gets up by hanging onto bedpost and doorknobs. He uses his walker religiously at home but feels like his legs "don't hold". He also complains of significant muscle spasms in all extremities. He has a history of involuntary eye closure, for which he receives routine Botox injections. He is complaining that his vision is worsening and he is seeing double. He feels he is having more and more difficulty "catching on". He says at times he does not even remember his own grandchildren. He also complains of one- month of urinary frequency and urgency with some incontinence. He denies any fever, chills, nausea, vomiting or diarrhea. On initial evaluation, patient was noted to have an abnormal UA with 2+ blood, leukocyte Estrace, too numerous to count white blood cells and 1+ bacteria. White blood cell count was within normal limits. BUN/creatinine were 34 and 1.6, which appear to be close to the patient's baseline. He has a history of chronic kidney disease stage III and was on dialysis temporarily in 2017. He is also an insulin-dependent type 2 diabetic and states his blood sugars have been higher than normal recently. He says he often reads between 200-300. Blood glucose today was 194. Hemoglobin and hematocrit 12.[address] of the head showed no acute pathology, but did show stable diffuse marrow heterogenicity and lucency. Chest x-ray was a limited exam, but could not include interstitial edema or bibasilar opacities. Patient denied any respiratory difficulties. He denied any chronic cough or shortness of breath. He did complain that he could not get air through his nose but that has been a chronic condition since he was in his 20s. PAST MEDICAL HISTORY: 1. Chronic kidney disease stage III with a history of temporary dialysis. 2. Chronic balance disorder. 3. Parkinson's disease. 4. Polymyalgia rheumatica on chronic steroids 5. Mnire's disease. 6. Lumbar stenosis. 7. Chronic pain. 8. Diabetes type 2, insulin-dependent. 9. Coronary artery disease. 10. Hypothyroid. 11. Hypertension, on no current medications. 12. Hyperlipidemia. 13. Benign prostatic hypertrophy. 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 Right inguinal hernia. 2. Left knee surgery. 3. Cholecystectomy. 4. Bilateral cataracts. 5. Repair of ptosis of the right eye. 6. Removal of bladder mass which was benign SOCIAL HISTORY: Tobacco use: Denies ETOH: Denies Illicit drug use: Denies Patient lives with: His FAMILY HISTORY: Patient's mother at age 85 and had a history of Parkinson's. His father was also 85 and had COPD. REVIEW OF SYSTEMS: Complete 10 point review systems is negative except as noted above PHYSICAL EXAMINATION: Patient is seen in the ER, lying on the stretcher. He is alert and oriented to person, place and situation. He is not able to tell me the year or the month. HEENT is WNL. Neck is supple. Lungs are clear to auscultation with shallow r espiration. Heart regular rate and rhythm with murmur. Abdomen is soft, non- tender to palpation with bowel sounds positive. Extremities with ROM and strength equal bilaterally, although bilateral lower extremities are chronically weak. Trace lower extremity edema. Pedal pulses are positive. Skin is warm and dry with no obvious rash or lesion. Psych: He is pleasant and cooperative ASSESSMENT AND PLAN: 1. Multiple falls at home with progressive weakness, probably secondary to progression of Parkinson's disease, polymyalgia rheumatica, chronic gait di sturbance and balance disorder. Will ask physical and occupational therapies to evaluate and treat. Continue home medications including Sinemet, prednisone, primidone. Patient may require placement or acute rehabilitation. 2. Abnormal urinalysis. Will treat patient empirically with Rocephin and will adjust antibiotics as needed based on final cultures. 3. Diabetes type 2, insulin-dependent. Continue home dose of Levemir and monitor blood glucose before meals and at bedtime. Will add sliding scale for use as needed. Check HbA1c in the morning. Continue on consistent carbohydrate diet. 4. Hypertension, essential, poorly controlled. Patient is not currently on any antihypertensives. Will monitor with routine vital signs for now. Will adjust medications as needed based on trends. 5. Hypothyroid. TSH was normal. Continue hormone replacement. 6. Chronic pain. Lyrica. 7. Benign prostatic hypertrophy. Flomax. 8. Kidney disease stage III. Avoid other toxic medications. Monitor closely. Recheck renal function in the morning. 9. DVT prophylaxis. Lovenox. CODE STATUS: CODE STATUS was discussed with the patient desires to be considered a DNR. If his with atelectasis or if he were unable to make his own decisions. Patient is considered moderate risk for deterioration including possible sepsis or septic shock. He is admitted for close observation and further evaluation and expected to remain at least one midnight. Vital Signs Vital Signs Date Time Temp Pulse Resp B/P (MAP) Pulse Ox O2 Delivery O2 Flow Rate FiO2 09/27/20 17:32 96.7 09/27/20 14:36 09/27/20 13:45 66 18 94 Room Air Laboratory Data Labs 24H Laboratory Tests 2 09/27/20 14:03: Immature Granulocyte % (Auto) 0.4, Neutrophils (%) (Auto) 74.8H, Lymphocytes (%) (Auto) 13.8L, Monocytes (%) (Auto) 8.5H, Eosinophils (%) (Auto) 2.1, Basophils (%) (Auto) 0.4, Neutrophils # (Auto) 5.8, Lymphocytes # (Auto) 1.1L, Monocytes # (Auto) 0.7, Eosinophils # (Auto) 0.2, Basophils # (Auto) 0.0, Nucleated Red Blood Cells % (auto) 0.0, Anion Gap 4L, Glomerular Filtration Rate 44.1, Calcium Level 8.8, Total Bilirubin 0.3, Direct Bilirubin 0.1, Aspartate Amino Transf (AST/SGOT) 24, Alanine Aminotransferase (ALT/SGPT) 8L, Alkaline Phosphatase 144H, Total Creatine Kinase 154, Creatine Kinase MB 3.0, Creatine Kinase MB Relative Index 1.95, Troponin I < 0.02, Total Protein 6.5, Albumin 3.1L, Albumin/Globulin Ratio 0.9, Thyroid Stimulating Hormone (TSH) 1.360 09/27/20 14:24: Urine Color YELLOW, Urine Appearance TURBIDH, Urine pH 5.0, Urine Specific [place] 1.016, Urine Protein 3+H, Urine Glucose (UA) 1+H, Urine Ketones TRACEH, Urine Blood 2+H, Urine Nitrite NEGATIVE, Urine Bilirubin NEGATIVE, Urine Urobilinogen 0.2, Urine Leukocyte Esterase 2+H, Urine WBC (Auto) TNTCH, Urine RBC (Auto) 126H, Urine Hyaline Casts (Auto) 0, Urine Bacteria (Auto) 1+H, Urine Squamous Epithelial Cells 0, Urine Sperm (Auto) 09/27/20 18:28: CBC/BMP Laboratory Tests 09/27/20 14:03 Microbiology Microbiology 09/27/20 Urine Culture, Received Pending Home Medications Scheduled Carbidopa/Levodopa (Carbidopa-Levodopa 25-100 Tab) 1 Each Tablet, 2 TAB PO 5XD 0700/1000/1400/1600/2200 Donepezil HCl (Donepezil HCl) 10 Mg Tablet, 10 MG PO DAILY Insulin Detemir (Levemir) 100 Unit/1 Ml Vial, 28 UNITS SC DAILY Insulin Human Lispro (Humalog) 1 Units/0.01 Ml Inj, 0 SC ACHS PER SLIDING SCALE Levothyroxine Sodium (Euthyrox) 175 Mcg Tablet, 175 MCG PO QAM Magnesium Oxide (Magnesium Oxide) 400 Mg Tablet, 800 MG PO BID Multivitamins (Thera M Plus Tablet) 1 Tab Tab, 1 TAB PO DAILY Polyvinyl Alcohol (Artificial Tears) 1.4 % Tamy, 1 DROP OU BID Prednisone (Prednisone) 5 Mg Tab, 5 MG PO Q2D Prednisone (Prednisone) 2.5 Mg Tablet, 2.5 MG PO Q2D Pregabalin (Pregabalin) 100 Mg Capsule, 100 MG PO BID Primidone (Primidone) 50 Mg Tablet, 50 MG PO BID Tamsulosin HCl (Flomax) 0.4 Mg Cap, 0.4 MG PO DAILY [Leg Cramp Otc] , 1 TAB PO QHS [Nerve Shield Plus] , 1 TAB PO DAILY Scheduled PRN Calcium Carbonate (Tums) 200 Mg Tab.chew, 500 MG PO DAILY PRN for INDIGESTION Docusate Sodium (Colace) 100 Mg Cap, 100 MG PO DAILY PRN for CONSTIPATION Polyethylene Glycol 3350 (Miralax) 1 Pow Pow, 17 GM PO DAILY PRN for CONSTIPATION dilute in 8 ounces of water or juice Allergies Coded Allergies: Contrast Media (Verified Allergy, Intermediate, 10/21/19) HYPOTENSION PER ANESTHESIOLOGY REPORT A-FIB/CHADSVASC A-FIB History Current/History of A-Fib/PAF?: No COCO DHALIWAL Sep 27, 2020 19:46
[2020-09-27] MEDS ORDERED: MIRALAX *UNIT DOSE* 17GM PACKET PO PRN (20:00)
[2020-09-27] MEDS: cefTRIAXone SOD 1 GM in D5W MINI-BAG PLUS 50 ML IV SCH (20:15)
[2020-09-27] MEDS ORDERED: cefTRIAXone SOD 1GM VIAL (J0696 PER 250MG) As Ordered ONE (20:17)
[2020-09-27] MEDS: HumaLOG INSULIN (NovoLOG) PER UNIT SC SCH (21:00)
[2020-09-27] MEDS: TAMSULOSIN 0.4 MG CAP PO SCH (21:49)
[2020-09-27] MEDS: MAGNESIUM OXIDE 400MG TAB (MAG-OX) PO SCH (21:49)
[2020-09-27] MEDS: PREGABALIN 100 MG CAP (LYRICA) PO SCH (21:49)
[2020-09-27 22:14] VITALS: BP 169/56
[2020-09-27] MEDS: POLYVINYL ALCOHOL OPHTH SOLN 15 ML(LIQUITEARS) OU SCH (23:33)
[2020-09-27] MEDS: PRIMIDONE 50 MG TAB PO SCH (23:34)
[2020-09-27] MEDS: SINEMET 25-100 MG TAB PO SCH (23:34)
[2020-09-28 06:00] VITALS: BP 151/63
[2020-09-28] MEDS: SINEMET 25-100 MG TAB PO SCH ×5 (06:03→22:39)
[2020-09-28] MEDS: LEVOTHYROXINE 150MCG TABLET (0.15MG) PO SCH (06:04)
[2020-09-28] MEDS: LEVOTHYROXINE 25MCG TABLET (0.025MG) PO SCH (06:04)
[2020-09-28 06:12] LABS: HEMOGLOBIN 11.7 g/dl (13.5-17.5); MEAN CORPUSCULAR HEMOGLOBIN 29.9 pg (27.0-33.0); MEAN CORPUSCULAR HGB CONC 31.6 g/dl (32.0-36.5); MEAN CORPUSCULAR VOLUME 94.6 fl (80.0-96.0); PLATELET COUNT, AUTOMATED 151 10^3/uL (150-450); RED BLOOD COUNT 3.91 10^6/uL (4.30-6.10); WHITE BLOOD COUNT 6.9 10^3/uL (4.0-10.0)
[2020-09-28 06:29] LABS: HEMOGLOBIN A1c 7.8 %
[2020-09-28 06:37] LABS: ALBUMIN 2.5 GM/DL (3.2-5.2); BILIRUBIN,TOTAL 0.3 MG/DL (0.2-1.0); CALCIUM LEVEL 8.5 MG/DL (8.8-10.2); CREATININE FOR GFR 1.27 MG/DL (0.70-1.30); GLOMERULAR FILTRATION RATE 57.5 (>35); MAGNESIUM LEVEL 2.3 MG/DL (1.8-2.4); POTASSIUM SERUM 4.9 MEQ/L (3.5-5.1); TOTAL PROTEIN 6.1 GM/DL (6.4-8.2)
[2020-09-28] MEDS: PRIMIDONE 50 MG TAB PO SCH ×2 (08:05→20:27)
[2020-09-28] MEDS: MULTIVITAMINS/MINERALS THERAP 1 TAB PO SCH (08:05)
[2020-09-28] MEDS: predniSONE 2.5 MG TAB PO SCH (08:05)
[2020-09-28] MEDS: PREGABALIN 100 MG CAP (LYRICA) PO SCH ×2 (08:05→20:27)
[2020-09-28] MEDS: MAGNESIUM OXIDE 400MG TAB (MAG-OX) PO SCH ×2 (08:06→20:27)
[2020-09-28] MEDS: HumaLOG INSULIN (NovoLOG) PER UNIT SC SCH ×4 (08:06→20:28)
[2020-09-28] MEDS: LEVEMIR (INSULIN DETEMIR) 1 UNITS/0.01ML SC SCH (08:06)
[2020-09-28] MEDS: POLYVINYL ALCOHOL OPHTH SOLN 15 ML(LIQUITEARS) OU SCH ×2 (08:07→20:28)
[2020-09-28] MEDS: ENOXAPARIN 30MG/0.3ML SYRINGE (J1650 PER 10MG) SC SCH (08:07)
[2020-09-28] MEDS ORDERED: amLODIPine 5 MG TAB PO ONE (09:30)
--- NOTE | 2020-09-28 11:00 | ECGEPIP ---
[facility] - ED Test Date: 2020-09-27 Pat Name: JUAN PABLO NARANJO Department: Room: - Gender: Male Architectural Associate: : [id number] Requested By: IAN Falk Order Number: [id number] Reading MD: Amanda Narayanan Measurements Intervals [place] Rate: 65 P: 56 FL: 172 QRS: -57 QRSD: 116 T: 9 QT: 406 QTc: 422 Interpretive Statements Normal sinus rhythm Incomplete right bundle branch block Left anterior fascicular block NSTTW abnormalities Minimal voltage criteria for LVH, may be normal variant ( R in aVL ) baseline artifact may affect interpretation Electronically Signed on 09-28-2020 10:59:56 EDT by Amanda Narayanan
--- NOTE | 2020-09-28 11:49 | IPNPDOC ---
Text Note Date of Service The patient was seen on 09/28/20. NOTE SUBJECTIVE: -No acute events -Afebrile OBJECTIVE: Vitals: see below General: alert and oriented to person, place and situation. HEENT: NCAT, no lesions, lacerations or hematomas. EOMI, MMM Neck: supple. Lungs: Clear to auscultation Heart: regular rate and rhythm with a systolic murmur. Abdomen: Normoactive sounds, soft, non-tender to palpation. Extremities: Trace lower extremity edema. Pedal pulses are 2+ Neuro: slight bilateral LE weakness, full strength in bilateral upper extremities, CN3-12 intact. 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 UTI: -continue ceftriaxone, day 2 -f/u UCx Multiple falls at home with progressive weakness: - probably secondary to progression of Parkinson's disease, polymyalgia rheumatica, chronic gait disturbance and balance disorder. -PT/OT consulted -Continue home medications including Sinemet, prednisone, primidone. -Patient may require placement or acute rehabilitation, will consult PFS Diabetes type 2, insulin-dependent. -Continue home dose of Levemir and monitor blood glucose before meals and at bedtime. -consistent carbohydrate diet. -SSI -hypoglycemia protocol Hypertension, essential, poorly controlled. -Patient was not currently on any antihypertensives. -will place on amlodipine 5mg for now Hypothyroid. -TSH was normal. -Continue hormone replacement. Chronic pain. -continue home Lyrica. Benign prostatic hypertrophy. -continue home Flomax. NIYA on CKD: likley prerenal, improved with hydration -monitor daily BMP DVT prophylaxis: lovenox 30 QD VS,Fishbone, I+O VS, Fishbone, I+O Laboratory Tests 09/27/20 14:03 09/28/20 05:41 Vital Signs Date Time Temp Pulse Resp B/P (MAP) Pulse Ox O2 Delivery O2 Flow Rate FiO2 09/28/20 06:00 97.3 76 18 151/63 (92) 95 Room Air I&O- Last 24 Hours up to 6 AM 09/28/20 06:00 Intake Total 250 ml Output Total 100 ml Balance 150 ml CONSUELO LUQUE MD Sep 28, 2020 09:19
[2020-09-28] MEDS: TAMSULOSIN 0.4 MG CAP PO SCH (20:28)
[2020-09-28] MEDS: cefTRIAXone SOD 1 GM in D5W MINI-BAG PLUS 50 ML IV SCH (20:28)
[2020-09-28 22:00] VITALS: BP 162/73
[2020-09-28] MEDS ORDERED: RAMELTEON 8 MG TAB (ROZEREM) PO PRN (22:55)
[2020-09-29 06:00] VITALS: BP 147/70
[2020-09-29] MEDS: LEVOTHYROXINE 25MCG TABLET (0.025MG) PO SCH (06:05)
[2020-09-29] MEDS: LEVOTHYROXINE 150MCG TABLET (0.15MG) PO SCH (06:05)
[2020-09-29] MEDS: SINEMET 25-100 MG TAB PO SCH ×5 (06:05→22:50)
[2020-09-29] MEDS: amLODIPine 5 MG TAB PO SCH (08:30)
[2020-09-29] MEDS: PREGABALIN 100 MG CAP (LYRICA) PO SCH ×2 (08:30→20:12)
[2020-09-29] MEDS: MULTIVITAMINS/MINERALS THERAP 1 TAB PO SCH (08:30)
[2020-09-29] MEDS: PRIMIDONE 50 MG TAB PO SCH ×2 (08:30→20:12)
[2020-09-29] MEDS: ENOXAPARIN 30MG/0.3ML SYRINGE (J1650 PER 10MG) SC SCH (08:31)
[2020-09-29] MEDS: MAGNESIUM OXIDE 400MG TAB (MAG-OX) PO SCH ×2 (08:31→20:12)
[2020-09-29] MEDS: HumaLOG INSULIN (NovoLOG) PER UNIT SC SCH ×4 (08:32→20:12)
[2020-09-29] MEDS: LEVEMIR (INSULIN DETEMIR) 1 UNITS/0.01ML SC SCH (08:32)
[2020-09-29] MEDS: POLYVINYL ALCOHOL OPHTH SOLN 15 ML(LIQUITEARS) OU SCH ×2 (08:32→20:12)
[2020-09-29] MEDS ORDERED: predniSONE 5 MG TAB PO SCH (09:00)
[2020-09-29 10:55] LABS: HEMATOCRIT 34.9 % (42.0-52.0); HEMOGLOBIN 11.2 g/dl (13.5-17.5); MEAN CORPUSCULAR HEMOGLOBIN 30.4 pg (27.0-33.0); MEAN CORPUSCULAR HGB CONC 32.1 g/dl (32.0-36.5); MEAN CORPUSCULAR VOLUME 94.6 fl (80.0-96.0); PLATELET COUNT, AUTOMATED 130 10^3/uL (150-450); RED BLOOD COUNT 3.69 10^6/uL (4.30-6.10); WHITE BLOOD COUNT 5.7 10^3/uL (4.0-10.0)
[2020-09-29 11:23] LABS: CREATININE FOR GFR 1.49 MG/DL (0.70-1.30); GLOMERULAR FILTRATION RATE 47.8 (>35); POTASSIUM SERUM 5.2 MEQ/L (3.5-5.1)
--- NOTE | 2020-09-29 12:38 | IPNPDOC ---
Text Note Date of Service The patient was seen on 09/29/20. NOTE SUBJECTIVE: -No acute events -Afebrile OBJECTIVE: Vitals: see below General: alert and oriented to person, place and situation. HEENT: NCAT, no lesions, lacerations or hematomas. EOMI, MMM Neck: supple. Lungs: Clear to auscultation Heart: regular rate and rhythm with a systolic murmur. Abdomen: Normoactive sounds, soft, non-tender to palpation. Extremities: Trace lower extremity edema. Pedal pulses are 2+ Neuro: slight bilateral LE weakness, full strength in bilateral upper extremities, CN3-12 intact. 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 UTI: -continue ceftriaxone, day 3 -UCx negative. will complete today's dose and DC Multiple falls at home with progressive weakness and forgetfulness: - probably secondary to progression of Parkinson's disease, polymyalgia rheumatica, chronic gait disturbance and balance disorder. -PT/OT consulted -Continue home medications including Sinemet, prednisone, primidone. -Patient may require placement or acute rehabilitation, will consult ARU to screen Diabetes type 2, insulin-dependent. -Continue home dose of Levemir and monitor blood glucose before meals and at bedtime. -consistent carbohydrate diet. -SSI -hypoglycemia protocol Hypertension, essential, poorly controlled. -Patient was not currently on any antihypertensives. -will place on amlodipine 5mg for now Hypothyroid. -TSH was normal. -Continue hormone replacement. Chronic pain. -continue home Lyrica. Benign prostatic hypertrophy. -continue home Flomax. NIYA on CKD: likley prerenal, improved with hydration -monitor daily BMP DVT prophylaxis: lovenox 30 QD VS,Fishbone, I+O VS, Fishbone, I+O Vital Signs Date Time Temp Pulse Resp B/P (MAP) Pulse Ox O2 Delivery O2 Flow Rate FiO2 09/29/20 08:30 76 147/70 09/29/20 06:00 97.4 18 93 Room Air I&O- Last 24 Hours up to 6 AM 09/29/20 05:59 Intake Total 2060 ml Output Total 775 ml Balance 1285 ml CONSUELO LUQUE MD Sep 29, 2020 10:03
[2020-09-29 14:00] VITALS: BP 107/50
[2020-09-29] MEDS: TAMSULOSIN 0.4 MG CAP PO SCH (20:12)
[2020-09-29] MEDS: cefTRIAXone SOD 1 GM in D5W MINI-BAG PLUS 50 ML IV SCH (20:12)
[2020-09-29 22:00] VITALS: BP 130/61
[2020-09-30] MEDS: LEVOTHYROXINE 150MCG TABLET (0.15MG) PO SCH (06:05)
[2020-09-30] MEDS: SINEMET 25-100 MG TAB PO SCH ×3 (06:05→14:51)
[2020-09-30] MEDS: LEVOTHYROXINE 25MCG TABLET (0.025MG) PO SCH (06:05)
[2020-09-30 06:12] LABS: HEMATOCRIT 35.5 % (42.0-52.0); HEMOGLOBIN 11.3 g/dl (13.5-17.5); MEAN CORPUSCULAR HEMOGLOBIN 29.8 pg (27.0-33.0); MEAN CORPUSCULAR HGB CONC 31.8 g/dl (32.0-36.5); MEAN CORPUSCULAR VOLUME 93.7 fl (80.0-96.0); PLATELET COUNT, AUTOMATED 148 10^3/uL (150-450); RED BLOOD COUNT 3.79 10^6/uL (4.30-6.10); WHITE BLOOD COUNT 5.9 10^3/uL (4.0-10.0)
[2020-09-30] MEDS: PREGABALIN 100 MG CAP (LYRICA) PO SCH (08:47)
[2020-09-30] MEDS: MAGNESIUM OXIDE 400MG TAB (MAG-OX) PO SCH (08:47)
[2020-09-30] MEDS: predniSONE 2.5 MG TAB PO SCH (08:48)
[2020-09-30] MEDS: MULTIVITAMINS/MINERALS THERAP 1 TAB PO SCH (08:48)
[2020-09-30] MEDS: PRIMIDONE 50 MG TAB PO SCH (08:48)
[2020-09-30 08:49] VITALS: BP 118/64
[2020-09-30] MEDS: amLODIPine 5 MG TAB PO SCH (08:49)
[2020-09-30] MEDS: HumaLOG INSULIN (NovoLOG) PER UNIT SC SCH ×2 (08:49→12:27)
[2020-09-30] MEDS: POLYVINYL ALCOHOL OPHTH SOLN 15 ML(LIQUITEARS) OU SCH (08:50)
[2020-09-30] MEDS ORDERED: OMEPRAZOLE 20 MG CAP PO SCH (09:00)
[2020-09-30] MEDS ORDERED: LEVEMIR (INSULIN DETEMIR) 1 UNITS/0.01ML SC SCH (09:00)
[2020-09-30] MEDS ORDERED: ENOXAPARIN 40MG/0.4ML SYRINGE (J1650 PER 10MG) SC SCH (09:00)
--- NOTE | 2020-09-30 11:51 | IPNPDOC ---
Text Note Date of Service The patient was seen on 09/30/20. NOTE SUBJECTIVE: -No acute events -Afebrile OBJECTIVE: Vitals: see below General: alert and oriented to person, place and situation. HEENT: NCAT, no lesions, lacerations or hematomas. EOMI, MMM Neck: supple. Lungs: Clear to auscultation Heart: regular rate and rhythm with a systolic murmur. Abdomen: Normoactive sounds, soft, non-tender to palpation. Extremities: Trace lower extremity edema. Pedal pulses are 2+ Neuro: slight bilateral LE weakness, full strength in bilateral upper extremities, CN3-12 intact. 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 suspected UTI: -s/p 3d of ceftriaxone, UCx was negative Multiple falls at home with progressive weakness and forgetfulness: - probably secondary to progression of Parkinson's disease, polymyalgia rheumatica, chronic gait disturbance and balance disorder. -PT/OT consulted -Continue home medications including Sinemet, prednisone, primidone. -Pending ARU screen -will need prompt neurology f/u on discharge Diabetes type 2, insulin-dependent. -Continue home dose of Levemir and monitor blood glucose before meals and at bedtime. -consistent carbohydrate diet. -SSI -hypoglycemia protocol Hypertension, essential, poorly controlled. -Patient was not currently on any antihypertensives. -will place on amlodipine 5mg for now Hypothyroid. -TSH was normal. -Continue hormone replacement. Chronic pain. -continue home Lyrica. Benign prostatic hypertrophy. -continue home Flomax. NIYA on CKD: likley prerenal, improved with hydration -monitor daily BMP DVT prophylaxis: lovenox VS,Fishbone, I+O VS, Fishbone, I+O Laboratory Tests 09/29/20 10:33 09/29/20 10:34 09/30/20 05:38 Vital Signs Date Time Temp Pulse Resp B/P (MAP) Pulse Ox O2 Delivery O2 Flow Rate FiO2 09/29/20 22:00 97.3 60 18 130/61 (84) 99 Room Air I&O- Last 24 Hours up to 6 AM 09/30/20 06:00 Intake Total 1620 ml Output Total 480 ml Balance 1140 ml CONSUELO LUQUE MD Sep 30, 2020 07:26
--- NOTE | 2020-09-30 11:51 | DS.PDOC ---
Discharge Summary General Date of Admission Sep 28, 2020 at 11:56 Date of Discharge 09/30/2020 Attending Physician: CONSUELO LUQUE MD Discharge Summary PROCEDURES PERFORMED DURING STAY: None ADMITTING DIAGNOSES: Neurogenic gait disorder with frequent falls AMS DISCHARGE DIAGNOSES: PAST MEDICAL HISTORY: Parkinson's disease w/ concern for progression with worsening gait and noted forgetfulness Chronic kidney disease stage III Chronic balance disorder. Polymyalgia rheumatica on chronic steroids Mnire's disease. Lumbar stenosis. Chronic back pain. Diabetes type 2, insulin-dependent. Coronary artery disease. Hypothyroidism Hyperlipidemia. Benign prostatic hypertrophy. Involuntary eye closure COMPLICATIONS/CHIEF COMPLAINT: Altered Mental Status,Neurologic Gait Disorder. HISTORY OF PRESENT ILLNESS: 85-year-old M with a history of Parkinson's disease and polymyalgia rheumatica on chronic steroids who presented to the ER with complaints of multiple falls at home as well as increasing confusion but later clarified to be increased noted forgetfulness. The patient stated he falls 4-5 times per day and this has been going on for about a year. He states 5 or 6 prior to presentation something "changed". It "felt different". The patient could not be more specific. He lives with his who is unable to assist him when he falls. He reported that he gets up by hanging onto bedpost and doorknobs. He uses his walker religiously at home but feels like his legs "don't hold". He also complained of significant muscle spasms. He has a history of involuntary eye closure, for which he receives routine Botox injections and has some diplopia. He reported that recent ly at times he does not even remember his own grandchildren. He also complained of one-month of urinary frequency and urgency with some incontinence. He denied any fever, chills, nausea, vomiting or diarrhea. HOSPITAL COURSE: On initial evaluation, patient was noted to have an abnormal UA with 2+ blood, leukocyte Estrace, too numerous to count white blood cells and 1+ bacteria. White blood cell count was within normal limits. BUN/creatinine were 34 and 1.6, which appear to be close to the patient's baseline. He has a history of chronic kidney disease stage III and was on dialysis temporarily in 2017. Hemoglobin and hematocrit 12.[address] of the head showed no acute pathology, but did show stable diffuse marrow heterogenicity and lucency. Chest x-ray was a limited exam, but did not include interstitial edema or bibasilar opacities. Patient denied any respiratory difficulties. He denied any chronic cough or shortness of breath. He was admitted to medicine and was treated with 4d of ceftriaxone for a presumed UTI though the culture was ultimately negative and worked with PT/OT a nd is now being discharged to the ARU for continued intensive therapy. Of note, with regard to forgetfulness, I recommend that he follows with neurology at discharge for likely progressive Parkinson's with potential early Parkinson's dementia. If indicated and becomes prohibitive for PM&Rn may consult neurology. DISCHARGE MEDICATIONS: Please see below. ALLERGIES: Please see below. PHYSICAL EXAMINATION ON DISCHARGE: VITAL SIGNS: Please see below. General: alert and oriented to person, place and situation. HEENT: NCAT, no lesions, lacerations or hematomas. EOMI, MMM Neck: supple. Lungs: Clear to auscultation Heart: regular rate and rhythm with a systolic murmur. Abdomen: Normoactive sounds, soft, non-tender to palpation. Extremities: Trace lower extremity edema. Pedal pulses are 2+ Neuro: slight bilateral LE weakness, full strength in bilateral upper extremities, CN3-12 intact. LABORATORY DATA: Please see below. IMAGING: CT head: Brain: There is no acute intracranial hemorrhage or mass effect. Moderate diffuse volume loss is within the range of normal for patient age. There are small vessel ischemic changes within the periventricular and subcortical white matter, but the normal plunkett-white matter delineation is maintained. Cerebral ventricles: No ventriculomegaly. Paranasal sinuses: Visualized sinuses are unremarkable. No fluid levels. Mastoid air cells: Visualized mastoid air cells are well aerated. Bones/joints: There is abnormal diffuse marrow heterogeneity and lucency. This was present previously and appears unchanged. Soft tissues: Unremarkable. IMPRESSION: 1. No acute intracranial hemorrhage or edema. 2. Stable diffuse marrow heterogeneity and lucency. Marrow infiltrative processes such as multiple myeloma are a consideration in the appropriate clinical setting. CXR: Evaluation is limited by underpenetration, poor inspiratory effort, and portable technique. Cardiomegaly along with interstitial edema cannot be excluded. Subtle airspace disease primarily in the right lower lobe cannot be excluded. No pneumothorax. Skeletal structures intact. IMPRESSION: Limited portable examination. Cannot exclude interstitial edema or basilar opacities (right greater than left). PROGNOSIS: Good ACTIVITY: As tolerated DIET: Regular DISCHARGE PLAN: ARU DISPOSITION: ARU DISCHARGE INSTRUCTIONS: To ARU ITEMS TO FOLLOWUP ON ON OUTPATIENT: Parkinson's with neurology PCP follow up DISCHARGE CONDITION: Stable TIME SPENT ON DISCHARGE: 35 minutes. Vital Signs/I&Os Vital Signs Date Time Temp Pulse Resp B/P (MAP) Pulse Ox O2 Delivery O2 Flow Rate FiO2 09/30/20 08:49 67 118/64 09/29/20 22:00 97.3 18 99 Room Air I&O- Last 24 Hours up to 6 AM 09/30/20 06:00 Intake Total 1620 ml Output Total 480 ml Balance 1140 ml Laboratory Data Labs 24H Laboratory Tests 2 09/29/20 11:42: Bedside Glucose (Misc Panel) 226H 09/29/20 16:36: Bedside Glucose (Misc Panel) 47L 09/29/20 17:07: Bedside Glucose (Misc Panel) 75L 09/29/20 19:52: Bedside Glucose (Misc Panel) 113H 09/29/20 23:57: Bedside Glucose (Misc Panel) 46L 09/30/20 00:29: Bedside Glucose (Misc Panel) 114H 09/30/20 04:38: Bedside Glucose (Misc Panel) 112H 09/30/20 05:38: Nucleated Red Blood Cells % (auto) 0.0 09/30/20 05:53: Bedside Glucose (Misc Panel) 113H CBC/BMP Laboratory Tests 09/30/20 05:38 FSBS Laboratory Tests Test 09/29/20 11:42 09/29/20 16:36 09/29/20 17:07 09/29/20 19:52 Range/Units Bedside Glucose (Misc Panel) 226 47 75 113 83-110 MG/DL Test 09/29/20 23:57 09/30/20 00:29 09/30/20 04:38 09/30/20 05:53 Range/Units Bedside Glucose (Misc Panel) 46 114 112 113 83-110 MG/DL Microbiology Microbiology 09/27/20 Urine Culture - Final, Complete Discharge Medications Scheduled Carbidopa/Levodopa (Carbidopa-Levodopa 25-100 Tab) 1 Each Tablet, 2 TAB PO 5XD, (Reported) 0700/1000/1400/1600/2200 Donepezil HCl (Donepezil HCl) 10 Mg Tablet, 10 MG PO DAILY, (Reported) Insulin Detemir (Levemir) 100 Unit/1 Ml Vial, 28 UNITS SC DAILY, (Reported) Insulin Human Lispro (Humalog) 1 Units/0.01 Ml Inj, 0 SC ACHS, (Reported) PER SLIDING SCALE Levothyroxine Sodium (Euthyrox) 175 Mcg Tablet, 175 MCG PO QAM, (Reported) Magnesium Oxide (Magnesium Oxide) 400 Mg Tablet, 800 MG PO BID, (Reported) Multivitamins (Thera M Plus Tablet) 1 Tab Tab, 1 TAB PO DAILY, (Reported) Polyvinyl Alcohol (Artificial Tears) 1.4 % Tamy, 1 DROP OU BID, (Reported) Prednisone (Prednisone) 5 Mg Tab, 5 MG PO Q2D, (Reported) Prednisone (Prednisone) 2.5 Mg Tablet, 2.5 MG PO Q2D, (Reported) Pregabalin (Pregabalin) 100 Mg Capsule, 100 MG PO BID, (Reported) Primidone (Primidone) 50 Mg Tablet, 50 MG PO BID, (Reported) Tamsulosin HCl (Flomax) 0.4 Mg Cap, 0.4 MG PO DAILY, (Reported) [Leg Cramp Otc] , 1 TAB PO QHS, (Reported) [Nerve Shield Plus] , 1 TAB PO DAILY, (Reported) Scheduled PRN Calcium Carbonate (Tums) 200 Mg Tab.chew, 500 MG PO DAILY PRN for INDIGESTION, (Reported) Docusate Sodium (Colace) 100 Mg Cap, 100 MG PO DAILY PRN for CONSTIPATION, (Reported) Polyethylene Glycol 3350 (Miralax) 1 Pow Pow, 17 GM PO DAILY PRN for CONSTIPATION, (Reported) dilute in 8 ounces of water or juice Allergies Coded Allergies: Contrast Media (Verified Allergy, Intermediate, 10/21/19) HYPOTENSION PER ANESTHESIOLOGY REPORT CONSUELO LUQUE MD Sep 30, 2020 11:51
[2020-09-30 14:00] VITALS: BP 124/54
[2020-09-30] MEDS ORDERED: ONDANSETRON 4 MG TAB PO PRN (14:25)
[2020-09-30] MEDS ORDERED: ACETAMINOPHEN TAB 650MG DOSE (2X325MG) PO PRN (14:25)
[2020-09-30] MEDS ORDERED: SENOKOT S TAB PO PRN (14:25)
[2020-09-30] MEDS ORDERED: DOCUSATE SODIUM 100MG CAPSULE PO SCH (21:00)
== END 2020-09-30 16:10 | DRG 884 ==
LOC: M ED 13:44 → M ED INP 13:45 → ENRESERV 21:33 → M MSPAV 22:14 → OBSVTOIN 09-28 11:56
PROVIDERS: ADMIT Internal Medicine; ATTEND Internal Medicine
DX: F03.90 Unspecified dementia, unspecified severity, without behavioral disturbance, psychotic disturbance, mood disturbance, and anxiety (principal); N39.0 Urinary tract infection, site not specified; N17.9 Acute kidney failure, unspecified; N18.30 Chronic kidney disease, stage 3 unspecified; M35.3 Polymyalgia rheumatica; H81.09 Meniere's disease, unspecified ear; M48.061 Spinal stenosis, lumbar region without neurogenic claudication; G89.29 Other chronic pain; G20 Parkinson's disease; E11.22 Type 2 diabetes mellitus with diabetic chronic kidney disease; I25.10 Atherosclerotic heart disease of native coronary artery without angina pectoris; E03.9 Hypothyroidism, unspecified; I12.9 Hypertensive chronic kidney disease with stage 1 through stage 4 chronic kidney disease, or unspecified chronic kidney disease; R29.6 Repeated falls; Z66 Do not resuscitate; E78.5 Hyperlipidemia, unspecified; N40.0 Benign prostatic hyperplasia without lower urinary tract symptoms; Z98.41 Cataract extraction status, right eye; Z98.42 Cataract extraction status, left eye; Z90.49 Acquired absence of other specified parts of digestive tract; Z79.4 Long term (current) use of insulin; Z79.52 Long term (current) use of systemic steroids; Z79.899 Other long term (current) drug therapy; Z91.041 Radiographic dye allergy status

== ENCOUNTER 2020-09-30 13:03 | Inpatient (IN) | payer MEDICARE, OTHER ==
[~2020-09-30] VITALS: Ht 177.8 cm; Wt 87.6 kg
[~2020-09-30 13:03] MED LIST changes: +EUTH175T PO; +MAGN400T2 PO; +PRED25TA PO; +PREG100C PO; +PRIM50TA6 PO; +TUMS500C PO; +[UNRECOGNIZED DRUG - OTHER] PO; +[UNRECOGNIZED DRUG - OTHER] PO
[2020-09-30 16:45] VITALS: BP 134/61
[2020-09-30] MEDS ORDERED: BISACODYL 10 MG SUPP PR PRN (17:35)
[2020-09-30] MEDS ORDERED: MIRALAX *UNIT DOSE* 17GM PACKET PO PRN ×2 (17:35→17:45)
[2020-09-30] MEDS ORDERED: MOM 30ML SUSPENSION UDC PO PRN (17:35)
[2020-09-30] MEDS ORDERED: DEXTROSE 50% 50 ML SYRINGE IV PRN ×2 (17:50→18:00)
[2020-09-30] MEDS ORDERED: GLUCOSE 4GM CHEW TABLET PO PRN ×2 (17:50→18:00)
[2020-09-30] MEDS ORDERED: GLUCAGON INJ 1MG VIAL SC PRN ×2 (17:50→18:00)
[2020-09-30] MEDS ORDERED: FLEET ENEMA PR PRN (18:00)
--- NOTE | 2020-09-30 18:29 | HPEPDOC ---
Wireless Manager Note DATE OF ADMISSION: 09.30.2020 DATE OF SERVICE: 09.30.2020 TIME OF ADMISSION: Please refer to physician's admission order. SOURCE OF ADMISSION INFORMATION: Medical Records and Patient ADMITTING DIAGNOSES: 1. Chronic kidney disease stage III with a history of temporary dialysis and severe urinary tract infection. 2. Chronic balance disorder. 3. Parkinson's disease. 4. Polymyalgia rheumatica on chronic steroids 5. Mnire's disease. 6. Lumbar stenosis. 7. Chronic pain. 8. Diabetes type 2, insulin-dependent. 9. Coronary artery disease. 10. Hypothyroid. 11. Hypertension, on no current medications. 12. Hyperlipidemia. 13. Benign prostatic hypertrophy. 14. Involuntary eye closure 15. Poly-radiculo neuropathy. 16. Neurogenic claudication . CHIEF COMPLAINT: Multiple falls, balance challenges, confusion with altered mental status, frequency, urgency, . HISTORY OF PRESENT ILLNESS: 85-year-old male with past medical history of Parkinsons and steroid dependent polymyalgia rheumatica who presented to ER status post multiple falls and recent episode of altered mental status associated with urinary tract infection requiring IV antibiotics. Apparently he is falling asleep frequently is 4-5 times a day for about the last year, however, things, worse when something changed about 3 weeks ago. His notes that he tends to Josias holding onto things when ambulating and using his walker, however, he is prone to muscle spasms and spontaneous loss of function in the lower extremities. Apparently there is an additional history of involuntary ptosis for which he is treated with periodically with Botox. notes he underwent a prior comprehensive evaluation in [place] for possible options to consider for his low back and lower extremity complaints. However, he is not felt to be a candidate for the extensive surgical intervention that might be warranted and mi ght not provide desired results. REVIEW OF SYSTEMS: The following is a completed review of systems and has been reviewed. Review of systems otherwise unremarkable. PAIN: Patient self reports intermittent electric shocklike lancinating pain in the lower extremities and chronically over the dorsum of the bilateral feet in the L5 distribution. EYES: No recent vision changes, does have episodic ptosis. EARS, NOSE, & THROAT: No throat pain, or dysphagia, or rhinorrhea. CARDIOVASCULAR: Denies chest pain or palpitations. PULMONARY: Denies shortness of breath. GASTROINTESTINAL: Admits severe constipation. No BM for 3 or 4 days. GENITOURINARY: . BPH, difficulty initiating stream complete emptying MUSCULOSKELETAL: . Chronic low back pain NEUROLOGICAL:. Tremor, frequent falls and loss of control of the legs HEMATOLOGICAL: . Negative SKIN: . Negative PSYCHIATRIC: Unremarkable. All other review of systems found to be negative. PAST MEDICAL HISTORY: 1. Chronic kidney disease stage III with a history of temporary dialysis. 2. Chronic balance disorder. 3. Parkinson's disease. 4. Polymyalgia rheumatica on chronic steroids 5. Mnire's disease. 6. Lumbar stenosis. 7. Chronic pain. 8. Diabetes type 2, insulin-dependent. 9. Coronary artery disease. 10. Hypothyroid. 11. Hypertension, on no current medications. 12. Hyperlipidemia. 13. Benign prostatic hypertrophy. 14. Involuntary eye closure 15. Poly-radicular neuropathy No history of cancer or respiratory disorders PAST SURGICAL HISTORY: 1. Right inguinal hernia. 2. Left knee surgery. 3. Cholecystectomy. 4. Bilateral cataracts. 5. Repair of ptosis of the right eye. 6. Removal of bladder mass which was benign. 7. Cardiac stent ALLERGIES: Please see below. MEDICATIONS: Please see below. FAMILY HISTORY: Patient's mother at age 85 and had a history of Parkinson's. 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 DIET: Regular PHYSICAL EXAMINATION: VITAL SIGNS: Please see below. GENERAL: Pleasant and cooperative , flat effect. Sitting hunched over in bed, no acute distress. With cues he is oriented to person, place and date. HEENT: PERRL. Extraocular movements intact. Clear conjunctiva, no adenopathy or thyromegaly. Decreased cervical range of motion on extension and left rotation without tenderness or spasm. Tongue pale and glossy moist mucosa. CARDIOVASCULAR: Regular rate and rhythm. No murmurs, rubs, or gallops. LUNGS: Clear to auscultation bilaterally. No wheezes. No rhonchi. ABDOMEN: Soft, nontender, nondistended. Positive normal active bowel sounds. NEUROLOGICAL:. Cranial nerves II through XII intact. Sensation grossly intact. Reflexes 1 + and symmetric bilateral biceps, triceps, brachial radialis, absent patellar, Achilles tendon jerks. Babinskis absent. Sensation intact to light touch all 4 extremities. Notes area of hyperesthesia dorsum on the right and left foot and great toe. EXTREMITIES: 5/5 caustic room attendant, elbow flexion, elbow extension, difficult to assess lower extremities for knee extension, foot dorsiflexion, plantar flexion approximately 4-5 out of 5. He is able to elevate the arms overhead is noted after his evaluation , a bobbing tremor of the head and right more so than left upper and lower extremity increases . SKIN: . Intact. Old healed midline lumbosacral scar, with flattening of the lumbar lordosis and atrophy in the paravertebral musculature. LABORATORY DATA: Please see below. IMAGING:Imaging documentation personally reviewed by record. FUNCTIONAL STATUS: Premorbid: Independent with all activities of daily life as well as mobility using a front-wheeled walker. However, prone to multiple falls in the past, has reportedly not sustained head trauma or fracture with any of the falls on multiple surfaces. On Admission: -assistance for lower body dressing, shower transfers, stairs. -assistance for bathing, upper body dressing, bed chair and wheelchair transfers, toilet transfers, ambulation. - assistance for grooming. - for memory and problem solving. Modified independence for social interaction, expression, comprehension, bowel and bladder. GOALS: [place] adjustment of medication regimen to minimize tremors, combined with therapeutic intervention to reduce falls risk of endurance, range of motion and reduce pain. ASSESSMENT:-85-year-old male with past medical history of Parkinsons and steroid dependent Polymyalgia Rheumatica who presents status post multiple falls and recent episode of altered mental status associated with urinary tract infection requiring IV antibiotics. He notes tremor and lower extremity pain and weakness come intermittently and associated with proclivity to falling. Functional deficits are probably related to a combination of the underlying autoimmune disorders, mechanical compromise at the lumbosacral region of fragile nerves due to concurrent diabetic neuropathy. 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 PLAN: 1. Rehab- PT/OT advance gait and ADls, strengthen/stretch/maintain ROM all 4 limbs. We'll continue to work on timing pain medication with therapy interventions to optimize possible capacity to participate. 2. Neuro- optimize various medications to minimize tremor, pain without aggravating resolving cognitive challenges. Does not recall if he has ever been on propanolol, which might be another agent to consider. TENS unit may also be a consideration 3. Ortho- chronic low back pain. Apparently had undergone full evaluation [place]. Not considered a surgical candidate, may have some instability, lumbosacral support may provide some symptomatic relief and improved ability to participate in active therapies.. 4. Cardiac- status post stent, asymptomatic. Well monitor response to increasing levels of activity -HTN -stable, per -HLD- dietary and patient education 5. Resp -incentive spirometry, monitor for infection 6. Endo- hypothyroid. Well give equivalent dosing on usual medication, DM SSI, Dr. Barnett made recent adjustments on Levemir, hospitalist team to follow. 7. - BPH, continue IV Antibiotics over weekend, bladder protocol 8. GI ppx- PPI POST ADMISSION PHYSICIAN EVALUATION: Medical and functional status: Description of medical status, medical assess ment: As above. Rehabilitation diagnosis and current and prior co- morbid medical conditions as above. Risk of complications and plans to mitigate them as above. Description of functional status current status is as above. Prior status as above. Status compared to preadmission: There are no clinically significant differences between the patient's current status and the information described on the preadmission screening document. Treatment plan anticipated: Treatment plan is as described above. Required dis ciplines including physical therapy, occupational therapy, others as noted above. Intensity of services: 3 hours a day, 6-7 days a week. Special considerations: There are no specific special or safety considerations that would likely preclude immediate implementation of an intensive rehabilitation program or subsequently influence the plan of care. ATTESTATION: Considering all the information above, it is my best judgment that this patient requires intensive rehabilitation therapy as described above and an inpatient hospital environment due to the complexity of nursing, medical, and rehabilitation needs required by the patient. Furthermore, this patient can reasonably be expected to participate in an benefit from an inpatient rehabil itation stay with an interdisciplinary team approach to the delivery of rehabilitation care under the direction and supervision of rehabilitation physician. PROGNOSIS: Excellent. ESTIMATED LENGTH OF STAY:7-14 days. PROJECTED DISCHARGE DESTINATION: Home with family support and any durable medical equipment required to increase functional safety and mobility. TIME SPENT COUNSELING AND COORDINATING INITIAL CARE: Greater than 75 minutes. This document is generated using speech recognition software which may result in grammatical, typographical and individual word errors. Vital Signs Vital Sign - Last 24 Hours 09/30/20 16:45 Temp 97.6 Pulse 62 Resp 18 B/P (MAP) 134/61 (85) Pulse Ox 95 O2 Delivery Room Air Laboratory Data Labs 24H Laboratory Tests 2 09/30/20 16:53: Bedside Glucose (Misc Panel) 140H FSBS Laboratory Tests Test 09/30/20 16:53 Range/Units Bedside Glucose (Misc Panel) 140 83-110 MG/DL Home Medications Scheduled Carbidopa/Levodopa (Carbidopa-Levodopa 25-100 Tab) 1 Each Tablet, 2 TAB PO 5XD, (Reported) 0700/1000/1400/1600/2200 Donepezil HCl (Donepezil HCl) 10 Mg Tablet, 10 MG PO DAILY, (Reported) Insulin Detemir (Levemir) 100 Unit/1 Ml Vial, 28 UNITS SC DAILY, (Reported) Insulin Human Lispro (Humalog) 1 Units/0.01 Ml Inj, 0 SC ACHS, (Reported) PER SLIDING SCALE Levothyroxine Sodium (Euthyrox) 175 Mcg Tablet, 175 MCG PO QAM, (Reported) Magnesium Oxide (Magnesium Oxide) 400 Mg Tablet, 800 MG PO BID, (Reported) Multivitamins (Thera M Plus Tablet) 1 Tab Tab, 1 TAB PO DAILY, (Reported) Polyvinyl Alcohol (Artificial Tears) 1.4 % Tamy, 1 DROP OU BID, (Reported) Prednisone (Prednisone) 5 Mg Tab, 5 MG PO Q2D, (Reported) Prednisone (Prednisone) 2.5 Mg Tablet, 2.5 MG PO Q2D, (Reported) Pregabalin (Pregabalin) 100 Mg Capsule, 100 MG PO BID, (Reported) Primidone (Primidone) 50 Mg Tablet, 50 MG PO BID, (Reported) Tamsulosin HCl (Flomax) 0.4 Mg Cap, 0.4 MG PO DAILY, (Reported) [Leg Cramp Otc] , 1 TAB PO QHS, (Reported) [Nerve Shield Plus] , 1 TAB PO DAILY, (Reported) Scheduled PRN Calcium Carbonate (Tums) 200 Mg Tab.chew, 500 MG PO DAILY PRN for INDIGESTION, (Reported) Docusate Sodium (Colace) 100 Mg Cap, 100 MG PO DAILY PRN for CONSTIPATION, (Reported) Polyethylene Glycol 3350 (Miralax) 1 Pow Pow, 17 GM PO DAILY PRN for CONSTIPATION, (Reported) dilute in 8 ounces of water or juice Allergies Coded Allergies: Contrast Media (Verified Allergy, Intermediate, 10/21/19) HYPOTENSION PER ANESTHESIOLOGY REPORT A-FIB/CHADSVASC A-FIB History Current/History of A-Fib/PAF?: No Current PO Anticoag Therapy: No Age/Risk Factor Scoring CHADSVASC: CHADSVASC Response (Comments) Value Age Risk Factor Age >/= 75 years old 2 Total 2 Treatment Treatment ordered: NONE YAMILETH ABDI MD Sep 30, 2020 18:29
[2020-09-30] MEDS: SINEMET 25-100 MG TAB PO SCH ×2 (18:40→20:18)
[2020-09-30] MEDS: PREGABALIN 100 MG CAP (LYRICA) PO SCH (20:18)
[2020-09-30] MEDS: TAMSULOSIN 0.4 MG CAP PO SCH (20:18)
[2020-09-30] MEDS: MAGNESIUM OXIDE 400MG TAB (MAG-OX) PO SCH (20:18)
[2020-09-30] MEDS: DOCUSATE SODIUM 100MG CAPSULE PO SCH (20:18)
[2020-09-30] MEDS: PRIMIDONE 50 MG TAB PO SCH (20:18)
[2020-09-30] MEDS: OMEPRAZOLE 20 MG CAP PO SCH (20:18)
[2020-09-30] MEDS: cefTRIAXone SOD 1 GM in D5W MINI-BAG PLUS 50 ML IV SCH (20:19)
[2020-09-30] MEDS: POLYVINYL ALCOHOL OPHTH SOLN 15 ML(LIQUITEARS) OU SCH (20:19)
[2020-09-30] MEDS ORDERED: SENOKOT S TAB PO PRN (21:00)
[2020-09-30 22:00] VITALS: BP 168/70
[2020-09-30 23:00] VITALS: BP 148/74
[2020-10-01 00:12] LABS: APPEARANCE, URINE HAZY (CLEAR); BACTERIA, URINE AUTO NEGATIVE (NEGATIVE); BILIRUBIN, URINE AUTO NEGATIVE (NEGATIVE); BLOOD, URINE BLOOD NEGATIVE (NEGATIVE); COLOR, URINE YELLOW (YELLOW); GLUCOSE, URINE (UA) AUTO NEGATIVE (NEGATIVE); KETONE, URINE AUTO NEGATIVE (NEGATIVE); LEUKOCYTE ESTERASE, URINE AUTO 2+ (NEGATIVE); NITRITE, URINE AUTO NEGATIVE (NEGATIVE); PROTEIN, URINE AUTO 2+ mg/dL (NEGATIVE); RBC, URINE AUTO 5 /HPF (0-3); SPECIFIC GRAVITY URINE AUTO 1.012 (1.002-1.035); SQUAMOUS EPITHELIAL CELL UR AU 0 /HPF (0-6); UROBILINOGEN, URINE AUTO 0.2 mg/dL (0.0-2.0); WBC, URINE AUTO 72 /HPF (0-3)
[2020-10-01] MEDS: ACETAMINOPHEN TAB 650MG DOSE (2X325MG) PO PRN (01:24)
[2020-10-01 03:06] VITALS: BP 154/68
[2020-10-01] MEDS ORDERED: methocarbamoL 500 MG TAB PO ONE (03:30)
[2020-10-01 05:52] VITALS: BP 153/72
[2020-10-01] MEDS: LEVOTHYROXINE 75MCG TABLET (0.075MG) PO SCH (06:11)
[2020-10-01] MEDS: LEVOTHYROXINE 100MCG TABLET (0.1MG) PO SCH (06:11)
[2020-10-01] MEDS: SINEMET 25-100 MG TAB PO SCH ×5 (06:11→20:26)
[2020-10-01 07:54] LABS: BASO % 0.6 % (0.0-1.0); EOS # 0.2 10^3/uL (0.0-0.5); EOS % 3.2 % (0.0-3.0); HEMATOCRIT 38.9 % (42.0-52.0); HEMOGLOBIN 12.3 g/dl (13.5-17.5); LYMPH # 1.2 10^3/uL (1.5-5.0); LYMPH % 19.4 % (24.0-44.0); MEAN CORPUSCULAR HEMOGLOBIN 29.9 pg (27.0-33.0); MEAN CORPUSCULAR HGB CONC 31.6 g/dl (32.0-36.5); MEAN CORPUSCULAR VOLUME 94.4 fl (80.0-96.0); MONO # 0.5 10^3/uL (0.0-0.8); MONO % 8.4 % (2.0-8.0); NEUTROPHILS # 4.3 10^3/uL (1.5-8.5); NEUTROPHILS % 67.9 % (36.0-66.0); PLATELET COUNT, AUTOMATED 160 10^3/uL (150-450); RED BLOOD COUNT 4.12 10^6/uL (4.30-6.10); WHITE BLOOD COUNT 6.3 10^3/uL (4.0-10.0)
[2020-10-01 08:22] LABS: CALCIUM LEVEL 8.2 MG/DL (8.8-10.2); CREATININE FOR GFR 1.36 MG/DL (0.70-1.30); GLOMERULAR FILTRATION RATE 53.1 (>35)
[2020-10-01 08:23] LABS: ALBUMIN 2.9 GM/DL (3.2-5.2); BILIRUBIN,TOTAL 0.4 MG/DL (0.2-1.0); TOTAL PROTEIN 6.3 GM/DL (6.4-8.2)
[2020-10-01] MEDS: MAGNESIUM OXIDE 400MG TAB (MAG-OX) PO SCH ×2 (08:44→20:26)
[2020-10-01] MEDS: PREGABALIN 100 MG CAP (LYRICA) PO SCH ×2 (08:44→20:26)
[2020-10-01] MEDS: predniSONE 5 MG TAB PO SCH (08:44)
[2020-10-01] MEDS: DOCUSATE SODIUM 100MG CAPSULE PO SCH ×2 (08:44→20:26)
[2020-10-01] MEDS: MULTIVITAMINS/MINERALS THERAP 1 TAB PO SCH (08:44)
[2020-10-01] MEDS: PRIMIDONE 50 MG TAB PO SCH ×2 (08:44→20:26)
[2020-10-01] MEDS: HumaLOG INSULIN (NovoLOG) PER UNIT SC SCH ×3 (08:45→17:02)
[2020-10-01] MEDS: POLYVINYL ALCOHOL OPHTH SOLN 15 ML(LIQUITEARS) OU SCH ×2 (08:45→20:27)
[2020-10-01] MEDS ORDERED: LEVEMIR (INSULIN DETEMIR) 1 UNITS/0.01ML SC SCH (09:00)
[2020-10-01 14:00] VITALS: BP 108/55
[2020-10-01 20:00] VITALS: BP 174/88
[2020-10-01] MEDS: OMEPRAZOLE 20 MG CAP PO SCH (20:26)
[2020-10-01] MEDS: TAMSULOSIN 0.4 MG CAP PO SCH (20:26)
[2020-10-01] MEDS: cefTRIAXone SOD 1 GM in D5W MINI-BAG PLUS 50 ML IV SCH (20:27)
[2020-10-01] MEDS: CALCIUM CARBONATE 500 MG CHEW U/D PO PRN (20:32)
[2020-10-01 21:00] VITALS: BP 154/70
--- NOTE | 2020-10-01 22:13 | IPNPDOC ---
Date Seen The patient was seen on 10/01/20. Progress Note SUBJECTIVE: 85-year-old M with Parkinson's disease, PMR on chronic steroids, CKD3, DM, history of HTN, hypothyroidism, involuntary eye closure managed with botox shots, chronic back pain with lumbar stenosis, chronic balance disorder with frequent falls at home who presented with one-month of urinary frequency and urgency and AMS, suspected to have metabolic encephalopathy 2/2 UTI. Lack of support system at home. Presently received rehab services at [facility]. Seen and examined at bedside. Doing well. Per RN and sitter, gets confused, attempts to wander. Family at bedside. Pleasant and appopriate. OBJECTIVE PHYSICAL EXAMINATION: VITAL SIGNS: please see below General: NAD, comfortable HEENT: PERRLA, EOMI, sclerae clear Neck: supple, normal ROM, no JVD Respiratory: lungs CTAB, no wheeze, no rales, no crackles CVS: RRR, normal S1, S2, no murmurs Abdo: soft, no masses, no hepatosplenomegaly, BS+, no rebound tenderness Extremities: no edema, pulses 2+ MSK: no joint deformities, normal ROM Neuro: no focal neuro deficits, moving all 4 extremities, CN2-12 intact. Slightl weakness in bilateral lower extremities. 5/5 strength in upper extremities. Psych: calm, cooperative, AAO x 3 LABORATORY DATA, IMAGING STUDIES, MICROBIOLOGY: Please see below. DVT prophylaxis ordered?: TEDs. SCDs. ASSESSMENT AND PLAN: PROBLEMS: UTI with superimposed encephalopathy - day 4 ceftriaxone, continue Dementia with prolonged episodes of delirium - per chart review, patient being followed by Dr. Blunt in outpatient setting - confirms hx of dementia, superimposed episodes of delirium - to follow up as outpatient with neurology - D/w Dr. Shipman. Will trial seroquel 25 mg PO qpm at 1800. Multiple falls at home with progressive weakness and forgetfulness: - probably secondary to progression of Parkinson's disease, polymyalgia rheumatica, chronic gait disturbance and balance disorder. -Continue home medications including Sinemet, prednisone, primidone. -f/u with neurology promptly on DC - rehab services per [facility]. Diabetes type 2, insulin-dependent. -labile BG, occasional hypoglycemia to 60s. - reduce levemir from 18 units to 15 units daily - monitor blood glucose before meals and at bedtime. -consistent carbohydrate diet. -SSI -hypoglycemia protocol Hypertension, essential, poorly controlled. - previously not on meds - BP fuond to be elevated 174/88 - start amlodipine 5 mg daily Hypothyroid. -TSH was normal. -Continue hormone replacement. Chronic pain. -continue home Lyrica. Benign prostatic hypertrophy. -continue home Flomax. NIYA on CKD: stephan prerenal, improved with hydration - Cr trending between 1.27 and 1.36 - NIYA had improved with hydration - will repeat BMP on 10/02/20 Dispo: per [facility]. VS, I&O, 24H[facility] Vital Signs/I&O Vital Signs Date Time Temp Pulse Resp B/P (MAP) Pulse Ox O2 Delivery O2 Flow Rate FiO2 10/01/20 20:00 98.1 65 19 174/88 (116) 96 Room Air I&O- Last 24 Hours up to 6 AM 10/01/20 06:00 Intake Total 150 ml Output Total 1000 ml Balance -850 ml Laboratory Data 24H LABS Laboratory Tests 2 09/30/20 23:37: Urine Color YELLOW, Urine Appearance HAZY, Urine pH 8.0, Urine Specific [place] 1.012, Urine Protein 2+H, Urine Glucose (Auto)(UA) NEGATIVE, Urine Ketones (Auto) NEGATIVE, Urine Blood NEGATIVE, Urine Nitrite NEGATIVE, Urine Bilirubin NEGATIVE, Urine Urobilinogen 0.2, Urine Leukocyte Esterase (Auto) 2+H, Urine WBC (Auto) 72H, Urine RBC (Auto) 5H, Urine Hyaline Casts (Auto) 0, Urine Bacteria (Auto) NEGATIVE, Urine Squamous Epithelial Cells 0, Urine Sperm (Auto) 10/01/20 03:01: Bedside Glucose (Misc Panel) 101 10/01/20 05:35: Bedside Glucose (Misc Panel) 100 10/01/20 07:38: Immature Granulocyte % (Auto) 0.5, Neutrophils (%) (Auto) 67.9H, Lymphocytes (%) (Auto) 19.4L, Monocytes (%) (Auto) 8.4H, Eosinophils (%) (Auto) 3.2H, Basophils (%) (Auto) 0.6, Neutrophils # (Auto) 4.3, Lymphocytes # (Auto) 1.2L, Monocytes # (Auto) 0.5, Eosinophils # (Auto) 0.2, Basophils # (Auto) 0.0, Nucleated Red Blood Cells % (auto) 0.0, Anion Gap 7L, Glomerular Filtration Rate 53.1, Calcium Level 8.2L, Total Bilirubin 0.4, Aspartate Amino Transf (AST/SGOT) 21, Alanine Aminotransferase (ALT/SGPT) 6L, Alkaline Phosphatase 141H, Total Protein 6.3L, Albumin 2.9L, Albumin/Globulin Ratio 0.9 10/01/20 11:37: Bedside Glucose (Misc Panel) 166H 10/01/20 16:35: Bedside Glucose (Misc Panel) 61L 10/01/20 17:28: Bedside Glucose (Misc Panel) 117H 10/01/20 19:48: Bedside Glucose (Misc Panel) 210H CBC/BMP Laboratory Tests 10/01/20 07:38 MARKUS OCASIO MD Oct 01, 2020 22:13
[2020-10-02] MEDS: ACETAMINOPHEN TAB 650MG DOSE (2X325MG) PO PRN (00:02)
[2020-10-02 05:03] VITALS: BP 139/63
[2020-10-02] MEDS: SINEMET 25-100 MG TAB PO SCH ×5 (06:21→20:31)
[2020-10-02] MEDS: LEVOTHYROXINE 75MCG TABLET (0.075MG) PO SCH (06:21)
[2020-10-02] MEDS: LEVOTHYROXINE 100MCG TABLET (0.1MG) PO SCH (06:21)
[2020-10-02] MEDS: HumaLOG INSULIN (NovoLOG) PER UNIT SC SCH ×3 (09:16→17:10)
[2020-10-02] MEDS: amLODIPine 5 MG TAB PO SCH (09:17)
[2020-10-02] MEDS: MULTIVITAMINS/MINERALS THERAP 1 TAB PO SCH (09:18)
[2020-10-02] MEDS: LEVEMIR (INSULIN DETEMIR) 1 UNITS/0.01ML SC SCH (09:18)
[2020-10-02] MEDS: PRIMIDONE 50 MG TAB PO SCH ×2 (09:18→20:31)
[2020-10-02] MEDS: DOCUSATE SODIUM 100MG CAPSULE PO SCH ×2 (09:18→20:30)
[2020-10-02] MEDS: MAGNESIUM OXIDE 400MG TAB (MAG-OX) PO SCH ×2 (09:18→20:30)
[2020-10-02] MEDS: predniSONE 2.5 MG TAB PO SCH (09:19)
[2020-10-02] MEDS: POLYVINYL ALCOHOL OPHTH SOLN 15 ML(LIQUITEARS) OU SCH ×2 (09:19→20:31)
[2020-10-02] MEDS: PREGABALIN 100 MG CAP (LYRICA) PO SCH ×2 (09:19→20:30)
[2020-10-02 09:20] LABS: CALCIUM LEVEL 8.2 MG/DL (8.8-10.2); CREATININE FOR GFR 1.37 MG/DL (0.70-1.30); GLOMERULAR FILTRATION RATE 52.7 (>35)
[2020-10-02 14:00] VITALS: BP 141/66
[2020-10-02 20:00] VITALS: BP 159/69
[2020-10-02] MEDS: cefTRIAXone SOD 1 GM in D5W MINI-BAG PLUS 50 ML IV SCH (20:30)
[2020-10-02] MEDS: OMEPRAZOLE 20 MG CAP PO SCH (20:30)
[2020-10-02] MEDS: QUEtiapine FUMARATE 25 MG TAB PO SCH (20:30)
[2020-10-02] MEDS: TAMSULOSIN 0.4 MG CAP PO SCH (20:31)
[2020-10-03] MEDS: ACETAMINOPHEN TAB 650MG DOSE (2X325MG) PO PRN ×2 (05:28→08:37)
[2020-10-03] MEDS: LEVOTHYROXINE 100MCG TABLET (0.1MG) PO SCH (05:28)
[2020-10-03] MEDS: LEVOTHYROXINE 75MCG TABLET (0.075MG) PO SCH (05:28)
[2020-10-03] MEDS: SINEMET 25-100 MG TAB PO SCH ×5 (05:28→20:51)
[2020-10-03 06:03] VITALS: BP 131/60
[2020-10-03] MEDS: HumaLOG INSULIN (NovoLOG) PER UNIT SC SCH ×3 (08:35→16:29)
[2020-10-03] MEDS: LEVEMIR (INSULIN DETEMIR) 1 UNITS/0.01ML SC SCH (08:35)
[2020-10-03] MEDS: amLODIPine 5 MG TAB PO SCH (08:35)
[2020-10-03] MEDS: MAGNESIUM OXIDE 400MG TAB (MAG-OX) PO SCH ×2 (08:36→20:52)
[2020-10-03] MEDS: predniSONE 5 MG TAB PO SCH (08:36)
[2020-10-03] MEDS: PREGABALIN 100 MG CAP (LYRICA) PO SCH ×2 (08:36→20:51)
[2020-10-03] MEDS: PRIMIDONE 50 MG TAB PO SCH ×2 (08:36→20:51)
[2020-10-03] MEDS: DOCUSATE SODIUM 100MG CAPSULE PO SCH ×2 (08:36→20:51)
[2020-10-03] MEDS: MULTIVITAMINS/MINERALS THERAP 1 TAB PO SCH (08:38)
[2020-10-03] MEDS: POLYVINYL ALCOHOL OPHTH SOLN 15 ML(LIQUITEARS) OU SCH ×2 (09:00→20:52)
[2020-10-03] MEDS: BACLOFEN 10 MG TAB PO SCH (12:24)
[2020-10-03 14:00] VITALS: BP 132/60
[2020-10-03] MEDS: QUEtiapine FUMARATE 25 MG TAB PO SCH (20:51)
[2020-10-03] MEDS: OMEPRAZOLE 20 MG CAP PO SCH (20:51)
[2020-10-03] MEDS: cefTRIAXone SOD 1 GM in D5W MINI-BAG PLUS 50 ML IV SCH (20:51)
[2020-10-03] MEDS: TAMSULOSIN 0.4 MG CAP PO SCH (20:52)
[2020-10-03 21:50] VITALS: BP 147/68
[2020-10-04] MEDS: SINEMET 25-100 MG TAB PO SCH ×5 (05:26→20:12)
[2020-10-04] MEDS: LEVOTHYROXINE 75MCG TABLET (0.075MG) PO SCH (05:26)
[2020-10-04] MEDS: LEVOTHYROXINE 100MCG TABLET (0.1MG) PO SCH (05:26)
[2020-10-04 06:06] VITALS: BP 123/57
[2020-10-04] MEDS: LEVEMIR (INSULIN DETEMIR) 1 UNITS/0.01ML SC SCH (09:24)
--- NOTE | 2020-10-04 09:24 | IPNPDOC ---
PM&R Progress Note DATE OF SERVICE: Oct 04, 2020 [employer] Progress Note DATE OF ADMISSION: Sep 30, 2020 at 16:30 ADMITTING DIAGNOSES: 1. Chronic kidney disease stage III with a history of temporary dialysis and severe urinary tract infection. 2. Chronic balance disorder. 3. Parkinson's disease. 4. Polymyalgia rheumatica on chronic steroids 5. Mnire's disease. 6. Lumbar stenosis. 7. Chronic pain. 8. Diabetes type 2, insulin-dependent. 9. Coronary artery disease. 10. Hypothyroid. 11. Hypertension, on no current medications. 12. Hyperlipidemia. 13. Benign prostatic hypertrophy. 14. Involuntary eye closure 15. Poly-radiculo neuropathy. 16. Neurogenic claudication . CHIEF COMPLAINT: Multiple falls, balance challenges, confusion with altered mental status, frequency, urgency, . INTERIM HISTORY 85-year-old male with past medical history of Parkinsons and steroid dependent polymyalgia rheumatica who presented to ER status post multiple falls and recent episode of altered mental status associated with urinary tract infection requiring IV antibiotics. Apparently he is falling asleep frequently is 4-5 times a day for about the last year, however, things, worse when something changed about 3 weeks ago. His notes that he tends to Josias holding onto things when ambulating and using his walker, however, he is prone to muscle spasms and spontaneous loss of function in the lower extremities. Apparently there is an additional history of involuntary ptosis for which he is treated with periodically with Botox. notes he underwent a prior comprehensive evaluation in [place] for possible options to consider for his low back and lower extremity complaints. However, he is not felt to be a cand idate for the extensive surgical intervention that might be warranted and might not provide desired results. 7.5.2020 patient was noted to continue with gait abnormalities, no falls, has frequency, urgency, wost at night, however, did have improvement with sleep with initiation of Seroquel. He had an explosive loose bowel movement. [id number]. Patient again notes a reasonable nights sleep. However interrupted by frequent incomplete emptying attempts. Nursing notes postvoid residuals running in the 2 to 500s at times. Interim UA still suspicious for ongoing infection despite multiple days of Rocephin. Patient making slow progress in therapy, pain management appears to be improving with fewer episodes of lancinating pain, however, ptosis is worsening. OT notes increasing levels of confusion, difficulty with carryover of new learned activities. REVIEW OF SYSTEMS: The following is a completed review of systems and has been reviewed. Review of systems otherwise unremarkable. PAIN: Patient self reports intermittent electric shocklike lancinating pain in the lower extremities and chronically over the dorsum of the bilateral feet in the L5 distribution, improving over weekend. EYES: No recent vision changes, does have episodic ptosis. EARS, NOSE, & THROAT: No throat pain, or dysphagia, or rhinorrhea. CARDIOVASCULAR: Denies chest pain or palpitations. PULMONARY: Denies shortness of breath. GASTROINTESTINAL: Previuosly had severe constipation with no BM for 3 or 4 days, now multiple loose stools over weekend. GENITOURINARY: . BPH, difficulty initiating stream incomplete emptying with escalating PVR and increased frequency MUSCULOSKELETAL: . Chronic low back pain NEUROLOGICAL:. Tremor, frequent falls and loss of control of the legs HEMATOLOGICAL: . Negative SKIN: . Negative PSYCHIATRIC: Unremarkable. All other review of systems found to be negative. PAST MEDICAL HISTORY: 1. Chronic kidney disease stage III with a history of temporary dialysis. 2. Chronic balance disorder. 3. Parkinson's disease. 4. Polymyalgia rheumatica on chronic steroids 5. Mnire's disease. 6. Lumbar stenosis. 7. Chronic pain. 8. Diabetes type 2, insulin-dependent. 9. Coronary artery disease. 10. Hypothyroid. 11. Hypertension, on no current medications. 12. Hyperlipidemia. 13. Benign prostatic hypertrophy. 14. Involuntary eye closure 15. Poly-radicular neuropathy No history of cancer or respiratory disorders PAST SURGICAL HISTORY: 1. Right inguinal hernia. 2. Left knee surgery. 3. Cholecystectomy. 4. Bilateral cataracts. 5. Repair of ptosis of the right eye. 6. Removal of bladder mass which was benign. 7. Cardiac stent ALLERGIES: Please see below. MEDICATIONS: Please see below. DIET: Regular PHYSICAL EXAMINATION: VITAL SIGNS: Please see below. GENERAL: Pleasant and cooperative , flat effect. Observed gait with standby assistance and gait belt, less shuffling, smoother transfers to wheelchair. Sitting less hunched over in chair no acute distress. With cues he is oriented to person, place and date. HEENT: PERRL. Extraocular movements intact. Clear conjunctiva, no adenopathy or thyromegaly. Decreased cervical range of motion on extension and left rotation without tenderness or spasm. Tongue pale and glossy moist mucosa. CARDIOVASCULAR: Regular rate and rhythm. II/. LUNGS: Clear to auscultation bilaterally. No wheezes. No rhonchi. ABDOMEN: Soft, nontender, nondistended. Positive normal active bowel sounds. NEUROLOGICAL:. Cranial nerves II through XII intact. 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 He is able to elevate the arms overhead is noted after his evaluation , tremor seems decreased today SKIN: . Intact. Old healed midline lumbosacral scar, with flattening of the lumbar lordosis and atrophy in the paravertebral musculature. LABORATORY DATA: Please see below. WBC 6.3 on 73. H&H 12.3 38.9, UA luek est 2+ , Cr creeping up IMAGING:Imaging documentation personally reviewed by record. FUNCTIONAL STATUS: Premorbid: Independent with all activities of daily life as well as mobility using a front-wheeled walker. However, prone to multiple falls in the past, has reportedly not sustained head trauma or fracture with any of the falls on multiple surfaces. Patient discussed in Team Meeting. Pt demonstrates improved safety and gait mechanics, specifically knee extension in stance following passive hamstring and gastroc stretching. Pt continues to be impulsive; standing and beginning to ambulate prior to PT providing CGA. Pt requires VCs to decrease gait speed and focus on turning fully prior to sitting to minimize risk of falls ASSESSMENT:-85-year-old male with past medical history of Parkinsons and steroid dependent Polymyalgia Rheumatica who presents status post multiple falls and recent episode of altered mental status associated with urinary tract infection requiring IV antibiotics. He notes tremor and lower extremity pain and weakness come intermittently and associated with proclivity to falling. Functional deficits are probably related to a combination of the underlying autoimmune disorders, mechanical compromise at the lumbosacral region of fragile nerves due to concurrent diabetic neuropathy. 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 Saliva significant issues. Despite continued IV antibiotics, possibly some balance challenges as well. Will recheck. 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 Will Check TSH and add Baclofen which may help bladder spasms as well as MSK complaints PLAN: 1. Rehab- PT/OT advance gait and ADls, strengthen/stretch/maintain ROM all 4 limbs. We'll continue to work on timing pain medication with therapy interventions to optimize possible capacity to participate. 2. Neuro- optimize various medications to minimize tremor, pain without aggravating resolving cognitive challenges. Does not recall if he has ever been on propanolol, which might be another agent to consider. TENS unit may also be a consideration 3. Ortho- chronic low back pain. Apparently had undergone full evaluation [place]. Not considered a surgical candidate, may have some instability, lumbosacral support may provide some symptomatic relief and improved ability to participate in active therapies.. 4. Cardiac- status post stent, asymptomatic. Well monitor response to increasing levels of activity -HTN -stable, per -HLD- dietary and patient education 5. Resp -incentive spirometry, monitor for infection 6. Endo- hypothyroid. Well give equivalent dosing on usual medication, Recheck TSH, DM SSI, Dr. Barnett made recent adjustments on Levemir, hospitalist team further reduced, continue to coordinate and follow. 7. - BPH, continue IV Antibiotics over weekend, bladder protocol, shifted Flomax to AM, recheck urine 8. GI ppx- PPI, add Florastor, adjust bowel meds and program, check C Diff due to protracted Abx, steroids, change in bowel habits PROGNOSIS: Good ESTIMATED LENGTH OF STAY:7-14 days. PROJECTED DISCHARGE DESTINATION: Home with family support and any durable medical equipment required to increase functional safety and mobility. TIME SPENT COUNSELING AND COORDINATING INITIAL CARE: Greater than 30 minutes. This document is generated using speech recognition software which may result in grammatical, typographical and individual word errors. Allergies Coded Allergies: Contrast Media (Verified Allergy, Intermediate, 10/21/19) HYPOTENSION PER ANESTHESIOLOGY REPORT Vital Signs Vital Signs Date Time Temp Pulse Resp B/P (MAP) Pulse Ox O2 Delivery O2 Flow Rate FiO2 10/04/20 06:06 97.8 53 16 123/57 (79) 96 Room Air Laboratory Data Labs 24H Laboratory Tests 2 10/03/20 11:46: Bedside Glucose (Misc Panel) 110 10/03/20 15:32: Bedside Glucose (Misc Panel) 66L 10/03/20 21:02: Bedside Glucose (Misc Panel) 211H 10/04/20 05:22: Bedside Glucose (Misc Panel) 176H Current Medications Current Medications Current Medications Medications (Trade) Dose Ordered Sig/Kavon Route PRN Reason Start Time Stop Time Status Last Admin Dose Admin Acetaminophen (Tylenol Tab) 650 mg Q4HP PRN PO MILD PAIN (PS 1-4) 09/30/20 17:35 10/03/20 08:37 Amlodipine Besylate (Norvasc) 5 mg DAILY PO 10/02/20 09:00 10/03/20 08:35 Artificial Tears (Akwa Tears) 1 drop BID OU 09/30/20 21:00 10/03/20 20:52 Baclofen (Lioresal) 10 mg DAILY@1200 PO 10/03/20 12:00 10/03/20 12:24 Bisacodyl (Dulcolax Suppository) 10 mg DAILYPRN PRN SD CONSTIPATION 09/30/20 17:35 Calcium Carbonate (Tums) 500 mg DAILY PRN PO INDIGESTION 09/30/20 17:45 10/01/20 20:32 Carbidopa/Levodopa (Sinemet 25/100) 2 tab 5XD PO 09/30/20 17:00 10/04/20 05:26 Ceftriaxone Sodium 1 gm/ Dextrose 50 ml @ 100 mls/hr Q24H IV 09/30/20 20:00 10/05/20 20:29 10/03/20 20:51 Dextrose (Dextrose 50%) 25 ml ASDIRECTED PRN IV SEE LABEL COMMENTS 09/30/20 17:50 Dextrose (Dextrose 50%) 25 ml ASDIRECTED PRN IV SEE LABEL COMMENTS 09/30/20 18:00 09/30/20 18:03 DC Docusate Sodium (Colace) 100 mg BID PO 09/30/20 21:00 10/03/20 20:51 Glucagon (Glucagon) 1 mg ASDIRECTED PRN SC SEE LABEL COMMENTS 09/30/20 17:50 Glucagon (Glucagon) 1 mg ASDIRECTED PRN SC SEE LABEL COMMENTS 09/30/20 18:00 09/30/20 18:04 DC Glucose (Glucose) 16 GM ASDIRECTED PRN PO SEE LABEL COMMENTS 09/30/20 17:50 Glucose (Glucose) 16 GM ASDIRECTED PRN PO SEE LABEL COMMENTS 09/30/20 18:00 09/30/20 18:04 DC Home Med (Med Rec Complete!) ASDIRECTED XX 09/30/20 17:45 09/30/20 17:43 DC Insulin Detemir (Levemir Insulin) 15 units DAILY SC 10/02/20 09:00 10/03/20 08:35 Insulin Detemir (Levemir Insulin) 18 units DAILY SC 10/01/20 09:00 10/02/20 08:14 DC 10/01/20 08:45 Insulin Human Lispro (HumaLOG INSULIN) See Protocol Table AC CT 10/01/20 07:30 10/03/20 12:27 Levothyroxine Sodium (Synthroid) 75 mcg DAILY@06 PO 10/01/20 06:00 10/04/20 05:26 Levothyroxine Sodium (Synthroid) 100 mcg DAILY@06 PO 10/01/20 06:00 10/04/20 05:26 Magnesium Hydroxide (Milk Of Magnesia) 30 ml DAILYPRN PRN PO CONSTIPATION 09/30/20 17:35 Magnesium Oxide (Mag-Ox) 800 mg BID PO 09/30/20 21:00 10/03/20 20:52 Multivitamins (Theragram-M) 1 tab DAILY PO 10/01/20 09:00 10/03/20 08:38 Omeprazole (PriLOSEC) 40 mg QHS PO 09/30/20 21:00 10/03/20 20:51 Polyethylene Glycol (Miralax) 1 pkt DAILY PRN PO CONSTIPATION 09/30/20 17:35 Polyethylene Glycol (Miralax) 1 pkt DAILY PRN PO CONSTIPATION 09/30/20 17:45 09/30/20 17:47 DC Prednisone (Deltasone) 2.5 mg Q2D PO 10/02/20 09:00 10/02/20 09:19 Prednisone (Deltasone) 5 mg Q2D PO 10/01/20 09:00 10/03/20 08:36 Pregabalin (Lyrica) 100 mg BID PO 09/30/20 21:00 10/03/20 20:51 Primidone (Mysoline) 50 mg BID PO 09/30/20 21:00 10/03/20 20:51 Quetiapine Fumarate (SEROquel) 25 mg QPM@1800 PO 10/02/20 18:00 10/03/20 20:51 Senna/Docusate Sodium (Senokot S) 1 tab BID PRN PO CONSTIPATION 09/30/20 21:00 Sodium Biphosphate/ Sodium Phosphate (Fleet Enema) 1 ea Q3DP PRN SD CONSTIPATION 09/30/20 18:00 Tamsulosin HCl (Flomax) 0.4 mg DAILY PO 10/04/20 09:00 Tamsulosin HCl (Flomax) 0.4 mg DAILY@2100 PO 09/30/20 21:00 10/04/20 08:37 DC 10/03/20 20:52 YAMILETH ABDI MD Oct 04, 2020 09:24
[2020-10-04] MEDS: TAMSULOSIN 0.4 MG CAP PO SCH (09:25)
[2020-10-04] MEDS: MULTIVITAMINS/MINERALS THERAP 1 TAB PO SCH (09:25)
[2020-10-04] MEDS: HumaLOG INSULIN (NovoLOG) PER UNIT SC SCH ×3 (09:25→17:30)
[2020-10-04] MEDS: CALCIUM CARBONATE 500 MG CHEW U/D PO PRN (09:26)
[2020-10-04] MEDS: ACETAMINOPHEN TAB 650MG DOSE (2X325MG) PO PRN ×2 (09:26→20:15)
[2020-10-04] MEDS: amLODIPine 5 MG TAB PO SCH (09:27)
[2020-10-04] MEDS: DOCUSATE SODIUM 100MG CAPSULE PO SCH (09:27)
[2020-10-04] MEDS: PREGABALIN 100 MG CAP (LYRICA) PO SCH ×2 (09:27→20:12)
[2020-10-04] MEDS: MAGNESIUM OXIDE 400MG TAB (MAG-OX) PO SCH ×2 (09:28→20:14)
[2020-10-04] MEDS: predniSONE 2.5 MG TAB PO SCH (09:31)
[2020-10-04] MEDS: POLYVINYL ALCOHOL OPHTH SOLN 15 ML(LIQUITEARS) OU SCH ×3 (09:32→23:00)
[2020-10-04] MEDS: PRIMIDONE 50 MG TAB PO SCH ×2 (09:38→20:12)
[2020-10-04] MEDS: BACLOFEN 10 MG TAB PO SCH (12:29)
[2020-10-04 14:00] VITALS: BP 135/63
[2020-10-04 20:00] VITALS: BP 162/80
[2020-10-04] MEDS: QUEtiapine FUMARATE 25 MG TAB PO SCH (20:12)
[2020-10-04] MEDS: OMEPRAZOLE 20 MG CAP PO SCH (20:12)
[2020-10-05] MEDS: SINEMET 25-100 MG TAB PO SCH ×5 (05:44→20:30)
[2020-10-05] MEDS: LEVOTHYROXINE 75MCG TABLET (0.075MG) PO SCH (05:44)
[2020-10-05] MEDS: LEVOTHYROXINE 100MCG TABLET (0.1MG) PO SCH (05:44)
[2020-10-05 06:00] VITALS: BP 161/70
[2020-10-05 07:22] LABS: THYROID STIMULATING HORMONE 3.04 uIU/ML (0.358-3.740)
[2020-10-05] MEDS: HumaLOG INSULIN (NovoLOG) PER UNIT SC SCH ×3 (08:10→17:11)
[2020-10-05] MEDS: LEVEMIR (INSULIN DETEMIR) 1 UNITS/0.01ML SC SCH (08:10)
[2020-10-05] MEDS: amLODIPine 5 MG TAB PO SCH (08:11)
[2020-10-05] MEDS: TAMSULOSIN 0.4 MG CAP PO SCH (08:11)
[2020-10-05] MEDS: MAGNESIUM OXIDE 400MG TAB (MAG-OX) PO SCH ×2 (08:11→20:30)
[2020-10-05] MEDS: MULTIVITAMINS/MINERALS THERAP 1 TAB PO SCH (08:11)
[2020-10-05] MEDS: predniSONE 5 MG TAB PO SCH (08:12)
[2020-10-05] MEDS: POLYVINYL ALCOHOL OPHTH SOLN 15 ML(LIQUITEARS) OU SCH ×2 (08:12→20:31)
[2020-10-05] MEDS: PREGABALIN 100 MG CAP (LYRICA) PO SCH ×2 (08:12→20:30)
--- NOTE | 2020-10-05 08:48 | IPNPDOC ---
PM&R Progress Note DATE OF SERVICE: Oct 05, 2020 Recreation Clerk Progress Note DATE OF ADMISSION: Sep 30, 2020 at 16:30 DATE OF SERVICE: 10.05.2020 ADMITTING DIAGNOSES: 1. Chronic kidney disease stage III with a history of temporary dialysis and severe urinary tract infection. 2. Chronic balance disorder. 3. Parkinson's disease. 4. Polymyalgia rheumatica on chronic steroids 5. Mnire's disease. 6. Lumbar stenosis. 7. Chronic pain. 8. Diabetes type 2, insulin-dependent. 9. Coronary artery disease. 10. Hypothyroid. 11. Hypertension, on no current medications. 12. Hyperlipidemia. 13. Benign prostatic hypertrophy. 14. Involuntary eye closure 15. Poly-radiculo neuropathy. 16. Neurogenic claudication . CHIEF COMPLAINT: Multiple falls, balance challenges, confusion with altered mental status, frequency, urgency, . INTERIM HISTORY 85-year-old male with past medical history of Parkinsons and steroid dependent polymyalgia rheumatica who presented to ER status post multiple falls and recent episode of altered mental status associated with urinary tract infection requiring IV antibiotics. Apparently he is falling asleep frequently is 4-5 times a day for about the last year, however, things, worse when something changed about 3 weeks ago. His notes that he tends to Josias holding onto things when ambulating and using his walker, however, he is prone to muscle spasms and spontaneous loss of function in the lower extremities. Apparently there is an additional history of involuntary ptosis for which he is treated with periodically with Botox. notes he underwent a prior comprehensive evaluation in [place] for possible options to consider for his low back and lower extremity complaints. However, he is not felt to be a candidate for the extensive surgical intervention that might be warranted and might not provide desired results. 10.03.2020 patient was noted to continue with gait abnormalities, no falls, has frequency, urgency, wost at night, however, did have improvement with sleep with initiation of Seroquel. He had an explosive loose bowel movement. 10.04.2020. Patient again notes a reasonable nights sleep. However interrupted by frequent incomplete emptying attempts. Nursing notes postvoid residuals running in the 2 to 500s at times. Interim UA still suspicious for ongoing infection despite multiple days of Rocephin. Patient making slow progress in therapy, pain management appears to be improving with fewer episodes of lancinating pain, however, ptosis is worsening. OT notes increasing levels of confusion, difficulty with carryover of new learned activities. 7. Sleepy this morning, still with frequency and passing cloudy malodorous urine. Rocephin. Apparently DCd. Further communication between nurse and patient revealed possible history of bladder cancer with mass that was removed, and urology consult requested due to ongoing bladder challenges, evidence of inflammation/possible infection despite protracted course of IV antibiotics. REVIEW OF SYSTEMS: The following is a completed review of systems and has been reviewed. Review of systems otherwise unremarkable. PAIN: Patient self reports improvement in the intermittent electric shocklike lancinating pain in the lower extremities and chronically over the dorsum of the bilateral feet in the L5 distribution, improving over weekend. EYES: No recent vision changes, does have episodic ptosis. EARS, NOSE, & THROAT: No throat pain, or dysphagia, or rhinorrhea. CARDIOVASCULAR: Denies chest pain or palpitations. PULMONARY: Denies shortness of breath. GASTROINTESTINAL: Previuosly had severe constipation with no BM for 3 or 4 days, then multiple loose stools over weekend, now apparently abating per nursing. Laxatives changed to PRN. GENITOURINARY: . BPH, difficulty initiating stream incomplete emptying with escalating PVR and increased frequency MUSCULOSKELETAL: . Chronic low back pain NEUROLOGICAL:. Tremor, frequent falls and loss of control of the legs HEMATOLOGICAL: . Negative SKIN: . Negative PSYCHIATRIC: Unremarkable. All other review of systems found to be negative. PAST MEDICAL HISTORY: 1. Chronic kidney disease stage III with a history of temporary dialysis. 2. Chronic balance disorder. 3. Parkinson's disease. 4. Polymyalgia rheumatica on chronic steroids 5. Mnire's disease. 6. Lumbar stenosis. 7. Chronic pain. 8. Diabetes type 2, insulin-dependent. 9. Coronary artery disease. 10. Hypothyroid. 11. Hypertension, on no current medications. 12. Hyperlipidemia. 13. Benign prostatic hypertrophy. 14. Involuntary eye closure 15. Poly-radicular neuropathy PAST SURGICAL HISTORY: 1. Right inguinal hernia. 2. Left knee surgery. 3. Cholecystectomy. 4. Bilateral cataracts. 5. Repair of ptosis of the right eye. 6. Removal of bladder mass which was benign. 7. Cardiac stent ALLERGIES: Please see below. MEDICATIONS: Please see below. DIET: Regular PHYSICAL EXAMINATION: VITAL SIGNS: Please see below. GENERAL: Pleasant and sleepy. HEENT: Extraocular movements intact. Clear conjunctiva, no adenopathy or thyro megaly. Decreased cervical range of motion on extension and left rotation without tenderness or spasm. CARDIOVASCULAR: Regular rate and rhythm. II/. LUNGS: Clear to auscultation bilaterally. Scattered wheezes. No rhonchi. ABDOMEN: Soft, nontender, mildly distended. Positive normal active bowel sounds. NEUROLOGICAL:. Cranial nerves II through XII grossly intact. Sensation grossly intact EXTREMITIES: 5/5 aligning inspector bilateral upper extremities. SKIN: . Intact. Old healed midline lumbosacral scar, with flattening of the lumbar lordosis and atrophy in the paravertebral musculature. LABORATORY DATA: Please see below. WBC 6.3 on 73. H&H 12.3 38.9, 10/04 UA WBC TNTC and luek est went from 2+ to 3+ , Cr creeping up IMAGING: Imaging documentation personally reviewed by record. FUNCTIONAL STATUS: Premorbid: Independent with all activities of daily life as well as mobility using a front-wheeled walker. However, prone to multiple falls in the past, has reportedly not sustained head trauma or fracture with any of the falls on multiple surfaces. 7.6.21 Patient discussed in Team Meeting. Pt demonstrates improved safety and gait mechanics, specifically knee extension in stance following passive hamstring and gastroc stretching. Pt continues to be impulsive; standing and beginning to ambulate prior to PT providing CGA. Pt requires VCs to decrease gait speed and focus on turning fully prior to sitting to minimize risk of falls 7.7 Pt participating in supine and sitting ther ex and ambulated 25ft x3. Pt requires verbal and tactile cues to slow down with exercises and for proper technique. Pt requirs VC's to slow down and to keep RW within a safe distance during ambulation. Pt is very impulsive with transfers and ambulation and requires constant supervision, gait belt for safety. Patient and family training went better with son, daughters resistant to incorporating updated safety awareness education into mobility activities, will continue education. ASSESSMENT:-85-year-old male with past medical history of Parkinsons and steroid dependent Polymyalgia Rheumatica who presents status post multiple falls and recent episode of altered mental status associated with urinary tract infection requiring IV antibiotics that were discontinued yesterday, urine repeat cultures pending after UA continues with WBC TNTC. Urologist who previously operated on him has been consulted to reassess. Patient notes tremor and lower extremity pain and weakness come intermittently and associated with proclivity to falling. Functional deficits are probably related to a combination of the underlying autoimmune disorders, mechanical compromise at the lumbosacral region of fragile nerves due to concurrent diabetic neuropathy. 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 7.6 moved Flomax to a.m., will continue bladder training, and Florastor. TSH noted within therapeutic range and added Baclofen which may help bladder spasms as well as MSK complaints but may be adding to hypersomnolence. PLAN: 1. Rehab- PT/OT advance gait and ADls, strengthen/stretch/maintain ROM all 4 limbs. We'll continue to work on timing pain medication with therapy interventions to optimize possible capacity to participate. Emphasis family training, carryover, safety issues. 2. Neuro- optimize various medications to minimize tremor, pain without aggravating resolving cognitive challenges. Baclofen helping, may need to reduce dose and timing. Does not recall if he has ever been on propanolol, which might be another agent to consider. Continues on dopaminergic meds.TENS unit may also be a consideration 3. Ortho- chronic low back pain. Apparently had undergone full evaluation [place]. Not considered a surgical candidate, may have some instability, lumbosacral support may provide some symptomatic relief and improved ability to participate in active therapies.. 4. Cardiac- status post stent, asymptomatic. Well monitor response to incre asing levels of activity -HTN -stable, per -HLD- dietary and patient education 5. Resp -incentive spirometry, monitor for infection 6. Endo- hypothyroid. Well give equivalent dosing on usual medication, TSH- therapeutic, DM SSI, runs FBS high 190s, Hospitalists made recent adjustments on Levemir, hospitalist team further reduced, continue to coordinate and follow. 7. - BPH, IV Antibiotics were dc yesterday after continuing through weekend, frequency, cloudy urine continues, repeat cultures pending,continue bladder protocol, shifted Flomax to AM, recheck urine 8. GI ppx- PPI, add Florastor, adjust bowel meds and program PROGNOSIS: Excellent. ESTIMATED LENGTH OF STAY:7-14 days. PROJECTED DISCHARGE DESTINATION: Home with family support and any durable medical equipment required to increase functional safety and mobility. TIME SPENT COUNSELING AND COORDINATING INITIAL CARE: Greater than 30 minutes. This document is generated using speech recognition software which may result in grammatical, typographical and individual word errors. Allergies Coded Allergies: Contrast Media (Verified Allergy, Intermediate, 10/21/19) HYPOTENSION PER ANESTHESIOLOGY REPORT Vital Signs Vital Signs Date Time Temp Pulse Resp B/P (MAP) Pulse Ox O2 Delivery O2 Flow Rate FiO2 10/05/20 08:11 60 158/70 10/05/20 06:00 97.6 19 94 Room Air Laboratory Data Labs 24H Laboratory Tests 2 10/04/20 12:08: Bedside Glucose (Misc Panel) 110 10/04/20 15:32: Urine Color YELLOW, Urine Appearance CLOUDYH, Urine pH 6.0, Urine Specific [place] 1.013, Urine Protein 2+H, Urine Glucose (UA) NEGATIVE, Urine Ketones TRACEH, Urine Blood 1+H, Urine Nitrite NEGATIVE, Urine Bilirubin NEGATIVE, Urine Urobilinogen 0.2, Urine Leukocyte Esterase 3+H, Urine WBC (Auto) TNTCH, Urine RBC (Auto) 32H, Urine Hyaline Casts (Auto) 3, Urine Bacteria (Auto) 1+H, Urine Squamous Epithelial Cells 0, Urine Sperm (Auto) 10/04/20 16:35: Bedside Glucose (Misc Panel) 105 10/04/20 21:05: Bedside Glucose (Misc Panel) 178H 10/05/20 06:27: Thyroid Stimulating Hormone (TSH) 3.040 10/05/20 06:29: Bedside Glucose (Misc Panel) 219H Microbiology Microbiology 10/04/20 Urine Culture, Received Pending Current Medications Current Medications Current Medications Medications (Trade) Dose Ordered Sig/Kavon Route PRN Reason Start Time Stop Time Status Last Admin Dose Admin Acetaminophen (Tylenol Tab) 650 mg Q4HP PRN PO MILD PAIN (PS 1-4) 09/30/20 17:35 10/04/20 20:15 Amlodipine Besylate (Norvasc) 5 mg DAILY PO 10/02/20 09:00 10/05/20 08:11 Artificial Tears (Akwa Tears) 1 drop BID OU 09/30/20 21:00 10/05/20 08:12 Baclofen (Lioresal) 10 mg DAILY@1200 PO 10/03/20 12:00 10/04/20 12:29 Bisacodyl (Dulcolax Suppository) 10 mg DAILYPRN PRN AR CONSTIPATION 09/30/20 17:35 Calcium Carbonate (Tums) 500 mg DAILY PRN PO INDIGESTION 09/30/20 17:45 10/04/20 09:26 Carbidopa/Levodopa (Sinemet 10/100) 1 tab DAILY PO 10/05/20 09:00 10/04/20 14:27 DC Carbidopa/Levodopa (Sinemet 25/100) 2 tab 5XD PO 09/30/20 17:00 10/05/20 08:11 Ceftriaxone Sodium 1 gm/ Dextrose 50 ml @ 100 mls/hr Q24H IV 09/30/20 20:00 10/04/20 09:53 DC 10/03/20 20:51 Dextrose (Dextrose 50%) 25 ml ASDIRECTED PRN IV SEE LABEL COMMENTS 09/30/20 17:50 Dextrose (Dextrose 50%) 25 ml ASDIRECTED PRN IV SEE LABEL COMMENTS 09/30/20 18:00 09/30/20 18:03 DC Docusate Sodium (Colace) 100 mg BID PO 09/30/20 21:00 10/04/20 12:27 DC 10/04/20 09:27 Docusate Sodium (Colace) 100 mg DAILY PRN PO CONSTIPATION 10/05/20 09:00 Glucagon (Glucagon) 1 mg ASDIRECTED PRN SC SEE LABEL COMMENTS 09/30/20 17:50 Glucagon (Glucagon) 1 mg ASDIRECTED PRN SC SEE LABEL COMMENTS 09/30/20 18:00 09/30/20 18:04 DC Glucose (Glucose) 16 GM ASDIRECTED PRN PO SEE LABEL COMMENTS 09/30/20 17:50 Glucose (Glucose) 16 GM ASDIRECTED PRN PO SEE LABEL COMMENTS 09/30/20 18:00 09/30/20 18:04 DC Home Med (Med Rec Complete!) ASDIRECTED XX 09/30/20 17:45 09/30/20 17:43 DC Insulin Detemir (Levemir Insulin) 15 units DAILY SC 10/02/20 09:00 10/05/20 08:10 Insulin Detemir (Levemir Insulin) 18 units DAILY SC 10/01/20 09:00 10/02/20 08:14 DC 10/01/20 08:45 Insulin Human Lispro (HumaLOG INSULIN) See Protocol Table AC SC 10/01/20 07:30 10/05/20 08:10 Levothyroxine Sodium (Synthroid) 75 mcg DAILY@06 PO 10/01/20 06:00 10/05/20 05:44 Levothyroxine Sodium (Synthroid) 100 mcg DAILY@06 PO 10/01/20 06:00 10/05/20 05:44 Magnesium Hydroxide (Milk Of Magnesia) 30 ml DAILYPRN PRN PO CONSTIPATION 09/30/20 17:35 Magnesium Oxide (Mag-Ox) 800 mg BID PO 09/30/20 21:00 10/05/20 08:11 Multivitamins (Theragram-M) 1 tab DAILY PO 10/01/20 09:00 10/05/20 08:11 Omeprazole (PriLOSEC) 40 mg QHS PO 09/30/20 21:00 10/04/20 20:12 Polyethylene Glycol (Miralax) 1 pkt DAILY PRN PO CONSTIPATION 09/30/20 17:35 Polyethylene Glycol (Miralax) 1 pkt DAILY PRN PO CONSTIPATION 09/30/20 17:45 09/30/20 17:47 DC Prednisone (Deltasone) 2.5 mg Q2D PO 10/02/20 09:00 10/04/20 09:31 Prednisone (Deltasone) 5 mg Q2D PO 10/01/20 09:00 10/05/20 08:12 Pregabalin (Lyrica) 100 mg BID PO 09/30/20 21:00 10/05/20 08:12 Primidone (Mysoline) 50 mg BID PO 09/30/20 21:00 10/04/20 20:12 Quetiapine Fumarate (SEROquel) 25 mg QPM@1800 PO 10/02/20 18:00 10/04/20 20:12 Senna/Docusate Sodium (Senokot S) 1 tab BID PRN PO CONSTIPATION 09/30/20 21:00 10/04/20 09:26 Sodium Biphosphate/ Sodium Phosphate (Fleet Enema) 1 ea Q3DP PRN AR CONSTIPATION 09/30/20 18:00 Tamsulosin HCl (Flomax) 0.4 mg DAILY PO 10/04/20 09:00 10/05/20 08:11 Tamsulosin HCl (Flomax) 0.4 mg DAILY@2100 PO 09/30/20 21:00 10/04/20 08:37 DC 10/03/20 20:52 YAMILETH ABDI MD Oct 05, 2020 08:48
[2020-10-05] MEDS ORDERED: DOCUSATE SODIUM 100MG CAPSULE PO PRN (09:00)
[2020-10-05] MEDS ORDERED: SINEMET 10-100 MG TAB PO SCH (09:00)
[2020-10-05 09:14] LABS: HEMATOCRIT 37.4 % (42.0-52.0); HEMOGLOBIN 11.8 g/dl (13.5-17.5); MEAN CORPUSCULAR HEMOGLOBIN 30.2 pg (27.0-33.0); MEAN CORPUSCULAR HGB CONC 31.6 g/dl (32.0-36.5); MEAN CORPUSCULAR VOLUME 95.7 fl (80.0-96.0); PLATELET COUNT, AUTOMATED 156 10^3/uL (150-450); RED BLOOD COUNT 3.91 10^6/uL (4.30-6.10); WHITE BLOOD COUNT 6.8 10^3/uL (4.0-10.0)
[2020-10-05] MEDS: PRIMIDONE 50 MG TAB PO SCH ×2 (09:18→20:30)
[2020-10-05 09:19] LABS: CALCIUM LEVEL 8.3 MG/DL (8.8-10.2); CREATININE FOR GFR 1.37 MG/DL (0.70-1.30); GLOMERULAR FILTRATION RATE 52.7 (>35); POTASSIUM SERUM 4.9 MEQ/L (3.5-5.1)
[2020-10-05] MEDS: BACLOFEN 10 MG TAB PO SCH (11:57)
[2020-10-05 14:00] VITALS: BP 130/58
[2020-10-05] MEDS: QUEtiapine FUMARATE 25 MG TAB PO SCH (18:11)
[2020-10-05 20:00] VITALS: BP 163/75
[2020-10-05] MEDS: OMEPRAZOLE 20 MG CAP PO SCH (20:30)
[2020-10-06 05:00] VITALS: BP 163/70
[2020-10-06] MEDS: LEVOTHYROXINE 75MCG TABLET (0.075MG) PO SCH (05:31)
[2020-10-06] MEDS: SINEMET 25-100 MG TAB PO SCH ×5 (05:31→20:06)
[2020-10-06] MEDS: LEVOTHYROXINE 100MCG TABLET (0.1MG) PO SCH (05:31)
[2020-10-06 08:00] VITALS: BP 136/63
[2020-10-06] MEDS: LEVEMIR (INSULIN DETEMIR) 1 UNITS/0.01ML SC SCH (08:11)
[2020-10-06] MEDS: MULTIVITAMINS/MINERALS THERAP 1 TAB PO SCH (08:12)
[2020-10-06] MEDS: TAMSULOSIN 0.4 MG CAP PO SCH (08:12)
[2020-10-06] MEDS: PREGABALIN 100 MG CAP (LYRICA) PO SCH ×2 (08:12→20:05)
[2020-10-06] MEDS: HumaLOG INSULIN (NovoLOG) PER UNIT SC SCH ×3 (08:12→17:30)
[2020-10-06] MEDS: amLODIPine 5 MG TAB PO SCH (08:13)
[2020-10-06] MEDS: POLYVINYL ALCOHOL OPHTH SOLN 15 ML(LIQUITEARS) OU SCH ×2 (08:15→20:06)
[2020-10-06] MEDS: predniSONE 2.5 MG TAB PO SCH (08:18)
[2020-10-06] MEDS: PRIMIDONE 50 MG TAB PO SCH ×2 (08:18→20:05)
--- NOTE | 2020-10-06 09:53 | IPNPDOC ---
PM&R Progress Note DATE OF SERVICE: Oct 06, 2020 [employer] Progress Note DATE OF ADMISSION: Sep 30, 2020 at 16:30 DATE OF SERVICE: [id number] ADMITTING DIAGNOSES: 1. Chronic kidney disease stage III with a history of temporary dialysis and severe urinary tract infection. 2. Chronic balance disorder. 3. Parkinson's disease. 4. Polymyalgia rheumatica on chronic steroids 5. Mnire's disease. 6. Lumbar stenosis. 7. Chronic pain. 8. Diabetes type 2, insulin-dependent. 9. Coronary artery disease. 10. Hypothyroid. 11. Hypertension, on no current medications. 12. Hyperlipidemia. 13. Benign prostatic hypertrophy. 14. Involuntary eye closure 15. Poly-radiculo neuropathy. 16. Neurogenic claudication CHIEF COMPLAINT: Multiple falls, balance challenges, confusion with altered mental status, frequency, urgency, . INTERIM HISTORY 85-year-old male with past medical history of Parkinsons and steroid dependent polymyalgia Rheumatica who presented to ER status post multiple falls and recent episode of altered mental status associated with urinary tract infection requiring IV antibiotics. Apparently he is falling asleep frequently is 4-5 times a day for about the last year, however, things, worse when s omething changed about 3 weeks ago. His notes that he tends to Josias holding onto things when ambulating and using his walker, however, he is prone to muscle spasms and spontaneous loss of function in the lower extremities. Apparently there is an additional history of involuntary ptosis for which he is treated with periodically with Botox. notes he underwent a prior co mprehensive evaluation in [place] for possible options to consider for his low back and lower extremity complaints. However, he is not felt to be a candidate for the extensive surgical intervention that might be warranted and might not provide desired results. 7 patient was noted to continue with gait abnormalities, no falls, has frequency, urgency, wost at night, however, did have improvement with sleep with initiation of Seroquel. He had an explosive loose bowel movement. 10.04.2020. Patient again notes a reasonable nights sleep. However interrupted by frequent incomplete emptying attempts. Nursing notes postvoid residuals running in the 2 to 500s at times. Interim UA still suspicious for ongoing infection despite multiple days of Rocephin. Patient making slow progress in therapy, pain management appears to be improving with fewer episodes of lancinating pain, however, ptosis is worsening. OT notes increasing levels of confusion, difficulty with carryover of new learned activities. 10.05.2020 Sleepy this morning, still with frequency and passing cloudy malodorous urine. Rocephin. Apparently DCd. Further communication between nurse and patient revealed possible history of bladder cancer with mass that was removed, and urology consult requested due to ongoing bladder challenges, evidence of inflammation/possible infection despite protracted course of IV antibiotics. 10/06/2020 There is something wrong with my brain, complains of visual imagery lateral shifting, difficulty maintaining fixation on an image, sense of confusion and difficulty with sleepiness. Patient noted to be more hypersomnolent in the morning, possibly effect of Seroquel that was started over last weekend. REVIEW OF SYSTEMS: The following is a completed review of systems and has been reviewed. Review of systems otherwise unremarkable. PAIN: Patient self reports resolution of the intermittent electric shocklike lancinating pain in the lower extremities and chronically over the dorsum of the bilateral feet in the L5 distribution, improving over weekend. EYES: No recent vision changes, does have episodic ptosis. EARS, NOSE, & THROAT: No throat pain, or dysphagia, or rhinorrhea. CARDIOVASCULAR: Denies chest pain or palpitations. PULMONARY: Denies shortness of breath. GASTROINTESTINAL: Previuosly had severe constipation with no BM for 3 or 4 days, then multiple loose stools over weekend, now apparently abating per nursing. Laxatives changed to PRN. GENITOURINARY: . BPH, difficulty initiating stream incomplete emptying with escalating PVR and increased frequency MUSCULOSKELETAL: . Chronic low back pain NEUROLOGICAL:. Tremor, frequent falls and loss of control of the legs HEMATOLOGICAL: . Negative SKIN: . Negative PSYCHIATRIC: Unremarkable. All other review of systems found to be negative. PAST MEDICAL HISTORY: 1. Chronic kidney disease stage III with a history of temporary dialysis. 2. Chronic balance disorder. 3. Parkinson's disease. 4. Polymyalgia rheumatica on chronic steroids 5. Mnire's disease. 6. Lumbar stenosis. 7. Chronic pain. 8. Diabetes type 2, insulin-dependent. 9. Coronary artery disease. 10. Hypothyroid. 11. Hypertension, on no current medications. 12. Hyperlipidemia. 13. Benign prostatic hypertrophy. 14. Involuntary eye closure 15. Poly-radicular neuropathy PAST SURGICAL HISTORY: 1. Right inguinal hernia. 2. Left knee surgery. 3. Cholecystectomy. 4. Bilateral cataracts. 5. Repair of ptosis of the right eye. 6. Removal of bladder mass which was benign. 7. Cardiac stent ALLERGIES: Please see below. MEDICATIONS: Please see below. DIET: Regular PHYSICAL EXAMINATION: VITAL SIGNS: Please see below. GENERAL: sleepy, slightly agitated upon awakening. HEENT: Extraocular movements eyes rolling around, intermittent ptosis. No adenopathy or thyromegaly. Pupils pinpoint CARDIOVASCULAR: Regular rate and rhythm. II/. LUNGS: Clear to auscultation bilaterally. Scattered wheezes. No rhonchi. ABDOMEN: Soft, nontender, mildly distended. Positive normal active bowel sounds. NEUROLOGICAL:. 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 Tremor lessened. SKIN: . Intact. Old healed midline lumbosacral scar, with flattening of the lumbar lordosis and atrophy in the paravertebral musculature. LABORATORY DATA: Please see below. WBC 6.3 on 73. H&H 12.3 38.9, 7 UA WBC TNTC and luek est went from 2+ to 3+ , Cr creeping up 7. 7 Urine cx no growth (had just finished Rocephin) FUNCTIONAL STATUS: Premorbid: Independent with all activities of daily life as well as mobility using a front-wheeled walker. However, prone to multiple falls in the past, has reportedly not sustained head trauma or fracture with any of the falls on multiple surfaces. 7.6.21 Patient discussed in Team Meeting. Pt demonstrates improved safety and gait mechanics, specifically knee extension in stance following passive hamstring and gastroc stretching. Pt continues to be impulsive; standing and beginning to ambulate prior to PT providing CGA. Pt requires VCs to decrease gait speed and focus on turning fully prior to sitting to minimize risk of falls 7.7 Pt participating in supine and sitting ther ex and ambulated 25ft x3. Pt requires verbal and tactile cues to slow down with exercises and for proper technique. Pt requirs VC's to slow down and to keep RW within a safe distance during ambulation. Pt is very impulsive with transfers and ambulation and requires constant supervision, gait belt for safety. Patient and family training went better with son, daughters resistant to incorporating updated safety awareness education into mobility activities, will continue education. 7.8 Pt agreed to PT session. Pt remains limited by dec insight into deficits and inc speed of movement. Pt trialed W/C mobility followed by amb to attempt to inc stride length and dec gigi with carryover for first trial, however no additional carryover in future attempts. pt received sleeping in recliner, decreased safety observed with trasnfers and fx mobility compared to morning session,to increase trunk extension for safe transfers and fx mobility, pt sat EOB and engaged in reaching overhead in multiple directions, shoulder horizontal abduction to decrease flexion at trunk. ASSESSMENT:-85-year-old male with past medical history of Parkinsons and steroid dependent Polymyalgia Rheumatica who presents status post multiple falls and recent episode of altered mental status associated with urinary tract infection requiring IV antibiotics that were discontinued yesterday, urine repeat cultures pending after UA continues with WBC TNTC. Urologist who previously operated on him has been consulted to reassess. Patient notes tremor and lower extremity pain and weakness come intermittently and associated with proclivity to falling. Functional deficits are probably related to a combination of the underlying autoimmune disorders, mechanical compromise at the lumbosacral region of fragile nerves due to concurrent diabetic neuropathy. 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 7.6 moved Flomax to a.m., will continue bladder training, and Florastor. TSH noted within therapeutic range and added Baclofen which may help bladder spasms as well as MSK complaints but may be adding to hypersomnolence. PLAN: 1. Rehab- PT/OT advance gait and ADls, strengthen/stretch/maintain ROM all 4 limbs. We'll continue to work on timing pain medication with therapy interventions to optimize possible capacity to participate. Emphasis family training, carryover, safety issues. 2. Neuro- optimize various medications to minimize tremor, pain without aggrava ting resolving cognitive challenges. Baclofen helping, may need to reduce dose and timing. Does not recall if he has ever been on propanolol, which might be another agent to consider. TENS unit may also be a consideration. Will hold Seroquel tonight and see if he clears. Move Baclofen to more of an HS timing as that seems to be helping reduce pain and may help with sleeping issues, provide Vistaril as a backup PRN.. 3. Ortho- chronic low back pain. Apparently had undergone full evaluation [place]. Not considered a surgical candidate, may have some instability, lumbosacral support may provide some symptomatic relief and improved ability to participate in active therapies.Complaints seem to be abating on harris. 4. Cardiac- status post stent, asymptomatic. Well monitor response to increasing levels of activity -HTN -stable, per -HLD- dietary and patient education 5. Resp -incentive spirometry, monitor for infection 6. Endo- hypothyroid. Well give equivalent dosing on usual medication, TSH- therapeutic, DM SSI, runs FBS high 190s, Hospitalists made recent adjustments on Levemir, hospitalist team further reduced, continue to coordinate and follow. 7. - BPH, IV Antibiotics were dc 7.6 after continuing through weekend, frequency, cloudy urine continues with abnormal UA, repeat cultures were negative. continue bladder protocol, shifted Flomax to AM, persisting UTI may be impacting AMS issues as well. Await re evaluation 8. GI ppx- PPI, add Florastor, adjust bowel meds and program PROGNOSIS: Excellent. ESTIMATED LENGTH OF STAY:7-14 days. PROJECTED DISCHARGE DESTINATION: Home with family support and any durable medical equipment required to increase functional safety and mobility. TIME SPENT COUNSELING AND COORDINATING INITIAL CARE: Greater than 30 minutes. This document is generated using speech recognition software which may result in grammatical, typographical and individual word errors. Allergies Coded Allergies: Contrast Media (Verified Allergy, Intermediate, 10/21/19) HYPOTENSION PER ANESTHESIOLOGY REPORT Vital Signs Vital Signs Date Time Temp Pulse Resp B/P (MAP) Pulse Ox O2 Delivery O2 Flow Rate FiO2 10/06/20 08:13 68 136/63 10/06/20 05:00 98.3 19 93 Room Air Laboratory Data Labs 24H Laboratory Tests 2 10/05/20 11:41: Bedside Glucose (Misc Panel) 108 10/05/20 16:37: Bedside Glucose (Misc Panel) 109 10/05/20 19:12: Bedside Glucose (Misc Panel) 173H 10/06/20 05:22: Bedside Glucose (Misc Panel) 150H Microbiology Microbiology 10/04/20 Urine Culture - Final, Complete Current Medications Current Medications Current Medications Medications (Trade) Dose Ordered Sig/Kavon Route PRN Reason Start Time Stop Time Status Last Admin Dose Admin Acetaminophen (Tylenol Tab) 650 mg Q4HP PRN PO MILD PAIN (PS 1-4) 09/30/20 17:35 10/04/20 20:15 Amlodipine Besylate (Norvasc) 5 mg DAILY PO 10/02/20 09:00 10/06/20 08:13 Artificial Tears (Akwa Tears) 1 drop BID OU 09/30/20 21:00 10/06/20 08:15 Baclofen (Lioresal) 10 mg DAILY@1200 PO 10/03/20 12:00 10/06/20 09:39 DC 10/05/20 11:57 Baclofen (Lioresal) 10 mg QHS PO 10/06/20 21:00 Bisacodyl (Dulcolax Suppository) 10 mg DAILYPRN PRN [place] CONSTIPATION 09/30/20 17:35 Calcium Carbonate (Tums) 500 mg DAILY PRN PO INDIGESTION 09/30/20 17:45 10/04/20 09:26 Carbidopa/Levodopa (Sinemet 10/100) 1 tab DAILY PO 10/05/20 09:00 10/04/20 14:27 DC Carbidopa/Levodopa (Sinemet 25/100) 2 tab 5XD PO 09/30/20 17:00 10/06/20 08:13 Ceftriaxone Sodium 1 gm/ Dextrose 50 ml @ 100 mls/hr Q24H IV 09/30/20 20:00 10/04/20 09:53 DC 10/03/20 20:51 Dextrose (Dextrose 50%) 25 ml ASDIRECTED PRN IV SEE LABEL COMMENTS 09/30/20 17:50 Dextrose (Dextrose 50%) 25 ml ASDIRECTED PRN IV SEE LABEL COMMENTS 09/30/20 18:00 09/30/20 18:03 DC Docusate Sodium (Colace) 100 mg BID PO 09/30/20 21:00 10/04/20 12:27 DC 10/04/20 09:27 Docusate Sodium (Colace) 100 mg DAILY PRN PO CONSTIPATION 10/05/20 09:00 Glucagon (Glucagon) 1 mg ASDIRECTED PRN SC SEE LABEL COMMENTS 09/30/20 17:50 Glucagon (Glucagon) 1 mg ASDIRECTED PRN SC SEE LABEL COMMENTS 09/30/20 18:00 09/30/20 18:04 DC Glucose (Glucose) 16 GM ASDIRECTED PRN PO SEE LABEL COMMENTS 09/30/20 17:50 Glucose (Glucose) 16 GM ASDIRECTED PRN PO SEE LABEL COMMENTS 09/30/20 18:00 09/30/20 18:04 DC Home Med (Med Rec Complete!) ASDIRECTED XX 09/30/20 17:45 09/30/20 17:43 DC Insulin Detemir (Levemir Insulin) 15 units DAILY SC 10/02/20 09:00 10/06/20 08:11 Insulin Detemir (Levemir Insulin) 18 units DAILY SC 10/01/20 09:00 10/02/20 08:14 DC 10/01/20 08:45 Insulin Human Lispro (HumaLOG INSULIN) See Protocol Table AC SC 10/01/20 07:30 10/06/20 08:12 Levothyroxine Sodium (Synthroid) 75 mcg DAILY@06 PO 10/01/20 06:00 10/06/20 05:31 Levothyroxine Sodium (Synthroid) 100 mcg DAILY@06 PO 10/01/20 06:00 10/06/20 05:31 Magnesium Hydroxide (Milk Of Magnesia) 30 ml DAILYPRN PRN PO CONSTIPATION 09/30/20 17:35 Magnesium Oxide (Mag-Ox) 800 mg BID PO 09/30/20 21:00 Hold 10/05/20 20:30 Multivitamins (Theragram-M) 1 tab DAILY PO 10/01/20 09:00 10/06/20 08:12 Omeprazole (PriLOSEC) 40 mg QHS PO 09/30/20 21:00 10/05/20 20:30 Polyethylene Glycol (Miralax) 1 pkt DAILY PRN PO CONSTIPATION 09/30/20 17:35 Polyethylene Glycol (Miralax) 1 pkt DAILY PRN PO CONSTIPATION 09/30/20 17:45 09/30/20 17:47 DC Prednisone (Deltasone) 2.5 mg Q2D PO 10/02/20 09:00 10/06/20 08:18 Prednisone (Deltasone) 5 mg Q2D PO 10/01/20 09:00 10/05/20 08:12 Pregabalin (Lyrica) 100 mg BID PO 09/30/20 21:00 10/06/20 08:12 Primidone (Mysoline) 50 mg BID PO 09/30/20 21:00 10/06/20 08:18 Quetiapine Fumarate (SEROquel) 25 mg QPM@1800 PO 10/02/20 18:00 10/06/20 09:39 DC 10/05/20 18:11 Senna/Docusate Sodium (Senokot S) 1 tab BID PRN PO CONSTIPATION 09/30/20 21:00 10/04/20 09:26 Sodium Biphosphate/ Sodium Phosphate (Fleet Enema) 1 ea Q3DP PRN [place] CONSTIPATION 09/30/20 18:00 Tamsulosin HCl (Flomax) 0.4 mg DAILY PO 10/04/20 09:00 10/06/20 08:12 Tamsulosin HCl (Flomax) 0.4 mg DAILY@2100 PO 09/30/20 21:00 10/04/20 08:37 DC 10/03/20 20:52 YAMILETH ABDI MD Oct 06, 2020 09:53
[2020-10-06] MEDS ORDERED: hydrOXYzine 10 MG TAB PO PRN (09:55)
[2020-10-06 14:00] VITALS: BP 131/60
[2020-10-06 20:00] VITALS: BP 134/59
[2020-10-06] MEDS: OMEPRAZOLE 20 MG CAP PO SCH (20:06)
[2020-10-06] MEDS: BACLOFEN 10 MG TAB PO SCH (20:06)
[2020-10-07 05:01] VITALS: BP 123/60
[2020-10-07] MEDS: SINEMET 25-100 MG TAB PO SCH ×5 (05:53→21:30)
[2020-10-07] MEDS: LEVOTHYROXINE 75MCG TABLET (0.075MG) PO SCH (05:53)
[2020-10-07] MEDS: LEVOTHYROXINE 100MCG TABLET (0.1MG) PO SCH (05:53)
[2020-10-07] MEDS: PREGABALIN 100 MG CAP (LYRICA) PO SCH ×2 (09:19→21:30)
[2020-10-07] MEDS: TAMSULOSIN 0.4 MG CAP PO SCH (09:19)
[2020-10-07] MEDS: predniSONE 5 MG TAB PO SCH (09:19)
[2020-10-07] MEDS: HumaLOG INSULIN (NovoLOG) PER UNIT SC SCH ×3 (09:20→16:54)
[2020-10-07] MEDS: PRIMIDONE 50 MG TAB PO SCH ×2 (09:21→21:30)
[2020-10-07] MEDS: amLODIPine 5 MG TAB PO SCH (09:21)
[2020-10-07] MEDS: LEVEMIR (INSULIN DETEMIR) 1 UNITS/0.01ML SC SCH (09:21)
[2020-10-07] MEDS: MULTIVITAMINS/MINERALS THERAP 1 TAB PO SCH (09:21)
[2020-10-07] MEDS: POLYVINYL ALCOHOL OPHTH SOLN 15 ML(LIQUITEARS) OU SCH ×2 (09:22→21:31)
--- NOTE | 2020-10-07 11:40 | IPNPDOC ---
PM&R Progress Note DATE OF SERVICE: Oct 07, 2020 Nursing Technician Progress Note DATE OF ADMISSION: Sep 30, 2020 at 16:30 DATE OF ADMISSION: 09.30.2020 DATE OF SERVICE: [id number] ADMITTING DIAGNOSES: 1. Chronic kidney disease stage III with a history of temporary dialysis and severe urinary tract infection. 2. Chronic balance disorder. 3. Parkinson's disease. 4. Polymyalgia rheumatica on chronic steroids 5. Mnire's disease. 6. Lumbar stenosis. 7. Chronic pain. 8. Diabetes type 2, insulin-dependent. 9. Coronary artery disease. 10. Hypothyroid. 11. Hypertension, on no current medications. 12. Hyperlipidemia. 13. Benign prostatic hypertrophy. 14. Involuntary eye closure 15. Poly-radiculo neuropathy. 16. Neurogenic claudication . CHIEF COMPLAINT: Multiple falls, balance challenges, confusion with altered mental status, freque ncy, urgency, . INTERIM HISTORY 85-year-old male with past medical history of Parkinsons and steroid dependent polymyalgia Rheumatica who presented to ER status post multiple falls and recent episode of altered mental status associated with urinary tract infection requiring IV antibiotics. Apparently he is falling asleep frequently is 4-5 times a day for about the last year, however, things, worse when something changed about 3 weeks ago. His notes that he tends to Josias holding onto things when ambulating and using his walker, however, he is prone to muscle spasms and spontaneous loss of function in the lower extremities. Apparently there is an additional history of involuntary ptosis for which he is treated with periodically with Botox. notes he underwent a prior comprehensive evaluation in [place] for possible options to consider for his low back and lower extremity complaints. However, he is not felt to be a candidate for the extensive surgical intervention that might be warranted and might not provide desired results. 10.03.2020 patient was noted to continue with gait abnormalities, no falls, has frequency, urgency, wost at night, however, did have improvement with sleep with initiation of Seroquel. He had an explosive loose bowel movement. 10.04.2020. Patient again notes a reasonable nights sleep. However interrupted by frequent incomplete emptying attempts. Nursing notes postvoid residuals running in the 2 to 500s at times. Interim UA still suspicious for ongoing infection despite multiple days of Rocephin. Patient making slow progress in therapy, pain management appears to be improving with fewer episodes of lancinating pain, however, ptosis is worsening. OT notes increasing levels of confusion, difficulty with carryover of new learned activities. 10.05.2020 Sleepy this morning, still with frequency and passing cloudy malodorous urine. Rocephin. Apparently DCd. Further communication between nurse and patient revealed possible history of bladder cancer with mass that was removed, and urology consult requested due to ongoing bladder challenges, evidence of inflammation/possible infection despite protracted course of IV antibiotics. 10/06/2020 There is something wrong with my brain, complains of visual imagery lateral shifting, difficulty maintaining fixation on an image, sense of confusion and difficulty with sleepiness. Patient noted to be more hypersomnolen t in the morning, possibly effect of Seroquel that was started over last weekend. 10.07.2020 Clearing cognitively this morning and overall seems to be having a better day. Since he slept quite well and the pain is lessened in frequency and intensity in the lower extremities. Continues with urgent frequency of urination. REVIEW OF SYSTEMS: The following is a completed review of systems and has been reviewed. Review of systems otherwise unremarkable. PAIN: Patient self reports resolution of the intermittent electric shocklike lancinating pain in the lower extremities and chronically over the dorsum of the bilateral feet in the L5 distribution, improving over weekend. EYES: No recent vision changes, does have episodic ptosis. EARS, NOSE, & THROAT: No throat pain, or dysphagia, or rhinorrhea. CARDIOVASCULAR: Denies chest pain or palpitations. PULMONARY: Denies shortness of breath. GASTROINTESTINAL: Previously had severe constipation with no BM for 3 or 4 days, then multiple loose stools over weekend, now apparently abating per nursing. Laxatives changed to PRN. GENITOURINARY: . BPH, history of prior bladder mass resection, difficulty ini tiating stream incomplete emptying with escalating PVR and increased frequency MUSCULOSKELETAL: . Chronic low back pain NEUROLOGICAL:. Tremor, frequent falls and loss of control of the legs HEMATOLOGICAL: . Negative SKIN: . Negative PSYCHIATRIC: Unremarkable. All other review of systems found to be negative. PAST MEDICAL HISTORY: 1. Chronic kidney disease stage III with a history of temporary dialysis. 2. Chronic balance disorder. 3. Parkinson's disease. 4. Polymyalgia rheumatica on chronic steroids 5. Mnire's disease. 6. Lumbar stenosis. 7. Chronic pain. 8. Diabetes type 2, insulin-dependent. 9. Coronary artery disease. 10. Hypothyroid. 11. Hypertension, on no current medications. 12. Hyperlipidemia. 13. Benign prostatic hypertrophy. 14. Involuntary eye closure 15. Poly-radicular neuropathy PAST SURGICAL HISTORY: 1. Right inguinal hernia. 2. Left knee surgery. 3. Cholecystectomy. 4. Bilateral cataracts. 5. Repair of ptosis of the right eye. 6. Removal of bladder mass which was benign. 7. Cardiac stent ALLERGIES: Please see below. MEDICATIONS: Please see below. DIET: Regular PHYSICAL EXAMINATION: VITAL SIGNS: Please see below. GENERAL: sleepy, slightly agitated upon awakening. HEENT: Extraocular movements eyes rolling around, intermittent ptosis. No a denopathy or thyromegaly. Pupils pinpoint CARDIOVASCULAR: Regular rate and rhythm. II/. LUNGS: Clear to auscultation bilaterally. Scattered wheezes. No rhonchi. ABDOMEN: Soft, nontender, mildly distended. Positive normal active bowel sounds. NEUROLOGICAL:. Sensation grossly intact EXTREMITIES: 5/5 multicultural internship bilateral upper extremities. Tremor lessened. SKIN: . Intact. Old healed midline lumbosacral scar, with flattening of the lumbar lordosis and atrophy in the paravertebral musculature. LABORATORY DATA: Please see below. WBC 6.3 on 73. H&H 12.3 38.9, 7/6 UA WBC TNTC and luek est went from 2+ to 3+ , Cr creeping up 7. 7 Urine cx no growth (had just finished Rocephin) FUNCTIONAL STATUS: Premorbid: Independent with all activities of daily life as well as mobility using a front-wheeled walker. However, prone to multiple falls in the past, has reportedly not sustained head trauma or fracture with any of the falls on multiple surfaces. 7.6.21 Patient discussed in Team Meeting. Pt demonstrates improved safety and gait mechanics, specifically knee extension in stance following passive hamstring and gastroc stretching. Pt continues to be impulsive; standing and beginning to ambulate prior to PT providing CGA. Pt requires VCs to decrease gait speed and focus on turning fully prior to sitting to minimize risk of falls 7.7.2020 Pt participating in supine and sitting ther ex and ambulated 25ft x3. Pt requires verbal and tactile cues to slow down with exercises and for proper technique. Pt requirs VC's to slow down and to keep RW within a safe distance during ambulation. Pt is very impulsive with transfers and ambulation and requires constant supervision, gait belt for safety. Patient and family training went better with son, daughters resistant to incorporating updated safety awareness education into mobility activities, will continue education. 10.06.2020 Pt agreed to PT session. Pt remains limited by dec insight into deficits and inc speed of movement. Pt trialed W/C mobility followed by amb to attempt to inc stride length and dec gigi with carryover for first trial, however no additional carryover in future attempts. pt received sleeping in recliner, decreased safety observed with trasnfers and fx mobility compared to morning session,to increase trunk extension for safe transfers and fx mobility, pt sat EOB and engaged in reaching overhead in multiple directions, shoulder horizontal abduction to decrease flexion at trunk. 10.07.2020 Pt present and reports pt walking "better" and "standing taller" compared to when he is at home. Pt ambulates 200' with RW in hallway with VCs to extend knees and maintain RW within closer proximity. Pt responds well to cueing; pt states she often tells him to use his walker at home with fair response as he feels he can walk short distances without it. Pt sitting in recliner with chair alarm on and present. Pt and pt open to using w/c for home mobility if safe and allows pt more (I) and lowers risk of falls; will assess mobility and transfers from wc in subsequent sessions. ASSESSMENT:-85-year-old male with past medical history of Parkinsons and steroid dependent Polymyalgia Rheumatica who presents status post multiple falls and recent episode of altered mental status associated with urinary tract infection requiring IV antibiotics that were discontinued yesterday, urine repeat cultures pending after UA continues with WBC TNTC. Urologist who previously operated on him has been consulted to reassess. Patient notes tremor and lower extremity pain and weakness come intermittently and associated with proclivity to falling. Functional deficits are probably related to a combination of the underlying autoimmune disorders, mechanical compromise at the lumbosacral region of fragile nerves due to concurrent diabetic neuropathy. Ptosis is interesting, the useful to find the original workup, and some was present similar to myasthenia gravis. 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 PLAN: 7.6 moved Flomax to a.m., will continue bladder training, and Florastor. TSH noted within therapeutic range and added Baclofen which may help bladder spasms as well as MSK complaints but may be adding to hypersomnolence. 1. Rehab- PT/OT advance gait and ADls, strengthen/stretch/maintain ROM all 4 limbs. We'll continue to work on timing pain medication with therapy interventions to optimize possible capacity to participate. Emphasis family training, carryover, safety issues, making good progress, may try adding light weights to feet and walker to increase proprioceptive feedback 2. Neuro- optimize various medications to minimize tremor, pain without aggravating resolving cognitive challenges. Baclofen helping, may need to reduce dose and timing. Does not recall if he has ever been on propanolol, which might be another agent to consider, however. Tremor is improving. TENS unit may also be a consideration. Stopped Seroquel and it appears that he is clearing. Moved Baclofen to more of an HS timing as that seems to be helping reduce pain and is helping with sleeping issues, may provide Vistaril as a backup PRN.. 3. Ortho- chronic low back pain. Apparently had undergone full evaluation [place]. Not considered a surgical candidate, may have some instability, lumbosacral support may provide some symptomatic relief and improved ability to participate in active therapies. Complaints seem to be abating on harris. 4. Cardiac- status post stent, asymptomatic. Well monitor response to increasing levels of activity -HTN -stable, per -HLD- dietary and patient education 5. Resp -incentive spirometry, monitor for infection 6. Endo- hypothyroid. Well give equivalent dosing on usual medication, TSH- therapeutic, DM SSI, runs FBS high 190s, Hospitalists made recent adjustments on Levemir, hospitalist team further reduced, continue to coordinate and follow. 7. - BPH, IV Antibiotics were dc 7.6 after continuing through weekend, frequency, cloudy urine continues with abnormal UA, repeat cultures were negative. continue bladder protocol, shifted Flomax to AM, persisting UTI may be impacting AMS issues as well. Await re evaluation 8. GI ppx- PPI, add Florastor, adjust bowel meds and program PROGNOSIS: Excellent. ESTIMATED LENGTH OF STAY:7-14 days. PROJECTED DISCHARGE DESTINATION: Home with family support and any durable medical equipment required to increase functional safety and mobility. TIME SPENT COUNSELING AND COORDINATING INITIAL CARE: Greater than 30 minutes. This document is generated using speech recognition software which may result in grammatical, typographical and individual word errors. Allergies Coded Allergies: Contrast Media (Verified Allergy, Intermediate, 10/21/19) HYPOTENSION PER ANESTHESIOLOGY REPORT Vital Signs Vital Signs Date Time Temp Pulse Resp B/P (MAP) Pulse Ox O2 Delivery O2 Flow Rate FiO2 10/07/20 09:21 64 123/60 10/07/20 05:01 98.2 17 94 Room Air Laboratory Data Labs 24H Laboratory Tests 2 10/06/20 11:56: Bedside Glucose (Misc Panel) 234H 10/06/20 17:13: Bedside Glucose (Misc Panel) 180H 10/06/20 19:24: Bedside Glucose (Misc Panel) 144H 10/07/20 05:26: Bedside Glucose (Misc Panel) 132H Microbiology Microbiology 10/04/20 Urine Culture - Final, Complete Current Medications Current Medications Current Medications Medications (Trade) Dose Ordered Sig/Kavon Route PRN Reason Start Time Stop Time Status Last Admin Dose Admin Acetaminophen (Tylenol Tab) 650 mg Q4HP PRN PO MILD PAIN (PS 1-4) 09/30/20 17:35 10/04/20 20:15 Amlodipine Besylate (Norvasc) 5 mg DAILY PO 10/02/20 09:00 10/07/20 09:21 Artificial Tears (Akwa Tears) 1 drop BID OU 09/30/20 21:00 10/07/20 09:22 Baclofen (Lioresal) 10 mg DAILY@1200 PO 10/03/20 12:00 10/06/20 09:39 DC 10/05/20 11:57 Baclofen (Lioresal) 10 mg QHS PO 10/06/20 21:00 10/06/20 20:06 Bisacodyl (Dulcolax Suppository) 10 mg DAILYPRN PRN [place] CONSTIPATION 09/30/20 17:35 Calcium Carbonate (Tums) 500 mg DAILY PRN PO INDIGESTION 09/30/20 17:45 10/04/20 09:26 Carbidopa/Levodopa (Sinemet 10/100) 1 tab DAILY PO 10/05/20 09:00 10/04/20 14:27 DC Carbidopa/Levodopa (Sinemet 25/100) 2 tab 5XD PO 09/30/20 17:00 10/07/20 09:22 Ceftriaxone Sodium 1 gm/ Dextrose 50 ml @ 100 mls/hr Q24H IV 09/30/20 20:00 10/04/20 09:53 DC 10/03/20 20:51 Dextrose (Dextrose 50%) 25 ml ASDIRECTED PRN IV SEE LABEL COMMENTS 09/30/20 17:50 Dextrose (Dextrose 50%) 25 ml ASDIRECTED PRN IV SEE LABEL COMMENTS 09/30/20 18:00 09/30/20 18:03 DC Docusate Sodium (Colace) 100 mg BID PO 09/30/20 21:00 10/04/20 12:27 DC 10/04/20 09:27 Docusate Sodium (Colace) 100 mg DAILY PRN PO CONSTIPATION 10/05/20 09:00 Glucagon (Glucagon) 1 mg ASDIRECTED PRN SC SEE LABEL COMMENTS 09/30/20 17:50 Glucagon (Glucagon) 1 mg ASDIRECTED PRN SC SEE LABEL COMMENTS 09/30/20 18:00 09/30/20 18:04 DC Glucose (Glucose) 16 GM ASDIRECTED PRN PO SEE LABEL COMMENTS 09/30/20 17:50 Glucose (Glucose) 16 GM ASDIRECTED PRN PO SEE LABEL COMMENTS 09/30/20 18:00 09/30/20 18:04 DC Home Med (Med Rec Complete!) ASDIRECTED XX 09/30/20 17:45 09/30/20 17:43 DC Hydroxyzine HCl (Atarax) 10 mg QPMP PRN PO INSOMNIA 10/06/20 09:55 Insulin Detemir (Levemir Insulin) 15 units DAILY SC 10/02/20 09:00 10/07/20 09:21 Insulin Detemir (Levemir Insulin) 18 units DAILY SC 10/01/20 09:00 10/02/20 08:14 DC 10/01/20 08:45 Insulin Human Lispro (HumaLOG INSULIN) See Protocol Table AC SC 10/01/20 07:30 10/07/20 09:20 Levothyroxine Sodium (Synthroid) 75 mcg DAILY@06 PO 10/01/20 06:00 10/07/20 05:53 Levothyroxine Sodium (Synthroid) 100 mcg DAILY@06 PO 10/01/20 06:00 10/07/20 05:53 Magnesium Hydroxide (Milk Of Magnesia) 30 ml DAILYPRN PRN PO CONSTIPATION 09/30/20 17:35 Magnesium Oxide (Mag-Ox) 800 mg BID PO 09/30/20 21:00 Hold 10/05/20 20:30 Multivitamins (Theragram-M) 1 tab DAILY PO 10/01/20 09:00 10/07/20 09:21 Omeprazole (PriLOSEC) 40 mg QHS PO 09/30/20 21:00 10/06/20 20:06 Polyethylene Glycol (Miralax) 1 pkt DAILY PRN PO CONSTIPATION 09/30/20 17:35 Polyethylene Glycol (Miralax) 1 pkt DAILY PRN PO CONSTIPATION 09/30/20 17:45 09/30/20 17:47 DC Prednisone (Deltasone) 2.5 mg Q2D PO 10/02/20 09:00 10/06/20 08:18 Prednisone (Deltasone) 5 mg Q2D PO 10/01/20 09:00 10/07/20 09:19 Pregabalin (Lyrica) 100 mg BID PO 09/30/20 21:00 10/07/20 09:19 Primidone (Mysoline) 50 mg BID PO 09/30/20 21:00 10/07/20 09:21 Quetiapine Fumarate (SEROquel) 25 mg QPM@1800 PO 10/02/20 18:00 10/06/20 09:39 DC 10/05/20 18:11 Senna/Docusate Sodium (Senokot S) 1 tab BID PRN PO CONSTIPATION 09/30/20 21:00 10/04/20 09:26 Sodium Biphosphate/ Sodium Phosphate (Fleet Enema) 1 ea Q3DP PRN [place] CONSTIPATION 09/30/20 18:00 Tamsulosin HCl (Flomax) 0.4 mg DAILY PO 10/04/20 09:00 10/07/20 09:19 Tamsulosin HCl (Flomax) 0.4 mg DAILY@2100 PO 09/30/20 21:00 10/04/20 08:37 DC 10/03/20 20:52 YAMILETH ABDI MD Oct 07, 2020 11:40
[2020-10-07 14:00] VITALS: BP 105/53
[2020-10-07 20:00] VITALS: BP 160/71
[2020-10-07] MEDS: BACLOFEN 10 MG TAB PO SCH (21:30)
[2020-10-07] MEDS: OMEPRAZOLE 20 MG CAP PO SCH (21:31)
[2020-10-08 06:00] VITALS: BP 165/74
[2020-10-08] MEDS: LEVOTHYROXINE 75MCG TABLET (0.075MG) PO SCH (06:27)
[2020-10-08] MEDS: SINEMET 25-100 MG TAB PO SCH ×5 (06:27→20:36)
[2020-10-08] MEDS: LEVOTHYROXINE 100MCG TABLET (0.1MG) PO SCH (06:27)
[2020-10-08] MEDS: LEVEMIR (INSULIN DETEMIR) 1 UNITS/0.01ML SC SCH (08:18)
[2020-10-08] MEDS: TAMSULOSIN 0.4 MG CAP PO SCH (08:19)
[2020-10-08] MEDS: HumaLOG INSULIN (NovoLOG) PER UNIT SC SCH ×3 (08:19→17:19)
[2020-10-08] MEDS: PRIMIDONE 50 MG TAB PO SCH ×2 (08:19→20:36)
[2020-10-08] MEDS: PREGABALIN 100 MG CAP (LYRICA) PO SCH ×2 (08:19→20:36)
[2020-10-08] MEDS: predniSONE 2.5 MG TAB PO SCH (08:20)
[2020-10-08] MEDS: amLODIPine 5 MG TAB PO SCH (08:20)
[2020-10-08] MEDS: POLYVINYL ALCOHOL OPHTH SOLN 15 ML(LIQUITEARS) OU SCH ×2 (08:20→20:36)
[2020-10-08] MEDS: MULTIVITAMINS/MINERALS THERAP 1 TAB PO SCH (08:20)
[2020-10-08 14:00] VITALS: BP 117/58
[2020-10-08 20:30] VITALS: BP 161/76
[2020-10-08] MEDS: BACLOFEN 10 MG TAB PO SCH (20:36)
[2020-10-08] MEDS: OMEPRAZOLE 20 MG CAP PO SCH (20:36)
[2020-10-09] MEDS: SINEMET 25-100 MG TAB PO SCH ×5 (05:26→21:55)
[2020-10-09] MEDS: LEVOTHYROXINE 75MCG TABLET (0.075MG) PO SCH (05:26)
[2020-10-09] MEDS: LEVOTHYROXINE 100MCG TABLET (0.1MG) PO SCH (05:26)
[2020-10-09 06:00] VITALS: BP 162/74
[2020-10-09] MEDS: ACETAMINOPHEN TAB 650MG DOSE (2X325MG) PO PRN (06:53)
[2020-10-09] MEDS: LEVEMIR (INSULIN DETEMIR) 1 UNITS/0.01ML SC SCH (07:32)
[2020-10-09] MEDS: HumaLOG INSULIN (NovoLOG) PER UNIT SC SCH ×3 (07:32→17:16)
[2020-10-09] MEDS: PRIMIDONE 50 MG TAB PO SCH ×2 (07:33→21:55)
[2020-10-09] MEDS: MULTIVITAMINS/MINERALS THERAP 1 TAB PO SCH (07:33)
[2020-10-09] MEDS: predniSONE 5 MG TAB PO SCH (07:33)
[2020-10-09] MEDS: TAMSULOSIN 0.4 MG CAP PO SCH (07:33)
[2020-10-09] MEDS: amLODIPine 5 MG TAB PO SCH (07:33)
[2020-10-09] MEDS: PREGABALIN 100 MG CAP (LYRICA) PO SCH ×2 (07:33→21:55)
[2020-10-09] MEDS: POLYVINYL ALCOHOL OPHTH SOLN 15 ML(LIQUITEARS) OU SCH ×2 (07:34→21:56)
[2020-10-09 14:00] VITALS: BP 158/60
[2020-10-09 20:00] VITALS: BP 149/65
[2020-10-09] MEDS: OMEPRAZOLE 20 MG CAP PO SCH (21:55)
[2020-10-09] MEDS: BACLOFEN 10 MG TAB PO SCH (21:55)
[2020-10-10] MEDS ORDERED: PILL CUTTER 1 EACH XX PRN (00:15)
[2020-10-10 05:16] VITALS: BP 148/67
[2020-10-10] MEDS: LEVOTHYROXINE 75MCG TABLET (0.075MG) PO SCH (06:01)
[2020-10-10] MEDS: LEVOTHYROXINE 100MCG TABLET (0.1MG) PO SCH (06:01)
[2020-10-10] MEDS: SINEMET 25-100 MG TAB PO SCH ×5 (06:02→21:35)
[2020-10-10 07:36] LABS: BASO % 0.3 % (0.0-1.0); EOS # 0.2 10^3/uL (0.0-0.5); EOS % 2.8 % (0.0-3.0); HEMATOCRIT 38.8 % (42.0-52.0); HEMOGLOBIN 12.1 g/dl (13.5-17.5); LYMPH % 13.9 % (24.0-44.0); MEAN CORPUSCULAR HEMOGLOBIN 29.7 pg (27.0-33.0); MEAN CORPUSCULAR HGB CONC 31.2 g/dl (32.0-36.5); MEAN CORPUSCULAR VOLUME 95.3 fl (80.0-96.0); MONO # 0.5 10^3/uL (0.0-0.8); MONO % 6.9 % (2.0-8.0); NEUTROPHILS # 5.5 10^3/uL (1.5-8.5); NEUTROPHILS % 75.7 % (36.0-66.0); PLATELET COUNT, AUTOMATED 180 10^3/uL (150-450); RED BLOOD COUNT 4.07 10^6/uL (4.30-6.10); WHITE BLOOD COUNT 7.3 10^3/uL (4.0-10.0)
[2020-10-10 07:56] LABS: CALCIUM LEVEL 7.9 MG/DL (8.8-10.2); CREATININE FOR GFR 1.47 MG/DL (0.70-1.30); GLOMERULAR FILTRATION RATE 48.6 (>35)
[2020-10-10] MEDS: PRIMIDONE 50 MG TAB PO SCH ×2 (08:04→21:35)
[2020-10-10] MEDS: MULTIVITAMINS/MINERALS THERAP 1 TAB PO SCH (08:05)
[2020-10-10] MEDS: LEVEMIR (INSULIN DETEMIR) 1 UNITS/0.01ML SC SCH (08:05)
[2020-10-10] MEDS: TAMSULOSIN 0.4 MG CAP PO SCH (08:05)
[2020-10-10] MEDS: PREGABALIN 100 MG CAP (LYRICA) PO SCH ×2 (08:05→21:34)
[2020-10-10] MEDS: predniSONE 2.5 MG TAB PO SCH (08:05)
[2020-10-10] MEDS: HumaLOG INSULIN (NovoLOG) PER UNIT SC SCH ×3 (08:06→16:42)
[2020-10-10] MEDS: POLYVINYL ALCOHOL OPHTH SOLN 15 ML(LIQUITEARS) OU SCH ×2 (08:06→21:35)
[2020-10-10] MEDS: amLODIPine 5 MG TAB PO SCH (08:09)
[2020-10-10] MEDS: MAGNESIUM OXIDE 400MG TAB (MAG-OX) PO SCH ×2 (08:09→21:47)
[2020-10-10 14:00] VITALS: BP 133/78
--- NOTE | 2020-10-10 19:16 | IPNPDOC ---
Date Seen The patient was seen on 10/10/20. Progress Note SUBJECTIVE: 85-year-old M with Parkinson's disease, PMR on chronic steroids, CKD3, DM, history of HTN, hypothyroidism, involuntary eye closure managed with botox shots, chronic back pain with lumbar stenosis, chronic balance disorder with frequent falls at home who presented with one-month of urinary frequency and urgency and AMS, suspected to have metabolic encephalopathy 2/2 UTI. Lack of support system at home. Presently received rehab services at [facility]. Seen and examined at bedside. Doing well. Progressing with PT per [facility]. OBJECTIVE PHYSICAL EXAMINATION: VITAL SIGNS: please see below General: NAD, comfortable HEENT: PERRLA, EOMI, sclerae clear Neck: supple, normal ROM, no JVD Respiratory: lungs CTAB, no wheeze, no rales, no crackles CVS: RRR, normal S1, S2, no murmurs Abdo: soft, no masses, no hepatosplenomegaly, BS+, no rebound tenderness Extremities: 1+ pitting edema. MSK: no joint deformities, normal ROM Neuro: no focal neuro deficits, moving all 4 extremities, CN2-12 intact. Slightl weakness in bilateral lower extremities. 5/5 strength in upper extremities. Psych: calm, cooperative, AAO x 3 LABORATORY DATA, IMAGING STUDIES, MICROBIOLOGY: Please see below. DVT prophylaxis ordered?: TEDs. SCDs. ASSESSMENT AND PLAN: Edema - noted on 10/10/20 - obtain venous duplex b/l - check bnp - add furosemide 20 mg daily NIYA on CKD: glennyley prerenal, improved with hydration - Cr slightly elevated - started furosemide 20 mg - repeat BMP UTI with superimposed encephalopathy - completed course of ceftriaxone Dementia with prolonged episodes of delirium - per chart review, patient being followed by Dr. Blunt in outpatient setting - confirms hx of dementia, superimposed episodes of delirium - to follow up as outpatient with neurology - D/w Dr. Shipman. Will trial seroquel 25 mg PO qpm at 1800. Multiple falls at home with progressive weakness and forgetfulness: - probably secondary to progression of Parkinson's disease, polymyalgia rheumatica, chronic gait disturbance and balance disorder. -Continue home medications including Sinemet, prednisone, primidone. -f/u with neurology promptly on DC - rehab services per [facility]. Diabetes type 2, insulin-dependent. -labile BG, occasional hypoglycemia to 60s. - reduce levemir from 18 units to 15 units daily - monitor blood glucose before meals and at bedtime. -consistent carbohydrate diet. -SSI -hypoglycemia protocol Hypertension, essential, poorly controlled. - previously not on meds - BP fuond to be elevated 174/88 - start amlodipine 5 mg daily Hypothyroid. -TSH was normal. -Continue hormone replacement. Chronic pain. -continue home Lyrica. Benign prostatic hypertrophy. -continue home Flomax. Dispo: per [facility]. VS, I&O, 24H, Fishbone Vital Signs/I&O Vital Signs Date Time Temp Pulse Resp B/P (MAP) Pulse Ox O2 Delivery O2 Flow Rate FiO2 10/10/20 14:00 97.4 61 16 133/78 (96) 97 Room Air I&O- Last 24 Hours up to 6 AM 10/10/20 06:00 Intake Total 720 ml Balance 720 ml Laboratory Data 24H LABS Laboratory Tests 2 10/09/20 19:43: Bedside Glucose (Misc Panel) 114H 10/10/20 05:29: Bedside Glucose (Misc Panel) 150H 10/10/20 07:23: Immature Granulocyte % (Auto) 0.4, Neutrophils (%) (Auto) 75.7H, Lymphocytes (%) (Auto) 13.9L, Monocytes (%) (Auto) 6.9, Eosinophils (%) (Auto) 2.8, Basophils (%) (Auto) 0.3, Neutrophils # (Auto) 5.5, Lymphocytes # (Auto) 1.0L, Monocytes # (Auto) 0.5, Eosinophils # (Auto) 0.2, Basophils # (Auto) 0.0, Nucleated Red Blood Cells % (auto) 0.0, Anion Gap 4L, Glomerular Filtration Rate 48.6, Calcium Level 7.9L 10/10/20 12:05: Bedside Glucose (Misc Panel) 185H 10/10/20 16:36: Bedside Glucose (Misc Panel) 180H CBC/BMP Laboratory Tests 10/10/20 07:23 Microbiology Microbiology 10/04/20 Urine Culture - Final, Complete MARKUS OCASIO MD Oct 10, 2020 19:16
[2020-10-10 20:00] VITALS: BP 145/64
--- NOTE | 2020-10-10 21:27 | REPVR ---
PROCEDURE INFORMATION: Exam: US Duplex Lower Extremity Veins, Bilateral Exam date and time: 10/10/2020 9:01 PM Age: 85 years old Clinical indication: Screening exam; R/O dvt TECHNIQUE: Imaging protocol: Real-time duplex ultrasound of the extremities with 2-D plunkett scale, color Doppler flow and spectral waveform analysis with image documentation. Complete exam focused on the bilateral lower extremity veins. COMPARISON: US Duplex, Ext,LOWER veins,unilat 04/06/2015 2:47 PM FINDINGS: Right deep veins: Unremarkable. The common femoral, femoral, proximal profunda femoral and popliteal veins are patent without thrombus. Normal Doppler waveforms. Normal compressibility and/or augmentation response. Right superficial veins: Saphenofemoral junction is patent without thrombus. Left deep veins: Unremarkable. The common femoral, femoral, proximal profunda femoral and popliteal veins are patent without thrombus. Normal Doppler waveforms. Normal compressibility and/or augmentation response. Left superficial veins: Saphenofemoral junction is patent without thrombus. Soft tissues: Unremarkable. IMPRESSION: No evidence of deep vein thrombosis. Electronically signed by: Bolivar Hawk On 10/10/2020 21:27:04 PM
[2020-10-10] MEDS: OMEPRAZOLE 20 MG CAP PO SCH (21:35)
[2020-10-10] MEDS: BACLOFEN 10 MG TAB PO SCH (21:35)
[2020-10-11] MEDS: LEVOTHYROXINE 100MCG TABLET (0.1MG) PO SCH (05:06)
[2020-10-11] MEDS: SINEMET 25-100 MG TAB PO SCH ×3 (05:06→12:05)
[2020-10-11] MEDS: LEVOTHYROXINE 75MCG TABLET (0.075MG) PO SCH (05:06)
[2020-10-11 05:27] VITALS: BP 104/55
[2020-10-11 07:12] LABS: CALCIUM LEVEL 8.1 MG/DL (8.8-10.2); CREATININE FOR GFR 1.27 MG/DL (0.70-1.30); GLOMERULAR FILTRATION RATE 57.5 (>35); POTASSIUM SERUM 4.9 MEQ/L (3.5-5.1)
[2020-10-11] MEDS: TAMSULOSIN 0.4 MG CAP PO SCH (08:52)
[2020-10-11] MEDS: predniSONE 5 MG TAB PO SCH (08:53)
[2020-10-11] MEDS: PRIMIDONE 50 MG TAB PO SCH (08:53)
[2020-10-11 08:54] VITALS: BP 112/60
[2020-10-11] MEDS: amLODIPine 5 MG TAB PO SCH (08:54)
[2020-10-11] MEDS: CALCIUM CARBONATE 500 MG CHEW U/D PO PRN (08:54)
[2020-10-11] MEDS: PREGABALIN 100 MG CAP (LYRICA) PO SCH (08:54)
[2020-10-11] MEDS: HumaLOG INSULIN (NovoLOG) PER UNIT SC SCH ×2 (08:55→12:03)
[2020-10-11] MEDS: LEVEMIR (INSULIN DETEMIR) 1 UNITS/0.01ML SC SCH (08:56)
[2020-10-11] MEDS: POLYVINYL ALCOHOL OPHTH SOLN 15 ML(LIQUITEARS) OU SCH (08:56)
[2020-10-11] MEDS: MAGNESIUM OXIDE 400MG TAB (MAG-OX) PO SCH (09:00)
[2020-10-11] MEDS: MULTIVITAMINS/MINERALS THERAP 1 TAB PO SCH (09:00)
[2020-10-11] MEDS ORDERED: FUROSEMIDE 20 MG TAB PO SCH (09:00)
[2020-10-11 14:00] VITALS: BP 121/59
[2020-10-11] MEDS ORDERED: INSUDET SC (14:46)
[2020-10-11] MEDS ORDERED: PRED25TA PO (14:46)
[2020-10-11] MEDS ORDERED: CARB25TA9 PO (14:46)
[2020-10-11] MEDS ORDERED: FLOM0.4C39 PO (14:46)
[2020-10-11] MEDS ORDERED: PRED5TA PO (14:46)
[2020-10-11] MEDS ORDERED: FURO20TA2 PO (14:46)
[2020-10-11] MEDS ORDERED: BACL10TA2 PO (14:46)
[2020-10-11] MEDS ORDERED: AMLO1TAB24 PO (14:46)
[2020-10-11] MEDS ORDERED: OMEP-218 PO (14:46)
[2020-10-11] MEDS ORDERED: MAGN400T2 PO (14:46)
[2020-10-11] MEDS ORDERED: EUTH175T PO (14:46)
[2020-10-11] MEDS ORDERED: MYSO50TA5 PO (14:48)
--- NOTE | 2020-10-12 08:32 | PMRDS ---
NAME: JUAN PABLO [facility] WT ID#: [id number] JOB: [id number] MAURICIO: 10/11/2020 ACCT: [id number] DOCTOR: FRED ORTA MD PMR DISCHARGE SUMMARY DATE OF ADMISSION: 09/30/2020 DATE OF DISCHARGE: 10/11/2020 CHIEF COMPLAINT/DISCHARGE DIAGNOSIS: Falls in the setting of Parkinson's disease. HISTORY OF PRESENT ILLNESS: This is an 85-year-old man with a past medical history of Parkinson's and steroid-dependent polymyalgia rheumatica, Meniere's, lumbar stenosis, chronic pain, diabetes, coronary artery disease (CAD), hypothyroidism, hypertension, hyperlipidemia, polyradicular neuropathy who presented to the emergency room status post multiple falls and recent episode of altered mental status associated with urinary tract infection requiring IV antibiotics. He was admitted to the rehab unit for gait and mobility impairment in the setting of worsening weakness due to urinary tract infection. PAST MEDICAL HISTORY: As per history of present illness (HPI). HOSPITAL COURSE: Patient was admitted and enrolled in a comprehensive PT, OT, speech and language pathology program. He received 24 hour nursing supervision, and weekly team meetings were held to discuss his progress. Patient's tremor was treated with baclofen, and he was maintained on Sinemet for his Parkinson's. His diabetes was controlled with insulin, and his neuropathy was controlled with Lyrica. He had episodes of delirium for which a trial of Seroquel was started. And, his blood pressure was treated with amlodipine. He made slow, steady gains in therapy and was deemed medically and functionally stable to return home at a wheelchair level. DISCHARGE MEDICATIONS: As per instructions. FUNCTIONAL HISTORY ON DISCHARGE: Patient was contact guard to minimum assist for ambulation and stair negotiation. Thank you for this referral.
== END 2020-10-11 16:45 | disposition home health service (06) | DRG 57 ==
LOC: M PM&R 16:30
PROVIDERS: ADMIT Physical Medicine & Rehabilitation; ATTEND Physical Medicine & Rehabilitation
DX: G20 Parkinson's disease (principal); N18.30 Chronic kidney disease, stage 3 unspecified; M35.3 Polymyalgia rheumatica; M48.062 Spinal stenosis, lumbar region with neurogenic claudication; H81.09 Meniere's disease, unspecified ear; G89.29 Other chronic pain; E11.22 Type 2 diabetes mellitus with diabetic chronic kidney disease; I25.10 Atherosclerotic heart disease of native coronary artery without angina pectoris; E03.9 Hypothyroidism, unspecified; I12.9 Hypertensive chronic kidney disease with stage 1 through stage 4 chronic kidney disease, or unspecified chronic kidney disease; E78.5 Hyperlipidemia, unspecified; N40.1 Benign prostatic hyperplasia with lower urinary tract symptoms; K59.00 Constipation, unspecified; H02.409 Unspecified ptosis of unspecified eyelid; R29.6 Repeated falls; R39.12 Poor urinary stream; R26.0 Ataxic gait; M54.5 Low back pain; Z95.5 Presence of coronary angioplasty implant and graft; Z79.4 Long term (current) use of insulin; Z79.52 Long term (current) use of systemic steroids; Z79.899 Other long term (current) drug therapy; Z91.041 Radiographic dye allergy status; Z66 Do not resuscitate; E11.40 Type 2 diabetes mellitus with diabetic neuropathy, unspecified

== ENCOUNTER 2020-10-16 22:20 | Inpatient (IN) | payer MEDICARE, OTHER ==
[~2020-10-16] VITALS: Ht 172.7 cm; Wt 83.8 kg
[~2020-10-16 22:20] MED LIST changes: +AMLO1TAB24 PO; +FURO20TA2 PO; +MYSO50TA5 PO; +OMEP-218 PO
--- NOTE | 2020-10-16 23:33 | REPVR ---
PROCEDURE INFORMATION: Exam: CT Head Without Contrast Exam date and time: 10/16/2020 10:55 PM Age: 85 years old Clinical indication: Weakness, extremity; Additional info: Acute onset generalized weakness TECHNIQUE: Imaging protocol: Computed tomography of the head without contrast. Radiation optimization: All CT scans at this facility use at least one of these dose optimization techniques: automated exposure control; mA and/or kV adjustment per patient size (includes targeted exams where dose is matched to clinical indication); or iterative reconstruction. COMPARISON: CT Head without contrast 09/27/2020 5:46 PM FINDINGS: Brain: There is slight prominence of the peripheral sulci. The plunkett and white matter is within normal limits. Cerebral ventricles: There is slight prominence of the central ventricular system. Paranasal sinuses: Visualized sinuses are unremarkable. No fluid levels. Mastoid air cells: Poor pneumatization of mastoid air cells. Bones/joints: Unremarkable. No acute fracture. Soft tissues: Unremarkable. IMPRESSION: 1. Minimal atrophic change for age which is similar to the prior study of 09/27/2020. 2. Otherwise negative noncontrast head CT. Electronically signed by: Mio Camacho On 10/16/2020 23:32:52 PM
[2020-10-16] MEDS ORDERED: NS 1,000 ML IV ONE (23:55)
[2020-10-17 00:08] LABS: BASO % 0.4 % (0.0-1.0); EOS # 0.2 10^3/uL (0.0-0.5); EOS % 3.3 % (0.0-3.0); HEMATOCRIT 37.1 % (42.0-52.0); HEMOGLOBIN 11.7 g/dl (13.5-17.5); LYMPH # 0.9 10^3/uL (1.5-5.0); LYMPH % 16.6 % (24.0-44.0); MEAN CORPUSCULAR HEMOGLOBIN 29.7 pg (27.0-33.0); MEAN CORPUSCULAR HGB CONC 31.5 g/dl (32.0-36.5); MEAN CORPUSCULAR VOLUME 94.2 fl (80.0-96.0); MONO # 0.6 10^3/uL (0.0-0.8); MONO % 11.5 % (2.0-8.0); NEUTROPHILS # 3.7 10^3/uL (1.5-8.5); NEUTROPHILS % 67.7 % (36.0-66.0); PLATELET COUNT, AUTOMATED 158 10^3/uL (150-450); RED BLOOD COUNT 3.94 10^6/uL (4.30-6.10); WHITE BLOOD COUNT 5.5 10^3/uL (4.0-10.0)
[2020-10-17 00:13] LABS: CALCIUM LEVEL 8.5 MG/DL (8.8-10.2); CREATININE FOR GFR 1.36 MG/DL (0.70-1.30); GLOMERULAR FILTRATION RATE 53.1 (>35); POTASSIUM SERUM 4.5 MEQ/L (3.5-5.1)
[2020-10-17 00:23] LABS: ALT/SGPT 10 U/L (12-78); BILIRUBIN,DIRECT < 0.1 MG/DL (0.0-0.2); BILIRUBIN,TOTAL 0.3 MG/DL (0.2-1.0); CK-MB VALUE MASS 2.2 NG/ML (<3.6); CPK CREATINE PHOSPHOKINASE 75 U/L (39-308); MB/CK RELATIVE INDEX 2.93 (< OR =4); TOTAL PROTEIN 6.4 GM/DL (6.4-8.2); TROPONIN I < 0.02 NG/ML (< 0.10)
[2020-10-17 01:24] LABS: RSV AMPLIFICATION NEGATIVE (NEGATIVE)
[2020-10-17] MEDS ORDERED: MAALOX 30 ML SUSP *UDC PO PRN (03:45)
[2020-10-17] MEDS ORDERED: MOM 30ML SUSPENSION UDC PO PRN (03:45)
--- NOTE | 2020-10-17 03:47 | HPEPDOC ---
[facility] Medical History & Physical Date of Admission Oct 17, 2020 Date of Service: Oct 17, 2020 Primary Care Physician: Isaac Cisneros Attending Physician: GIO VAIL MD History and Physical TIME OF SERVICE: 400AM CHIEF COMPLAINT: weakness HISTORY OF PRESENT ILLNESS: The history is limited because the patient appears to have Parkinsons related dementia. was admitted in ARU from September 30 to for management of weakness and falls in the setting of Parkinson. Based o n discharge summary the patient was deemed safe to return home using a wheel chair but the patient reports that he could walk when he was sent home. After being discharged he thinks he progressively lost his ability to walk. He added that he just didnt feel right but couldnt quite explain what was going on and added that he often forgets. He denied having shoulder, hand or hip stiffness but c/o shoulder pain. He is unaware of his medical conditions or which pills he takes. He mentioned that when he was discharged home it took his 2 hours to sort through the meds. He thinks that he skipped two doses of one of his night time pills. REVIEW OF SYSTEMS: unobtainable bc the patient has dementia PAST MEDICAL/ SURGICAL HISTORY: CKD 3 (he had temporary dialysis in 2017) Parkinson's disease complicated by dementia, constipation, unsteady gait and vision problems Polymyalgia rheumatica Mnire's disease Chronic back pain/lumbar spinal stenosis status post L3, L4, L5, right laminectomy and subsequent placement of a spinal column stimulator NIDDM Chronic CAD placement of stent in the LAD Hypothyroidism Essential hypertension Dyslipidemia BPH Right inguinal hernia repair Surgery for right eye ptosis Left knee surgery to manage osteoarthritis and medial meniscus tear Bilateral cataract surgery Cholecystectomy Resection of multiple sessile polyps Resection of benign bladder mass SOCIAL HISTORY: He does not smoke drink or use recreational drugs and lives with his ; 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 HOME MEDICATIONS: Please see below. PHYSICAL EXAMINATION: Vital Signs Date Time Temp Pulse Resp B/P (MAP) Pulse Ox O2 Delivery O2 Flow Rate FiO2 10/16/20 22:21 98.4 65 18 198/90 98 Room Air GENERAL APPEARANCE: well nourished and developed / NAD HEENT: EOMI / MMM&P CARDIOVASCULAR: RRR/NMRG / no LE edema LUNGS: CTAB on RA ABDOMEN: contour flat MUSCULOSKELETAL: NCAT / bitemporal wasting INTEGUMENT: not flushed / no rashes / not cyanotic NEUROLOGICAL: CN 2-12 intact / speech slow but not dysarthric / no hand tremor noted / mask like facies PSYCHIATRIC: A&O / flat affect LABORATORY DATA: IMAGING: CT head IMPRESSION: 1. Minimal atrophic change for age which is similar to the prior study of 09/27/2020. 2. Otherwise negative noncontrast head CT. Chest xray IMPRESSION: Essentially stable chest since 09/27/2020. There is slightly improved inflation. MICROBIOLOGY: Negative respiratory panel ASSESSMENT: Mr. Dela Cruz is an 85 yr old w CKD 3 Parkinson, PMR, Mnire's disease Chronic back pain, NIDDM, CAD, HTN, Hypothyroidism, DLP and BPH who is admitted for evaluation of weakness cause TBD. PLAN: 1 Weakness Possibly his new baseline after his recent hospital admission vs acute PMR vs other cause TBD Plan: admit to medical floor / fu ESR, CRP / day time team to consult PT & call his for additional info 2 Parkinson's disease complicated by dementia, constipation, unsteady gait and vision problems Plan: Carbidopa/Levodopa, Primidone 3 Polymyalgia rheumatica Plan: f/u ESR, CRP/ c/w Prednisone 4 CKD 3 Plan: f/u BMP 5 Chronic back pain Plan: Baclofen 6 NIDDM A1C 7.8% Plan: FSBS / SSI/ hypoglycemia protocol /decrease Levemir from 15 to 5 units daily 7 Hypothyroidism Plan: Levothyroxine 8 Essential hypertension Plan: Amlodipine, Furosemide 9 BPH Plan: Tamsulosin DVT PROPHYLAXIS: lovenox DISPOSITION: home w home RN and home health attendant vs SNF after at least 2 midnight's stay Home Medications Scheduled Amlodipine Besylate (Amlodipine Besylate) 5 Mg Tablet, 7.5 MG PO DAILY Baclofen (Baclofen) 10 Mg Tablet, 10 MG GT QHS Carbidopa/Levodopa (Carbidopa-Levodopa 25-100 Tab) 1 Each Tablet, 2 TAB PO 5XD Furosemide (Furosemide) 20 Mg Tablet, 20 MG PO DAILY Insulin Detemir (Levemir) 100 Unit/1 Ml Vial, 15 UNITS SC DAILY Levothyroxine Sodium (Levothyroxine Sodium) 175 Mcg Tablet, 175 MCG PO QAM Magnesium Oxide (Magox 400) 400 Mg Tablet, 800 MG PO BID Multivitamins (Thera M Plus Tablet) 1 Tab Tab, 1 TAB PO DAILY Omeprazole (Omeprazole) 20 Mg Capsule.dr, 40 MG PO QHS Polyvinyl Alcohol (Artificial Tears) 1.4 % Tamy, 1 DROP OU BID Prednisone (Prednisone) 2.5 Mg Tablet, 2.5 MG PO Q2D Prednisone (Prednisone) 5 Mg Tablet, 5 MG PO Q2D Pregabalin (Pregabalin) 100 Mg Capsule, 100 MG PO BID Primidone (Primidone) 50 Mg Tablet, 50 MG PO BID Tamsulosin HCl (Flomax) 0.4 Mg Cap, 0.4 MG PO DAILY [Leg Cramp Otc] , 1 TAB PO QHS [Nerve Shield Plus] , 1 TAB PO DAILY Scheduled PRN Calcium Carbonate (Tums) 200 Mg Tab.chew, 500 MG PO DAILY PRN for INDIGESTION Docusate Sodium (Colace) 100 Mg Cap, 100 MG PO DAILY PRN for CONSTIPATION Miscellaneous Medications [med rec comment] used last discharge 10/11/20 Allergies Coded Allergies: Contrast Media (Verified Allergy, Intermediate, 10/21/19) HYPOTENSION PER ANESTHESIOLOGY REPORT A-FIB/CHADSVASC A-FIB History Current/History of A-Fib/PAF?: No Current PO Anticoag Therapy: No GIO VAIL MD Oct 17, 2020 03:47
[2020-10-17] MEDS ORDERED: CARB25TA9 PO (03:57)
[2020-10-17] MEDS ORDERED: MAGO400T2 PO (03:57)
[2020-10-17] MEDS ORDERED: AMLO1TAB24 PO (03:57)
[2020-10-17] MEDS ORDERED: BACL1TAB8 GT (03:57)
[2020-10-17] MEDS ORDERED: FURO20TA2 PO (03:57)
[2020-10-17] MEDS ORDERED: PRIM50TA6 PO (03:57)
[2020-10-17] MEDS ORDERED: OMEP-218 PO (03:57)
[2020-10-17] MEDS ORDERED: PRED5TA PO (03:57)
[2020-10-17] MEDS ORDERED: LEVO175T2 PO (03:57)
[2020-10-17] MEDS ORDERED: PRED25TA PO (03:57)
[2020-10-17] MEDS ORDERED: med rec comment (03:58)
[2020-10-17] MEDS ORDERED: DOCUSATE SODIUM 100MG CAPSULE PO PRN (04:00)
[2020-10-17] MEDS ORDERED: PILL CUTTER 1 EACH XX PRN (04:10)
--- NOTE | 2020-10-17 04:41 | REPVR ---
PROCEDURE INFORMATION: Exam: XR Chest Exam date and time: 10/17/2020 4:10 AM Age: 85 years old Clinical indication: Other: Weakness TECHNIQUE: Imaging protocol: XR of the chest. Views: 1 view. COMPARISON: CR Chest, 1 view 09/27/2020 2:35 PM FINDINGS: Lungs: Coarse pulmonary interstitium and question of minimal left base infiltrate or atelectasis which is similar. Pleural spaces: Unremarkable. No pleural effusion. No pneumothorax. Heart/Mediastinum: The heart and mediastinum are unchanged. Bones/joints: Unremarkable. Other findings: Slightly improved inflation since the prior study. IMPRESSION: Essentially stable chest since 09/27/2020. There is slightly improved inflation. Electronically signed by: Mio Camacho On 10/17/2020 04:40:59 AM
[2020-10-17] MEDS: LEVOTHYROXINE 150MCG TABLET (0.15MG) PO SCH (05:28)
[2020-10-17] MEDS: SINEMET 25-100 MG TAB PO SCH ×5 (05:28→21:40)
[2020-10-17] MEDS: LEVOTHYROXINE 25MCG TABLET (0.025MG) PO SCH (05:28)
[2020-10-17 05:38] VITALS: BP 140/80
[2020-10-17 06:20] LABS: HEMOGLOBIN 12.3 g/dl (13.5-17.5); MEAN CORPUSCULAR HEMOGLOBIN 30.1 pg (27.0-33.0); MEAN CORPUSCULAR HGB CONC 31.5 g/dl (32.0-36.5); MEAN CORPUSCULAR VOLUME 95.6 fl (80.0-96.0); PLATELET COUNT, AUTOMATED 154 10^3/uL (150-450); RED BLOOD COUNT 4.08 10^6/uL (4.30-6.10)
[2020-10-17] MEDS ORDERED: DEXTROSE 50% 50 ML SYRINGE IV PRN (06:30)
[2020-10-17] MEDS ORDERED: GLUCAGON INJ 1MG VIAL SC PRN (06:30)
[2020-10-17] MEDS ORDERED: GLUCOSE 4GM CHEW TABLET PO PRN (06:30)
[2020-10-17 06:41] LABS: C REACTIVE PROTEIN QUANTITATIV 1.95 MG/DL (0.00-0.30); CALCIUM LEVEL 8.5 MG/DL (8.8-10.2); CREATININE FOR GFR 1.34 MG/DL (0.70-1.30); GLOMERULAR FILTRATION RATE 54.1 (>35); POTASSIUM SERUM 4.4 MEQ/L (3.5-5.1)
[2020-10-17] MEDS: HumaLOG INSULIN (NovoLOG) PER UNIT SC SCH ×4 (07:23→21:00)
[2020-10-17 07:35] LABS: ERYTHROCYTE SEDIMENTATION RATE 22 mm/hr (0-20)
[2020-10-17] MEDS ORDERED: LEVEMIR (INSULIN DETEMIR) 1 UNITS/0.01ML SC SCH (09:00)
[2020-10-17] MEDS: POLYVINYL ALCOHOL OPHTH SOLN 15 ML(LIQUITEARS) OU SCH ×2 (09:13→21:40)
[2020-10-17] MEDS: LEVEMIR (INSULIN DETEMIR) 1 UNITS/0.01ML SC SCH (09:14)
[2020-10-17] MEDS: amLODIPine 5 MG TAB PO SCH (09:15)
[2020-10-17] MEDS: PRIMIDONE 50 MG TAB PO SCH ×2 (09:15→21:40)
[2020-10-17] MEDS: MAGNESIUM OXIDE 400MG TAB (MAG-OX) PO SCH ×2 (09:15→21:40)
[2020-10-17] MEDS: predniSONE 2.5 MG TAB PO SCH (09:16)
[2020-10-17] MEDS: PREGABALIN 100 MG CAP (LYRICA) PO SCH ×2 (09:16→21:40)
[2020-10-17] MEDS: TAMSULOSIN 0.4 MG CAP PO SCH (09:16)
[2020-10-17] MEDS: ENOXAPARIN 40MG/0.4ML SYRINGE (J1650 PER 10MG) SC SCH (09:16)
[2020-10-17] MEDS: FUROSEMIDE 20 MG TAB PO SCH (09:16)
[2020-10-17] MEDS: ACETAMINOPHEN TAB 650MG DOSE (2X325MG) PO PRN ×3 (12:02→21:41)
[2020-10-17 14:00] VITALS: BP 157/72
--- NOTE | 2020-10-17 15:25 | IPNPDOC ---
Text Note Date of Service The patient was seen on 10/17/20. NOTE Subjective: 85-year-old male patient with PMH Parkinson's with dementia unstable gait and vision problems, who was recently hospitalized for weakness and falls and discharged on October 05, extensive past medical history of CKD 3, myalgia rheumatica, disease, lumbar stenosis, NIDDM 2, CAD placement s/p stent in LAD, hypothyroidism, HTN, HDL, BPH, came into the ED because he did not feel right. He reports missing Couple of days of medication. Today morning he was seen and examined at bedside. He denies having any headache, chest pain, dysuria, fever, chills, nausea, diarrhea. Patient is alert oriented x3, he could not describe what he meant by not feeling right. Objective: Physical exam: General: Patient is alert oriented x3, appears to be comfortable, was laying in bed. Cardiac: S1 and S2 normal, regular rate and rhythm, Lungs: Clear to auscultate bilaterally, no wheezes appreciated. Abdomen: Soft, no tenderness to palpation. Positive bowel sounds in all 4 quad rants. denies having any suprapubic tenderness. Extremities: No pedal edema appreciated. Labs: Vitals: Temperature 97.8, pulse 62, RR 18, BP 140/80, 93% on room air. WBC: 7, Hb 12.3, HCT 39, platelet 154. BMP: NA 141, K4.4, CL 106, HCO3 33, BUN 35, CR 1.34, glucose 54. UA: Showing cloudy, WBC TNTC, leukocyte esterase 3+, bacteria 1+, nitrates negative. Urine culture pending ESR 22, CRP 1.95 [always elevated likely due to his rheumatological diseases]. IMAGING: CT head IMPRESSION: 1. Minimal atrophic change for age which is similar to the prior study of 09/27/2020. 2. Otherwise negative noncontrast head CT. Chest xray IMPRESSION: Essentially stable chest since 09/27/2020. There is slightly improved inflation. Assessment: 85-year-old male patient with extensive past medical history as above came to ED with weakness and falls and not feeling like himself. Alert oriented x3, not in any sort of pain. Patient generally uses walker at his home to get around. Plan: Weakness and falls: -Patient reports he uses a walker to get around. But he reports having falls at home. -PT OT consult and PFS consult are in place. -Given that patient was recently hospitalized and was discharged and came back shortly make us think that he would be a candidate for short-term rehab/subacute rehab. Parkinson disease complicated with dementia. -Patient reports he is very unsteady on his feet and has residual issues from this disease. -We will continue carbidopa/levodopa, primidone Polymyalgia rheumatica: -Given that patient has baseline rheumatological diseases his ESR and CRP inflammatory markers are going to be elevated. -Continue his prednisone oral dose 5 mg and 2.5 mg alternate day. NIDDM 2: - Patient's last A1c is 7.8: - We will continue hypoglycemic protocol. - Patient is on lispro ACH , nightly insulin coverage -Patient is taking Levemir 15 units at night at home we will decrease the dosage to start tomorrow 5 mg subcu daily at nighttime. Hypothyroidism: -Patient in total is taking levothyroxine 175 MCG. -We will continue the home dosage. BPH: -We will continue the home medication. -Flomax 0.4 mg p.o. daily GERD: -We will continue home dose of omeprazole 40 mg p.o. nightly Hypertension: -We will continue amlodipine 7.5 mg p.o. daily, will continue furosemide 20 mg p.o. daily patient Chronic back pain: We will continue baclofen for now. DVT prophylaxis: -We will continue Lovenox Disposition: Patient may need extensive PT and OT to prevent his falls. Addendum: Patient report having burning urine sensation going on since long but he reports he forgot to mention that in the morning. In the morning when questioned about his burning sensation in the urine patient did not complain any and he was not started on any new antibiotics for that reason. Given that he is complaining of burning urine sensation now we will start him on Rocephin 1 g every 24 hours. In the evening patient's and the [id number] were here to visit him and I did speak to them. They were agreeable for subacute rehab but they want the patient to go to home after that. They report patient resists using wheelchair at home and wants to use walker which is leading to his falls. VS,Chema, I+O VS, Murphye, I+O Laboratory Tests 10/16/20 23:24 10/17/20 05:49 Vital Signs Date Time Temp Pulse Resp B/P (MAP) Pulse Ox O2 Delivery O2 Flow Rate FiO2 10/17/20 14:00 97.4 63 18 157/72 (100) 94 Room Air I&O- Last 24 Hours up to 6 AM 10/17/20 06:00 Intake Total 1000 ml Balance 1000 ml GME ATTESTATION GME ATTESTATION My faculty preceptor for this patient encounter was physically present during the encounter and was fully available. All aspects of the patient interview, examination, medical decision making process, and medical care plan development were reviewed and approved by the faculty preceptor. The faculty preceptor is aware and concurs with the plan as stated in the body of this note and will attest to such by his/her cosignature. ATTENDING NOTE I, Jose Alberto Cleary MD, have independently examined this patient and performed my own physical exam, as well as reviewed the documentation and edited where necessary. I have discussed in detail with the resident / student the findings and plan of treatment as documented by the resident / student and edited their note. I agree with their findings and treatment plan and have edited their documentation. I will continue to follow the patient during this hospital stay. Madhu Hill MD Oct 17, 2020 15:25 JOSE ALBERTO CLEARY MD Oct 20, 2020 12:25
[2020-10-17] MEDS: cefTRIAXone SOD 1 GM in D5W MINI-BAG PLUS 50 ML IV SCH (18:31)
[2020-10-17 21:00] VITALS: O2SAT 95
--- NOTE | 2020-10-17 21:03 | ECGEPIP ---
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
[2020-10-17] MEDS: OMEPRAZOLE 20 MG CAP PO SCH (21:40)
[2020-10-17] MEDS: BACLOFEN 10 MG TAB GT SCH (21:40)
[2020-10-17 22:00] VITALS: BP 144/70
[2020-10-18 05:54] VITALS: BP 149/83
[2020-10-18] MEDS: LEVOTHYROXINE 25MCG TABLET (0.025MG) PO SCH (06:02)
[2020-10-18] MEDS: LEVOTHYROXINE 150MCG TABLET (0.15MG) PO SCH (06:02)
[2020-10-18] MEDS: SINEMET 25-100 MG TAB PO SCH ×5 (06:02→21:02)
[2020-10-18 07:14] LABS: BASO % 0.6 % (0.0-1.0); EOS # 0.2 10^3/uL (0.0-0.5); EOS % 3.4 % (0.0-3.0); HEMATOCRIT 38.3 % (42.0-52.0); HEMOGLOBIN 12.4 g/dl (13.5-17.5); LYMPH # 0.9 10^3/uL (1.5-5.0); MEAN CORPUSCULAR HEMOGLOBIN 30.4 pg (27.0-33.0); MEAN CORPUSCULAR HGB CONC 32.4 g/dl (32.0-36.5); MEAN CORPUSCULAR VOLUME 93.9 fl (80.0-96.0); MONO # 0.6 10^3/uL (0.0-0.8); MONO % 12.1 % (2.0-8.0); NEUTROPHILS # 3.1 10^3/uL (1.5-8.5); NEUTROPHILS % 65.5 % (36.0-66.0); PLATELET COUNT, AUTOMATED 148 10^3/uL (150-450); RED BLOOD COUNT 4.08 10^6/uL (4.30-6.10); WHITE BLOOD COUNT 4.7 10^3/uL (4.0-10.0)
[2020-10-18 07:52] LABS: CALCIUM LEVEL 8.5 MG/DL (8.8-10.2); CREATININE FOR GFR 1.25 MG/DL (0.70-1.30); GLOMERULAR FILTRATION RATE 58.6 (>35); POTASSIUM SERUM 4.7 MEQ/L (3.5-5.1)
[2020-10-18] MEDS: ENOXAPARIN 40MG/0.4ML SYRINGE (J1650 PER 10MG) SC SCH (09:34)
[2020-10-18] MEDS: PREGABALIN 100 MG CAP (LYRICA) PO SCH ×2 (09:35→21:02)
[2020-10-18] MEDS: PRIMIDONE 50 MG TAB PO SCH ×2 (09:35→21:01)
[2020-10-18] MEDS: POLYVINYL ALCOHOL OPHTH SOLN 15 ML(LIQUITEARS) OU SCH ×2 (09:35→21:03)
[2020-10-18] MEDS: amLODIPine 5 MG TAB PO SCH (09:35)
[2020-10-18] MEDS: MAGNESIUM OXIDE 400MG TAB (MAG-OX) PO SCH ×2 (09:36→21:02)
[2020-10-18] MEDS: predniSONE 5 MG TAB PO SCH (09:36)
[2020-10-18] MEDS: FUROSEMIDE 20 MG TAB PO SCH (09:36)
[2020-10-18] MEDS: TAMSULOSIN 0.4 MG CAP PO SCH (09:36)
[2020-10-18] MEDS: LEVEMIR (INSULIN DETEMIR) 1 UNITS/0.01ML SC SCH (09:37)
[2020-10-18] MEDS: HumaLOG INSULIN (NovoLOG) PER UNIT SC SCH ×4 (09:38→21:02)
[2020-10-18 14:00] VITALS: BP 140/70
--- NOTE | 2020-10-18 16:39 | IPNPDOC ---
Text Note Date of Service The patient was seen on 10/18/20. NOTE Subjective: Patient was seen and examined at bedside today. He reports having burning sensation in the urine yesterday evening and was started on IV antibiotics. Today morning he still complains of burning urine sensation. Given his baseline Parkinson's with dementia he reports he forgets what symptoms he has. However he denies having any headache, chest pain, nausea, abdominal pain. Nurse reports that patient was on the floor at night, not sure whether he had a fall, however he is at his baseline after that episode. In the morning after the rounds patient did call me saying that patient is hallucinating, patient was evaluated immediately and he did not get his morning medications and did not have his breakfast at that point, he was disoriented. To the medications and the breakfast he is more oriented. Given the overnight event we will start him on Seroquel at night. Objective: Physical exam: General: Patient was alert, not oriented completely, appears comfortable and was sitting in bed. Cardiac: S1 and S2 normal, regular rate and rhythm. Lungs: Clear to auscultate bilaterally, no wheezes, crackles, rhonchi appreciated. Abdomen: Soft, no tenderness to palpation, positive bowel sounds in all 4 quadrants. : Reports having burning pain with urination, no suprapubic tenderness. Extremities: No pedal edema. Labs: Vitals: 1098 point HR 68: RR 16, BP 149/83, 94% on room. CBC: WBC 4.7, Hb 12.4, HCT 38.3, platelets 148. BMP: NA 140, K4.7, CL 106, HCO3 26, BUN 28, creatinine 1.25, Urine culture: Gram-negative specimen appears contaminated. Will order another UA IMAGING: CT head IMPRESSION: 1. Minimal atrophic change for age which is similar to the prior study of 09/27/2020. 2. Otherwise negative noncontrast head CT. Chest xray IMPRESSION: Essentially stable chest since 09/27/2020. There is slightly improved inflation. Assessment: 85-year-old male patient with extensive past medical history as above came to ED with weakness and falls and not feeling like himself. Alert oriented x3, not in any sort of pain. Patient generally uses walker at his home to get around. Plan: Weakness and falls: -Patient reports he uses a walker to get around. But he reports having falls at home. -PT OT consult and PFS consult are in place. -Given that patient was recently hospitalized and was discharged and came back shortly make us think that he would be a candidate for short-term rehab/subacute rehab. UTI: -Patient reports to be having burning urine sensation since yesterday evening. -He was started on ceftriaxone 1 g IV. -The urine cultures came back contaminated we will get a repeat UA. Parkinson disease complicated with dementia. -Patient has memory issues, and is unstable on his feet and vision issues going on since months. -We will continue carbidopa/levodopa, primidone Polymyalgia rheumatica: -Given that patient has baseline rheumatological diseases his ESR and CRP inflammatory markers are elevated[elevated at baseline as well] -Continue his prednisone oral dose 5 mg and 2.5 mg alternate day. NIDDM 2: - Patient's last A1c is 7.8 - We will continue hypoglycemic protocol. - Patient is on lispro ACH , nightly insulin coverage -Patient is taking Levemir 15 units at night at home we will decrease the dosage to start tomorrow 5 mg subcu daily at nighttime. Hypothyroidism: -Patient in total is taking levothyroxine 175 MCG. -We will continue the home dosage. BPH: -We will continue Flomax GERD: -Continue omeprazole 40 mg p.o. Hypertension: -We will continue home medication amlodipine and furosemide Chronic back pain: We will continue baclofen for now. DVT prophylaxis: -We will continue Lovenox VS,Fishbone, I+O VS, Fishbone, I+O Laboratory Tests 10/18/20 06:33 Vital Signs Date Time Temp Pulse Resp B/P (MAP) Pulse Ox O2 Delivery O2 Flow Rate FiO2 10/18/20 14:00 98.0 71 18 140/70 (93) 95 Room Air I&O- Last 24 Hours up to 6 AM 10/18/20 06:00 Intake Total 890 ml Balance 890 ml GME ATTESTATION GME ATTESTATION My faculty preceptor for this patient encounter was physically present during the encounter and was fully available. All aspects of the patient interview, examination, medical decision making process, and medical care plan development were reviewed and approved by the faculty preceptor. The faculty preceptor is aware and concurs with the plan as stated in the body of this note and will attest to such by his/her cosignature. ATTENDING NOTE I, Jose Alberto Cleary MD, have independently examined this patient and performed my own physical exam, as well as reviewed the documentation and edited where necessary. I have discussed in detail with the resident / student the findings and plan of treatment as documented by the resident / student and edited their note. I agree with their findings and treatment plan and have edited their documentation. I will continue to follow the patient during this hospital stay. Madhu Hill MD Oct 18, 2020 16:39 JOSE ALBERTO CLEARY MD Oct 20, 2020 12:34
[2020-10-18] MEDS: cefTRIAXone SOD 1 GM in D5W MINI-BAG PLUS 50 ML IV SCH (18:30)
[2020-10-18 21:00] VITALS: O2SAT 96
[2020-10-18] MEDS: QUEtiapine FUMARATE 12.5 MG HALF-TAB PO SCH (21:01)
[2020-10-18] MEDS: BACLOFEN 10 MG TAB GT SCH (21:02)
[2020-10-18] MEDS: OMEPRAZOLE 20 MG CAP PO SCH (21:02)
[2020-10-18] MEDS: ACETAMINOPHEN TAB 650MG DOSE (2X325MG) PO PRN (21:03)
[2020-10-18 22:00] VITALS: BP 142/65
[2020-10-19] MEDS: LEVOTHYROXINE 25MCG TABLET (0.025MG) PO SCH (05:51)
[2020-10-19] MEDS: LEVOTHYROXINE 150MCG TABLET (0.15MG) PO SCH (05:51)
[2020-10-19] MEDS: SINEMET 25-100 MG TAB PO SCH ×5 (05:51→20:33)
[2020-10-19 06:00] VITALS: BP 125/57
[2020-10-19 07:12] LABS: BASO % 0.4 % (0.0-1.0); EOS # 0.2 10^3/uL (0.0-0.5); EOS % 3.4 % (0.0-3.0); HEMATOCRIT 40.1 % (42.0-52.0); HEMOGLOBIN 12.9 g/dl (13.5-17.5); LYMPH # 1.1 10^3/uL (1.5-5.0); LYMPH % 24.3 % (24.0-44.0); MEAN CORPUSCULAR HEMOGLOBIN 30.5 pg (27.0-33.0); MEAN CORPUSCULAR HGB CONC 32.2 g/dl (32.0-36.5); MEAN CORPUSCULAR VOLUME 94.8 fl (80.0-96.0); MONO # 0.6 10^3/uL (0.0-0.8); MONO % 11.9 % (2.0-8.0); NEUTROPHILS # 2.8 10^3/uL (1.5-8.5); NEUTROPHILS % 59.8 % (36.0-66.0); PLATELET COUNT, AUTOMATED 164 10^3/uL (150-450); RED BLOOD COUNT 4.23 10^6/uL (4.30-6.10); WHITE BLOOD COUNT 4.7 10^3/uL (4.0-10.0)
[2020-10-19] MEDS: HumaLOG INSULIN (NovoLOG) PER UNIT SC SCH ×4 (07:30→20:38)
[2020-10-19 07:42] LABS: CALCIUM LEVEL 8.4 MG/DL (8.8-10.2); CREATININE FOR GFR 1.27 MG/DL (0.70-1.30); GLOMERULAR FILTRATION RATE 57.5 (>35); POTASSIUM SERUM 4.8 MEQ/L (3.5-5.1)
[2020-10-19] MEDS: TAMSULOSIN 0.4 MG CAP PO SCH (10:16)
[2020-10-19] MEDS: PREGABALIN 100 MG CAP (LYRICA) PO SCH ×2 (10:16→20:33)
[2020-10-19] MEDS: MAGNESIUM OXIDE 400MG TAB (MAG-OX) PO SCH ×2 (10:16→20:33)
[2020-10-19] MEDS: amLODIPine 5 MG TAB PO SCH (10:17)
[2020-10-19] MEDS: ENOXAPARIN 40MG/0.4ML SYRINGE (J1650 PER 10MG) SC SCH (10:17)
[2020-10-19] MEDS: FUROSEMIDE 20 MG TAB PO SCH (10:17)
[2020-10-19] MEDS: POLYVINYL ALCOHOL OPHTH SOLN 15 ML(LIQUITEARS) OU SCH ×2 (10:18→20:35)
[2020-10-19] MEDS: LEVEMIR (INSULIN DETEMIR) 1 UNITS/0.01ML SC SCH (10:18)
[2020-10-19] MEDS: predniSONE 2.5 MG TAB PO SCH (10:19)
[2020-10-19] MEDS: PRIMIDONE 50 MG TAB PO SCH ×2 (13:43→21:30)
[2020-10-19 13:51] VITALS: BP 138/73
[2020-10-19] MEDS: ACETAMINOPHEN TAB 650MG DOSE (2X325MG) PO PRN ×2 (15:48→20:35)
[2020-10-19] MEDS: cefTRIAXone SOD 1 GM in D5W MINI-BAG PLUS 50 ML IV SCH (18:40)
--- NOTE | 2020-10-19 19:39 | IPNPDOC ---
Text Note Date of Service The patient was seen on 10/19/20. NOTE Subjective: Patient was seen and examined at bedside. He reports he still has mild burning sensation with the urine, no change in his baseline Parkinson and dementia. No overnight events. Objective: Physical exam: General: Patient is alert, not oriented to his baseline Parkinson's and dementia, was laying comfortably in bed. Cardiac: S1 and S2 normal RRR Lungs clear to auscultate bilaterally, no wheezes appreciated. Abdomen: Soft, no tenderness to palpation Extremities: No pedal edema. Labs: Vitals 98.2 temperature, HR 56, RR 21, BP 125/57, 96% on room air. WBC 4.7, Hb 12.9, HCT 40.1, platelets 164. BMP: NA 139, K4.8, CL 104, HCO3 33, BUN 26, creatinine 1.27, glucose 161. UA: Appearance hazy, WBC TNTC, RBC 11, leukocyte esterase 3+, nitrates negative. Urine culture still pending. IMAGING: CT head IMPRESSION: 1. Minimal atrophic change for age which is similar to the prior study of 09/27/2020. 2. Otherwise negative noncontrast head CT. Chest xray IMPRESSION: Essentially stable chest since 09/27/2020. There is slightly improved inflation. Assessment: 85-year-old male patient with extensive past medical history as above came to ED with weakness and falls and not feeling like himself. Not oriented, not in any sort of pain. Patient generally uses walker at his home to get around. And uses wheelchair when he goes out. He was admitted under hospitalist service for evaluation of his acute weakness and for placement. Plan: Weakness and falls: -Patient did have 1 or 2 episodes of weakness and falls in the hospital. He did not hit his head during all this episodes. No change in mentation after these episodes. -Given that patient was recently hospitalized and was discharged and came back shortly make us think that he would be a candidate for short-term rehab/subacute rehab. UTI: -We will continue patient on Rocephin 1 g today's day 3. -titrate antibiotic based on the urine cultures. -Repeat UA did show WBC and RBC, culture still pending. -Initial UA cultures were found to be contaminated Parkinson disease complicated with dementia. -Patient has memory issues, and is unstable on his feet and vision issues going on since months. -We will continue carbidopa/levodopa, primidone Polymyalgia rheumatica: -Given that patient has baseline rheumatological diseases his ESR and CRP inflammatory markers are elevated[elevated at baseline as well] -Continue his prednisone oral dose 5 mg and 2.5 mg alternate day. NIDDM 2: - Patient's last A1c is 7.8 - We will continue hypoglycemic protocol. - Patient is on lispro ACH , nightly insulin coverage -Patient is taking Levemir 15 units at night at home we will decrease the dosage to start tomorrow 5 mg subcu daily at nighttime. Hypothyroidism: -Continue home dose of levothyroxine 125 MCG BPH: -continue Flomax GERD: -Continue omeprazole 40 mg p.o. Hypertension: -Continue amlodipine and furosemide Chronic back pain: We will continue baclofen for now. DVT prophylaxis: -We will continue Lovenox. Disposition: Patient had a bed in [facility], but due to the staffing issues over the he would be staying here for couple more days. Patient will be transferred to [facility] status today. VS,Chema, I+O VS, Chema, I+O Laboratory Tests 10/19/20 06:50 10/19/20 06:51 Vital Signs Date Time Temp Pulse Resp B/P (MAP) Pulse Ox O2 Delivery O2 Flow Rate FiO2 10/19/20 13:51 97.6 68 20 138/73 (94) 92 Room Air I&O- Last 24 Hours up to 6 AM 10/19/20 06:00 Intake Total 1150 ml Output Total 350 ml Balance 800 ml Madhu Hill MD Oct 19, 2020 19:39
[2020-10-19] MEDS: OMEPRAZOLE 20 MG CAP PO SCH (20:33)
[2020-10-19] MEDS: BACLOFEN 10 MG TAB GT SCH (20:33)
[2020-10-19] MEDS: QUEtiapine FUMARATE 12.5 MG HALF-TAB PO SCH (20:33)
[2020-10-20 06:00] VITALS: BP 120/63
[2020-10-20] MEDS: LEVOTHYROXINE 150MCG TABLET (0.15MG) PO SCH (06:02)
[2020-10-20] MEDS: LEVOTHYROXINE 25MCG TABLET (0.025MG) PO SCH (06:02)
[2020-10-20] MEDS: SINEMET 25-100 MG TAB PO SCH ×5 (06:02→20:10)
[2020-10-20 06:03] LABS: BASO % 0.6 % (0.0-1.0); EOS # 0.2 10^3/uL (0.0-0.5); EOS % 4.5 % (0.0-3.0); HEMATOCRIT 38.2 % (42.0-52.0); HEMOGLOBIN 12.3 g/dl (13.5-17.5); LYMPH # 1.2 10^3/uL (1.5-5.0); LYMPH % 24.1 % (24.0-44.0); MEAN CORPUSCULAR HEMOGLOBIN 30.4 pg (27.0-33.0); MEAN CORPUSCULAR HGB CONC 32.2 g/dl (32.0-36.5); MEAN CORPUSCULAR VOLUME 94.6 fl (80.0-96.0); MONO # 0.6 10^3/uL (0.0-0.8); MONO % 12.8 % (2.0-8.0); NEUTROPHILS # 2.8 10^3/uL (1.5-8.5); NEUTROPHILS % 57.8 % (36.0-66.0); PLATELET COUNT, AUTOMATED 149 10^3/uL (150-450); RED BLOOD COUNT 4.04 10^6/uL (4.30-6.10); WHITE BLOOD COUNT 4.9 10^3/uL (4.0-10.0)
[2020-10-20 06:28] LABS: CALCIUM LEVEL 8.4 MG/DL (8.8-10.2); CREATININE FOR GFR 1.51 MG/DL (0.70-1.30); GLOMERULAR FILTRATION RATE 47.1 (>35); POTASSIUM SERUM 4.8 MEQ/L (3.5-5.1)
[2020-10-20] MEDS: HumaLOG INSULIN (NovoLOG) PER UNIT SC SCH ×4 (07:30→21:00)
[2020-10-20] MEDS: ENOXAPARIN 40MG/0.4ML SYRINGE (J1650 PER 10MG) SC SCH (10:32)
[2020-10-20] MEDS: TAMSULOSIN 0.4 MG CAP PO SCH (10:33)
[2020-10-20] MEDS: LEVEMIR (INSULIN DETEMIR) 1 UNITS/0.01ML SC SCH (10:33)
[2020-10-20] MEDS: MAGNESIUM OXIDE 400MG TAB (MAG-OX) PO SCH ×2 (10:34→20:10)
[2020-10-20] MEDS: predniSONE 5 MG TAB PO SCH (10:34)
[2020-10-20] MEDS: PRIMIDONE 50 MG TAB PO SCH ×2 (10:35→20:10)
[2020-10-20] MEDS: PREGABALIN 100 MG CAP (LYRICA) PO SCH ×2 (10:35→20:10)
[2020-10-20] MEDS: FUROSEMIDE 20 MG TAB PO SCH (10:35)
[2020-10-20] MEDS: amLODIPine 5 MG TAB PO SCH (10:35)
[2020-10-20] MEDS: POLYVINYL ALCOHOL OPHTH SOLN 15 ML(LIQUITEARS) OU SCH ×2 (10:36→20:10)
[2020-10-20] MEDS: NS 1,000 ML IV SCH (12:47)
[2020-10-20 13:47] VITALS: BP 103/54
[2020-10-20] MEDS: ACETAMINOPHEN TAB 650MG DOSE (2X325MG) PO PRN (17:32)
[2020-10-20] MEDS: cefTRIAXone SOD 1 GM in D5W MINI-BAG PLUS 50 ML IV SCH (18:29)
[2020-10-20] MEDS: QUEtiapine FUMARATE 12.5 MG HALF-TAB PO SCH (20:10)
[2020-10-20] MEDS: OMEPRAZOLE 20 MG CAP PO SCH (20:10)
[2020-10-20] MEDS: BACLOFEN 10 MG TAB GT SCH (20:10)
[2020-10-21] MEDS: ACETAMINOPHEN TAB 650MG DOSE (2X325MG) PO PRN (00:14)
[2020-10-21] MEDS: SINEMET 25-100 MG TAB PO SCH ×5 (05:36→21:02)
[2020-10-21] MEDS: LEVOTHYROXINE 25MCG TABLET (0.025MG) PO SCH (05:36)
[2020-10-21] MEDS: NS 1,000 ML IV SCH ×2 (05:37→20:20)
[2020-10-21] MEDS: LEVOTHYROXINE 150MCG TABLET (0.15MG) PO SCH (05:37)
[2020-10-21 06:00] VITALS: BP 132/52
[2020-10-21 06:50] LABS: BASO % 0.6 % (0.0-1.0); EOS # 0.2 10^3/uL (0.0-0.5); EOS % 4.4 % (0.0-3.0); HEMATOCRIT 37.6 % (42.0-52.0); LYMPH # 1.3 10^3/uL (1.5-5.0); LYMPH % 26.2 % (24.0-44.0); MEAN CORPUSCULAR HEMOGLOBIN 30.2 pg (27.0-33.0); MEAN CORPUSCULAR HGB CONC 31.9 g/dl (32.0-36.5); MEAN CORPUSCULAR VOLUME 94.7 fl (80.0-96.0); MONO # 0.6 10^3/uL (0.0-0.8); MONO % 11.5 % (2.0-8.0); NEUTROPHILS # 2.7 10^3/uL (1.5-8.5); NEUTROPHILS % 57.1 % (36.0-66.0); PLATELET COUNT, AUTOMATED 148 10^3/uL (150-450); RED BLOOD COUNT 3.97 10^6/uL (4.30-6.10); WHITE BLOOD COUNT 4.8 10^3/uL (4.0-10.0)
[2020-10-21 07:10] LABS: CALCIUM LEVEL 8.3 MG/DL (8.8-10.2); CREATININE FOR GFR 1.33 MG/DL (0.70-1.30); GLOMERULAR FILTRATION RATE 54.5 (>35); POTASSIUM SERUM 4.4 MEQ/L (3.5-5.1)
[2020-10-21] MEDS: HumaLOG INSULIN (NovoLOG) PER UNIT SC SCH ×4 (07:30→21:01)
[2020-10-21] MEDS: PREGABALIN 100 MG CAP (LYRICA) PO SCH ×2 (10:13→21:01)
[2020-10-21] MEDS: FUROSEMIDE 20 MG TAB PO SCH (10:13)
[2020-10-21] MEDS: PRIMIDONE 50 MG TAB PO SCH ×2 (10:14→21:02)
[2020-10-21] MEDS: MAGNESIUM OXIDE 400MG TAB (MAG-OX) PO SCH ×2 (10:14→21:02)
[2020-10-21] MEDS: TAMSULOSIN 0.4 MG CAP PO SCH (10:14)
[2020-10-21] MEDS: ENOXAPARIN 40MG/0.4ML SYRINGE (J1650 PER 10MG) SC SCH (10:15)
[2020-10-21] MEDS: amLODIPine 5 MG TAB PO SCH (10:15)
[2020-10-21] MEDS: POLYVINYL ALCOHOL OPHTH SOLN 15 ML(LIQUITEARS) OU SCH ×2 (10:16→21:03)
[2020-10-21] MEDS: predniSONE 2.5 MG TAB PO SCH (10:18)
[2020-10-21] MEDS: LEVEMIR (INSULIN DETEMIR) 1 UNITS/0.01ML SC SCH (10:18)
[2020-10-21] MEDS ORDERED: cefTRIAXone SOD 1GM VIAL (J0696 PER 250MG) IM ONE (18:45)
[2020-10-21] MEDS ORDERED: cefTRIAXone SOD 1 GM in D5W MINI-BAG PLUS 50 ML IV ONE (19:00)
[2020-10-21] MEDS: BACLOFEN 10 MG TAB GT SCH (21:02)
[2020-10-21] MEDS: OMEPRAZOLE 20 MG CAP PO SCH (21:02)
[2020-10-21] MEDS: QUEtiapine FUMARATE 12.5 MG HALF-TAB PO SCH (21:02)
[2020-10-22] MEDS: LEVOTHYROXINE 25MCG TABLET (0.025MG) PO SCH (05:13)
[2020-10-22] MEDS: LEVOTHYROXINE 150MCG TABLET (0.15MG) PO SCH (05:13)
[2020-10-22] MEDS: SINEMET 25-100 MG TAB PO SCH ×5 (05:13→20:02)
[2020-10-22 06:00] VITALS: BP 139/64
[2020-10-22 06:51] LABS: BASO % 0.4 % (0.0-1.0); EOS # 0.2 10^3/uL (0.0-0.5); EOS % 3.4 % (0.0-3.0); HEMATOCRIT 36.7 % (42.0-52.0); HEMOGLOBIN 11.8 g/dl (13.5-17.5); LYMPH # 1.1 10^3/uL (1.5-5.0); MEAN CORPUSCULAR HEMOGLOBIN 30.4 pg (27.0-33.0); MEAN CORPUSCULAR HGB CONC 32.2 g/dl (32.0-36.5); MEAN CORPUSCULAR VOLUME 94.6 fl (80.0-96.0); MONO # 0.5 10^3/uL (0.0-0.8); NEUTROPHILS # 2.9 10^3/uL (1.5-8.5); PLATELET COUNT, AUTOMATED 145 10^3/uL (150-450); RED BLOOD COUNT 3.88 10^6/uL (4.30-6.10); WHITE BLOOD COUNT 4.7 10^3/uL (4.0-10.0)
[2020-10-22 07:10] LABS: CALCIUM LEVEL 8.5 MG/DL (8.8-10.2); CREATININE FOR GFR 1.24 MG/DL (0.70-1.30); GLOMERULAR FILTRATION RATE 59.1 (>35); POTASSIUM SERUM 4.6 MEQ/L (3.5-5.1)
[2020-10-22] MEDS: HumaLOG INSULIN (NovoLOG) PER UNIT SC SCH ×4 (07:30→20:01)
[2020-10-22] MEDS: FUROSEMIDE 20 MG TAB PO SCH (10:11)
[2020-10-22] MEDS: predniSONE 5 MG TAB PO SCH (10:11)
[2020-10-22] MEDS: PREGABALIN 100 MG CAP (LYRICA) PO SCH ×2 (10:11→20:02)
[2020-10-22] MEDS: TAMSULOSIN 0.4 MG CAP PO SCH (10:11)
[2020-10-22] MEDS: PRIMIDONE 50 MG TAB PO SCH ×2 (10:12→20:02)
[2020-10-22] MEDS: MAGNESIUM OXIDE 400MG TAB (MAG-OX) PO SCH ×2 (10:12→20:02)
[2020-10-22] MEDS: amLODIPine 5 MG TAB PO SCH (10:13)
[2020-10-22] MEDS: POLYVINYL ALCOHOL OPHTH SOLN 15 ML(LIQUITEARS) OU SCH ×2 (10:15→20:02)
[2020-10-22] MEDS: ENOXAPARIN 40MG/0.4ML SYRINGE (J1650 PER 10MG) SC SCH (10:15)
[2020-10-22] MEDS: LEVEMIR (INSULIN DETEMIR) 1 UNITS/0.01ML SC SCH (10:20)
[2020-10-22] MEDS: QUEtiapine FUMARATE 12.5 MG HALF-TAB PO SCH (20:02)
[2020-10-22] MEDS: OMEPRAZOLE 20 MG CAP PO SCH (20:02)
[2020-10-22] MEDS: BACLOFEN 10 MG TAB GT SCH (20:02)
[2020-10-23] MEDS: SINEMET 25-100 MG TAB PO SCH ×5 (05:36→20:25)
[2020-10-23] MEDS: LEVOTHYROXINE 25MCG TABLET (0.025MG) PO SCH (05:36)
[2020-10-23] MEDS: LEVOTHYROXINE 150MCG TABLET (0.15MG) PO SCH (05:36)
[2020-10-23 06:00] VITALS: BP 170/75
[2020-10-23 06:16] LABS: BASO % 0.3 % (0.0-1.0); EOS # 0.2 10^3/uL (0.0-0.5); HEMATOCRIT 38.2 % (42.0-52.0); HEMOGLOBIN 12.3 g/dl (13.5-17.5); LYMPH # 1.1 10^3/uL (1.5-5.0); LYMPH % 18.4 % (24.0-44.0); MEAN CORPUSCULAR HEMOGLOBIN 30.2 pg (27.0-33.0); MEAN CORPUSCULAR HGB CONC 32.2 g/dl (32.0-36.5); MEAN CORPUSCULAR VOLUME 93.9 fl (80.0-96.0); MONO # 0.6 10^3/uL (0.0-0.8); NEUTROPHILS # 4.1 10^3/uL (1.5-8.5); PLATELET COUNT, AUTOMATED 146 10^3/uL (150-450); RED BLOOD COUNT 4.07 10^6/uL (4.30-6.10)
[2020-10-23 06:39] LABS: CALCIUM LEVEL 8.1 MG/DL (8.8-10.2); CREATININE FOR GFR 1.3 MG/DL (0.70-1.30); POTASSIUM SERUM 4.8 MEQ/L (3.5-5.1)
[2020-10-23 06:45] VITALS: BP 148/72
[2020-10-23] MEDS: HumaLOG INSULIN (NovoLOG) PER UNIT SC SCH ×4 (08:10→20:25)
[2020-10-23] MEDS: ACETAMINOPHEN TAB 650MG DOSE (2X325MG) PO PRN ×2 (08:11→22:27)
[2020-10-23] MEDS: LEVEMIR (INSULIN DETEMIR) 1 UNITS/0.01ML SC SCH (08:11)
[2020-10-23] MEDS: PREGABALIN 100 MG CAP (LYRICA) PO SCH ×2 (08:12→20:24)
[2020-10-23] MEDS: POLYVINYL ALCOHOL OPHTH SOLN 15 ML(LIQUITEARS) OU SCH ×2 (08:12→20:25)
[2020-10-23] MEDS: TAMSULOSIN 0.4 MG CAP PO SCH (08:12)
[2020-10-23] MEDS: amLODIPine 5 MG TAB PO SCH (08:12)
[2020-10-23] MEDS: ENOXAPARIN 40MG/0.4ML SYRINGE (J1650 PER 10MG) SC SCH (08:13)
[2020-10-23] MEDS: PRIMIDONE 50 MG TAB PO SCH ×2 (08:13→20:25)
[2020-10-23] MEDS: MAGNESIUM OXIDE 400MG TAB (MAG-OX) PO SCH ×2 (08:13→20:24)
[2020-10-23] MEDS: FUROSEMIDE 20 MG TAB PO SCH (08:13)
[2020-10-23] MEDS: predniSONE 2.5 MG TAB PO SCH ×2 (09:00→13:32)
--- NOTE | 2020-10-23 12:32 | REP ---
INDICATION: right shoulder pain. COMPARISON: None. TECHNIQUE: Three views of the right shoulder are provided. FINDINGS: The right glenohumeral and acromioclavicular joints are normally aligned. There is mild inferior glenohumeral spurring. AC joint hypertrophy is noted indicating osteoarthritis of this articulation as well. Periarticular soft tissues are unremarkable. IMPRESSION: Mild glenohumeral and acromioclavicular joint osteoarthritis. Otherwise negative. <Electronically signed by Devyn Mckeon > 10/23/20 [id number]
--- NOTE | 2020-10-23 12:33 | REP ---
INDICATION: right leg pain. COMPARISON: Comparison right knee radiographs are from July 30, 2018.. TECHNIQUE: Four views of the right calf are provided. FINDINGS: Four views of the right tib fib demonstrate vascular calcification. Bones, joints, and soft tissues are otherwise unremarkable. No fracture or subluxation is seen. No periosteal reaction is noted.. . No opaque foreign body noted. IMPRESSION: Extensive vascular calcification. Otherwise negative right tib fib series.. <Electronically signed by Devyn Mckeon > 10/23/20 [id number]
--- NOTE | 2020-10-23 12:34 | REP ---
INDICATION: right elbow pain. COMPARISON: None. TECHNIQUE: Four views of the right elbow. FINDINGS: Four views of the right elbow demonstrate vascular calcification in the proximal forearm. Bones, joints, and soft tissues are otherwise unremarkable. There is mild lateral epicondylar spurring.. No fracture or subluxation is seen. An intravenous cannula is noted in the soft tissues of the upper arm.. IMPRESSION: No acute bony abnormality.. <Electronically signed by Devyn Mckeon > 10/23/20 [id number]
[2020-10-23] MEDS: OMEPRAZOLE 20 MG CAP PO SCH (20:24)
[2020-10-23] MEDS: BACLOFEN 10 MG TAB GT SCH (20:24)
[2020-10-23] MEDS: QUEtiapine FUMARATE 12.5 MG HALF-TAB PO SCH (20:24)
[2020-10-24 06:00] VITALS: BP 158/76
[2020-10-24] MEDS: SINEMET 25-100 MG TAB PO SCH ×2 (06:09→08:23)
[2020-10-24] MEDS: LEVOTHYROXINE 25MCG TABLET (0.025MG) PO SCH (06:09)
[2020-10-24] MEDS: LEVOTHYROXINE 150MCG TABLET (0.15MG) PO SCH (06:09)
[2020-10-24 07:21] LABS: BASO % 0.4 % (0.0-1.0); EOS # 0.2 10^3/uL (0.0-0.5); EOS % 3.8 % (0.0-3.0); HEMATOCRIT 38.9 % (42.0-52.0); HEMOGLOBIN 12.5 g/dl (13.5-17.5); LYMPH # 1.2 10^3/uL (1.5-5.0); LYMPH % 24.1 % (24.0-44.0); MEAN CORPUSCULAR HEMOGLOBIN 30.3 pg (27.0-33.0); MEAN CORPUSCULAR HGB CONC 32.1 g/dl (32.0-36.5); MEAN CORPUSCULAR VOLUME 94.2 fl (80.0-96.0); MONO # 0.5 10^3/uL (0.0-0.8); MONO % 10.1 % (2.0-8.0); NEUTROPHILS # 3.1 10^3/uL (1.5-8.5); NEUTROPHILS % 61.4 % (36.0-66.0); PLATELET COUNT, AUTOMATED 150 10^3/uL (150-450); RED BLOOD COUNT 4.13 10^6/uL (4.30-6.10)
[2020-10-24 07:47] LABS: CALCIUM LEVEL 8.3 MG/DL (8.8-10.2); CREATININE FOR GFR 1.3 MG/DL (0.70-1.30); POTASSIUM SERUM 4.7 MEQ/L (3.5-5.1)
[2020-10-24] MEDS: PREGABALIN 100 MG CAP (LYRICA) PO SCH (08:22)
[2020-10-24] MEDS: PRIMIDONE 50 MG TAB PO SCH (08:22)
[2020-10-24] MEDS: predniSONE 5 MG TAB PO SCH (08:22)
[2020-10-24] MEDS: HumaLOG INSULIN (NovoLOG) PER UNIT SC SCH (08:22)
[2020-10-24] MEDS: TAMSULOSIN 0.4 MG CAP PO SCH (08:22)
[2020-10-24] MEDS: FUROSEMIDE 20 MG TAB PO SCH (08:22)
[2020-10-24] MEDS: LEVEMIR (INSULIN DETEMIR) 1 UNITS/0.01ML SC SCH (08:23)
[2020-10-24] MEDS: MAGNESIUM OXIDE 400MG TAB (MAG-OX) PO SCH (08:23)
[2020-10-24 08:24] VITALS: BP 127/58
[2020-10-24] MEDS: amLODIPine 5 MG TAB PO SCH (08:24)
[2020-10-24] MEDS: POLYVINYL ALCOHOL OPHTH SOLN 15 ML(LIQUITEARS) OU SCH (08:24)
[2020-10-24] MEDS: ENOXAPARIN 40MG/0.4ML SYRINGE (J1650 PER 10MG) SC SCH (08:24)
[2020-10-24] MEDS ORDERED: INSUHUMDS SC ×2 (09:54)
[2020-10-24] MEDS ORDERED: QUET25TA3 PO (09:54)
[2020-10-24] MEDS ORDERED: ACET1TAB55 PO (09:54)
[2020-10-24] MEDS ORDERED: INSUDET SC (09:54)
--- NOTE | 2020-10-24 10:36 | DS.PDOC ---
Discharge Summary General Date of Admission Oct 18, 2020 at 10:26 Date of Discharge Oct 24, 2020 Discharge Summary PROCEDURES PERFORMED DURING STAY: None ADMITTING DIAGNOSES: 1. Weakness 2. Parkinson's disease 3. Dementia 4. Constipation 5. Polymyalgia rheumatica 6. CKD stage 3 7. NIDDM 8. Hypothyroidism 9. Essential hypertension 10. BPH 11. Chronic pain 12. UTI DISCHARGE DIAGNOSES: 1. Weakness 2. Parkinson's disease 3. Dementia 4. Constipation 5. Polymyalgia rheumatica 6. CKD stage 3 7. NIDDM 8. Hypothyroidism 9. Essential hypertension 10. BPH 11. Chronic pain 12. UTI COMPLICATIONS/CHIEF COMPLAINT: Generalized Weakness. HISTORY OF PRESENT ILLNESS: Copied from admitting attending H&P " The history is limited because the patient appears to have Parkinsons related dementia. was admitted in ARU from September 30 to for management of weakness and falls in the setting of Parkinson. Based on discharge summary the patient was deemed safe to return home using a wheel chair but the patient reports that he could walk when he was sent home. After being discharged he thinks he progressively lost his ability to walk. He added that he just didnt feel right but couldnt quite explain what was going on and added that he often forgets. He denied having shoulder, hand or hip stiffness but c/o shoulder pain. He is unaware of his medical conditions or which pills he takes. He mentioned that when he was discharged home it took his 2 hours to sort through the meds. He thinks that he skipped two doses of one of his night time pills. " HOSPITAL COURSE: Patient reported to have dysuria. UA was obtained which demonstrated pyuria. Initial urine culture demonstrated contamination. Second urine culture demonstrated no growth. Patient did not have any leukocytosis or f ever during this hospitalization. Patient was empirically treated with Ceftriaxone and completed a 5 day course. Otherwise, worked with physical therapy and recommended continued rehab. This morning, patient denies any chest pain or dyspnea. Patient will be discharged to [facility] DISCHARGE MEDICATIONS: Please see below. ALLERGIES: Please see below. PHYSICAL EXAMINATION ON DISCHARGE: VITAL SIGNS: Please see below. GENERAL: Comfortable, in no apparent distress. HEENT: Sclera clear. RESPIRATORY: Lungs clear to auscultation bilaterally, no rales, wheeze or rhonchi. CARDIOVASCULAR: Regular rate and rhythm. ABDOMEN: Soft, nontender, no guarding or rebound tenderness. Normal bowel so unds. MUSCLE SKELETAL: No pitting edema bilaterally PSYCHOLOGICAL: Normal mood and affect LABORATORY DATA: Please see below. IMAGING: Radiologist interpretation CT head without contrast 1. Minimal atrophic change for age which is similar to the prior study of 09/27/2020. 2. Otherwise negative noncontrast head CT. CXR Essentially stable chest since 09/27/2020. There is slightly improved inflation. Right elbow XR No acute bony abnormality. Right shoulder XR Mild glenohumeral and acromioclavicular joint osteoarthritis. Otherwise negative. Right tib/fib XR Extensive vascular calcification. Otherwise negative right tib fib series PROGNOSIS: Good ACTIVITY: As tolerated. DIET: Mechanical soft, consistent carb DISCHARGE PLAN: Discharge to [facility] DISPOSITION: Discharge to [facility] DISCHARGE INSTRUCTIONS: 1. Follow up with PCP in 1 week DISCHARGE CONDITION: Stable. Total time spent on discharge planning, discharge summary, and medication reconciliation: 55 minutes Vital Signs/I&Os Vital Signs Date Time Temp Pulse Resp B/P (MAP) Pulse Ox O2 Delivery O2 Flow Rate FiO2 10/24/20 08:24 60 127/58 10/24/20 06:00 98.2 18 98 Room Air I&O- Last 24 Hours up to 6 AM 10/24/20 06:00 Intake Total 1240 ml Balance 1240 ml Laboratory Data Labs 24H Laboratory Tests 2 10/23/20 11:27: Bedside Glucose (Misc Panel) 185H 10/23/20 16:59: Bedside Glucose (Misc Panel) 129H 10/23/20 20:18: Bedside Glucose (Misc Panel) 177H 10/24/20 06:38: Immature Granulocyte % (Auto) 0.2, Neutrophils (%) (Auto) 61.4, Lymphocytes (%) (Auto) 24.1, Monocytes (%) (Auto) 10.1H, Eosinophils (%) (Auto) 3.8H, Basophils (%) (Auto) 0.4, Neutrophils # (Auto) 3.1, Lymphocytes # (Auto) 1.2L, Monocytes # (Auto) 0.5, Eosinophils # (Auto) 0.2, Basophils # (Auto) 0.0, Nucleated Red Blood Cells % (auto) 0.0, Anion Gap 5L, Glomerular Filtration Rate 56.0, Calcium Level 8.3L CBC/BMP Laboratory Tests 10/24/20 06:38 FSBS Laboratory Tests Test 10/23/20 11:27 10/23/20 16:59 10/23/20 20:18 Range/Units Bedside Glucose (Misc Panel) 185 129 177 83-110 MG/DL Microbiology Microbiology 10/18/20 Urine Culture - Final, Complete 10/17/20 Urine Culture - Final, Complete Discharge Medications Scheduled Amlodipine Besylate (Amlodipine Besylate) 5 Mg Tablet, 7.5 MG PO DAILY, (Reported) Baclofen (Baclofen) 10 Mg Tablet, 10 MG GT QHS, (Reported) Carbidopa/Levodopa (Carbidopa-Levodopa 25-100 Tab) 1 Each Tablet, 2 TAB PO 5XD, (Reported) Furosemide (Furosemide) 20 Mg Tablet, 20 MG PO DAILY, (Reported) Insulin Detemir (Levemir) 100 Unit/1 Ml Vial, 5 UNITS SC DAILY Insulin Human Lispro (Humalog) 100 Unit/1 Ml Vial, 0 UNITS SC AC Insulin Human Lispro (Humalog) 100 Unit/1 Ml Vial, 0 UNITS SC QHS Levothyroxine Sodium (Levothyroxine Sodium) 175 Mcg Tablet, 175 MCG PO QAM, (Reported) Magnesium Oxide (Magox 400) 400 Mg Tablet, 800 MG PO BID, (Reported) Multivitamins (Thera M Plus Tablet) 1 Tab Tab, 1 TAB PO DAILY, (Reported) Omeprazole (Omeprazole) 20 Mg Capsule.dr, 40 MG PO QHS, (Reported) Polyvinyl Alcohol (Artificial Tears) 1.4 % Tamy, 1 DROP OU BID, (Reported) Prednisone (Prednisone) 2.5 Mg Tablet, 2.5 MG PO Q2D, (Reported) Prednisone (Prednisone) 5 Mg Tablet, 5 MG PO Q2D, (Reported) Pregabalin (Pregabalin) 100 Mg Capsule, 100 MG PO BID, (Reported) Primidone (Primidone) 50 Mg Tablet, 50 MG PO BID, (Reported) Quetiapine Fumarate (Quetiapine Fumarate) 25 Mg Tablet, 12.5 MG PO QHS Tamsulosin HCl (Flomax) 0.4 Mg Cap, 0.4 MG PO DAILY, (Reported) [Leg Cramp Otc] , 1 TAB PO QHS, (Reported) [Nerve Shield Plus] , 1 TAB PO DAILY, (Reported) Scheduled PRN Acetaminophen (Acetaminophen) 325 Mg Tablet, 650 MG PO Q4H PRN for MILD PAIN or TEMP > 101 Docusate Sodium (Colace) 100 Mg Cap, 100 MG PO DAILY PRN for CONSTIPATION, (Reported) Miscellaneous Medications [med rec comment] , (Reported) used last discharge 10/11/20 Allergies Coded Allergies: Contrast Media (Verified Allergy, Intermediate, 10/21/19) HYPOTENSION PER ANESTHESIOLOGY REPORT VENKATA ALCARAZ DO Oct 24, 2020 10:36
== END 2020-10-24 11:50 | DRG 93 ==
LOC: M ED 22:20 → M ED INP 22:21 → ENRESERV 10-17 04:45 → M MS5PR 10-17 05:20 → OBSVTOIN 10-18 10:26 → M MS5PR 10-18 14:22
PROVIDERS: ADMIT Internal Medicine; ATTEND Internal Medicine
DX: R29.6 Repeated falls (principal); G31.83 Neurocognitive disorder with Lewy bodies; F02.80 Dementia in other diseases classified elsewhere, unspecified severity, without behavioral disturbance, psychotic disturbance, mood disturbance, and anxiety; N18.30 Chronic kidney disease, stage 3 unspecified; K59.00 Constipation, unspecified; R26.81 Unsteadiness on feet; M35.3 Polymyalgia rheumatica; H81.09 Meniere's disease, unspecified ear; M48.061 Spinal stenosis, lumbar region without neurogenic claudication; E11.9 Type 2 diabetes mellitus without complications; I25.10 Atherosclerotic heart disease of native coronary artery without angina pectoris; G89.29 Other chronic pain; E03.9 Hypothyroidism, unspecified; Z66 Do not resuscitate; R53.1 Weakness; I12.9 Hypertensive chronic kidney disease with stage 1 through stage 4 chronic kidney disease, or unspecified chronic kidney disease; E78.5 Hyperlipidemia, unspecified; N40.0 Benign prostatic hyperplasia without lower urinary tract symptoms; Z98.41 Cataract extraction status, right eye; Z98.42 Cataract extraction status, left eye; Z90.49 Acquired absence of other specified parts of digestive tract; Z86.010 Personal history of colon polyps; Z79.52 Long term (current) use of systemic steroids; Z79.899 Other long term (current) drug therapy; Z91.041 Radiographic dye allergy status; Z95.5 Presence of coronary angioplasty implant and graft

== ENCOUNTER → 2020-10-28 | Outpatient (REF) | payer MEDICARE, OTHER ==
[~2020-10-28] MED LIST changes: +ACET1TAB55 PO; +BACL1TAB8 GT; +LEVO175T2 PO; +MAGO400T2 PO; +QUET25TA3 PO; +med rec comment
== END ==
LOC: M WUC 20:29
PROVIDERS: ATTEND Physician Assistant
DX: R30.0 Dysuria (principal)

== ENCOUNTER 2020-11-05 14:05 | Inpatient (IN) | payer MEDICARE, OTHER ==
[~2020-11-05] VITALS: Ht 177.8 cm; Wt 78.5 kg
[~2020-11-05 14:05] MED LIST changes: +QUET1TAB17 PO; -QUET25TA3 PO
[2020-11-05 18:20] VITALS: BP 137/66
[2020-11-05] MEDS ORDERED: INSUDET SC (18:52)
[2020-11-05] MEDS ORDERED: INSUHUMDS SC (19:05)
[2020-11-05] MEDS ORDERED: CEPH500C PO (19:06)
[2020-11-05] MEDS ORDERED: ASCO500T PO (19:06)
[2020-11-05 19:22] LABS: BASO % 0.2 % (0.0-1.0); EOS # 0.2 10^3/uL (0.0-0.5); HEMATOCRIT 37.7 % (42.0-52.0); HEMOGLOBIN 12.2 g/dl (13.5-17.5); LYMPH % 11.8 % (24.0-44.0); MEAN CORPUSCULAR HEMOGLOBIN 30.6 pg (27.0-33.0); MEAN CORPUSCULAR HGB CONC 32.4 g/dl (32.0-36.5); MEAN CORPUSCULAR VOLUME 94.5 fl (80.0-96.0); MONO # 0.7 10^3/uL (0.0-0.8); MONO % 8.4 % (2.0-8.0); NEUTROPHILS # 6.2 10^3/uL (1.5-8.5); NEUTROPHILS % 77.4 % (36.0-66.0); PLATELET COUNT, AUTOMATED 207 10^3/uL (150-450); RED BLOOD COUNT 3.99 10^6/uL (4.30-6.10)
[2020-11-05] MEDS ORDERED: HOME MED LIST COMPLETE! XX SCH (19:30)
[2020-11-05 19:35] LABS: INR 1.21; PROTHROMBIN TIME 15.7 SECONDS (12.7-14.5)
[2020-11-05 19:36] LABS: PARTIAL THROMBOPLASTIN TIME 45.2 SECONDS (25.9-37.0)
[2020-11-05 19:40] LABS: ERYTHROCYTE SEDIMENTATION RATE 46 mm/hr (0-20)
--- NOTE | 2020-11-05 19:51 | REP ---
INDICATION: PREOP. COMPARISON: 10/27/2019 PA and lateral views and portable chest dated 10/17/2020 TECHNIQUE: AP portable chest with the patient upright. FINDINGS: The lung alexis are clear. Cardiac size is normal. The liya, mediastinum and skeletal structures are unremarkable. IMPRESSION: Essentially negative portable chest <Electronically signed by Joe Schwab > 11/05/201946
[2020-11-05 19:53] LABS: ALT/SGPT 11 U/L (12-78); BILIRUBIN,TOTAL 0.3 MG/DL (0.2-1.0); BLOOD UREA NITROGEN 23 MG/DL (7-18); CALCIUM LEVEL 8.5 MG/DL (8.8-10.2); CARBON DIOXIDE LEVEL 32 MEQ/L (21-32); CHLORIDE LEVEL 106 MEQ/L (98-107); CK-MB VALUE MASS 4.1 NG/ML (<3.6); CPK CREATINE PHOSPHOKINASE 140 U/L (39-308); CREATININE FOR GFR 1.19 MG/DL (0.70-1.30); GLOMERULAR FILTRATION RATE > 60.0 (>35); GLUCOSE, FASTING 47 MG/DL (70-100); MAGNESIUM LEVEL 2.1 MG/DL (1.8-2.4); MB/CK RELATIVE INDEX 2.93 (< OR =4); NT-PRO BNP 2529 PG/ML (<450); POTASSIUM SERUM 4.2 MEQ/L (3.5-5.1); SODIUM LEVEL 141 MEQ/L (136-145); TOTAL PROTEIN 6.6 GM/DL (6.4-8.2); TROPONIN I < 0.02 NG/ML (< 0.10)
--- NOTE | 2020-11-05 20:15 | HPEPDOC ---
[facility] Medical History & Physical Date of Admission Nov 05, 2020 Date of Service: Nov 05, 2020 Attending Physician: MARKUS OCASIO MD History and Physical CHIEF COMPLAINT: [85 y/o male transfer from [facility] for hematuria] HISTORY OF PRESENT ILLNESS: [This is an 85 y/o male with a pmh of parkinsons, advanced dementia, cad s/p stenting, hld, htn, gerd, ckd3, bph, gout and iddm2 who was transferred to our hospital from [facility] for evaluation of hematuria. Patient originally admitted to outside hospital for uti, ams. Had waldron placed and ripped it out in confusion. Patient apparently then began to have gross hematuria and was thus transferred to us for further care and urology evaluation. As of my exam of the patient, he is alert but not oriented. Patient tells me that he does not have any pain and feels "pretty good." History is obtained from the chart.] PAST MEDICAL HISTORY: 1. [See HPI PAST SURGICAL HISTORY: 1. [B/l cataract removal]. 2. [Cardiac stenting]. 3. [Inguinal hernia repair 4. Cholecystectomy 5. Prostate biopsy 6. Left TKA 7. Left knee meniscus repair]. SOCIAL HISTORY: Unable to obtain d/t mentation FAMILY HISTORY: Unable to obtain d/t mentation ALLERGIES: Please see below. REVIEW OF SYSTEMS: Unable to obtain d/t mentation HOME MEDICATIONS: Please see below. PHYSICAL EXAMINATION: VITAL SIGNS: Please see below. GENERAL APPEARANCE: [This is an 85 y/o male who is alert but not oriented. He answers most questions nonsensically. He does not appear to be in any acute distress.]. HEENT: [No mass or lesion. EOMI. No scleral icterus. Nares patent. Oral mucosa moist]. CARDIOVASCULAR: [Regular rate, rhythm. No murmurs, rubs, gallops]. LUNGS: [Good air flow b/l. No wheezing, rales, rhonchi]. ABDOMEN: [Soft, nontender]. : Waldron in place. Waldron bag contains orange colored urine. No clots, sediment, or obvious hematuria noted. MUSCULOSKELETAL: [No joint deformity noted]. EXTREMITIES: [No pedal edema appreciated. Small abrasion to right knee. Pulses intact.]. NEUROLOGICAL: [Speech clear but nonsensical. Patient alert but not oriented.]. PSYCHIATRIC: [Patient is confused]. LABORATORY DATA: See below. IMAGING: [CXR: FINDINGS: The lung alexis are clear. Cardiac size is normal. The liya, mediastinum and skeletal structures are unremarkable. IMPRESSION: Essentially negative portable chest] MICROBIOLOGY: Please see below. ASSESSMENT: [This is an 85 y/o male with a pmh of parkinsons, advanced dementia, cad s/p stenting, hld, htn, gerd, ckd3, bph, gout and iddm2 who was transferred to our hospital from [facility] for evaluation of hematuria. Patient originally admitted to outside hospital for uti, ams. Had waldron placed and ripped it out in confusion. Patient apparently then began to have gross hematu janes and was thus transferred to us for further care and urology evaluation.]. . PLAN: 1. [Hematuria - At this time, seems to be transient. Most likely was secondary to traumatic removal of waldron catheter. - Discussed with Dr. Sanderson, urology, who states that patient does not likely need cbi or cystoscopy at this time based on my exam findings. Dr. Sanderson has agreed to see this patient in the morning. Assistance and recommendations are greatly appreciated. - Waldron care - ua ordered - Admit to med surg for tx 2. DM2 - continue at home basal dose - sliding scale coverage - hypoglycemic protocol 3. HTN - continue lasix, amlodipine 4. Parkinsonism - continue sinemet, baclofen, lyrica 5. Hypothyroidism - continue synthroid 6. BPH - continue flomax DVT prophylaxis - mechanical d/t recent hematuria]. Vital Signs Vital Signs Date Time Temp Pulse Resp B/P (MAP) Pulse Ox O2 Delivery O2 Flow Rate FiO2 11/05/20 18:20 99.1 74 18 137/66 (89) 96 Room Air Laboratory Data Labs 24H Laboratory Tests 2 11/05/20 19:06: Immature Granulocyte % (Auto) 0.2, Neutrophils (%) (Auto) 77.4H, Lymphocytes (%) (Auto) 11.8L, Monocytes (%) (Auto) 8.4H, Eosinophils (%) (Auto) 2.0, Basophils (%) (Auto) 0.2, Neutrophils # (Auto) 6.2, Lymphocytes # (Auto) 1.0L, Monocytes # (Auto) 0.7, Eosinophils # (Auto) 0.2, Basophils # (Auto) 0.0, Nucleated Red Blood Cells % (auto) 0.0, Erythrocyte Sedimentation Rate 46H, Prothrombin Time 15.7H, Prothromb Time International Ratio 1.21, Activated Partial Thromboplast Time 45.2H, Anion Gap 3L, Glomerular Filtration Rate > 60.0, Lactic Acid Level 1.1, Calcium Level 8.5L, Magnesium Level 2.1, Total Bilirubin 0.3, Aspartate Amino Transf (AST/SGOT) 26, Alanine Aminotransferase (ALT/SGPT) 11L, Alkaline Phosphatase 122H, Total Creatine Kinase 140, Creatine Kinase MB 4.1H, Creatine Kinase MB Relative Index 2.93, Troponin I < 0.02, C-Reactive Protein, Quantitative 12.90H, UM-Iua-V-Type Natriuretic Peptide 2529H, Total Protein 6.6, Albumin 3.0L, Albumin/Globulin Ratio 0.8, Thyroid Stimulating Hormone (TSH) 3.100 CBC/BMP Laboratory Tests 11/05/20 19:06 Home Medications Scheduled Amlodipine Besylate (Amlodipine Besylate) 5 Mg Tablet, 7.5 MG PO DAILY Ascorbic Acid (Ascorbic Acid) 500 Mg Tablet, 500 MG PO DAILY Baclofen (Baclofen) 10 Mg Tablet, 10 MG GT QHS Carbidopa/Levodopa (Carbidopa-Levodopa 25-100 Tab) 1 Each Tablet, 2 TAB PO 5XD Cephalexin (Cephalexin) 500 Mg Capsule, 500 MG PO BID Furosemide (Furosemide) 20 Mg Tablet, 20 MG PO DAILY Insulin Detemir (Levemir) 100 Unit/1 Ml Vial, 28 UNITS SC DAILY Levothyroxine Sodium (Levothyroxine Sodium) 175 Mcg Tablet, 175 MCG PO QAM Magnesium Oxide (Magox 400) 400 Mg Tablet, 800 MG PO BID Multivitamins (Thera M Plus Tablet) 1 Tab Tab, 1 TAB PO DAILY Omeprazole (Omeprazole) 20 Mg Capsule.dr, 40 MG PO QHS Polyvinyl Alcohol (Artificial Tears) 1.4 % Tamy, 1 DROP OU BID Prednisone (Prednisone) 2.5 Mg Tablet, 2.5 MG PO Q2D Prednisone (Prednisone) 5 Mg Tablet, 5 MG PO Q2D Pregabalin (Pregabalin) 100 Mg Capsule, 100 MG PO BID Primidone (Primidone) 50 Mg Tablet, 50 MG PO BID Tamsulosin HCl (Flomax) 0.4 Mg Cap, 0.4 MG PO DAILY Scheduled PRN Acetaminophen (Acetaminophen) 325 Mg Tablet, 650 MG PO Q4H PRN for MILD PAIN or TEMP > 101 Docusate Sodium (Colace) 100 Mg Cap, 100 MG PO DAILY PRN for CONSTIPATION Insulin Human Lispro (Humalog) 100 Unit/1 Ml Vial, 1 DOSE SC ACHS PRN for SLIDING SCALE Allergies Coded Allergies: Contrast Media (Verified Allergy, Intermediate, 10/21/19) HYPOTENSION PER ANESTHESIOLOGY REPORT A-FIB/CHADSVASC A-FIB History Current/History of A-Fib/PAF?: No SHELLI VILLALTA Nov 05, 2020 20:15
[2020-11-05] MEDS ORDERED: GLUCAGON INJ 1MG VIAL SC PRN (20:20)
[2020-11-05] MEDS ORDERED: GLUCOSE 4GM CHEW TABLET PO PRN (20:20)
[2020-11-05] MEDS ORDERED: DEXTROSE 50% 50 ML SYRINGE IV PRN (20:20)
[2020-11-05] MEDS ORDERED: DOCUSATE SODIUM 100MG CAPSULE PO PRN (20:20)
[2020-11-05] MEDS ORDERED: PILL CUTTER 1 EACH XX PRN (20:30)
[2020-11-05] MEDS: HumaLOG INSULIN (NovoLOG) PER UNIT SC SCH (21:00)
[2020-11-05] MEDS: OMEPRAZOLE 20 MG CAP PO SCH (21:01)
[2020-11-05] MEDS: SINEMET 25-100 MG TAB PO SCH (21:01)
[2020-11-05] MEDS: PREGABALIN 100 MG CAP (LYRICA) PO SCH (21:01)
[2020-11-05] MEDS: BACLOFEN 10 MG TAB PO SCH (21:01)
[2020-11-05 22:00] VITALS: BP 139/65
[2020-11-05] MEDS: ACETAMINOPHEN TAB 650MG DOSE (2X325MG) PO PRN (22:24)
[2020-11-05] MEDS: POLYVINYL ALCOHOL OPHTH SOLN 15 ML(LIQUITEARS) OU SCH (22:25)
[2020-11-05] MEDS: PRIMIDONE 50 MG TAB PO SCH (22:25)
[2020-11-06] MEDS: SINEMET 25-100 MG TAB PO SCH ×6 (05:23→20:16)
[2020-11-06] MEDS: LEVOTHYROXINE 150MCG TABLET (0.15MG) PO SCH (05:24)
[2020-11-06] MEDS: LEVOTHYROXINE 25MCG TABLET (0.025MG) PO SCH (05:24)
[2020-11-06 06:00] VITALS: BP 126/77
[2020-11-06 06:54] LABS: HEMATOCRIT 34.9 % (42.0-52.0); HEMOGLOBIN 11.5 g/dl (13.5-17.5); MEAN CORPUSCULAR HEMOGLOBIN 31.3 pg (27.0-33.0); MEAN CORPUSCULAR VOLUME 94.8 fl (80.0-96.0); PLATELET COUNT, AUTOMATED 176 10^3/uL (150-450); RED BLOOD COUNT 3.68 10^6/uL (4.30-6.10); WHITE BLOOD COUNT 5.8 10^3/uL (4.0-10.0)
[2020-11-06 07:09] LABS: BLOOD UREA NITROGEN 22 MG/DL (7-18); CARBON DIOXIDE LEVEL 29 MEQ/L (21-32); CHLORIDE LEVEL 106 MEQ/L (98-107); CREATININE FOR GFR 1.12 MG/DL (0.70-1.30); GLOMERULAR FILTRATION RATE > 60.0 (>35); GLUCOSE, FASTING 47 MG/DL (70-100); MAGNESIUM LEVEL 2.1 MG/DL (1.8-2.4); POTASSIUM SERUM 3.8 MEQ/L (3.5-5.1); SODIUM LEVEL 140 MEQ/L (136-145)
[2020-11-06] MEDS: HumaLOG INSULIN (NovoLOG) PER UNIT SC SCH ×4 (07:30→21:00)
[2020-11-06] MEDS ORDERED: OLANZapine INTRAMUSCULAR 10MG VIAL IM PRN (08:25)
[2020-11-06] MEDS ORDERED: KCL 20MEQ IN D5/0.45NS 1000ML 1,000 ML IV SCH (08:25)
[2020-11-06] MEDS: ASCORBIC ACID 500 MG TAB PO SCH (08:41)
[2020-11-06] MEDS: PREGABALIN 100 MG CAP (LYRICA) PO SCH ×2 (08:41→20:16)
[2020-11-06] MEDS: FUROSEMIDE 20 MG TAB PO SCH (08:41)
[2020-11-06] MEDS: MULTIVITAMINS/MINERALS THERAP 1 TAB PO SCH (08:41)
[2020-11-06] MEDS: TAMSULOSIN 0.4 MG CAP PO SCH (08:41)
[2020-11-06] MEDS: D5W/0.45% SODIUM CHLORIDE 1,000 ML IV SCH ×2 (08:42→17:59)
[2020-11-06] MEDS: PRIMIDONE 50 MG TAB PO SCH ×2 (08:42→20:16)
[2020-11-06] MEDS: POLYVINYL ALCOHOL OPHTH SOLN 15 ML(LIQUITEARS) OU SCH ×2 (08:42→21:00)
[2020-11-06] MEDS: amLODIPine 5 MG TAB PO SCH (08:43)
--- NOTE | 2020-11-06 08:59 | IPNPDOC ---
Subjective Date Seen The patient was seen on 11/06/20. Subjective Chief Complaint/HPI Patient was seen and examined at bedside this morning. Due to his underlying dementia he is unable to contribute to review of systems and it was difficult to ascertain further history from him. Objective Physical Examination Other physical findings General: Lying in bed, no acute distress, yelling and screaming in bed Head/Neck/Throat: Trachea midline, mucous membranes moist Eyes: Sclera anicteric, no erythema or discharge appreciated bilateral Thorax: Normal respiratory effort on room air, lungs clear to auscultation bilaterally, no wheezes/rales/rhonchi Cardiovascular: Normal rate, regular rhythm, normal S1, S2; no S3, S4, rubs/gallops/murmurs Abdomen: Bowel sounds present, soft/nontender/nondistended Genitourinary: Ledezma is draining yellow urine, no gross blood appreciated around meatus Musculoskeletal: On casual observation he is moving all extremities Neurologic: Awake, not oriented, yelling and screaming in bed, confabulating, noncompliant with exam Assessment /Plan Plan/VTE VTE Prophylaxis Ordered?: Yes Plan #Hematuria -Was transferred to [facility] for further evaluation of hematuria, reportedly he had ripped out his Ledezma. Presently, there is no hematuria appreciated. -Case was discussed overnight with urology team - Dr. Sanderson will be seeing the patient today #Parkinson's -Suspect he has parkinsonian disorder with dementia vs severe delirium (been institutionalized for several months for various month). He is confused and yelling in bed. Continue with carbidopa/levodopa and primidone. Unfortunately, due to his agitation and for the safety of himself and the staff, olanzapine was added although this should be discontinued as soon as possible. -Patient also takes baclofen and Lyrica. #Hypoglycemia -We will hold diabetic medications at this time as his blood glucose was 47 this morning. Prior to giving olanzapine his blood glucose was within normal limits. #Diabetes mellitus -Management as above. #Hypertension -Blood pressures acceptable continue with amlodipine. #BPH -Continue with tamsulosin, maintain Ledezma until evaluated by urology team #GERD -Omeprazole. #Constipation -Continue with docusate. #DVT prophylaxis -Due to his hematuria chemical prophylaxis was held. If hematuria remains resolved, will initiate heparin subcu. Code status: Considering patient is not have the capacity make his own decisions. It was discussed with his who expressed that he wished to be DNR/DNI. This will be respected. VS, I&O, 24H, [place] Vital Signs/I&O Vital Signs Date Time Temp Pulse Resp B/P (MAP) Pulse Ox O2 Delivery O2 Flow Rate FiO2 11/06/20 06:00 98.5 68 20 126/77 (93) 95 Room Air I&O- Last 24 Hours up to 6 AM 11/06/20 06:00 Intake Total 340 ml Output Total 500 ml Balance -160 ml Laboratory Data 24H LABS Laboratory Tests 2 11/05/20 19:06: Immature Granulocyte % (Auto) 0.2, Neutrophils (%) (Auto) 77.4H, Lymphocytes (%) (Auto) 11.8L, Monocytes (%) (Auto) 8.4H, Eosinophils (%) (Auto) 2.0, Basophils (%) (Auto) 0.2, Neutrophils # (Auto) 6.2, Lymphocytes # (Auto) 1.0L, Monocytes # (Auto) 0.7, Eosinophils # (Auto) 0.2, Basophils # (Auto) 0.0, Nucleated Red Blood Cells % (auto) 0.0, Erythrocyte Sedimentation Rate 46H, Prothrombin Time 15.7H, Prothromb Time International Ratio 1.21, Activated Partial Thromboplast Time 45.2H, Anion Gap 3L, Glomerular Filtration Rate > 60.0, Lactic Acid Level 1.1, Calcium Level 8.5L, Magnesium Level 2.1, Total Bilirubin 0.3, Aspartate Amino Transf (AST/SGOT) 26, Alanine Aminotransferase (ALT/SGPT) 11L, Alkaline Phosphatase 122H, Total Creatine Kinase 140, Creatine Kinase MB 4.1H, Creatine Kinase MB Relative Index 2.93, Troponin I < 0.02, C-Reactive Protein, Quantit ative 12.90H, ZX-Dge-V-Type Natriuretic Peptide 2529H, Total Protein 6.6, Albumin 3.0L, Albumin/Globulin Ratio 0.8, Thyroid Stimulating Hormone (TSH) 3.100 11/05/20 19:53: Bedside Glucose (Misc Panel) 49L 11/05/20 20:39: Bedside Glucose (Misc Panel) 91 11/06/20 06:25: Nucleated Red Blood Cells % (auto) 0.0 CBC/BMP Laboratory Tests 11/05/20 19:06 11/06/20 06:25 ELVER SMITH M.D. Nov 06, 2020 07:02
[2020-11-06] MEDS ORDERED: LEVEMIR (INSULIN DETEMIR) 1 UNITS/0.01ML SC SCH (09:00)
[2020-11-06] MEDS ORDERED: OLANZapine INTRAMUSCULAR 10MG VIAL IM ONE (09:00)
[2020-11-06 14:00] VITALS: BP 146/58
--- NOTE | 2020-11-06 18:03 | CR.PDOC ---
General Date of Consultation: Nov 06, 2020 Referring Provider: DARSHAN CAPPS MD Consultation REASON FOR CONSULTATION/CHIEF COMPLAINT: Gross hematuria after patient pulled the Ledezma catheter out HISTORY OF PRESENT ILLNESS: Patient is a 85-year-old gentleman known to urology with a past medical history of Parkinson's disease, dementia which according to the has only happened during the last several weeks, and multiple other issues who was transferred from [facility] for gross hematuria and urologic evaluation. It sounds like a catheter was originally put in at [facility] to get a good urinary sample. He was then transferred to [place] but he removed the Ledezma catheter with the balloon intact and then had gross hematuria and according to the found to have a high postvoid residual so the Ledezma catheter was replaced. He had gross hematuria and they did not have urologic care or could not start continuous bladder irrigation at [facility] so he was sent here. Since he has been here though the Ledezma catheter was draining well without any clots or need to start continuous bladder irrigation. His INR was at 1.21 and his BUN and creatinine were normal along with a white blood count. He did have a negative urine culture on 10/28/2020. The urine is now rust colored without any clots. He does have a history of a "bladder mass "and in 2019 had a TURBT which is showed acute and chronic inflammation and no evidence of malignancy. In 2017 he was on Proscar and Flomax after an episode of urinary retention but had been seen in the office on 06/20/[address] Frost and was having no problems emptying or urinating at that time. ALLERGIES: Please see below. HOME MEDICATIONS: Please see below. PAST MEDICAL HISTORY: -Parkinson's disease -Dementia which the says has only started in the last several weeks -Coronary artery disease with stents placed in 2010 -Type 2 diabetes on insulin -High blood pressure -Chronic kidney disease stage III -Gout -Polymyalgia rheumatica -Spinal stenosis -GERD -Hypertension PAST SURGICAL HISTORY: -TURBT 2019 showing acute and chronic inflammation only and no evidence of malignancy -Cholecystectomy -Left total knee replacement -Cardiac stent placement in 2010 -Back surgery -Cataract -Inguinal hernia repair -Prostate biopsy -Left knee meniscal tear FAMILY HISTORY: Noncontributory SOCIAL HISTORY: and he lives at home with his and son. He has never smoked cigarettes and he does not drink alcohol or use illicit drug REVIEW OF SYSTEMS: Patient is very confused right now in really cannot give a good review of systems. He thinks that he keeps on getting injections with some sort of chip placed in his left leg although the nurse denies that he has had any recent injections. According to the he is much more confused and delusional than normal but that he has had this confusion and problems but only for the last several weeks PHYSICAL EXAMINATION: VITAL SIGNS: Please see below. GENERAL APPEARANCE: Well-developed well-nourished gentleman lying in a hospital bed in no apparent distress but quite confused and delusional and is alert but not oriented to person place or time HEENT: Normocephalic atraumatic PERRL and EOMI RESPIRATORY: Lungs are clear to auscultation percussion CARDIOVASCULAR: Regular rate and rhythm ABDOMEN: Soft and nontender EXTREMITIES: No cyanosis clubbing or edema NEUROLOGICAL: Speech is clear but nonsensical and he is not oriented to person place or time but he is alert. Patient does have Parkinson's PSYCHIATRIC: Very confused : The Ledezma catheter is in place and draining rust colored urine without any clots LABORATORY DATA: Please see below. 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 Plan: -Recommend removing the Ledezma catheter in the morning and restarting the patient on Flomax for a week or 2 and then having him follow-up in the office in several weeks -Patient's says that his abnormal behavior is only for the last several weeks and it does not sound like she is clear about a diagnosis of dementia or any plan for this in the future so I have recommended that she follow-up with the neurologist for further help with this is concerned At least 70 minutes was spent today with greater than 50% of this in [id number] consultation This was dictated with Justin and not proofread for errors Vital Signs/I&O Vital Signs Date Time Temp Pulse Resp B/P (MAP) Pulse Ox O2 Delivery O2 Flow Rate FiO2 11/06/20 14:00 98.2 52 18 146/58 (87) 97 Room Air I&O- Last 24 Hours up to 6 AM 11/06/20 06:00 Intake Total 340 ml Output Total 500 ml Balance -160 ml Laboratory Data Labs 24H Laboratory Tests 2 11/05/20 19:06: Immature Granulocyte % (Auto) 0.2, Neutrophils (%) (Auto) 77.4H, Lymphocytes (%) (Auto) 11.8L, Monocytes (%) (Auto) 8.4H, Eosinophils (%) (Auto) 2.0, Basophils (%) (Auto) 0.2, Neutrophils # (Auto) 6.2, Lymphocytes # (Auto) 1.0L, Monocytes # (Auto) 0.7, Eosinophils # (Auto) 0.2, Basophils # (Auto) 0.0, Nucleated Red Blood Cells % (auto) 0.0, Erythrocyte Sedimentation Rate 46H, Prothrombin Time 15.7H, Prothromb Time International Ratio 1.21, Activated Partial Thromboplast Time 45.2H, Anion Gap 3L, Glomerular Filtration Rate > 60.0, Lactic Acid Level 1.1, Calcium Level 8.5L, Magnesium Level 2.1, Total Bilirubin 0.3, Aspartate Ami no Transf (AST/SGOT) 26, Alanine Aminotransferase (ALT/SGPT) 11L, Alkaline Phosphatase 122H, Total Creatine Kinase 140, Creatine Kinase MB 4.1H, Creatine Kinase MB Relative Index 2.93, Troponin I < 0.02, C-Reactive Protein, Quantitative 12.90H, WM-Mua-F-Type Natriuretic Peptide 2529H, Total Protein 6.6, Albumin 3.0L, Albumin/Globulin Ratio 0.8, Thyroid Stimulating Hormone (TSH) 3.100 11/05/20 19:53: Bedside Glucose (Misc Panel) 49L 11/05/20 20:39: Bedside Glucose (Misc Panel) 91 11/06/20 06:25: Nucleated Red Blood Cells % (auto) 0.0, Anion Gap 5L, Glomerular Filtration Rate > 60.0, Calcium Level 8.0L, Magnesium Level 2.1 11/06/20 08:23: Bedside Glucose (Misc Panel) 83 11/06/20 11:13: Bedside Glucose (Misc Panel) 133H 11/06/20 16:42: Bedside Glucose (Misc Panel) 178H CBC/BMP Laboratory Tests 11/05/20 19:06 11/06/20 06:25 Allergies Coded Allergies: Contrast Media (Verified Allergy, Intermediate, 10/21/19) HYPOTENSION PER ANESTHESIOLOGY REPORT Home Medications Scheduled Amlodipine Besylate (Amlodipine Besylate) 5 Mg Tablet, 7.5 MG PO DAILY, (Reported) Ascorbic Acid (Ascorbic Acid) 500 Mg Tablet, 500 MG PO DAILY, (Reported) Baclofen (Baclofen) 10 Mg Tablet, 10 MG GT QHS, (Reported) Carbidopa/Levodopa (Carbidopa-Levodopa 25-100 Tab) 1 Each Tablet, 2 TAB PO 5XD, (Reported) Cephalexin (Cephalexin) 500 Mg Capsule, 500 MG PO BID, (Reported) Furosemide (Furosemide) 20 Mg Tablet, 20 MG PO DAILY, (Reported) Insulin Detemir (Levemir) 100 Unit/1 Ml Vial, 28 UNITS SC DAILY, (Reported) Levothyroxine Sodium (Levothyroxine Sodium) 175 Mcg Tablet, 175 MCG PO QAM, (Reported) Magnesium Oxide (Magox 400) 400 Mg Tablet, 800 MG PO BID, (Reported) Multivitamins (Thera M Plus Tablet) 1 Tab Tab, 1 TAB PO DAILY, (Reported) Omeprazole (Omeprazole) 20 Mg Capsule.dr, 40 MG PO QHS, (Reported) Polyvinyl Alcohol (Artificial Tears) 1.4 % Tamy, 1 DROP OU BID, (Reported) Prednisone (Prednisone) 2.5 Mg Tablet, 2.5 MG PO Q2D, (Reported) Prednisone (Prednisone) 5 Mg Tablet, 5 MG PO Q2D, (Reported) Pregabalin (Pregabalin) 100 Mg Capsule, 100 MG PO BID, (Reported) Primidone (Primidone) 50 Mg Tablet, 50 MG PO BID, (Reported) Tamsulosin HCl (Flomax) 0.4 Mg Cap, 0.4 MG PO DAILY, (Reported) Scheduled PRN Acetaminophen (Acetaminophen) 325 Mg Tablet, 650 MG PO Q4H PRN for MILD PAIN or TEMP > 101 for 1 Days, #1 Docusate Sodium (Colace) 100 Mg Cap, 100 MG PO DAILY PRN for CONSTIPATION, (Reported) Insulin Human Lispro (Humalog) 100 Unit/1 Ml Vial, 1 DOSE SC ACHS PRN for SLIDING SCALE , (Reported) JOHN ARENAS MD Nov 06, 2020 18:03
[2020-11-06] MEDS: ACETAMINOPHEN TAB 650MG DOSE (2X325MG) PO PRN ×2 (18:18→23:49)
[2020-11-06] MEDS: OMEPRAZOLE 20 MG CAP PO SCH (20:16)
[2020-11-06] MEDS: BACLOFEN 10 MG TAB PO SCH (20:16)
[2020-11-06 22:00] VITALS: BP 120/57
[2020-11-07 05:40] LABS: HEMATOCRIT 32.3 % (42.0-52.0); HEMOGLOBIN 10.4 g/dl (13.5-17.5); MEAN CORPUSCULAR HEMOGLOBIN 30.8 pg (27.0-33.0); MEAN CORPUSCULAR HGB CONC 32.2 g/dl (32.0-36.5); MEAN CORPUSCULAR VOLUME 95.6 fl (80.0-96.0); PLATELET COUNT, AUTOMATED 183 10^3/uL (150-450); RED BLOOD COUNT 3.38 10^6/uL (4.30-6.10); WHITE BLOOD COUNT 4.5 10^3/uL (4.0-10.0)
[2020-11-07 06:11] LABS: BLOOD UREA NITROGEN 18 MG/DL (7-18); CALCIUM LEVEL 7.5 MG/DL (8.8-10.2); CARBON DIOXIDE LEVEL 29 MEQ/L (21-32); CHLORIDE LEVEL 105 MEQ/L (98-107); CREATININE FOR GFR 1.18 MG/DL (0.70-1.30); GLOMERULAR FILTRATION RATE > 60.0 (>35); GLUCOSE, FASTING 136 MG/DL (70-100); MAGNESIUM LEVEL 2.2 MG/DL (1.8-2.4); PHOSPHORUS LEVEL 4.9 MG/DL (2.5-4.9); POTASSIUM SERUM 4.4 MEQ/L (3.5-5.1); SODIUM LEVEL 138 MEQ/L (136-145)
--- NOTE | 2020-11-07 06:14 | IPNPDOC ---
Subjective Date Seen The patient was seen on 11/07/20. Subjective Chief Complaint/HPI Patient seen and examined at bedside this morning. He was lethargic and unable to contribute to HPI/review of systems. Objective Physical Examination Other physical findings General: Lying in bed, no acute distress, lethargic Head/Neck/Throat: Trachea midline, mucous membranes moist Eyes: Sclera anicteric, no erythema or discharge appreciated bilateral Thorax: Normal respiratory effort on room air, lungs clear to auscultation bilaterally, no wheezes/rales/rhonchi Cardiovascular: Normal rate, regular rhythm, normal S1, S2; no S3, S4, rubs/gallops/murmurs Abdomen: Bowel sounds present, soft/nontender/nondistended Genitourinary: Ledezma is draining yellow urine, no gross blood appreciated around meatus Musculoskeletal: On casual observation he is moving all extremities Neurologic: Withdraws from tactile stimuli and yells stop it, otherwise lethargic and falls back asleep Assessment /Plan Plan/VTE VTE Prophylaxis Ordered?: Yes Plan #Encephalopathy -Suspect he has parkinsonian disorder with dementia with severe delirium (been institutionalized for several months for various reasons). CT-scan of the brain showed no acute findings. Discussed case with Dr. Shipman, he is known to their practice and reportedly has prolonged delirium following infections. Recommended MRI of the brain and Seroquel 25mg BID (check ekg for qtc). -He is afebrile, without a wbc, low suspicion for infection. #Hematuria -Resolved. Was transferred to [facility] for further evaluation of hematuria, reportedly he had pulled out his Ledezma. Presently, there is no hematuria appreciated. -Appreciate urology recommendations. Plan to DC Ledezma and do trial of voiding. #Parkinson's -Continue with carbidopa/levodopa and primidone. -Patient also takes baclofen and Lyrica. #Hypoglycemia -We will hold diabetic medications at this time as his blood glucose was 47 this morning. Prior to giving olanzapine his blood glucose was within normal limits. #Diabetes mellitus -Management as above. #Hypertension -Blood pressures acceptable continue with amlodipine. #BPH -Continue with tamsulosin, maintain Ledezma until evaluated by urology team #GERD -Omeprazole. #Constipation -Continue with docusate. #DVT prophylaxis -Due to his hematuria chemical prophylaxis was held. If hematuria remains resolved, will initiate heparin subcu. Code status: Considering patient is not have the capacity make his own decisions. It was discussed with his who expressed that he wished to be DNR/DNI. This will be respected. VS, I&O, 24H, Fishbone Vital Signs/I&O Vital Signs Date Time Temp Pulse Resp B/P (MAP) Pulse Ox O2 Delivery O2 Flow Rate FiO2 11/06/20 22:00 99.0 60 16 120/57 (78) 93 Room Air I&O- Last 24 Hours up to 6 AM 11/07/20 06:00 Intake Total 145 ml Output Total 400 ml Balance -255 ml Laboratory Data 24H LABS Laboratory Tests 2 11/06/20 06:25: Nucleated Red Blood Cells % (auto) 0.0, Anion Gap 5L, Glomerular Filtration Rate > 60.0, Calcium Level 8.0L, Magnesium Level 2.1 11/06/20 08:23: Bedside Glucose (Misc Panel) 83 11/06/20 11:13: Bedside Glucose (Misc Panel) 133H 11/06/20 16:42: Bedside Glucose (Misc Panel) 178H 11/06/20 21:27: Bedside Glucose (Misc Panel) 76L 11/07/20 05:29: Nucleated Red Blood Cells % (auto) 0.0, Anion Gap 4L, Glomerular Filtration Rate > 60.0, Calcium Level 7.5L, Phosphorus Level 4.9, Magnesium Level 2.2 CBC/BMP Laboratory Tests 11/06/20 06:25 11/07/20 05:29 ELVER SMITH M.D. Nov 07, 2020 06:14
[2020-11-07] MEDS: LEVOTHYROXINE 25MCG TABLET (0.025MG) PO SCH (06:49)
[2020-11-07] MEDS: SINEMET 25-100 MG TAB PO SCH ×5 (06:49→20:04)
[2020-11-07] MEDS: LEVOTHYROXINE 150MCG TABLET (0.15MG) PO SCH (06:49)
[2020-11-07] MEDS: HumaLOG INSULIN (NovoLOG) PER UNIT SC SCH ×4 (07:30→21:00)
[2020-11-07] MEDS: PRIMIDONE 50 MG TAB PO SCH ×2 (10:37→20:04)
[2020-11-07] MEDS: TAMSULOSIN 0.4 MG CAP PO SCH (10:37)
[2020-11-07] MEDS: POLYVINYL ALCOHOL OPHTH SOLN 15 ML(LIQUITEARS) OU SCH ×2 (10:37→20:05)
[2020-11-07] MEDS: MULTIVITAMINS/MINERALS THERAP 1 TAB PO SCH (10:37)
[2020-11-07] MEDS: ASCORBIC ACID 500 MG TAB PO SCH (10:37)
[2020-11-07] MEDS: PREGABALIN 100 MG CAP (LYRICA) PO SCH ×2 (10:37→20:03)
[2020-11-07] MEDS: FUROSEMIDE 20 MG TAB PO SCH (10:37)
[2020-11-07] MEDS: amLODIPine 5 MG TAB PO SCH (10:40)
[2020-11-07] MEDS: D5W/0.45% SODIUM CHLORIDE 1,000 ML IV SCH ×2 (11:01→15:00)
--- NOTE | 2020-11-07 11:25 | IPNPDOC ---
Text Note Date of Service The patient was seen on 11/07/20. NOTE The patient's urine is completely clear. He is still quite confused. Physical exam: Confused and delusional gentleman in no apparent respiratory distress. He has no CVA tenderness and his abdomen is soft. His extremities show no cyanosis clubbing or edema. Plan: -Recommend a voiding trial today and if he can void without difficulty he can be discharged from a urologic standpoint -Restart Flomax 0.4 mg -Follow-up with urology in 1 month VS,Chema, I+O VS, [place]ph[place], I+O Laboratory Tests 11/07/20 05:29 Vital Signs Date Time Temp Pulse Resp B/P (MAP) Pulse Ox O2 Delivery O2 Flow Rate FiO2 11/07/20 10:40 60 122/59 11/06/20 22:00 99.0 16 93 Room Air I&O- Last 24 Hours up to 6 AM 11/07/20 05:59 Intake Total 245 ml Output Total 900 ml Balance -655 ml JOHN ARENAS MD Nov 07, 2020 11:25
--- NOTE | 2020-11-07 11:31 | REP ---
INDICATION: lethargic. COMPARISON: Comparison head CT study October 16, 2020.. TECHNIQUE: Helical scanning is acquired. 5 mm axial images were reformatted. Coronal MPR images were generated. FINDINGS: Preliminary digital level designer radiograph is unremarkable. Bone window settings demonstrate intact bony calvarium. No bony destructive lesion is appreciated. Visualized paranasal sinuses are clear. There is some vascular calcification in the distal internal carotid and distal vertebral arteries bilaterally. On soft tissue window settings, there is generalized volume loss. This is unchanged. There is no evidence of infarction, hemorrhage, extra-axial fluid collection, mass, or midline shift. IMPRESSION: Generalized volume loss and vascular calcification. No acute intracranial abnormality.. <Electronically signed by Devyn Mckeon > 11/07/20 112
[2020-11-07 13:35] VITALS: BP 161/79
[2020-11-07] MEDS ORDERED: QUEtiapine FUMARATE 25 MG TAB PO PRN (17:25)
[2020-11-07] MEDS ORDERED: QUEtiapine FUMARATE 50MG TAB PO PRN (19:45)
[2020-11-07] MEDS: OMEPRAZOLE 20 MG CAP PO SCH (20:03)
[2020-11-07] MEDS: BACLOFEN 10 MG TAB PO SCH (20:04)
[2020-11-07] MEDS: ACETAMINOPHEN TAB 650MG DOSE (2X325MG) PO PRN (20:04)
--- NOTE | 2020-11-07 20:07 | ECGEPIP ---
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
[2020-11-07] MEDS ORDERED: QUEtiapine FUMARATE 25 MG TAB PO SCH (21:00)
[2020-11-07 22:00] VITALS: BP 154/75
[2020-11-08] MEDS: D5W/0.45% SODIUM CHLORIDE 1,000 ML IV SCH ×2 (01:00→08:29)
[2020-11-08] MEDS: LEVOTHYROXINE 150MCG TABLET (0.15MG) PO SCH (05:50)
[2020-11-08] MEDS: LEVOTHYROXINE 25MCG TABLET (0.025MG) PO SCH (05:50)
[2020-11-08] MEDS: SINEMET 25-100 MG TAB PO SCH ×5 (05:51→17:00)
[2020-11-08 06:00] VITALS: BP 145/63
[2020-11-08] MEDS: HumaLOG INSULIN (NovoLOG) PER UNIT SC SCH ×3 (08:25→17:30)
[2020-11-08] MEDS: MULTIVITAMINS/MINERALS THERAP 1 TAB PO SCH ×2 (08:26→08:47)
[2020-11-08] MEDS: PREGABALIN 100 MG CAP (LYRICA) PO SCH ×2 (08:27→08:47)
[2020-11-08] MEDS: ASCORBIC ACID 500 MG TAB PO SCH ×2 (08:27→08:47)
[2020-11-08] MEDS: FUROSEMIDE 20 MG TAB PO SCH ×2 (08:27→08:47)
[2020-11-08] MEDS: TAMSULOSIN 0.4 MG CAP PO SCH ×2 (08:27→08:46)
[2020-11-08] MEDS: PRIMIDONE 50 MG TAB PO SCH (08:27)
[2020-11-08 08:28] VITALS: BP 131/55
[2020-11-08] MEDS: POLYVINYL ALCOHOL OPHTH SOLN 15 ML(LIQUITEARS) OU SCH (08:28)
[2020-11-08] MEDS: amLODIPine 5 MG TAB PO SCH (08:28)
--- NOTE | 2020-11-08 08:48 | IPNPDOC ---
Text Note Date of Service The patient was seen on 11/08/20. NOTE Mr. Dela Cruz was seen this morning in the still awaiting an MRI for delirium which is worse than his baseline. He has been having incontinent voids into a diaper since the Ledezma catheter was removed and only one PVR was checked and this was 450 mL. We will have him check again. If his PVRs continue to be elevated we will plan on a renal ultrasound to make sure that there is no [place] but as long as there is not anything for probably okay keeping the catheter out since his creatinine is also very normal. I'm afraid with the catheter that he will just continue to pull it out and this will lead to serious issues. Physical exam: Patient has been combative and screams out help when I go near. He does not seem to have CVA tenderness or abdominal tenderness. Plan -Try to measure a few more postvoid residuals today and if these are still very elevated we will plan a renal ultrasound -Await MRI results VS,Chema, I+O VS, Chema, I+O Vital Signs Date Time Temp Pulse Resp B/P (MAP) Pulse Ox O2 Delivery O2 Flow Rate FiO2 11/08/20 08:28 61 131/55 11/08/20 06:00 98.9 19 98 Room Air I&O- Last 24 Hours up to 6 AM 11/08/20 06:00 Intake Total 1550 ml Output Total 750 ml Balance 800 ml JOHN ARENAS MD Nov 08, 2020 08:48
[2020-11-08 09:20] LABS: HEMATOCRIT 34.3 % (42.0-52.0); HEMOGLOBIN 11.2 g/dl (13.5-17.5); MEAN CORPUSCULAR HEMOGLOBIN 30.6 pg (27.0-33.0); MEAN CORPUSCULAR HGB CONC 32.7 g/dl (32.0-36.5); MEAN CORPUSCULAR VOLUME 93.7 fl (80.0-96.0); PLATELET COUNT, AUTOMATED 192 10^3/uL (150-450); RED BLOOD COUNT 3.66 10^6/uL (4.30-6.10); WHITE BLOOD COUNT 4.4 10^3/uL (4.0-10.0)
[2020-11-08] MEDS ORDERED: QUET50TA4 PO (09:51)
[2020-11-08 09:56] LABS: BLOOD UREA NITROGEN 16 MG/DL (7-18); CALCIUM LEVEL 8.2 MG/DL (8.8-10.2); CARBON DIOXIDE LEVEL 28 MEQ/L (21-32); CHLORIDE LEVEL 104 MEQ/L (98-107); CREATININE FOR GFR 1.16 MG/DL (0.70-1.30); GLOMERULAR FILTRATION RATE > 60.0 (>35); GLUCOSE, FASTING 226 MG/DL (70-100); PHOSPHORUS LEVEL 3.4 MG/DL (2.5-4.9); POTASSIUM SERUM 4.5 MEQ/L (3.5-5.1); SODIUM LEVEL 137 MEQ/L (136-145)
--- NOTE | 2020-11-08 11:19 | REP ---
INDICATION: Evaluate for hydronephrosis. COMPARISON: Renal ultrasound dated 03/11/2020. TECHNIQUE: Multiple ultrasonographic images of the kidneys. FINDINGS: The right kidney measures 12.0 x 6.7 x 5.8 cm. Left kidney measures 11.1 x 5.9 x 6.1 cm. The kidneys are normal size. There is no hydronephrosis or hydroureter on the right or the left. There are no renal calculi. There are no solid or cystic renal masses on the right or the left. Bladder: No bladder wall polyps or masses are identified. We are unable to identify the right or the left ureteral jets with color Doppler imaging, however, there is no hydronephrosis. IMPRESSION: There is no hydronephrosis. Essentially negative renal ultrasound. We are unable to demonstrate the ureteral jets into the bladder with color Doppler imaging, however, there is no hydronephrosis. <Electronically signed by Joe Schwab > 11/08/20 0089
--- NOTE | 2020-11-08 14:38 | DS.PDOC ---
Discharge Summary General Date of Admission Nov 05, 2020 at 18:20 Date of Discharge 11/08/2020 Discharge Summary PROCEDURES PERFORMED DURING STAY: [None]. ADMITTING DIAGNOSES / DISCHARGE DIAGNOSES: Encephalopathy - likely 2/2 delirium on worsening dementia s/p Hematuria Parkinson's Chronic back pain DM2 with Hypoglycemia HTN BPH Constipation GERD DVT prophylaxis COMPLICATIONS/CHIEF COMPLAINT: Blood in urine HISTORY OF PRESENT ILLNESS: Patient is an 85-year-old male with a PMHx of Parkinson's, Dementia, CAD s/p stent, HTN, IDDM2, DLP, CKD3, BPH, Gout, GERD, who is transferred to [facility] for evaluation of hematuria. Patient was originally admitted to [facility] for altered mental status and UTI. Patient had a Ledezma catheter placed which was called out because of confusion. Subsequent, he developed gross hematuria which necessitated transfer to [facility]. Patient was admitted to hospice service for further evaluation, treatment, and urology was called on consultation. HOSPITAL COURSE: Encephalopathy - likely 2/2 delirium on worsening dementia - Currently patient appears to be functioning at baseline - Patient does not have any focal neurologic deficits - No evidence of any active infection at this time - Imaging noted above - Patient is unable to sit still for an MRI - c/w Seroquel at current dose - Will have outpatient follow-up with neurology primary care provider within the next 7 days s/p Hematuria - No further hematuria - Hemoglobin has remained stable - Urology on consultation; will have patient follow up within the next 5 days Parkinson's - c/w carbidopa/levodopa and primidone. Chronic back pain - c/w Baclofen / Pregabalin DM2 with Hypoglycemia - c/w ISS HTN - c/w Amlodipine BPH - c/w tamsulosin - s/p Ledezma catheter - Urology on consultation. Case discussed; will avoid placing Ledezma catheter unless patient develops hydronephrosis of worsening renal function Constipation - c/w Bowel regimen as ordered GERD - c/w Omeprazole DVT prophylaxis - c/w Heparin SQ DISCHARGE MEDICATIONS: Please see below. ALLERGIES: Please see below. PHYSICAL EXAMINATION ON DISCHARGE: Vitals (See below) General: Lying in bed, appears comfortable, awake / alert HEENT: NC, AT CVS: +S1S2 Lungs: Fair air entry b/l, -w/r/r Abdomen: Soft, ND, NT Extremities: - Edema, - Calf tenderness LABORATORY DATA: Please see below. IMAGING: CXR 11/05: Essentially negative portable chest CT Head 11/07: Generalized volume loss and vascular calcification. No acute intracranial abnormality.. Renal US 11/08: There is no hydronephrosis. Essentially negative renal ultrasound. We are unable to demonstrate the ureteral jets into the bladder with color Doppler imaging, however, there is no hydronephrosis. ACTIVITY: [As tolerated]. DISCHARGE PLAN: Follow-up with primary care provider, and urology within the next 7 days Remain compliant with treatment plan and medications Return to the ER if you experience any problems DISPOSITION: Home with services DISCHARGE CONDITION: [Stable]. TIME SPENT ON DISCHARGE: 35 minutes Vital Signs/I&Os Vital Signs Date Time Temp Pulse Resp B/P (MAP) Pulse Ox O2 Delivery O2 Flow Rate FiO2 11/08/20 08:28 61 131/55 11/08/20 06:00 98.9 19 98 Room Air I&O- Last 24 Hours up to 6 AM 11/08/20 06:00 Intake Total 1550 ml Output Total 750 ml Balance 800 ml Laboratory Data Labs 24H Laboratory Tests 2 11/07/20 17:11: Bedside Glucose (Misc Panel) 128H 11/07/20 20:39: Bedside Glucose (Misc Panel) 145H 11/08/20 07:05: Bedside Glucose (Misc Panel) 236H 11/08/20 08:56: Nucleated Red Blood Cells % (auto) 0.0, Anion Gap 5L, Glomerular Filtration Rate > 60.0, Calcium Level 8.2L, Phosphorus Level 3.4#, Magnesium Level 2.0 11/08/20 11:22: Bedside Glucose (Misc Panel) 141H CBC/BMP Laboratory Tests 11/08/20 08:56 FSBS Laboratory Tests Test 11/07/20 17:11 11/07/20 20:39 11/08/20 07:05 11/08/20 11:22 Range/Units Bedside Glucose (Misc Panel) 128 145 236 141 83-110 MG/DL Discharge Medications Scheduled Amlodipine Besylate (Amlodipine Besylate) 5 Mg Tablet, 7.5 MG PO DAILY, (Re ported) Ascorbic Acid (Ascorbic Acid) 500 Mg Tablet, 500 MG PO DAILY, (Reported) Baclofen (Baclofen) 10 Mg Tablet, 10 MG GT QHS, (Reported) Carbidopa/Levodopa (Carbidopa-Levodopa 25-100 Tab) 1 Each Tablet, 2 TAB PO 5XD, (Reported) Furosemide (Furosemide) 20 Mg Tablet, 20 MG PO DAILY, (Reported) Levothyroxine Sodium (Levothyroxine Sodium) 175 Mcg Tablet, 175 MCG PO QAM, (Reported) Magnesium Oxide (Magox 400) 400 Mg Tablet, 800 MG PO BID, (Reported) Multivitamins (Thera M Plus Tablet) 1 Tab Tab, 1 TAB PO DAILY, (Reported) Omeprazole (Omeprazole) 20 Mg Capsule.dr, 40 MG PO QHS, (Reported) Polyvinyl Alcohol (Artificial Tears) 1.4 % Tamy, 1 DROP OU BID, (Reported) Pregabalin (Pregabalin) 100 Mg Capsule, 100 MG PO BID, (Reported) Primidone (Primidone) 50 Mg Tablet, 50 MG PO BID, (Reported) Tamsulosin HCl (Flomax) 0.4 Mg Cap, 0.4 MG PO DAILY, (Reported) Scheduled PRN Acetaminophen (Acetaminophen) 325 Mg Tablet, 650 MG PO Q4H PRN for MILD PAIN or TEMP > 101 Docusate Sodium (Colace) 100 Mg Cap, 100 MG PO DAILY PRN for CONSTIPATION, (Reported) Insulin Human Lispro (Humalog) 100 Unit/1 Ml Vial, 1 DOSE SC ACHS PRN for SLIDING SCALE , (Reported) Quetiapine Fumarate (Quetiapine Fumarate) 50 Mg Tablet, 50 MG PO BIDP PRN for AGITATION Allergies Coded Allergies: Contrast Media (Verified Allergy, Intermediate, 10/21/19) HYPOTENSION PER ANESTHESIOLOGY REPORT PARI SPARKS MD Nov 08, 2020 14:38
== END 2020-11-08 18:00 | disposition home health service (06) | DRG 699 ==
LOC: M MS5PR 18:20
PROVIDERS: ADMIT General Practice; ATTEND Internal Medicine
DX: T83.83XA Hemorrhage due to genitourinary prosthetic devices, implants and grafts, initial encounter (principal); G93.40 Encephalopathy, unspecified; G20 Parkinson's disease; F03.90 Unspecified dementia, unspecified severity, without behavioral disturbance, psychotic disturbance, mood disturbance, and anxiety; I25.10 Atherosclerotic heart disease of native coronary artery without angina pectoris; E78.5 Hyperlipidemia, unspecified; I12.9 Hypertensive chronic kidney disease with stage 1 through stage 4 chronic kidney disease, or unspecified chronic kidney disease; K21.9 Gastro-esophageal reflux disease without esophagitis; E11.22 Type 2 diabetes mellitus with diabetic chronic kidney disease; N18.30 Chronic kidney disease, stage 3 unspecified; N40.0 Benign prostatic hyperplasia without lower urinary tract symptoms; Z98.41 Cataract extraction status, right eye; Z66 Do not resuscitate; Y84.6 Urinary catheterization as the cause of abnormal reaction of the patient, or of later complication, without mention of misadventure at the time of the procedure; Z98.42 Cataract extraction status, left eye; Z90.49 Acquired absence of other specified parts of digestive tract; Z96.652 Presence of left artificial knee joint; Z95.5 Presence of coronary angioplasty implant and graft; E03.9 Hypothyroidism, unspecified; Z79.52 Long term (current) use of systemic steroids; Z79.899 Other long term (current) drug therapy; Z91.041 Radiographic dye allergy status; E11.649 Type 2 diabetes mellitus with hypoglycemia without coma; K59.00 Constipation, unspecified; M10.9 Gout, unspecified; M35.3 Polymyalgia rheumatica

== ENCOUNTER 2020-11-22 13:12 | Inpatient (IN) | payer MEDICARE, OTHER ==
[~2020-11-22] VITALS: Ht 177.8 cm; Wt 78.6 kg
[~2020-11-22 13:12] MED LIST changes: +ASCO500T PO; -BACL1TAB8 GT; +BACL1TAB8 PO; +CEPH500C PO; +QUET50TA4 PO
[2020-11-22] MEDS ORDERED: HYDR-4468 PO (13:31)
[2020-11-22] MEDS ORDERED: NS 1,000 ML IV SCH (13:35)
[2020-11-22 13:51] LABS: VENOUS BASE EXCESS 3.5 (-2.0-2.0); VENOUS HCO3 26.2 MEQ/L (23.0-27.0); VENOUS O2 SATURATION 97.9 % (60.0-80.0); VENOUS PARTIAL PRESSURE CO2 33.7 mmHg (38.0-50.0); VENOUS PARTIAL PRESSURE O2 99.4 mmHg (30.0-50.0); VENOUS PH 7.508 UNITS (7.330-7.430); VENOUS STANDARD HCO3 27.6 MEQ/L; VENOUS TOTAL CO2 27.2 MEQ/L (24.0-28.0)
[2020-11-22 13:56] LABS: BASO # 0.1 10^3/uL (0.0-0.2); BASO % 0.4 % (0.0-1.0); EOS % 0.2 % (0.0-3.0); LYMPH # 0.6 10^3/uL (1.5-5.0); LYMPH % 4.7 % (24.0-44.0); MEAN CORPUSCULAR HEMOGLOBIN 30.8 pg (27.0-33.0); MEAN CORPUSCULAR HGB CONC 32.4 g/dl (32.0-36.5); MEAN CORPUSCULAR VOLUME 94.9 fl (80.0-96.0); MONO # 0.9 10^3/uL (0.0-0.8); MONO % 6.4 % (2.0-8.0); NEUTROPHILS # 11.6 10^3/uL (1.5-8.5); NEUTROPHILS % 87.8 % (36.0-66.0); PLATELET COUNT, AUTOMATED 165 10^3/uL (150-450); WHITE BLOOD COUNT 13.3 10^3/uL (4.0-10.0)
--- NOTE | 2020-11-22 13:58 | REP ---
INDICATION: Altered Mental Status COMPARISON: 11/05/2020 TECHNIQUE: Portable AP view of the chest FINDINGS: Limited by portable technique. Stable chronic changes are appreciated. Superimposed airspace disease cannot definitively be excluded. No obvious focal consolidation, effusion, or pneumothorax. IMPRESSION: Limited examination. Chronic changes. Cannot exclude superimposed process. <Electronically signed by Ross Tucker > 11/22/20 [id number]
--- NOTE | 2020-11-22 14:08 | REP ---
INDICATION: Altered Mental Status COMPARISON: 10/16/2020 TECHNIQUE: Axial noncontrast images from the skull base to the thoracic inlet with coronal reformations. This CT examination was performed using the following dose reduction techniques: Automated exposure control, adjustment of mA and/or kv according to the patient's size, and use of iterative reconstruction technique. FINDINGS: Atrophy with periventricular leukomalacia and microvascular ischemic changes are appreciated. The ventricles and sulci are symmetric. Mae-white differentiation is maintained. There is no evidence for acute intracranial hemorrhage, mass/mass effect, pathology or infarction. No extra-axial fluid collection. Calvarium is intact. Paranasal sinuses and mastoid air cells are clear. IMPRESSION: Atrophy and microvascular ischemic changes. No acute intracranial hemorrhage, infarction, or mass/mass effect. <Electronically signed by Ross Tucker > 11/22/20 [id number]
[2020-11-22 14:22] LABS: OSMOLALITY SERUM 304 MOSM/KG (280-301)
[2020-11-22 14:37] LABS: ALBUMIN 2.5 GM/DL (3.2-5.2); ALT/SGPT 6 U/L (12-78); BILIRUBIN,DIRECT < 0.1 MG/DL (0.0-0.2); BILIRUBIN,TOTAL 0.4 MG/DL (0.2-1.0); CK-MB VALUE MASS 2.2 NG/ML (<3.6); CPK CREATINE PHOSPHOKINASE 85 U/L (39-308); MB/CK RELATIVE INDEX 2.59 (< OR =4); THYROID STIMULATING HORMONE 0.613 uIU/ML (0.358-3.740); TOTAL PROTEIN 6.4 GM/DL (6.4-8.2); TROPONIN I < 0.02 NG/ML (< 0.10)
[2020-11-22] MEDS ORDERED: cefTRIAXone SOD 1 GM in D5W MINI-BAG PLUS 50 ML IV ONE (15:30)
[2020-11-22] MEDS ORDERED: NUPL34CA PO (15:48)
[2020-11-22] MEDS ORDERED: ENSULIQ8 PO (15:48)
[2020-11-22] MEDS ORDERED: INSUDET SC (15:48)
[2020-11-22] MEDS ORDERED: QUET50TA4 PO (15:48)
[2020-11-22] MEDS ORDERED: ACET-910 PO (15:50)
[2020-11-22] MEDS ORDERED: HOME MED LIST COMPLETE! XX SCH (15:55)
[2020-11-22 16:22] LABS: RSV AMPLIFICATION NEGATIVE (NEGATIVE)
--- NOTE | 2020-11-22 16:48 | REP ---
INDICATION: ?stone COMPARISON: None TECHNIQUE: Axial noncontrast images from the lung bases to the pubic symphysis with coronal and sagittal reformations. This CT examination was performed using the following dose reduction techniques: Automated exposure control, adjustment of mA and/or kv according to the patient's size, and use of iterative reconstruction technique. FINDINGS: Lung bases demonstrate mild bibasilar atelectasis and possible small forming left lower lobe pneumonia with air bronchograms. Liver, spleen, and bilateral adrenal glands are relatively normal for noncontrast evaluation. Kidneys demonstrate chronic changes along with 3 mm nonobstructing right renal calculus. No hydronephrosis. Evaluation of the enteric system demonstrates no obstruction. Colonic diverticulosis noted. There is mucosal thickening and pericolonic stranding involving the distal sigmoid colon highly suggestive of infectious/inflammatory colitis (series 201; images 106-128). Pelvis demonstrates mildly enlarged prostate gland and relatively normal bladder. No ascites. No free air. Upper abdominal rounded soft tissue lesions suggesting mesenteric lymph nodes are identified and measure up to approximately 2.3 cm. No obvious retroperitoneal adenopathy noted. Atherosclerotic changes to the aorta and vasculature without aneurysm. Musculoskeletal structures demonstrate degenerative changes without acute osseous abnormality. IMPRESSION: 1. Mucosal thickening to the distal sigmoid colon suggesting infectious/inflammatory colitis. Follow-up colonoscopy may be warranted to exclude underlying malignancy. 2. Upper abdominal mesenteric lymph nodes up to 2.3 cm are nonspecific and may warrant further investigation/follow-up. 3. 3 mm nonobstructing right renal calculus. 4. Colonic diverticulosis. 5. Further chronic nonacute findings as noted above. <Electronically signed by Ross Tucker > 11/22/20 [id number]
[2020-11-22] MEDS ORDERED: GLUCAGON INJ 1MG VIAL SC PRN (17:20)
[2020-11-22] MEDS ORDERED: GLUCOSE 4GM CHEW TABLET PO PRN (17:20)
[2020-11-22] MEDS ORDERED: DEXTROSE 50% 50 ML SYRINGE IV PRN (17:20)
--- NOTE | 2020-11-22 17:24 | HPEPDOC ---
General Date of Admission November 22, 2020 Date of Service: Nov 22, 2020 Chief Complaint The patient is a 85-year-old male admitted with a reason for visit of Unresponsive. Source: Family, RN/MD History of Present Illness Mr. Dela Cruz is an 85-year-old male with dementia, Parkinson's disease, and lumbar stenosis status post surgery and spinal cord stimulator who presents with altered mental status secondary to UTI. Patient was recently admitted from 10/17/2020 to 10/24/2020 for metabolic encephalopathy secondary to UTI. Urine cultures were contaminated at that time, patient completed an antibiotic course. Patient was sent to [facility] rehab. Then patient was transferred from [facility] for hematuria as patient had pulled out his Ledezma catheter. From patient was admitted 11/05/2020 to 11/08/2020 and was evaluated by urology. Patient was discharged home with home physical therapy. Patient was doing okay at home. He saw urology on 11/11/2020. Then PCP on 11/14/2020. He returned to see urology on 11/17/2020 with a planned bladder ultrasound on 021. Patient started to decline on 11/20/2020. Normally he is able to help with daily function, but on 11/20/2020, son and daughter had to help dress him and help him to his wheelchair. He would sometimes mumble and not make sense. He also will not eat. He continued to worsen. When home health nurse saw patient today, patient was lethargic. He will not get up or eat. Recommended patient to come to the ED for evaluation. While here, is found to have a UTI and leukocytosis. Otherwise afebrile and without tachycardia or hypotension. When I saw patient, he was snoring loudly. I was unable to obtain review of systems. Patient appears dry on exam. Capillary refill is sluggish. Creatinine was elevated at 1.6. Most of the history was obtained from . tells me that he is inco ntinent and uses depends. Patient will be admitted for metabolic encephalopathy secondary to UTI. Home Medications Scheduled Ascorbic Acid (Ascorbic Acid) 500 Mg Tablet, 500 MG PO DAILY, (Reported) Baclofen (Baclofen) 10 Mg Tablet, 10 MG PO QHS, (Reported) Carbidopa/Levodopa (Carbidopa-Levodopa 25-100 Tab) 1 Each Tablet, 2 TAB PO 5XD, (Reported) 0700/1000/1400/1800/2200 Furosemide (Furosemide) 20 Mg Tablet, 20 MG PO Q2D, (Reported) RECENT CHANGE PER 'S OFFICE Hydrocortisone (Hydrocortisone) 10 Mg Tablet, 10 MG PO BIDWM, (Reported) Insulin Detemir (Levemir) 100 Unit/1 Ml Vial, 28 UNITS SC DAILY, (Reported) Lactose-Reduced Food (Ensure Liquid) 237 Ml Liquid, 237 ML PO QPM, (Reported) Levothyroxine Sodium (Levothyroxine Sodium) 175 Mcg Tablet, 175 MCG PO QAM, (Reported) Magnesium Oxide (Magox 400) 400 Mg Tablet, 400 MG PO BID, (Reported) Omeprazole (Omeprazole) 20 Mg Capsule.dr, 40 MG PO QHS, (Reported) Pimavanserin Tartrate (Nuplazid) 34 Mg Capsule, 34 MG PO DAILY, (Reported) NEW MEDICATION, HAS NOT STARTED YET Polyvinyl Alcohol (Artificial Tears) 1.4 % Tamy, 1 DROP OU BID, (Reported) Pregabalin (Pregabalin) 100 Mg Capsule, 100 MG PO BID, (Reported) TAKES WITH LUNCH/BEDTIME Primidone (Primidone) 50 Mg Tablet, 50 MG PO BID, (Reported) TAKES WITH LUNCH/BEDTIME Tamsulosin HCl (Flomax) 0.4 Mg Cap, 0.4 MG PO DAILY, (Reported) Scheduled PRN Acetaminophen (Acetaminophen) 325 Mg Tablet, 650 MG PO Q4H PRN for PAIN LEVEL 1-4, (Reported) Docusate Sodium (Colace) 100 Mg Cap, 100 MG PO DAILY PRN for CONSTIPATION, (Reported) Insulin Human Lispro (Humalog) 100 Unit/1 Ml Vial, 1 DOSE SC ACHS PRN for SLIDING SCALE , (Reported) Quetiapine Fumarate (Quetiapine Fumarate) 50 Mg Tablet, 50 MG PO BID PRN for AGITATION, (Reported) Allergies Coded Allergies: Contrast Media (Verified Allergy, Intermediate, 10/21/19) HYPOTENSION PER ANESTHESIOLOGY REPORT Past Medical History Medical History 1. CKD stage III 2. Parkinson's disease complicated by dementia, unsteady gait, and vision problems 3. Polymyalgia rheumatica 4. Mnire's disease 5. Chronic back pain/lumbar spinal stenosis status post laminectomy and spinal cord stimulator 6. Evm-gqxcfsz-wujvyyzun diabetes mellitus 7. Chronic CAD status post stent of the LAD 8. Hypothyroidism 9. Essential hypertension 10. Dementia 11. Dyslipidemia 12. BPH Surgical History 1. Right inguinal hernia repair 2. Surgery for right eye for ptosis 3. Left knee surgery for osteoarthritis and medial meniscal tear 4. Bilateral cataract surgery 5. Cholecystectomy 6. Resection of multiple sessile polyps 7. Resection of benign bladder mass Family History Unable to obtain from patient due to altered mental status. History obtained from chart Father: History of COPD Mother: History of CAD and diabetes mellitus Social History * Smoker: Denies Alcohol: Denies Drugs: denies Of note social history was unable to be obtained due to patient's mentation. Hi story obtained from chart A-FIB/CHADSVASC A-FIB History Current/History of A-Fib/PAF?: No Review of Systems Other systems Unable to obtain review of systems due to patient's lethargy and altered mental status Physical Examination General Exam: Negative: Alert, Cooperative Eye Exam: Negative: Sclera icteric Chest Exam: Positive: Diminished Heart Exam: Positive: Rate Normal, Regular Rhythm Abdomen Exam: Positive: Normal bowel sounds, Soft Extremity Exam: Negative: Edema Skin Exam: Negative: Nl turgor and temperature (Delayed capillary refill) Neuro Exam: Positive: Other (Unable to perform neuro exam due to patient's lethargy and altered mental status) Psych Exam: Negative: Mental status NL, Mood NL Vital Signs Vital Signs Date Time Temp Pulse Resp B/P (MAP) Pulse Ox O2 Delivery O2 Flow Rate FiO2 11/22/20 15:45 59 17 135/65 (88) 97 Room Air 11/22/20 14:39 97.2 Laboratory Data Labs 24H Laboratory Tests 2 11/22/20 13:33: Immature Granulocyte % (Auto) 0.5, Neutrophils (%) (Auto) 87.8H, Lymphocytes (%) (Auto) 4.7L, Monocytes (%) (Auto) 6.4, Eosinophils (%) (Auto) 0.2, Basophils (%) (Auto) 0.4, Neutrophils # (Auto) 11.6H, Lymphocytes # (Auto) 0.6L, Monocytes # (Auto) 0.9H, Eosinophils # (Auto) 0.0, Basophils # (Auto) 0.1, Nucleated Red Blood Cells % (auto) 0.0, Osmolality 304H, Total Bilirubin 0.4, Direct Bilirubin < 0.1, Aspartate Amino Transf (AST/SGOT) 28, Alanine Aminotransferase (ALT/SGPT) 6L, Alkaline Phosphatase 132H, Ammonia 14, Total Creatine Kinase 85, Creatine Kinase MB 2.2, Creatine Kinase MB Relative Index 2.59, Troponin I < 0.02, Total Protein 6.4, Albumin 2.5L, Albumin/Globulin Ratio 0.6, Thyroid Stimulating Hormone (TSH) 0.613 11/22/20 13:36: Blood Gas Bicarbonate Standard 27.6, Venous Blood pH 7.508H, Venous Blood Partial Pressure CO2 33.7L, Venous Blood Partial Pressure O2 99.4H, Venous Blood Total Carbon Dioxide 27.2, Venous Blood HCO3 26.2, Venous Blood Oxygen Saturation 97.9H, Venous Blood Base Excess 3.5H 11/22/20 14:22: Urine Color YULY, Urine Appearance TURBIDH, Urine pH 6.0, Urine Specific [place] 1.014, Urine Protein 2+H, Urine Glucose (UA) NEGATIVE, Urine Ketones TRACEH, Urine Blood 3+H, Urine Nitrite NEGATIVE, Urine Bilirubin NEGATIVE, Urine Urobilinogen 2.0H, Urine Leukocyte Esterase 3+H, Urine WBC (Auto) TNTCH, Urine RBC (Auto) TNTCH, Urine Hyaline Casts (Auto) 31, Urine Bacteria (Auto) NEGATIVE, Urine Squamous Epithelial Cells 0, Urine Sperm (Auto) 11/22/20 14:32: POC Glucose (Misc Panel) 138H, POC Sodium (Misc Panel) 139, POC Potassium (Misc Panel) 5.0, POC Chloride (Misc Panel) 103, POC Total CO2 (Misc Panel) 27.0, POC Blood Urea Nitrogen (Misc Panel 47H, POC Ionized Calcium (Misc Panel) 4.1L, POC Creatinine (Misc Panel) 1.6H, POC Hematocrit (Misc Panel) 36.0L 11/22/20 15:35: Coronavirus (COVID-19)(PCR) NEGATIVE, Influenza Type A (RT-PCR) NEGATIVE, Influenza Type B (RT-PCR) NEGATIVE, Respiratory Syncytial Virus (PCR) NEGATIVE CBC/BMP Laboratory Tests 11/22/20 13:33 Microbiology Microbiology 11/22/20 Urine Culture, Received Pending 11/22/20 Blood Culture, Received Pending 8/24/21 Blood Culture, Received Pending Assessment/Plan Mr. Dela Cruz is an 85-year-old male with dementia, Parkinson's disease, and lumbar stenosis status post surgery and spinal cord stimulator who presents with altered mental status secondary to UTI. Patient's had multiple UTIs in the past but has not grown any organisms of clinical significance. Patient was given ceftriaxone in the ED. CT of the abdomen pelvis had a nonobstructing stone, but demonstrated infectious/inflammatory colitis. Will switch patient to Zosyn. Pending urine culture results. Plan / VTE VTE Prophylaxis Ordered?: Yes Plan Plan 1. Metabolic encephalopathy secondary to UTI Patient is lethargic. Vital signs are stable VBG did not demonstrate elevated CO2 CT head negative for acute intracranial pathology We will start patient on antibiotics for UTI 2. UTI Zosyn day 1 3. Infectious/inflammatory colitis Seen on CT of the abdomen pelvis without contrast Zosyn day 1 4. Dehydration Sluggish capillary refill, creatinine elevated Continue IV fluids 5. Parkinson's disease We will attempt to continue carbidopa levodopa. May not be able to due to lethargy 6. Adrenal insufficiency Convert hydrocortisone to IV Patient is not hypotensive 7. Insulin-dependent diabetes mellitus Since patient is n.p.o. we will hold Levemir We will check POC glucose Hypoglycemic protocol 8. Hypothyroidism TSH 0.613 We will continue levothyroxine as IV 9. BPH We will hold tamsulosin as patient is lethargic 10. DVT prophylaxis Heparin Disposition: Pending clinical improvement and urine culture results VENKATA ALCARAZ DO Nov 22, 2020 17:24
[2020-11-22] MEDS: HYDROCORTISONE 100 MG/2 ML VIAL (J1720 PER 1) IV SCH (18:08)
[2020-11-22 19:58] VITALS: BP 158/72
[2020-11-22 20:26] LABS: CALCIUM LEVEL 8.4 MG/DL (8.8-10.2); CREATININE FOR GFR 1.55 MG/DL (0.70-1.30); GLOMERULAR FILTRATION RATE 45.7 (>35); POTASSIUM SERUM 5.1 MEQ/L (3.5-5.1)
[2020-11-22] MEDS: PRIMIDONE 50 MG TAB PO SCH (20:48)
[2020-11-22] MEDS: PREGABALIN 100 MG CAP (LYRICA) PO SCH (20:48)
--- NOTE | 2020-11-22 20:50 | ECGEPIP ---
[facility] - ED Test Date: 2020-11-22 Pat Name: JUAN PABLO NARANJO Department: Room: - Gender: Male Social Research Assistant: ARIAN : [id number] Requested By: Amanda Narayanan Order Number: [id number] Reading MD: Derrick Mora Measurements Intervals [place] Rate: 61 P: 25 FL: 156 QRS: -45 QRSD: 120 T: 10 QT: 424 QTc: 426 Interpretive Statements Normal sinus rhythm Left anterior fascicular block Minimal voltage criteria for LVH, may be normal variant Similar to tracing done 11-07-20 Electronically Signed on 11-22-2020 20:50:03 EDT by Derrick Mora
[2020-11-22] MEDS: SINEMET 25-100 MG TAB PO SCH (22:00)
[2020-11-22] MEDS: HEPARIN SOD (PORCINE) 5000UNITS/ML 1ML VIAL/SYRINGE SQ SCH (22:07)
[2020-11-22] MEDS: PIPERACILLIN/TAZOBACTAM SOD 3.375 GM in D5W MINI-BAG PLUS 50 ML IV SCH (22:07)
[2020-11-22] MEDS: POLYVINYL ALCOHOL OPHTH SOLN 15 ML(LIQUITEARS) OU SCH (22:07)
--- NOTE | 2020-11-23 00:13 | IPNPDOC ---
Text Note Date of Service Significant Event NOTE Hypoglycemia, bg 69. pt lethargic unable to swallow. Will given 1/2 amp D50 and initiate fluids with dextrose since NPO. Consider switching back to NS accordingly. Check a1c. SSI placed if needed. VS,Fishbone, I+O VS, Fishbone, I+O Laboratory Tests 11/22/20 13:33 11/22/20 19:50 Vital Signs Date Time Temp Pulse Resp B/P (MAP) Pulse Ox O2 Delivery O2 Flow Rate FiO2 11/22/20 19:15 53 17 139/64 (89) 99 Room Air 11/22/20 18:00 97.6 I&O- Last 24 Hours up to 6 AM 11/23/20 06:00 Intake Total 850 ml Balance 850 ml JEROME THOMPSON NET ARCHITECT Nov 23, 2020 00:13
[2020-11-23] MEDS: D5W/0.9% SODIUM CHLORIDE 1,000 ML IV SCH ×3 (00:23→21:46)
[2020-11-23] MEDS: PIPERACILLIN/TAZOBACTAM SOD 3.375 GM in D5W MINI-BAG PLUS 50 ML IV SCH ×4 (03:09→21:45)
[2020-11-23 03:27] LABS: ABG HCO3 30.4 MEQ/L (22.0-26.0); ABG PARTIAL PRESSURE CO2 48.6 mmHg (35.0-45.0); ABG PARTIAL PRESSURE O2 147.1 mmHg (75.0-100.0); ABG TOTAL CO2 31.9 MEQ/L (23.0-31.0); ABG pH (ARTERIAL) 7.414 UNITS (7.350-7.450)
--- NOTE | 2020-11-23 03:46 | IPNPDOC ---
Text Note Date of Service The patient was seen on 11/23/20. NOTE Notified patient with questionable apneic/desat episodes. Probe was checked continuous pulse ox placed and patient would have what appeared to be apneic episodes per nursing staff with saturation going as low as the 70s and then upon stimuli patient would normalize. Patient was placed on 2 L nasal cannula. No reported history of SURY in chart. Patient seen at bedside-sleeping, snoring at bedside in no acute distress 2 L nasal cannula 100%. He did have one episode where he did show some apnea, but resumed quickly and no desat with the nasal cannula during exam. Patient does sound diminished. Chest x-ray earlier questioned superimposed infection. RRR. Patient does not appear hypervolemic. Patient does not open eyes to sternal rub per my exam but does mumble in response to the nurse asking about the patient's loved ones by name. Patient is on antibiotics for colitis, UTI which would cover for pneumonia. Will check ABG and two-view chest x-ray in a.m. Consider escalation of antibiotics pending repeat chest x-ray. Consider CPAP for SURY although there is a risk benefit scenario to consider given patient's lethargy. ABG at present shows compensation. We will continue plan as noted. WCTM. VS,Fishbone, I+O VS, Fishbone, I+O Laboratory Tests 11/22/20 13:33 11/22/20 19:50 Vital Signs Date Time Temp Pulse Resp B/P (MAP) Pulse Ox O2 Delivery O2 Flow Rate FiO2 11/22/20 19:58 97.8 64 18 158/72 (100) 97 Room Air I&O- Last 24 Hours up to 6 AM 11/23/20 06:00 Intake Total 900 ml Output Total 0 ml Balance 900 ml JEROME THOMPSON NP Nov 23, 2020 03:46
[2020-11-23] MEDS: HumaLOG INSULIN (NovoLOG) PER UNIT SC SCH ×5 (04:00→21:00)
[2020-11-23] MEDS: LEVOTHYROXINE 100MCG (0.1MG) VIAL IV SCH (05:02)
[2020-11-23 06:00] VITALS: BP 124/58
[2020-11-23 06:16] LABS: HEMATOCRIT 34.1 % (42.0-52.0); HEMOGLOBIN 10.8 g/dl (13.5-17.5); MEAN CORPUSCULAR HEMOGLOBIN 30.3 pg (27.0-33.0); MEAN CORPUSCULAR HGB CONC 31.7 g/dl (32.0-36.5); MEAN CORPUSCULAR VOLUME 95.5 fl (80.0-96.0); PLATELET COUNT, AUTOMATED 157 10^3/uL (150-450); RED BLOOD COUNT 3.57 10^6/uL (4.30-6.10); WHITE BLOOD COUNT 6.8 10^3/uL (4.0-10.0)
[2020-11-23 06:48] LABS: BLOOD UREA NITROGEN 45 MG/DL (7-18); CALCIUM LEVEL 7.7 MG/DL (8.8-10.2); CARBON DIOXIDE LEVEL 31 MEQ/L (21-32); CHLORIDE LEVEL 109 MEQ/L (98-107); GLOMERULAR FILTRATION RATE 47.5 (>35); GLUCOSE, FASTING 122 MG/DL (70-100); NT-PRO BNP 1759 PG/ML (<450); POTASSIUM SERUM 4.5 MEQ/L (3.5-5.1); SODIUM LEVEL 141 MEQ/L (136-145)
[2020-11-23 06:57] LABS: HEMOGLOBIN A1c 7.1 %
[2020-11-23] MEDS: SINEMET 25-100 MG TAB PO SCH ×5 (07:00→21:45)
[2020-11-23 08:02] LABS: VENOUS BASE EXCESS 2.9 (-2.0-2.0); VENOUS HCO3 28.9 MEQ/L (23.0-27.0); VENOUS PARTIAL PRESSURE CO2 51.1 mmHg (38.0-50.0); VENOUS PARTIAL PRESSURE O2 74.9 mmHg (30.0-50.0); VENOUS PH 7.371 UNITS (7.330-7.430); VENOUS TOTAL CO2 30.5 MEQ/L (24.0-28.0)
--- NOTE | 2020-11-23 08:57 | REP ---
INDICATION: INTERVAL CHECK FROM 1 VIEW COMPARISON: None. TECHNIQUE: PA and lateral. FINDINGS: Examination is limited by positioning and poor inspiratory effort. Left lower lobe atelectasis and possible small pleural reaction are suggested along with underlying chronic changes.. IMPRESSION: Left lower lobe atelectasis/infiltrate and small left pleural reaction. <Electronically signed by Ross Tucker > 11/23/20 0815
[2020-11-23] MEDS: HEPARIN SOD (PORCINE) 5000UNITS/ML 1ML VIAL/SYRINGE SQ SCH ×2 (09:40→21:44)
[2020-11-23] MEDS: POLYVINYL ALCOHOL OPHTH SOLN 15 ML(LIQUITEARS) OU SCH ×2 (09:40→21:45)
[2020-11-23] MEDS: HYDROCORTISONE 100 MG/2 ML VIAL (J1720 PER 1) IV SCH ×2 (09:40→18:15)
[2020-11-23 11:12] LABS: VITAMIN B12 LEVEL 636 PG/ML (247-911)
--- NOTE | 2020-11-23 12:22 | IPNPDOC ---
Subjective Date Seen The patient was seen on 11/23/20. Subjective Chief Complaint/HPI Mr. Dela Cruz is an 85-year-old male with dementia, Parkinson's disease, and lumbar stenosis status post surgery and spinal cord stimulator who presents with altered mental status secondary to UTI. Overnight, there was concern for sleep apnea. He was put on 2L NC and did well overnight. This morning, he was a little more awake and more appropriate. Eye lid was closed. He told me he was constipated for 4 to 5 days and had abdominal pain. He was able to have a good BM and felt better. Otherwise, denied chest pain or dyspnea. Objective Physical Examination General Exam: Positive: Cooperative Eye Exam: Negative: Sclera icteric Chest Exam: Positive: Diminished Heart Exam: Positive: Rate Normal, Regular Rhythm Abdomen Exam: Positive: Normal bowel sounds, Soft Extremity Exam: Negative: Edema Neuro Exam: Positive: Other (Unable to perform neuro exam due to patient's lethargy and altered mental status) Psych Exam: Negative: Mental status NL, Mood NL Assessment /Plan Assessment Mr. Dela Cruz is an 85-year-old male with dementia, Parkinson's disease, and lumbar stenosis status post surgery and spinal cord stimulator who presents with altered mental status secondary to UTI. Patient's had multiple UTIs in the past but has not grown any organisms of clinical significance. Patient was given ceftriaxone in the ED. CT of the abdomen pelvis had a nonobstructing stone, but demonstrated infectious/inflammatory colitis. Will switch patient to Zosyn. Pending urine culture results. Otherwise, CXR was obtained on 11/23/20. Demonstrated left lower atelectases vs infiltrate. Will order speech eval for diet. Patient is on antibiotics that would also cover for pneumonia/aspiration PNA Plan/VTE VTE Prophylaxis Ordered?: Yes Plan 1. Metabolic encephalopathy secondary to UTI Patient is lethargic. Vital signs are stable VBG did not demonstrate elevated CO2 CT head negative for acute intracranial pathology We will start patient on antibiotics for UTI 2. UTI -Pending urine cultures Zosyn day 2 3. Infectious/inflammatory colitis Seen on CT of the abdomen pelvis without contrast Zosyn day 2 4. Dehydration Sluggish capillary refill, creatinine elevated Continue IV fluids 5. Parkinson's disease Continue on carbidopa/levodopa 6. Adrenal insufficiency Convert hydrocortisone to IV Patient is not hypotensive 7. Insulin-dependent diabetes mellitus Pending swallow eval, hold Levemir Hypoglycemic protocol -Sliding scale insulin 8. Hypothyroidism TSH 0.613 We will continue levothyroxine as IV 9. BPH Can restart tamsulosin if patient has safe diet by ST 10. DVT prophylaxis Heparin Disposition: Pending clinical improvement and urine culture results VS, I&O, 24H, [place] Vital Signs/I&O Vital Signs Date Time Temp Pulse Resp B/P (MAP) Pulse Ox O2 Delivery O2 Flow Rate FiO2 11/23/20 06:00 97.2 52 14 124/58 (80) 98 Nasal Cannula 2.0 I&O- Last 24 Hours up to 6 AM 11/23/20 05:59 Intake Total 1550 ml Output Total 0 ml Balance 1550 ml Laboratory Data 24H LABS Laboratory Tests 2 11/22/20 13:33: Immature Granulocyte % (Auto) 0.5, Neutrophils (%) (Auto) 87.8H, Lymphocytes (%) (Auto) 4.7L, Monocytes (%) (Auto) 6.4, Eosinophils (%) (Auto) 0.2, Basophils (%) (Auto) 0.4, Neutrophils # (Auto) 11.6H, Lymphocytes # (Auto) 0.6L, Monocytes # (Auto) 0.9H, Eosinophils # (Auto) 0.0, Basophils # (Auto) 0.1, Nucleated Red Blood Cells % (auto) 0.0, Osmolality 304H, Total Bilirubin 0.4, Direct Bilirubin < 0.1, Aspartate Amino Transf (AST/SGOT) 28, Alanine Aminotransferase (ALT/SGPT) 6L, Alkaline Phosphatase 132H, Ammonia 14, Total Creatine Kinase 85, Creatine Ki nase MB 2.2, Creatine Kinase MB Relative Index 2.59, Troponin I < 0.02, Total Protein 6.4, Albumin 2.5L, Albumin/Globulin Ratio 0.6, Thyroid Stimulating Hormone (TSH) 0.613 11/22/20 13:36: Blood Gas Bicarbonate Standard 27.6, Venous Blood pH 7.508H, Venous Blood Partial Pressure CO2 33.7L, Venous Blood Partial Pressure O2 99.4H, Venous Blood Total Carbon Dioxide 27.2, Venous Blood HCO3 26.2, Venous Blood Oxygen Saturation 97.9H, Venous Blood Base Excess 3.5H 11/22/20 14:22: Urine Color YULY, Urine Appearance TURBIDH, Urine pH 6.0, Urine Specific Gravi ty 1.014, Urine Protein 2+H, Urine Glucose (UA) NEGATIVE, Urine Ketones TRACEH, Urine Blood 3+H, Urine Nitrite NEGATIVE, Urine Bilirubin NEGATIVE, Urine Urobilinogen 2.0H, Urine Leukocyte Esterase 3+H, Urine WBC (Auto) TNTCH, Urine RBC (Auto) TNTCH, Urine Hyaline Casts (Auto) 31, Urine Bacteria (Auto) NEGATIVE, Urine Squamous Epithelial Cells 0, Urine Sperm (Auto) 11/22/20 14:32: POC Glucose (Misc Panel) 138H, POC Sodium (Misc Panel) 139, POC Potassium (Misc Panel) 5.0, POC Chloride (Misc Panel) 103, POC Total CO2 (Misc Panel) 27.0, POC Blood Urea Nitrogen (Misc Panel 47H, POC Ionized Calcium (Misc Panel) 4.1L, POC Creatinine (Misc Panel) 1.6H, POC Hematocrit (Misc Panel) 36.0L 11/22/20 15:35: Coronavirus (COVID-19)(PCR) NEGATIVE, Influenza Type A (RT-PCR) NEGATIVE, Influenza Type B (RT-PCR) NEGATIVE, Respiratory Syncytial Virus (PCR) NEGATIVE 11/22/20 19:50: Anion Gap 4L, Glomerular Filtration Rate 45.7, Calcium Level 8.4L 11/22/20 23:44: Bedside Glucose (Misc Panel) 69L 11/23/20 00:44: Bedside Glucose (Misc Panel) 116H 11/23/20 03:19: Blood Gas Bicarbonate Standard 29.0H, Arterial Blood pH 7.414, Arterial Blood Partial Pressure CO2 48.6H, Arterial Blood Partial Pressure O2 147.1H, Arterial Blood Total CO2 31.9H, Arterial Blood HCO3 30.4H, Arterial Blood Base Excess 5.0H, Arterial Blood Oxygen Saturation 99.0 11/23/20 04:05: Bedside Glucose (Misc Panel) 120H 11/23/20 05:27: Nucleated Red Blood Cells % (auto) 0.0, Anion Gap 1L, Glomerular Filtration Rate 47.5, Estimated Mean Plasma Glucose 157H, Hemoglobin A1c 7.1, Calcium Level 7.7L, KR-Tyc-H-Type Natriuretic Peptide 1759H, Vitamin B12 Level 636, Syphilis Serology NONREACTIVE 11/23/20 07:51: Blood Gas Bicarbonate Standard 27.0, Venous Blood pH 7.371, Venous Blood Partial Pressure CO2 51.1H, Venous Blood Partial Pressure O2 74.9H, Venous Blood Total Carbon Dioxide 30.5H, Venous Blood HCO3 28.9H, Venous Blood Oxygen Saturation 95.0H, Venous Blood Base Excess 2.9H 11/23/20 08:03: Bedside Glucose (Misc Panel) 133H 11/23/20 11:51: Bedside Glucose (Misc Panel) 142H CBC/BMP Laboratory Tests 11/22/20 13:33 11/22/20 19:50 11/23/20 05:27 Microbiology Microbiology 11/22/20 Urine Culture, Received Pending 11/22/20 Blood Culture, Received Pending 11/22/20 Blood Culture, Received Pending VENKATA ALCARAZ DO Nov 23, 2020 12:22
[2020-11-23] MEDS: PREGABALIN 100 MG CAP (LYRICA) PO SCH ×2 (13:25→21:45)
[2020-11-23] MEDS: PRIMIDONE 50 MG TAB PO SCH ×2 (13:25→21:44)
[2020-11-23 14:00] VITALS: BP 129/57
[2020-11-23] MEDS ORDERED: cefTRIAXone SOD 1 GM in D5W MINI-BAG PLUS 50 ML IV SCH (16:00)
--- NOTE | 2020-11-23 20:52 | IPNPDOC ---
Text Note Date of Service Significant event NOTE BC 1 of 2 gram positive cocci in pairs and clusters. Will repeat BC. Vanc per pharmacy. F/u cultures and Procalc in AM to determine de-escalation. VS,Fishbone, I+O VS, Fishbone, I+O Laboratory Tests 11/23/20 05:27 Vital Signs Date Time Temp Pulse Resp B/P (MAP) Pulse Ox O2 Delivery O2 Flow Rate FiO2 11/23/20 14:00 98.3 63 14 129/57 (81) 99 Nasal Cannula 2.0 I&O- Last 24 Hours up to 6 AM 11/23/20 06:00 Intake Total 1550 ml Output Total 0 ml Balance 1550 ml JEROME THOMPSON NP Nov 23, 2020 20:52
[2020-11-23] MEDS: ACETAMINOPHEN TAB 650MG DOSE (2X325MG) PO PRN (21:45)
[2020-11-23 22:00] VITALS: BP 130/56
[2020-11-23] MEDS ORDERED: VANCOMYCIN HCL 1,000 MG, VIAL MATE ADAPTER 1 EACH in NS 250 ML IV SCH (22:00)
[2020-11-23] MEDS ORDERED: VANCOMYCIN HCL 750 MG, VIAL MATE ADAPTER 1 EACH in NS 250 ML IV ONE (23:00)
[2020-11-24] MEDS: PIPERACILLIN/TAZOBACTAM SOD 3.375 GM in D5W MINI-BAG PLUS 50 ML IV SCH ×4 (03:45→21:22)
[2020-11-24 06:00] VITALS: BP 110/62
[2020-11-24] MEDS: SINEMET 25-100 MG TAB PO SCH ×5 (06:32→21:22)
[2020-11-24] MEDS: LEVOTHYROXINE 100MCG (0.1MG) VIAL IV SCH (06:32)
[2020-11-24 07:24] LABS: HEMATOCRIT 35.8 % (42.0-52.0); HEMOGLOBIN 11.3 g/dl (13.5-17.5); MEAN CORPUSCULAR HEMOGLOBIN 30.7 pg (27.0-33.0); MEAN CORPUSCULAR HGB CONC 31.6 g/dl (32.0-36.5); MEAN CORPUSCULAR VOLUME 97.3 fl (80.0-96.0); PLATELET COUNT, AUTOMATED 147 10^3/uL (150-450); RED BLOOD COUNT 3.68 10^6/uL (4.30-6.10); WHITE BLOOD COUNT 7.8 10^3/uL (4.0-10.0)
[2020-11-24 08:00] LABS: CREATININE FOR GFR 1.27 MG/DL (0.70-1.30)
[2020-11-24 08:01] LABS: CALCIUM LEVEL 7.8 MG/DL (8.8-10.2); GLOMERULAR FILTRATION RATE 57.5 (>35); POTASSIUM SERUM 4.3 MEQ/L (3.5-5.1)
[2020-11-24] MEDS: HYDROCORTISONE 100 MG/2 ML VIAL (J1720 PER 1) IV SCH ×2 (09:30→17:34)
[2020-11-24] MEDS: HumaLOG INSULIN (NovoLOG) PER UNIT SC SCH ×4 (09:31→21:00)
[2020-11-24] MEDS: HEPARIN SOD (PORCINE) 5000UNITS/ML 1ML VIAL/SYRINGE SQ SCH ×2 (09:31→21:22)
[2020-11-24] MEDS: POLYVINYL ALCOHOL OPHTH SOLN 15 ML(LIQUITEARS) OU SCH ×2 (09:31→21:23)
[2020-11-24] MEDS: D5W/0.9% SODIUM CHLORIDE 1,000 ML IV SCH ×2 (09:32→21:21)
[2020-11-24] MEDS ORDERED: VANCOMYCIN HCL 1,000 MG, VIAL MATE ADAPTER 1 EACH in NS 250 ML IV SCH (13:00)
[2020-11-24] MEDS: ACETAMINOPHEN TAB 650MG DOSE (2X325MG) PO PRN ×2 (13:13→21:22)
[2020-11-24] MEDS: PREGABALIN 100 MG CAP (LYRICA) PO SCH ×2 (13:13→21:22)
[2020-11-24] MEDS: PRIMIDONE 50 MG TAB PO SCH ×2 (13:14→21:23)
[2020-11-24 14:00] VITALS: BP 151/63
[2020-11-24] MEDS ORDERED: DOCUSATE SODIUM 100MG CAPSULE PO PRN (18:40)
--- NOTE | 2020-11-24 18:42 | IPNPDOC ---
Subjective Date Seen The patient was seen on 11/24/20. Subjective Chief Complaint/HPI Mr. Dela Cruz is an 85-year-old male with dementia, Parkinson's disease, and lumbar stenosis status post surgery and spinal cord stimulator who presents with altered mental status secondary to UTI. Overnight, 1 of 2 blood cultures were positive for gram positive cocci in pairs and clusters. Patient started on vancomycin and repeat blood culture was obtained. This morning he was more awake. His eyelids were closed. He complained of achy shoulders. Otherwise, denies chest pain or dyspnea. Objective Physical Examination General Exam: Positive: Cooperative Eye Exam: Negative: Sclera icteric Chest Exam: Positive: Diminished Heart Exam: Positive: Rate Normal, Regular Rhythm Abdomen Exam: Positive: Normal bowel sounds, Soft Extremity Exam: Negative: Edema Neuro Exam: Positive: Other (Unable to perform neuro exam due to patient's lethargy and altered mental status) Psych Exam: Negative: Mental status NL, Mood NL Assessment /Plan Assessment Mr. Dela Cruz is an 85-year-old male with dementia, Parkinson's disease, and lumbar stenosis status post surgery and spinal cord stimulator who presents with altered mental status secondary to UTI. Patient's had multiple UTIs in the past but has not grown any organisms of clinical significance. Patient was given ceftriaxone in the ED. CT of the abdomen pelvis had a nonobstructing stone, but demonstrated infectious/inflammatory colitis. Will switch patient to Zosyn. Urine culture grew <100,000 yeast like organism which is most likely contaminant. Will continue Zosyn for the infectious/inflammatory colitis. Otherwise, CXR was obtained on 11/23/20. Demonstrated left lower atelectases vs infiltrate. Will order speech eval for diet. Patient is on antibiotics that would also cover for pneumonia/aspiration PNA On evening of 11/23/20, 1 of 2 blood cultures were positive for gram positive cocci in pairs and clusters. Patient started on vancomycin and repeat blood culture was obtained. Pending blood culture results. Plan/VTE VTE Prophylaxis Ordered?: Yes Plan 1. Metabolic encephalopathy secondary to UTI Patient is lethargic. Vital signs are stable VBG did not demonstrate elevated CO2 CT head negative for acute intracranial pathology We will start patient on antibiotics for UTI -Improving 2. UTI Zosyn day 3 3. Infectious/inflammatory colitis Seen on CT of the abdomen pelvis without contrast Zosyn day 3 4. Dehydration Sluggish capillary refill, creatinine elevated Continue IV fluids 5. Parkinson's disease Continue on carbidopa/levodopa 6. Adrenal insufficiency Convert hydrocortisone to IV Patient is not hypotensive 7. Insulin-dependent diabetes mellitus Hypoglycemic protocol -Sliding scale insulin 8. Hypothyroidism TSH 0.613 Continue levothyroxine 9. BPH Continue tamsulosin 10. DVT prophylaxis Heparin Disposition: Pending clinical improvement and blood cultures VS, I&O, 24H, Fishbone Vital Signs/I&O Vital Signs Date Time Temp Pulse Resp B/P (MAP) Pulse Ox O2 Delivery O2 Flow Rate FiO2 11/24/20 14:00 98.2 61 20 151/63 (92) 98 Nasal Cannula 2.0 I&O- Last 24 Hours up to 6 AM 11/24/20 06:00 Intake Total 2009 ml Balance 2009 ml Laboratory Data 24H LABS Laboratory Tests 2 11/23/20 20:58: Bedside Glucose (Misc Panel) 193H 11/23/20 21:00: Lactic Acid Level 1.9 11/23/20 21:42: Methicillin-Resist S.aureus DNA PCR NOT DETECTED 11/24/20 07:03: Lactic Acid Level 1.3, Nucleated Red Blood Cells % (auto) 0.0, Anion Gap 7L, Glomerular Filtration Rate 57.5, Calcium Level 7.8L, Procalcitonin 0.21 11/24/20 11:32: Bedside Glucose (Misc Panel) 221H 11/24/20 12:27: Random Vancomycin Level 12.6 11/24/20 16:18: Bedside Glucose (Misc Panel) 180H CBC/BMP Laboratory Tests 11/24/20 07:03 Microbiology Microbiology 11/23/20 Blood Culture, Received Pending 11/22/20 Urine Culture - Final, Complete Yeast Like Organism 11/22/20 Blood Culture - Preliminary, Resulted No Growth after 48 hours. All Specime... 11/22/20 Blood Culture - Preliminary, Resulted VENKATA ALCARAZ DO Nov 24, 2020 18:42
[2020-11-24] MEDS: QUEtiapine FUMARATE 50MG TAB PO PRN (19:08)
[2020-11-24 20:00] VITALS: BP 181/83
[2020-11-24] MEDS: OMEPRAZOLE 20 MG CAP PO SCH (21:23)
[2020-11-24 22:00] VITALS: BP 149/78
[2020-11-25 01:29] VITALS: O2SAT 97
[2020-11-25] MEDS: PIPERACILLIN/TAZOBACTAM SOD 3.375 GM in D5W MINI-BAG PLUS 50 ML IV SCH ×4 (02:43→21:46)
[2020-11-25] MEDS: D5W/0.9% SODIUM CHLORIDE 1,000 ML IV SCH ×2 (02:44→12:24)
[2020-11-25 05:55] VITALS: BP 168/82
[2020-11-25] MEDS: LEVOTHYROXINE 100MCG TABLET (0.1MG) PO SCH (06:05)
[2020-11-25] MEDS: SINEMET 25-100 MG TAB PO SCH ×6 (06:05→21:44)
[2020-11-25] MEDS: LEVOTHYROXINE 75MCG TABLET (0.075MG) PO SCH (06:05)
[2020-11-25 07:00] LABS: HEMATOCRIT 34.1 % (42.0-52.0); HEMOGLOBIN 10.8 g/dl (13.5-17.5); MEAN CORPUSCULAR HEMOGLOBIN 30.5 pg (27.0-33.0); MEAN CORPUSCULAR HGB CONC 31.7 g/dl (32.0-36.5); MEAN CORPUSCULAR VOLUME 96.3 fl (80.0-96.0); PLATELET COUNT, AUTOMATED 155 10^3/uL (150-450); RED BLOOD COUNT 3.54 10^6/uL (4.30-6.10); WHITE BLOOD COUNT 5.5 10^3/uL (4.0-10.0)
[2020-11-25 07:27] LABS: BLOOD UREA NITROGEN 19 MG/DL (7-18); CALCIUM LEVEL 7.9 MG/DL (8.8-10.2); CARBON DIOXIDE LEVEL 30 MEQ/L (21-32); CHLORIDE LEVEL 108 MEQ/L (98-107); GLOMERULAR FILTRATION RATE > 60.0 (>35); GLUCOSE, FASTING 243 MG/DL (70-100); POTASSIUM SERUM 4.2 MEQ/L (3.5-5.1); SODIUM LEVEL 143 MEQ/L (136-145)
[2020-11-25] MEDS: HumaLOG INSULIN (NovoLOG) PER UNIT SC SCH ×4 (09:30→21:00)
[2020-11-25] MEDS: HYDROCORTISONE 100 MG/2 ML VIAL (J1720 PER 1) IV SCH ×2 (09:30→18:31)
[2020-11-25] MEDS: HEPARIN SOD (PORCINE) 5000UNITS/ML 1ML VIAL/SYRINGE SQ SCH ×2 (09:31→21:45)
[2020-11-25] MEDS: ASCORBIC ACID 500 MG TAB PO SCH (09:31)
[2020-11-25] MEDS: TAMSULOSIN 0.4 MG CAP PO SCH (09:31)
[2020-11-25] MEDS: POLYVINYL ALCOHOL OPHTH SOLN 15 ML(LIQUITEARS) OU SCH ×2 (09:31→21:46)
[2020-11-25 13:36] VITALS: O2SAT 97
--- NOTE | 2020-11-25 13:49 | IPNPDOC ---
Subjective Date Seen The patient was seen on 11/25/20. Subjective Chief Complaint/HPI Mr. Dela Cruz is an 85-year-old male with dementia, Parkinson's disease, and lumbar stenosis status post surgery and spinal cord stimulator who presents with altered mental status secondary to UTI. This morning, he is more awake. Denies chest pain or dyspnea. Still pending blood culture results. Spoke with lab. We may have results on the one positive blood culture tomorrow. Otherwise, PT/OT worked with patient. Recommending home with / care. Objective Physical Examination General Exam: Positive: Cooperative Eye Exam: Negative: Sclera icteric Chest Exam: Positive: Clear to auscultation, Diminished Heart Exam: Positive: Rate Normal, Regular Rhythm Abdomen Exam: Positive: Normal bowel sounds, Soft Extremity Exam: Negative: Edema Neuro Exam: Positive: Other (Unable to perform neuro exam due to patient's lethargy and altered mental status) Assessment /Plan Assessment Mr. Dela Cruz is an 85-year-old male with dementia, Parkinson's disease, and lumbar stenosis status post surgery and spinal cord stimulator who presents with alt ered mental status secondary to UTI. Patient's had multiple UTIs in the past but has not grown any organisms of clinical significance. Patient was given ceftriaxone in the ED. CT of the abdomen pelvis had a nonobstructing stone, but demonstrated infectious/inflammatory colitis. Will switch patient to Zosyn. Urine culture grew <100,000 yeast like organism which is most likely contaminant. Will continue Zosyn for the infectious/inflammatory colitis. Otherwise, CXR was obtained on 11/23/20. Demonstrated left lower atelectases vs infiltrate. Will order speech eval for diet. Patient is on antibiotics that would also cover for pneumonia/aspiration PNA On evening of 11/23/20, 1 of 2 blood cultures were positive for gram positive cocci in pairs and clusters. Patient started on vancomycin and repeat blood culture was obtained. Pending blood culture results. Plan/VTE VTE Prophylaxis Ordered?: Yes Plan 1. Metabolic encephalopathy secondary to UTI Patient is lethargic. Vital signs are stable VBG did not demonstrate elevated CO2 CT head negative for acute intracranial pathology We will start patient on antibiotics for UTI -Improving 2. UTI Zosyn day 4 3. Infectious/inflammatory colitis Seen on CT of the abdomen pelvis without contrast Zosyn day 4 4. Dehydration Sluggish capillary refill, creatinine elevated Continue IV fluids 5. Parkinson's disease Continue on carbidopa/levodopa 6. Adrenal insufficiency Convert hydrocortisone to IV Patient is not hypotensive 7. Insulin-dependent diabetes mellitus Hypoglycemic protocol -Sliding scale insulin 8. Hypothyroidism TSH 0.613 Continue levothyroxine 9. BPH Continue tamsulosin 10. DVT prophylaxis Heparin Disposition: Pending clinical improvement and blood cultures. Possible to have a result tomorrow. Physical therapy recommending 22/10 care at home. VS, I&O, 24H, [place] Vital Signs/I&O Vital Signs Date Time Temp Pulse Resp B/P (MAP) Pulse Ox O2 Delivery O2 Flow Rate FiO2 11/25/20 13:36 97 Nasal Cannula 2.0 11/25/20 05:55 99.4 68 18 168/82 (110) I&O- Last 24 Hours up to 6 AM 11/25/20 05:59 Intake Total 950 ml Output Total 0 ml Balance 950 ml Laboratory Data 24H LABS Laboratory Tests 2 11/24/20 16:18: Bedside Glucose (Misc Panel) 180H 11/24/20 20:22: Bedside Glucose (Misc Panel) 229H 11/25/20 06:08: Nucleated Red Blood Cells % (auto) 0.0, Anion Gap 5L, Glomerular Filtration Rate > 60.0, Calcium Level 7.9L 11/25/20 11:37: Bedside Glucose (Misc Panel) 211H 11/25/20 12:10: Vancomycin Level Trough 10.1 CBC/BMP Laboratory Tests 11/25/20 06:08 Microbiology Microbiology 11/23/20 Blood Culture - Preliminary, Resulted No growth after 24 hours . All specim... 11/22/20 Urine Culture - Final, Complete Yeast Like Organism 11/22/20 Blood Culture - Preliminary, Resulted No Growth after 48 hours. All Specime... 11/22/20 Blood Culture - Preliminary, Resulted VENKATA ALCARAZ DO Nov 25, 2020 13:49
[2020-11-25] MEDS: VANCOMYCIN HCL 1,000 MG, VIAL MATE ADAPTER 1 EACH in NS 250 ML IV SCH (14:10)
[2020-11-25] MEDS: PRIMIDONE 50 MG TAB PO SCH ×2 (14:10→21:44)
[2020-11-25] MEDS: PREGABALIN 100 MG CAP (LYRICA) PO SCH ×2 (14:10→21:45)
[2020-11-25] MEDS: QUEtiapine FUMARATE 50MG TAB PO PRN ×2 (15:11→21:45)
[2020-11-25 16:00] VITALS: BP 152/70
[2020-11-25] MEDS: OLANZapine 5 MG TAB PO PRN (16:17)
[2020-11-25] MEDS: amLODIPine 5 MG TAB PO SCH (16:17)
[2020-11-25] MEDS: OMEPRAZOLE 20 MG CAP PO SCH (21:44)
[2020-11-25] MEDS: ACETAMINOPHEN TAB 650MG DOSE (2X325MG) PO PRN (21:45)
[2020-11-26] MEDS: VANCOMYCIN HCL 1,000 MG, VIAL MATE ADAPTER 1 EACH in NS 250 ML IV SCH (00:33)
[2020-11-26] MEDS: OLANZapine 5 MG TAB PO PRN ×2 (00:33→06:37)
[2020-11-26] MEDS: PIPERACILLIN/TAZOBACTAM SOD 3.375 GM in D5W MINI-BAG PLUS 50 ML IV SCH (03:41)
[2020-11-26] MEDS: LEVOTHYROXINE 75MCG TABLET (0.075MG) PO SCH (05:29)
[2020-11-26] MEDS: LEVOTHYROXINE 100MCG TABLET (0.1MG) PO SCH (05:29)
[2020-11-26] MEDS: SINEMET 25-100 MG TAB PO SCH ×5 (06:22→20:56)
[2020-11-26 06:52] LABS: HEMATOCRIT 35.9 % (42.0-52.0); HEMOGLOBIN 11.7 g/dl (13.5-17.5); MEAN CORPUSCULAR HEMOGLOBIN 30.6 pg (27.0-33.0); MEAN CORPUSCULAR HGB CONC 32.6 g/dl (32.0-36.5); PLATELET COUNT, AUTOMATED 171 10^3/uL (150-450); RED BLOOD COUNT 3.82 10^6/uL (4.30-6.10)
[2020-11-26 07:18] LABS: BLOOD UREA NITROGEN 14 MG/DL (7-18); CALCIUM LEVEL 8.6 MG/DL (8.8-10.2); CARBON DIOXIDE LEVEL 26 MEQ/L (21-32); CHLORIDE LEVEL 112 MEQ/L (98-107); CREATININE FOR GFR 0.94 MG/DL (0.70-1.30); GLOMERULAR FILTRATION RATE > 60.0 (>35); GLUCOSE, FASTING 146 MG/DL (70-100); POTASSIUM SERUM 4.2 MEQ/L (3.5-5.1); SODIUM LEVEL 144 MEQ/L (136-145)
[2020-11-26 09:00] VITALS: O2SAT 92
[2020-11-26] MEDS: HumaLOG INSULIN (NovoLOG) PER UNIT SC SCH ×4 (09:20→20:03)
[2020-11-26] MEDS: amLODIPine 5 MG TAB PO SCH (09:21)
[2020-11-26] MEDS: TAMSULOSIN 0.4 MG CAP PO SCH (09:21)
[2020-11-26] MEDS: ASCORBIC ACID 500 MG TAB PO SCH (09:21)
[2020-11-26] MEDS: HEPARIN SOD (PORCINE) 5000UNITS/ML 1ML VIAL/SYRINGE SQ SCH ×2 (09:22→20:03)
[2020-11-26] MEDS: POLYVINYL ALCOHOL OPHTH SOLN 15 ML(LIQUITEARS) OU SCH ×2 (09:22→20:04)
[2020-11-26] MEDS: AUGMENTIN 875 MG TAB PO SCH ×2 (09:42→20:02)
--- NOTE | 2020-11-26 11:37 | IPNPDOC ---
Subjective Date Seen The patient was seen on 11/26/20. Subjective Chief Complaint/HPI Mr. Dela Cruz is an 85-year-old male with dementia, Parkinson's disease, and lumbar stenosis status post surgery and spinal cord stimulator who presents with altered mental status secondary to UTI. This morning, he was able to tell me that he was in the hospital, but could not tell me the year. He seems confused. Otherwise, denies chest pain or dyspnea. He was not able to stand today. Will continue with antibiotics. Objective Physical Examination Eye Exam: Negative: Sclera icteric Chest Exam: Positive: Clear to auscultation, Diminished Heart Exam: Positive: Rate Normal, Regular Rhythm Abdomen Exam: Positive: Normal bowel sounds, Soft Extremity Exam: Negative: Edema Neuro Exam: Positive: Other (Unable to perform neuro exam due to patient's lethargy and altered mental status) Assessment /Plan Assessment Mr. Dela Cruz is an 85-year-old male with dementia, Parkinson's disease, and lumbar stenosis status post surgery and spinal cord stimulator who presents with altered mental status secondary to UTI. Patient's had multiple UTIs in the past but has not grown any organisms of clinical significance. Patient was given ceftriaxone in the ED. CT of the abdomen pelvis had a nonobstructing stone, but demonstrated infectious/inflammatory colitis. Will switch patient to Zosyn. Urine culture grew <100,000 yeast like organism which is most likely cont aminant. Will continue Zosyn for the infectious/inflammatory colitis. Otherwise, CXR was obtained on 11/23/20. Demonstrated left lower atelectases vs infiltrate. Will order speech eval for diet. Patient is on antibiotics that would also cover for pneumonia/aspiration PNA On evening of 11/23/20, 1 of 2 blood cultures were positive for gram positive cocci in pairs and clusters. Patient started on vancomycin and repeat blood culture was obtained. Pending blood culture results. Plan/VTE VTE Prophylaxis Ordered?: Yes Plan 1. Metabolic encephalopathy secondary to UTI Patient was lethargic. Vital signs are stable VBG did not demonstrate elevated CO2 CT head negative for acute intracranial pathology Patient was on antibiotics for UTI -Improving 2. UTI Zosyn transitioned to Augmentin. Day 5 of antibiotics 3. Infectious/inflammatory colitis Seen on CT of the abdomen pelvis without contrast Zosyn transitioned to Augmentin. Day 5 of antibiotics 4. Dehydration Sluggish capillary refill, creatinine elevated resolved 5. Parkinson's disease Continue on carbidopa/levodopa 6. Adrenal insufficiency Patient is not hypotensive -Continue hydrocortisone 7. Insulin-dependent diabetes mellitus Hypoglycemic protocol -Sliding scale insulin 8. Hypothyroidism TSH 0.613 Continue levothyroxine 9. BPH Continue tamsulosin 10. Deconditioning -Physical therapy 11. DVT prophylaxis Heparin Disposition: Pending clinical improvement VS, I&O, 24H, Fishbone Vital Signs/I&O Vital Signs Date Time Temp Pulse Resp B/P (MAP) Pulse Ox O2 Delivery O2 Flow Rate FiO2 11/26/20 09:21 79 152/72 11/26/20 09:00 92 Room Air 11/25/20 16:00 99.8 18 2.0 I&O- Last 24 Hours up to 6 AM 11/26/20 06:00 Intake Total 1160 ml Output Total 150 ml Balance 1010 ml Laboratory Data 24H LABS Laboratory Tests 2 11/25/20 11:37: Bedside Glucose (Misc Panel) 211H 11/25/20 12:10: Vancomycin Level Trough 10.1 11/25/20 16:20: Bedside Glucose (Misc Panel) 159H 11/25/20 20:40: Bedside Glucose (Misc Panel) 90 11/26/20 06:21: Nucleated Red Blood Cells % (auto) 0.0, Anion Gap 6L, Glomerular Filtration Rate > 60.0, Calcium Level 8.6L CBC/BMP Laboratory Tests 11/26/20 06:21 Microbiology Microbiology 11/23/20 Blood Culture - Preliminary, Resulted No Growth after 48 hours. All Specime... 11/22/20 Urine Culture - Final, Complete Yeast Like Organism 11/22/20 Blood Culture - Preliminary, Resulted No Growth after 72 hours. All specime... 11/22/20 Blood Culture - Preliminary, Resulted VENKATA ALCARAZ DO Nov 26, 2020 11:37
[2020-11-26] MEDS: QUEtiapine FUMARATE 50MG TAB PO PRN (13:06)
[2020-11-26] MEDS: PRIMIDONE 50 MG TAB PO SCH ×2 (13:06→20:03)
[2020-11-26] MEDS: HYDROCORTISONE 10 MG TAB PO SCH ×2 (13:06→20:03)
[2020-11-26] MEDS: PREGABALIN 100 MG CAP (LYRICA) PO SCH ×2 (13:06→20:03)
[2020-11-26 14:00] VITALS: BP 107/55
[2020-11-26] MEDS: OMEPRAZOLE 20 MG CAP PO SCH (20:03)
[2020-11-27] MEDS: OLANZapine 5 MG TAB PO PRN (02:03)
[2020-11-27] MEDS: SINEMET 25-100 MG TAB PO SCH ×5 (06:11→21:23)
[2020-11-27] MEDS: LEVOTHYROXINE 100MCG TABLET (0.1MG) PO SCH (06:11)
[2020-11-27] MEDS: LEVOTHYROXINE 75MCG TABLET (0.075MG) PO SCH (06:11)
[2020-11-27 07:06] LABS: HEMATOCRIT 35.2 % (42.0-52.0); HEMOGLOBIN 11.5 g/dl (13.5-17.5); MEAN CORPUSCULAR HEMOGLOBIN 30.6 pg (27.0-33.0); MEAN CORPUSCULAR HGB CONC 32.7 g/dl (32.0-36.5); MEAN CORPUSCULAR VOLUME 93.6 fl (80.0-96.0); PLATELET COUNT, AUTOMATED 173 10^3/uL (150-450); RED BLOOD COUNT 3.76 10^6/uL (4.30-6.10); WHITE BLOOD COUNT 7.3 10^3/uL (4.0-10.0)
[2020-11-27 07:28] LABS: BLOOD UREA NITROGEN 17 MG/DL (7-18); CALCIUM LEVEL 8.6 MG/DL (8.8-10.2); CARBON DIOXIDE LEVEL 28 MEQ/L (21-32); CHLORIDE LEVEL 110 MEQ/L (98-107); CREATININE FOR GFR 1.03 MG/DL (0.70-1.30); GLOMERULAR FILTRATION RATE > 60.0 (>35); GLUCOSE, FASTING 161 MG/DL (70-100); POTASSIUM SERUM 4.5 MEQ/L (3.5-5.1); SODIUM LEVEL 144 MEQ/L (136-145)
[2020-11-27] MEDS: ASCORBIC ACID 500 MG TAB PO SCH (09:33)
[2020-11-27] MEDS: HYDROCORTISONE 10 MG TAB PO SCH ×2 (09:33→21:23)
[2020-11-27] MEDS: QUEtiapine FUMARATE 50MG TAB PO PRN (09:33)
[2020-11-27] MEDS: TAMSULOSIN 0.4 MG CAP PO SCH (09:33)
[2020-11-27] MEDS: POLYVINYL ALCOHOL OPHTH SOLN 15 ML(LIQUITEARS) OU SCH ×2 (09:33→21:23)
[2020-11-27] MEDS: HEPARIN SOD (PORCINE) 5000UNITS/ML 1ML VIAL/SYRINGE SQ SCH ×2 (09:33→21:23)
[2020-11-27] MEDS: AUGMENTIN 875 MG TAB PO SCH ×2 (09:33→21:22)
[2020-11-27] MEDS: HumaLOG INSULIN (NovoLOG) PER UNIT SC SCH ×4 (09:33→21:00)
[2020-11-27] MEDS: amLODIPine 5 MG TAB PO SCH (09:36)
--- NOTE | 2020-11-27 13:00 | IPNPDOC ---
Subjective Date Seen The patient was seen on 11/27/20. Subjective Chief Complaint/HPI Mr. Dela Cruz is an 85-year-old male with dementia, Parkinson's disease, and lumbar stenosis status post surgery and spinal cord stimulator who presents with altered mental status secondary to UTI. This morning, he denies any chest pain or dyspnea. He still a little confused. Unclear what his baseline is physically. Objective Physical Examination Eye Exam: Negative: Sclera icteric Chest Exam: Positive: Clear to auscultation, Diminished Heart Exam: Positive: Rate Normal, Regular Rhythm Abdomen Exam: Positive: Normal bowel sounds, Soft Extremity Exam: Negative: Edema Neuro Exam: Positive: Other (Unable to perform neuro exam due to patient's lethargy and altered mental status) Psych Exam: Negative: Memory Intact Assessment /Plan Assessment Mr. Dela Cruz is an 85-year-old male with dementia, Parkinson's disease, and lumbar stenosis status post surgery and spinal cord stimulator who presents with altered mental status secondary to UTI. Patient's had multiple UTIs in the past but has not grown any organisms of clinical significance. Patient was given ceftriaxone in the ED. CT of the abdomen pelvis had a nonobstructing stone, but demonstrated infectious/inflammatory colitis. Will switch patient to Zosyn. Urine culture grew <100,000 yeast like organism which is most likely contaminant. Will continue Zosyn for the infectious/inflammatory colitis. Otherwise, CXR was obtained on 11/23/20. Demonstrated left lower atelectases vs infiltrate. Will order speech eval for diet. Patient is on antibiotics that would also cover for pneumonia/aspiration PNA On evening of 11/23/20, 1 of 2 blood cultures were positive for gram positive cocci in pairs and clusters. Patient started on vancomycin and repeat blood culture was obtained. 1 of 2 blood cultures returned with Staphylococcus auricularis which is pansensitive Plan/VTE VTE Prophylaxis Ordered?: Yes Plan 1. Metabolic encephalopathy secondary to UTI Patient was lethargic. Vital signs are stable VBG did not demonstrate elevated CO2 CT head negative for acute intracranial pathology Patient was on antibiotics for UTI -Improving 2. UTI Zosyn transitioned to Augmentin. Day 6 of antibiotics 3. Infectious/inflammatory colitis Seen on CT of the abdomen pelvis without contrast Zosyn transitioned to Augmentin. Day 6 of antibiotics 4. Dehydration Sluggish capillary refill, creatinine elevated resolved 5. Parkinson's disease Continue on carbidopa/levodopa 6. Adrenal insufficiency Patient is not hypotensive -Continue hydrocortisone 7. Insulin-dependent diabetes mellitus Hypoglycemic protocol -Sliding scale insulin 8. Hypothyroidism TSH 0.613 Continue levothyroxine 9. BPH Continue tamsulosin 10. Deconditioning -Physical therapy 12. DVT prophylaxis Heparin Disposition: Pending clinical improvement VS, I&O, 24H, Fishbone Vital Signs/I&O Vital Signs Date Time Temp Pulse Resp B/P (MAP) Pulse Ox O2 Delivery O2 Flow Rate FiO2 11/27/20 09:36 81 144/61 11/26/20 14:00 97.7 14 90 Room Air 11/25/20 16:00 2.0 I&O- Last 24 Hours up to 6 AM 11/27/20 06:00 Intake Total 860 ml Balance 860 ml Laboratory Data 24H LABS Laboratory Tests 2 11/26/20 12:27: Bedside Glucose (Misc Panel) 189H 11/26/20 16:52: Bedside Glucose (Misc Panel) 146H 11/26/20 19:50: Bedside Glucose (Misc Panel) 136H 11/27/20 06:32: Nucleated Red Blood Cells % (auto) 0.0, Anion Gap 6L, Glomerular Filtration Rate > 60.0, Calcium Level 8.6L CBC/BMP Laboratory Tests 11/27/20 06:32 Microbiology Microbiology 11/23/20 Blood Culture - Preliminary, Resulted No Growth after 72 hours. All specime... 11/22/20 Urine Culture - Final, Complete Yeast Like Organism 11/22/20 Blood Culture - Preliminary, Resulted No Growth after 72 hours. All specime... 11/22/20 Blood Culture - Final, Complete Staphylococcus Auricularis VENKATA ALCARAZ DO Nov 27, 2020 12:28
[2020-11-27 14:00] VITALS: BP 130/73
[2020-11-27] MEDS: PRIMIDONE 50 MG TAB PO SCH ×2 (15:13→21:23)
[2020-11-27] MEDS: PREGABALIN 100 MG CAP (LYRICA) PO SCH ×2 (15:13→21:23)
[2020-11-27] MEDS: OMEPRAZOLE 20 MG CAP PO SCH (21:22)
[2020-11-28] MEDS: LEVOTHYROXINE 75MCG TABLET (0.075MG) PO SCH (05:52)
[2020-11-28] MEDS: SINEMET 25-100 MG TAB PO SCH ×5 (05:52→21:00)
[2020-11-28] MEDS: LEVOTHYROXINE 100MCG TABLET (0.1MG) PO SCH (05:52)
[2020-11-28 06:23] VITALS: BP 160/72
[2020-11-28 06:33] LABS: HEMATOCRIT 31.8 % (42.0-52.0); HEMOGLOBIN 10.2 g/dl (13.5-17.5); MEAN CORPUSCULAR HEMOGLOBIN 30.4 pg (27.0-33.0); MEAN CORPUSCULAR HGB CONC 32.1 g/dl (32.0-36.5); MEAN CORPUSCULAR VOLUME 94.9 fl (80.0-96.0); PLATELET COUNT, AUTOMATED 157 10^3/uL (150-450); RED BLOOD COUNT 3.35 10^6/uL (4.30-6.10); WHITE BLOOD COUNT 4.5 10^3/uL (4.0-10.0)
[2020-11-28 06:55] LABS: BLOOD UREA NITROGEN 21 MG/DL (7-18); CALCIUM LEVEL 8.1 MG/DL (8.8-10.2); CARBON DIOXIDE LEVEL 29 MEQ/L (21-32); CHLORIDE LEVEL 111 MEQ/L (98-107); CREATININE FOR GFR 1.14 MG/DL (0.70-1.30); GLOMERULAR FILTRATION RATE > 60.0 (>35); GLUCOSE, FASTING 189 MG/DL (70-100); POTASSIUM SERUM 4.5 MEQ/L (3.5-5.1); SODIUM LEVEL 142 MEQ/L (136-145)
[2020-11-28 06:56] LABS: ERYTHROCYTE SEDIMENTATION RATE 43 mm/hr (0-20)
[2020-11-28] MEDS: ASCORBIC ACID 500 MG TAB PO SCH (09:43)
[2020-11-28] MEDS: TAMSULOSIN 0.4 MG CAP PO SCH (09:43)
[2020-11-28] MEDS: AUGMENTIN 875 MG TAB PO SCH ×2 (09:43→20:53)
[2020-11-28] MEDS: HYDROCORTISONE 10 MG TAB PO SCH ×2 (09:43→20:54)
[2020-11-28] MEDS: POLYVINYL ALCOHOL OPHTH SOLN 15 ML(LIQUITEARS) OU SCH ×2 (09:44→20:54)
[2020-11-28] MEDS: HEPARIN SOD (PORCINE) 5000UNITS/ML 1ML VIAL/SYRINGE SQ SCH ×2 (09:44→20:54)
[2020-11-28] MEDS: HumaLOG INSULIN (NovoLOG) PER UNIT SC SCH ×4 (09:45→20:40)
[2020-11-28] MEDS: amLODIPine 5 MG TAB PO SCH (09:45)
--- NOTE | 2020-11-28 11:52 | IPNPDOC ---
Subjective Date Seen The patient was seen on 11/28/20. Subjective Chief Complaint/HPI Mr. Dela Cruz is an 85-year-old male with dementia, Parkinson's disease, and lumbar stenosis status post surgery and spinal cord stimulator who presents with altered mental status secondary to UTI. This morning, he was appropriate and calm. Denies any chest pain or dyspnea. He is concerned that he cannot walk. Physical therapy worked with patient. Recommending rehab placement. Objective Physical Examination General Exam: Positive: Alert, Cooperative Eye Exam: Negative: Sclera icteric Chest Exam: Positive: Clear to auscultation Heart Exam: Positive: Rate Normal, Regular Rhythm Abdomen Exam: Positive: Normal bowel sounds, Soft Extremity Exam: Negative: Edema Neuro Exam: Positive: Other (Unable to perform neuro exam due to patient's lethargy and altered mental status) Psych Exam: Positive: Mood NL; Negative: Memory Intact Assessment /Plan Assessment Mr. Dela Cruz is an 85-year-old male with dementia, Parkinson's disease, and lumbar stenosis status post surgery and spinal cord stimulator who presents with altered mental status secondary to UTI. Patient's had multiple UTIs in the past but has not grown any organisms of clinical significance. Patient was given ceftriaxone in the ED. CT of the abdomen pelvis had a nonobstructing stone, but demonstrated infectious/inflammatory colitis. Will switch patient to Zosyn. Urine culture grew <100,000 yeast like organism which is most likely contaminant. Will continue Zosyn for the infectious/inflammatory colitis. Otherwise, CXR was obtained on 11/23/20. Demonstrated left lower atelectases vs infiltrate. Will order speech eval for diet. Patient is on antibiotics that would also cover for pneumonia/aspiration PNA On evening of 11/23/20, 1 of 2 blood cultures were positive for gram positive cocci in pairs and clusters. Patient started on vancomycin and repeat blood culture was obtained. 1 of 2 blood cultures returned with Staphylococcus auricularis which is pansensitive. Most likely a contaminant. Plan/VTE VTE Prophylaxis Ordered?: Yes Plan 1. Metabolic encephalopathy secondary to UTI Patient was lethargic. Vital signs are stable VBG did not demonstrate elevated CO2 CT head negative for acute intracranial pathology Patient was on antibiotics for UTI -Improving 2. UTI Zosyn transitioned to Augmentin. Day 7 of antibiotics 3. Infectious/inflammatory colitis Seen on CT of the abdomen pelvis without contrast Zosyn transitioned to Augmentin. Day 7 of antibiotics 4. Dehydration Sluggish capillary refill, creatinine elevated resolved 5. Parkinson's disease Continue on carbidopa/levodopa 6. Adrenal insufficiency Patient is not hypotensive -Continue hydrocortisone 7. Insulin-dependent diabetes mellitus Hypoglycemic protocol -Sliding scale insulin 8. Hypothyroidism TSH 0.613 Continue levothyroxine 9. BPH Continue tamsulosin 10. Deconditioning -Physical therapy 12. DVT prophylaxis Heparin Disposition: Physical therapy recommending rehab. Pending placement. VS, I&O, 24H, Fishbone Vital Signs/I&O Vital Signs Date Time Temp Pulse Resp B/P (MAP) Pulse Ox O2 Delivery O2 Flow Rate FiO2 11/28/20 09:45 74 135/93 11/28/20 06:23 98.6 16 94 Room Air 11/25/20 16:00 2.0 I&O- Last 24 Hours up to 6 AM 11/28/20 06:00 Intake Total 440 ml Balance 440 ml Laboratory Data 24H LABS Laboratory Tests 2 11/27/20 11:51: Bedside Glucose (Misc Panel) 143H 11/27/20 17:25: Bedside Glucose (Misc Panel) 224H 11/27/20 21:55: Bedside Glucose (Misc Panel) 133H 11/28/20 05:47: Nucleated Red Blood Cells % (auto) 0.0, Erythrocyte Sedimentation Rate 43H, Anion Gap 2L, Glomerular Filtration Rate > 60.0, Calcium Level 8.1L, C-Reactive Protein, Quantitative 11.00H CBC/BMP Laboratory Tests 11/28/20 05:47 Microbiology Microbiology 11/23/20 Blood Culture - Preliminary, Resulted No Growth after 72 hours. All specime... 11/22/20 Urine Culture - Final, Complete Yeast Like Organism 11/22/20 Blood Culture - Final, Complete NO GROWTH AFTER 5 DAYS 11/22/20 Blood Culture - Final, Complete Staphylococcus Auricularis VENKATA ALCARAZ DO Nov 28, 2020 11:52
[2020-11-28] MEDS: PREGABALIN 100 MG CAP (LYRICA) PO SCH ×2 (13:21→20:53)
[2020-11-28] MEDS: PRIMIDONE 50 MG TAB PO SCH ×2 (13:21→20:54)
[2020-11-28 14:00] VITALS: BP 111/52
[2020-11-28] MEDS: OMEPRAZOLE 20 MG CAP PO SCH (20:54)
[2020-11-28 22:00] VITALS: BP 112/53
[2020-11-29] MEDS: LEVOTHYROXINE 100MCG TABLET (0.1MG) PO SCH (05:29)
[2020-11-29] MEDS: LEVOTHYROXINE 75MCG TABLET (0.075MG) PO SCH (05:30)
[2020-11-29 06:00] VITALS: BP 118/50
[2020-11-29] MEDS: SINEMET 25-100 MG TAB PO SCH ×5 (06:02→21:56)
[2020-11-29 06:19] LABS: HEMATOCRIT 30.8 % (42.0-52.0); MEAN CORPUSCULAR HEMOGLOBIN 30.8 pg (27.0-33.0); MEAN CORPUSCULAR HGB CONC 32.5 g/dl (32.0-36.5); MEAN CORPUSCULAR VOLUME 94.8 fl (80.0-96.0); PLATELET COUNT, AUTOMATED 153 10^3/uL (150-450); RED BLOOD COUNT 3.25 10^6/uL (4.30-6.10); WHITE BLOOD COUNT 3.4 10^3/uL (4.0-10.0)
[2020-11-29 06:38] LABS: CALCIUM LEVEL 8.1 MG/DL (8.8-10.2); CREATININE FOR GFR 1.27 MG/DL (0.70-1.30); GLOMERULAR FILTRATION RATE 57.5 (>35); POTASSIUM SERUM 4.3 MEQ/L (3.5-5.1)
[2020-11-29] MEDS: HumaLOG INSULIN (NovoLOG) PER UNIT SC SCH ×4 (08:10→21:00)
[2020-11-29] MEDS: HEPARIN SOD (PORCINE) 5000UNITS/ML 1ML VIAL/SYRINGE SQ SCH ×2 (08:11→20:40)
[2020-11-29] MEDS: AUGMENTIN 875 MG TAB PO SCH (08:11)
[2020-11-29] MEDS: amLODIPine 5 MG TAB PO SCH (08:15)
[2020-11-29] MEDS: TAMSULOSIN 0.4 MG CAP PO SCH (08:15)
[2020-11-29] MEDS: HYDROCORTISONE 10 MG TAB PO SCH ×2 (08:15→20:39)
[2020-11-29] MEDS: ASCORBIC ACID 500 MG TAB PO SCH (08:16)
[2020-11-29] MEDS: POLYVINYL ALCOHOL OPHTH SOLN 15 ML(LIQUITEARS) OU SCH ×2 (08:16→20:39)
[2020-11-29] MEDS: LEVEMIR (INSULIN DETEMIR) 1 UNITS/0.01ML SC SCH (10:10)
[2020-11-29] MEDS: PREGABALIN 100 MG CAP (LYRICA) PO SCH ×2 (12:53→20:39)
[2020-11-29] MEDS: PRIMIDONE 50 MG TAB PO SCH ×2 (12:53→20:39)
--- NOTE | 2020-11-29 14:50 | IPNPDOC ---
Text Note Date of Service The patient was seen on 11/29/20. NOTE Subjective: Patient is an 85-year-old male initially admitted for UTI induced delirium and infectious colitis seen on CT abdomen/pelvis who presents today for follow-up. His UTI ended up being a contaminant and he is now on day 7 of antibiotic therapy with 3-1/2 days of Zosyn and 3-1/2 days of Augmentin. He currently denies any complaints at this time including fever, chills, chest pain, difficulty breathing, abdominal pain, nausea, vomiting, swelling in his arms or his legs. He knows his name, but does not know where he is, what year it is, or why he is here. Objective: Vitals: (See below) General: Pleasant male laying on his left side in bed in no acute distress HEENT: NC, AT. EOMI, no scleral icterus. No pharyngeal erythema, mucous membranes moist. Neck: No lymphadenopathy or JVD CV: RRR, Normal S1 and S2. No murmurs, gallops, or rubs. Resp: CTAB with full breath sounds. No wheezes, crackles, or rhonchi. No dullness to percussion. Abdomen: Bowel sounds present. Soft, NT, ND. Extremities: No swelling or edema. Neurologic: GCS of 15. Able to obey commands and answer simple questions. A/O x1 Assessment/Plan: 85 y/o male who presented with altered mental status secondary to presumed UTI based on history of multiple UTI's in the past. Patient was started on Zosyn for same following a dose of rocephin in the ED. This also worked well to cover the patient's inflammatory/infectious colitis. The zosyn was continued for 3 days, before being switched to Augmentin which he took for 3 additional days and has since been DC'd. #. Deconditioning -Primary problem requiring hospitalization currently, PT recommending ARU, does not want him there, they are requiring 1 person assist for home PT, he is still 2 person assist. #. Acute delirium in the setting of Advanced Parkinson's dementia -Per Family, he previously was able to complete basic tasks like dressing, but his mental and functional status has declined since then and does not appear to have improved much since his admission. #. Positive UA -Urine culture showing >100 K CFU of yeast, likely contaminant -Treated with 3 days IV Zosyn #. Infectious/inflammatory colitis -S/p 7 days of IV Zosyn and p.o. Augmentin, no abd pain, DC augmentin #. ? Left lower atelectasis versus infiltrate on 11/23 -S/p 7 days of IV Zosyn and p.o. Augmentin, DC augmentin, IS ordered -Obtaining repeat pro-calcitonin, lungs sounds clear #. ?Hx of Polymyalgia Rheumatica -Continue home meds #. History of chronic back pain (spinal stenosis) -Continue home Lyrica #. Parkinson's disease -Continue home sinemet #. Hx of acute agitation -Will continue with PO seroquel, home zyprexa #. HTN -Continue home amlodipine #. Hypothyroidism -Continue home Synthroid #. Hx of seizures -Continue home primidone #. BPH -Continue home tamsulosin #. T2DM -Continue Sliding scale -Levemir 10 units daily ordered #. GERD -Continue home omeprazole DVT prophylaxis: SC heparin Disposition: He is not safe for discharge home and requires two-person assist for rehab. Rehab needs him to only require 1 person assist at home. His does not want him going to a rehab facility, so we will continue rehab here in the hospital. He will be made ALC status until this is done. VS,Chema, I+O VS, Murphye, I+O Laboratory Tests 11/29/20 06:04 Vital Signs Date Time Temp Pulse Resp B/P (MAP) Pulse Ox O2 Delivery O2 Flow Rate FiO2 11/29/20 08:15 62 142/56 11/29/20 06:00 97.5 16 97 Room Air 11/25/20 16:00 2.0 I&O- Last 24 Hours up to 6 AM 11/29/20 06:00 Intake Total 810 ml Balance 810 ml GME ATTESTATION GME ATTESTATION My faculty preceptor for this patient encounter was physically present during the encounter and was fully available. All aspects of the patient interview, examination, medical decision making process, and medical care plan development were reviewed and approved by the faculty preceptor. The faculty preceptor is aware and concurs with the plan as stated in the body of this note and will attest to such by his/her cosignature. ATTENDING NOTE Attending Attestation: I saw and evaluated the patient. I agree with the finding and the plan of care as documented in the residents note. CASH ABDI DO Nov 29, 2020 14:50 TURNER MCCULLOUGH MD Nov 30, 2020 06:20
[2020-11-29 16:48] LABS: C REACTIVE PROTEIN QUANTITATIV 9.31 MG/DL (0.00-0.30)
[2020-11-29] MEDS: OMEPRAZOLE 20 MG CAP PO SCH (20:39)
[2020-11-30] MEDS: LEVOTHYROXINE 100MCG TABLET (0.1MG) PO SCH (05:37)
[2020-11-30] MEDS: LEVOTHYROXINE 75MCG TABLET (0.075MG) PO SCH (05:38)
[2020-11-30 06:00] VITALS: BP 134/68
[2020-11-30] MEDS: SINEMET 25-100 MG TAB PO SCH ×5 (06:17→21:07)
[2020-11-30 06:41] LABS: HEMATOCRIT 29.6 % (42.0-52.0); HEMOGLOBIN 9.6 g/dl (13.5-17.5); MEAN CORPUSCULAR HEMOGLOBIN 30.6 pg (27.0-33.0); MEAN CORPUSCULAR HGB CONC 32.4 g/dl (32.0-36.5); MEAN CORPUSCULAR VOLUME 94.3 fl (80.0-96.0); PLATELET COUNT, AUTOMATED 153 10^3/uL (150-450); RED BLOOD COUNT 3.14 10^6/uL (4.30-6.10); WHITE BLOOD COUNT 3.3 10^3/uL (4.0-10.0)
[2020-11-30 06:57] LABS: CALCIUM LEVEL 8.2 MG/DL (8.8-10.2); CREATININE FOR GFR 1.25 MG/DL (0.70-1.30); GLOMERULAR FILTRATION RATE 58.6 (>35); POTASSIUM SERUM 4.4 MEQ/L (3.5-5.1)
[2020-11-30] MEDS: HumaLOG INSULIN (NovoLOG) PER UNIT SC SCH ×4 (10:16→21:00)
[2020-11-30] MEDS: HEPARIN SOD (PORCINE) 5000UNITS/ML 1ML VIAL/SYRINGE SQ SCH ×2 (10:17→21:08)
[2020-11-30] MEDS: LEVEMIR (INSULIN DETEMIR) 1 UNITS/0.01ML SC SCH (10:17)
[2020-11-30] MEDS: POLYVINYL ALCOHOL OPHTH SOLN 15 ML(LIQUITEARS) OU SCH ×2 (10:20→21:08)
[2020-11-30] MEDS: TAMSULOSIN 0.4 MG CAP PO SCH (10:21)
[2020-11-30] MEDS: amLODIPine 5 MG TAB PO SCH (10:21)
[2020-11-30] MEDS: ASCORBIC ACID 500 MG TAB PO SCH (10:21)
[2020-11-30] MEDS: HYDROCORTISONE 10 MG TAB PO SCH ×2 (10:22→21:07)
[2020-11-30] MEDS: PRIMIDONE 50 MG TAB PO SCH ×2 (13:45→21:07)
[2020-11-30] MEDS: PREGABALIN 100 MG CAP (LYRICA) PO SCH ×2 (13:45→21:07)
[2020-11-30] MEDS: OMEPRAZOLE 20 MG CAP PO SCH (21:08)
[2020-11-30] MEDS: ACETAMINOPHEN TAB 650MG DOSE (2X325MG) PO PRN (21:09)
[2020-11-30 22:00] VITALS: BP 157/60
[2020-11-30] MEDS: QUEtiapine FUMARATE 50MG TAB PO PRN (23:59)
[2020-12-01] MEDS: OLANZapine 5 MG TAB PO PRN ×2 (01:18→21:11)
[2020-12-01] MEDS: LEVOTHYROXINE 100MCG TABLET (0.1MG) PO SCH (05:26)
[2020-12-01] MEDS: LEVOTHYROXINE 75MCG TABLET (0.075MG) PO SCH (05:26)
[2020-12-01] MEDS: SINEMET 25-100 MG TAB PO SCH ×5 (06:22→21:12)
[2020-12-01 07:13] LABS: HEMOGLOBIN 10.8 g/dl (13.5-17.5); MEAN CORPUSCULAR HEMOGLOBIN 30.7 pg (27.0-33.0); MEAN CORPUSCULAR HGB CONC 32.7 g/dl (32.0-36.5); MEAN CORPUSCULAR VOLUME 93.8 fl (80.0-96.0); PLATELET COUNT, AUTOMATED 169 10^3/uL (150-450); RED BLOOD COUNT 3.52 10^6/uL (4.30-6.10); WHITE BLOOD COUNT 3.4 10^3/uL (4.0-10.0)
[2020-12-01 07:32] LABS: BLOOD UREA NITROGEN 18 MG/DL (7-18); CALCIUM LEVEL 8.3 MG/DL (8.8-10.2); CARBON DIOXIDE LEVEL 29 MEQ/L (21-32); CHLORIDE LEVEL 109 MEQ/L (98-107); GLOMERULAR FILTRATION RATE > 60.0 (>35); GLUCOSE, FASTING 183 MG/DL (70-100); POTASSIUM SERUM 4.3 MEQ/L (3.5-5.1); SODIUM LEVEL 142 MEQ/L (136-145)
[2020-12-01] MEDS: HumaLOG INSULIN (NovoLOG) PER UNIT SC SCH ×4 (10:08→22:00)
[2020-12-01] MEDS: HEPARIN SOD (PORCINE) 5000UNITS/ML 1ML VIAL/SYRINGE SQ SCH ×2 (10:08→21:11)
[2020-12-01] MEDS: POLYVINYL ALCOHOL OPHTH SOLN 15 ML(LIQUITEARS) OU SCH ×2 (10:09→21:12)
[2020-12-01] MEDS: TAMSULOSIN 0.4 MG CAP PO SCH (10:12)
[2020-12-01] MEDS: ASCORBIC ACID 500 MG TAB PO SCH (10:13)
[2020-12-01] MEDS: HYDROCORTISONE 10 MG TAB PO SCH ×2 (10:13→21:12)
[2020-12-01] MEDS: amLODIPine 5 MG TAB PO SCH (10:13)
--- NOTE | 2020-12-01 12:23 | REPVR ---
PROCEDURE INFORMATION: Exam: CT Head Without Contrast Exam date and time: 12/01/2020 12:11 PM Age: 85 years old Clinical indication: Other: Confusion TECHNIQUE: Imaging protocol: Computed tomography of the head without contrast. Radiation optimization: All CT scans at this facility use at least one of these dose optimization techniques: automated exposure control; mA and/or kV adjustment per patient size (includes targeted exams where dose is matched to clinical indication); or iterative reconstruction. COMPARISON: CT Head without contrast 11/22/2020 1:55 PM FINDINGS: Brain: There is no acute intracranial hemorrhage. There is mild lucency in the cerebral white matter, likely microvascular disease although non-specific. Mae white differentiation is intact. There are no extra-axial fluid collections. No evidence of mass. There is no mass effect or midline shift. Cerebral ventricles: The ventricles and sulci are enlarged, consistent with volume loss / atrophy. No hydrocephalus. Paranasal sinuses: Visualized sinuses are unremarkable. No fluid levels. Mastoid air cells: No significant mastoid effusion. Vasculature: There is vascular calcification. Bones/joints: There heterogeneous mineralization with salt and pepper appearance of skull which is stable. Soft tissues: Unremarkable as visualized. IMPRESSION: 1. No evidence of acute intracranial abnormality. No evidence of acute infarction, hemorrhage, or mass. 2. Atrophy and microvascular disease. Electronically signed by: La Colindres On 12/01/2020 12:23:02 PM
--- NOTE | 2020-12-01 12:32 | IPNPDOC ---
Text Note Date of Service The patient was seen on 12/01/20. NOTE Subjective: Patient is an 85 y/o Male with a 6 week history of decline in his mental status. I was able to speak with his and daughter at bedside today as their were plans to transition him home once they were taught his PT exercises however today nursing staff noted increased confusion with hallucinations. His family states he has no history of dementia and while he nee ded physical assistance with some tasks he was cognitively able to carry on conversations without difficulty and his memory was intact. About 6 weeks ago, he began complaining of dysuria and became more and more confused causing his initial hospital stay and they state every time he has had negative growth in urine cultures and declined steadily since that point. Objective: Vitals: (See below) General: Pleasant male laying on his left side in bed in no acute distress HEENT: NC, AT. EOMI, no scleral icterus. No pharyngeal erythema, mucous membranes moist. Neck: No lymphadenopathy or JVD CV: RRR, Normal S1 and S2. No murmurs, gallops, or rubs. Resp: CTAB with full breath sounds. No wheezes, crackles, or rhonchi. No dullness to percussion. Abdomen: Bowel sounds present. Soft, NT, ND. Extremities: No swelling or edema. Neurologic: GCS of 15. A/O x1. CN III-XII intact. Moving all 4 extremities, is otherwise unable to cooperate with rest of exam due to agitation. Psych: Sees spiderwebs on his hands, agitated Assessment/Plan: 85 y/o male who presented with altered mental status secondary to presumed UTI based on history of multiple UTI's in the past. Patient was started on Zosyn for same following a dose of rocephin in the ED. This also worked well to cover the patient's inflammatory/infectious colitis. The zosyn was continued for 3 days, before being switched to Augmentin which he took for 3 additional days. He currently presents with acute on chronic confusion that has been worsening over the past 6 weeks. #. Delirium - Ordering repeat UA, CRP, procalcitonin, blood culturesx2, CXR, CT head - Will reorder EKG to check QTC prior to treating the yeast in urine with flu conazole - Holding lyrica as this can cause delirium/confusion - Spoke with family about the possibility that these lab tests may be unrevealing and that this may be his new baseline. - Holding lyrica and seroquel as these could be exacerbating his mental status as well. #. Deconditioning -Primary problem requiring hospitalization currently, PT recommending ARU, does not want him there, they are requiring 1 person assist for home PT, he is still 2 person assist. #. Parkinson's disease -Per Family, he previously was able to complete basic tasks like dressing, but his mental and functional status has declined since then and does not appear to have improved much since his admission. #. Positive UA -Urine culture showing >100 K CFU of yeast initially thought to be contaminant -Treated with 3.5 days IV Zosyn, 3.5 days Augmentin #. Infectious/inflammatory colitis -Resolved, s/p 3.5 days of IV Zosyn and 3.5 days p.o. Augmentin #. ? Left lower lobe atelectasis versus infiltrate on 11/23 - S/p 7 days of IV Zosyn and p.o. Augmentin, DC augmentin, IS ordered - Repeat pro-katherin downtrending #. ?Hx of Polymyalgia Rheumatica -Continue home meds #. History of chronic back pain (spinal stenosis) -Holding lyrica #. Parkinson's disease -Continue home sinemet #. Hx of acute agitation -Will continue with PO seroquel, home zyprexa #. HTN -Continue home amlodipine #. Hypothyroidism -Continue home Synthroid #. Hx of seizures -Continue home primidone #. BPH -Continue home tamsulosin #. T2DM -Continue Sliding scale -Levemir 10 units daily ordered #. GERD -Continue home omeprazole DVT prophylaxis: SQ heparin Disposition: Pending clinical improvement. VS,Fishbone, I+O VS, Fishbone, I+O Laboratory Tests 12/01/20 06:34 Vital Signs Date Time Temp Pulse Resp B/P (MAP) Pulse Ox O2 Delivery O2 Flow Rate FiO2 12/01/20 10:13 68 186/70 11/30/20 22:00 98.2 18 96 Room Air 11/25/20 16:00 2.0 I&O- Last 24 Hours up to 6 AM 12/01/20 05:59 Intake Total 900 ml Output Total 725 ml Balance 175 ml GME ATTESTATION GME ATTESTATION My faculty preceptor for this patient encounter was physically present during the encounter and was fully available. All aspects of the patient interview, examination, medical decision making process, and medical care plan development were reviewed and approved by the faculty preceptor. The faculty preceptor is aware and concurs with the plan as stated in the body of this note and will attest to such by his/her cosignature. ATTENDING NOTE Attending Attestation: I saw and evaluated the patient. I agree with the finding and the plan of care as documented in the residents note. CASH ABDI DO Dec 01, 2020 12:32 TURNER MCCULLOUGH MD Dec 02, 2020 08:26
[2020-12-01] MEDS: PRIMIDONE 50 MG TAB PO SCH ×2 (13:19→21:11)
[2020-12-01 14:00] VITALS: BP 148/66
--- NOTE | 2020-12-01 14:47 | REP ---
INDICATION: confusion. COMPARISON: Comparison study 23 November 2020. TECHNIQUE: Portable upright AP chest radiograph. FINDINGS: There is infiltrate in the left base above an elevated left hemidiaphragm. This is more prominent than on the November 23, 2020 study. Pulmonary vasculature is somewhat congested diffusely. The right lung is free of infiltrate. Cardiomediastinal silhouette is unchanged. IMPRESSION: Increased infiltrate left base above a somewhat elevated left hemidiaphragm. <Electronically signed by Devyn Mckeon > 12/01/20 [id number]
[2020-12-01 21:12] VITALS: BP 162/76
[2020-12-01] MEDS: OMEPRAZOLE 20 MG CAP PO SCH (21:12)
[2020-12-01] MEDS: ACETAMINOPHEN TAB 650MG DOSE (2X325MG) PO PRN (21:12)
[2020-12-02] MEDS: LEVOTHYROXINE 75MCG TABLET (0.075MG) PO SCH (05:57)
[2020-12-02] MEDS: LEVOTHYROXINE 100MCG TABLET (0.1MG) PO SCH (05:57)
[2020-12-02 06:00] VITALS: BP 129/65
[2020-12-02] MEDS: SINEMET 25-100 MG TAB PO SCH ×3 (06:00→14:29)
[2020-12-02 07:38] LABS: HEMATOCRIT 34.9 % (42.0-52.0); HEMOGLOBIN 11.2 g/dl (13.5-17.5); MEAN CORPUSCULAR HEMOGLOBIN 30.4 pg (27.0-33.0); MEAN CORPUSCULAR HGB CONC 32.1 g/dl (32.0-36.5); MEAN CORPUSCULAR VOLUME 94.6 fl (80.0-96.0); PLATELET COUNT, AUTOMATED 196 10^3/uL (150-450); RED BLOOD COUNT 3.69 10^6/uL (4.30-6.10); WHITE BLOOD COUNT 3.4 10^3/uL (4.0-10.0)
[2020-12-02 08:06] LABS: BLOOD UREA NITROGEN 15 MG/DL (7-18); CALCIUM LEVEL 8.4 MG/DL (8.8-10.2); CARBON DIOXIDE LEVEL 30 MEQ/L (21-32); CHLORIDE LEVEL 105 MEQ/L (98-107); CREATININE FOR GFR 1.09 MG/DL (0.70-1.30); GLOMERULAR FILTRATION RATE > 60.0 (>35); GLUCOSE, FASTING 236 MG/DL (70-100); POTASSIUM SERUM 4.3 MEQ/L (3.5-5.1); SODIUM LEVEL 138 MEQ/L (136-145)
[2020-12-02 09:21] VITALS: BP 156/74
[2020-12-02] MEDS: amLODIPine 5 MG TAB PO SCH (09:21)
[2020-12-02] MEDS: HumaLOG INSULIN (NovoLOG) PER UNIT SC SCH ×2 (09:21→12:54)
[2020-12-02] MEDS: HYDROCORTISONE 10 MG TAB PO SCH (09:21)
[2020-12-02] MEDS: HEPARIN SOD (PORCINE) 5000UNITS/ML 1ML VIAL/SYRINGE SQ SCH (09:21)
[2020-12-02] MEDS: ASCORBIC ACID 500 MG TAB PO SCH (09:21)
[2020-12-02] MEDS: TAMSULOSIN 0.4 MG CAP PO SCH (09:21)
[2020-12-02] MEDS: POLYVINYL ALCOHOL OPHTH SOLN 15 ML(LIQUITEARS) OU SCH (09:22)
--- NOTE | 2020-12-02 09:51 | REPVR ---
PROCEDURE INFORMATION: Exam: CT Head Without Contrast Exam date and time: 12/02/2020 9:10 AM Age: 85 years old Clinical indication: Injury or trauma; Fall; Blunt trauma (contusions or hematomas) TECHNIQUE: Imaging protocol: Computed tomography of the head without contrast. Radiation optimization: All CT scans at this facility use at least one of these dose optimization techniques: automated exposure control; mA and/or kV adjustment per patient size (includes targeted exams where dose is matched to clinical indication); or iterative reconstruction. COMPARISON: CT Head without contrast 12/01/2020 12:04 PM FINDINGS: Brain: There is no acute intracranial hemorrhage. There is mild lucency in the cerebral white matter, likely microvascular disease although non-specific. Mae white differentiation is intact. There are no extra-axial fluid collections. No evidence of mass. There is no mass effect or midline shift. Cerebral ventricles: The ventricles and sulci are enlarged, consistent with volume loss / atrophy. No hydrocephalus. Paranasal sinuses: Visualized sinuses are unremarkable. No fluid levels. Mastoid air cells: No significant mastoid effusion. Vasculature: There is vascular calcification. Bones/joints: No acute fracture. Calvarium is demineralized as before. Soft tissues: Unremarkable as visualized. IMPRESSION: 1. No evidence of acute intracranial abnormality. No evidence of acute infarction, hemorrhage, or mass. 2. Nonacute findings as described. Electronically signed by: La Colindres On 12/02/2020 09:50:28 AM
--- NOTE | 2020-12-02 11:37 | DS.PDOC ---
Discharge Summary General Date of Admission Nov 22, 2020 at 16:16 Date of Discharge 12/02/20 Primary Care Physician: Isaac Cisneros Attending Physician: TURNER MCCULLOUGH MD Discharge Summary PROCEDURES PERFORMED DURING STAY: None. ADMITTING/DISCHARGE DIAGNOSES: Metabolic encephalopathy Deconditioning Parkinson's disease Positive UA Infectious/inflammatory colitis History of polymyalgia rheumatica History of chronic back pain History of acute agitation Hypertension Hypothyroidism History of seizures BPH Type 2 diabetes GERD COMPLICATIONS/CHIEF COMPLAINT: Metabolic encephalopathy, severe dementia, UTI HISTORY OF PRESENT ILLNESS/HOSPITAL COURSE: "Mr. Dela Cruz is an 85-year-old male with dementia, Parkinson's disease, and lumbar stenosis status post surgery and spinal cord stimulator who presents with altered mental status secondary to UTI. Patient was recently admitted from 10/17/2020 to 10/24/2020 for metabolic encephalopathy secondary to UTI. Urine cultures were contaminated at that time, patient completed an antibiotic course. Patient was sent to [facility] rehab. Then patient was transferred from [facility] for hematuria as patient had pulled out his Ledezma catheter. From patient was admitted 11/05/2020 to 11/08/2020 and was evaluated by urology. Patient was discharged home with home physical therapy. Patient was doing okay at home. He saw urology on 11/11/2020. Then PCP on 11/14/2020. He returned to see urology on 11/17/2020 with a planned bladder ultrasound on 11/24/2020. Patient started to decline on 11/20/2020. Normally he is able to help with daily function, but on 11/20/2020, son and daughter had to help dress him and help him to his wheelchair. He would sometimes mumble and not make sense. He also will not eat. He continued to worsen. When home health nurse saw patient today, patient was lethargic. He will not get up or eat. Recommended patient to come to the ED for evaluation. While here, is found to have a UTI and leukocytosis. Otherwise afebrile and without tachycardia or hypotension. When I saw patient, he was snoring loudly. I was unable to obtain review of systems. Patient appears dry on exam. Capillary refill is sluggish. Creatinine was elevated at 1.6. Most of the history was obtained from . tells me that he is incontinent and uses depends. Patient will be admitted for metabolic encephalopathy secondary to UTI." Patient was admitted and started on IV Zosyn for presumed UTI, evidence of inflammatory/infectious colitis on CT scan and was ultimately transitioned to oral Augmentin after 3 days which also helped cover for the possibility of a evolving URI. His antibiotics were discontinued after a total of 7 days of therapy and downtrending inflammatory markers. Early on during his admission he was placed on 2 different antipsychotic regimens due to increased agitation at night in particular. During his stay his mental status continue to stay where it was during admission improving somewhat but with intermittent periods of worsening. He continue to work with physical therapy as family did not want him to go to acute rehab or nursing facility for further physical therapy. Family came in day prior to discharge and stated that he was not at his mental baseline so another work-up was pursued in light of this to try and assess for any possible reversible cause of what was presumed to be delirium at the time. This work-up was unremarkable and further history obtained from nurses that had staffed with him the week prior confirm that this was very close to his mental baseline since he had been here and that he had actually improved since the last time they had seen him both with his strength as well as his mental status. On day of discharge he was aware that he was in a hospital and what his name was. I had a long conversation with his , Ananda and explained to her that our work- up including a head CT, CBC, electrolytes, inflammatory markers, chest x-ray were unremarkable for any additional acute findings. While he was here we did attempt to collect a urinalysis however he frequently experience urinary incontinence and it was difficult to straight cath him due to agitation. He did have a urinalysis that was positive for yeast however we feel this may have been a contaminant. I also discussed with his that certain medications could sometimes make people over the age of 65 act altered and in the setting of his chronic kidney disease I decided to hold his Lyrica for the final day of his stay as well as the Seroquel that he been placed on. I informed her that medications like Lyrica could potentially make his mental status worse and that she should be careful in giving those while at home. We finally discussed that in light of this work-up being negative this may be his new mental baseline in light of, what his neurologist had termed, advanced Parkinson's dementia. The explained that she was comfortable with him being discharged home and would continue to work with him regarding his physical rehabilitation. Of note on day of discharge patient was found on the floor without any acute or obvious injuries, head CT was performed that was negative for any bleeds. This was also discussed with his so that she could look out for any signs of injury that were not found following the fall. DISCHARGE MEDICATIONS: Please see below. ALLERGIES: Please see below. PHYSICAL EXAMINATION ON DISCHARGE: VITAL SIGNS: Please see below. General: Pleasant male laying on his left side in bed in no acute distress HEENT: NC, AT. EOMI, no scleral icterus. No pharyngeal erythema, mucous membranes moist. Neck: No lymphadenopathy or JVD CV: RRR, Normal S1 and S2. No murmurs, gallops, or rubs. Resp: CTAB with full breath sounds. No wheezes, crackles, or rhonchi. No dullness to percussion. Abdomen: Bowel sounds present. Soft, NT, ND. Extremities: No swelling or edema. Neurologic: GCS of 15. A/O x2. CN III-XII intact. Moving all 4 extremities, is otherwise unable to cooperate with rest of exam due to agitation. LABORATORY DATA: Please see below. IMAGIN11/22/2020 chest x-ray: "IMPRESSION: Limited examination. Chronic changes. Cannot exclude superimposed process." 11/22/[address]: "IMPRESSION: Atrophy and microvascular ischemic changes. No acute intracranial hemorrhage, infarction, or mass/mass effect." 11/22/2020 CT abdomen pelvis: "IMPRESSION: 1. Mucosal thickening to the distal sigmoid colon suggesting infectious/inflammatory colitis. Follow-up colonoscopy may be warranted to exclude underlying malignancy. 2. Upper abdominal mesenteric lymph nodes up to 2.3 cm are nonspecific and may warrant further investigation/follow-up. 3. 3 mm nonobstructing right renal calculus. 4. Colonic diverticulosis. 5. Further chronic nonacute findings as noted above." 11/23/2020 chest x-ray: "IMPRESSION: Left lower lobe atelectasis/infiltrate and small left pleural reaction." 12/01/2020 chest x-ray: "IMPRESSION: Increased infiltrate left base above a somewhat elevated left hemidiaphragm." 12/01/[address]: "IMPRESSION: 1. No evidence of acute intra-cranial abnormality. No evidence of acute infarcti on, hemorrhage, or mass. 2. Atrophy and microvascular disease." 12/02/[address]: "IMPRESSION: 1. No evidence of acute intracranial abnormality. No evidence of acute infarction, hemorrhage, or mass. 2. Non-acute findings as described." ACTIVITY: As tolerated DIET: As tolerated DISCHARGE PLAN: Home DISPOSITION: 01 Home, Self-Care. DISCHARGE INSTRUCTIONS: 1. Please return to hospital if symptoms recur or worsen. Please remain compliant with medication regimen. 2. Please follow up with PCP as scheduled on 12/14, please follow up 12/[address] Blunt. Please call urology in the next 2-4 weeks. DISCHARGE CONDITION: Stable. TIME SPENT ON DISCHARGE: 33 minutes. Vital Signs/I&Os Vital Signs Date Time Temp Pulse Resp B/P (MAP) Pulse Ox O2 Delivery O2 Flow Rate FiO2 12/02/20 09:21 69 156/74 12/02/20 06:00 98.1 14 98 Room Air I&O- Last 24 Hours up to 6 AM 12/02/20 06:00 Intake Total 720 ml Output Total 1389 ml Balance -669 ml Laboratory Data Labs 24H Laboratory Tests 2 12/01/20 11:34: Bedside Glucose (Misc Panel) 219H 12/01/20 13:13: C-Reactive Protein, Quantitative 5.12H, Procalcitonin 0.07, Thyroid Stimulating Hormone (TSH) 5.230H 12/01/20 16:41: Bedside Glucose (Misc Panel) 106 12/01/20 20:09: Bedside Glucose (Misc Panel) 208H 12/02/20 07:21: Nucleated Red Blood Cells % (auto) 0.0, Anion Gap 3L, Glomerular Filtration Rate > 60.0, Calcium Level 8.4L CBC/BMP Laboratory Tests 12/02/20 07:21 FSBS Laboratory Tests Test 12/01/20 11:34 12/01/20 16:41 12/01/20 20:09 Range/Units Bedside Glucose (Misc Panel) 219 106 208 83-110 MG/DL Microbiology Microbiology 12/01/20 Blood Culture, Received Pending 12/01/20 Blood Culture, Received Pending 11/23/20 Blood Culture - Final, Complete NO GROWTH AFTER 5 DAYS 11/22/20 Urine Culture - Final, Complete Yeast Like Organism 11/22/20 Blood Culture - Final, Complete NO GROWTH AFTER 5 DAYS 11/22/20 Blood Culture - Final, Complete Staphylococcus Auricularis Discharge Medications Scheduled Ascorbic Acid (Ascorbic Acid) 500 Mg Tablet, 500 MG PO DAILY, (Reported) Carbidopa/Levodopa (Carbidopa-Levodopa 25-100 Tab) 1 Each Tablet, 2 TAB PO 5XD, (Reported) 0700/1000/1400/1800/2200 Furosemide (Furosemide) 20 Mg Tablet, 20 MG PO Q2D, (Reported) RECENT CHANGE PER 'S OFFICE Hydrocortisone (Hydrocortisone) 10 Mg Tablet, 10 MG PO BIDWM, (Reported) Lactose-Reduced Food (Ensure Liquid) 237 Ml Liquid, 237 ML PO QPM, (Reported) Levothyroxine Sodium (Levothyroxine Sodium) 175 Mcg Tablet, 175 MCG PO QAM, (Reported) Magnesium Oxide (Magox 400) 400 Mg Tablet, 400 MG PO BID, (Reported) Omeprazole (Omeprazole) 20 Mg Capsule.dr, 40 MG PO QHS, (Reported) Pimavanserin Tartrate (Nuplazid) 34 Mg Capsule, 34 MG PO DAILY, (Reported) NEW MEDICATION, HAS NOT STARTED YET Polyvinyl Alcohol (Artificial Tears) 1.4 % Tamy, 1 DROP OU BID, (Reported) Primidone (Primidone) 50 Mg Tablet, 50 MG PO BID, (Reported) TAKES WITH LUNCH/BEDTIME Tamsulosin HCl (Flomax) 0.4 Mg Cap, 0.4 MG PO DAILY, (Reported) Scheduled PRN Acetaminophen (Acetaminophen) 325 Mg Tablet, 650 MG PO Q4H PRN for PAIN LEVEL 1- 4, (Reported) Docusate Sodium (Colace) 100 Mg Cap, 100 MG PO DAILY PRN for CONSTIPATION, (Reported) Insulin Human Lispro (Humalog) 100 Unit/1 Ml Vial, 1 DOSE SC ACHS PRN for SLIDING SCALE , (Reported) Quetiapine Fumarate (Quetiapine Fumarate) 50 Mg Tablet, 50 MG PO BID PRN for AGITATION, (Reported) Allergies Coded Allergies: Contrast Media (Verified Allergy, Intermediate, 10/21/19) HYPOTENSION PER ANESTHESIOLOGY REPORT GME ATTESTATION GME ATTESTATION My faculty preceptor for this patient encounter was physically present during the encounter and was fully available. All aspects of the patient interview, examination, medical decision making process, and medical care plan development were reviewed and approved by the faculty preceptor. The faculty preceptor is aware and concurs with the plan as stated in the body of this note and will attest to such by his/her cosignature. ATTENDING NOTE Attending Attestation: I saw and evaluated the patient. I agree with the finding and the plan of care as documented in the residents note. CASH ABDI DO Dec 02, 2020 11:37 TURNER MCCULLOUGH MD Dec 03, 2020 06:42
[2020-12-02] MEDS: PRIMIDONE 50 MG TAB PO SCH (12:53)
[2020-12-02 14:00] VITALS: BP 130/70
--- NOTE | 2020-12-02 16:26 | ECGEPIP ---
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
== END 2020-12-02 16:40 | disposition home health service (06) | DRG 391 ==
LOC: M ED 13:12 → EDBD 13:12 → M ED INP 16:16 → ENRESERV 18:39 → M MSPAV 19:58
PROVIDERS: ADMIT Internal Medicine; ATTEND Internal Medicine
DX: A09 Infectious gastroenteritis and colitis, unspecified (principal); G93.41 Metabolic encephalopathy; N39.0 Urinary tract infection, site not specified; E27.40 Unspecified adrenocortical insufficiency; J98.11 Atelectasis; N18.30 Chronic kidney disease, stage 3 unspecified; G20 Parkinson's disease; F02.80 Dementia in other diseases classified elsewhere, unspecified severity, without behavioral disturbance, psychotic disturbance, mood disturbance, and anxiety; R26.81 Unsteadiness on feet; M35.3 Polymyalgia rheumatica; H81.09 Meniere's disease, unspecified ear; M48.061 Spinal stenosis, lumbar region without neurogenic claudication; Z66 Do not resuscitate; E11.649 Type 2 diabetes mellitus with hypoglycemia without coma; E11.22 Type 2 diabetes mellitus with diabetic chronic kidney disease; E03.9 Hypothyroidism, unspecified; I12.9 Hypertensive chronic kidney disease with stage 1 through stage 4 chronic kidney disease, or unspecified chronic kidney disease; E86.0 Dehydration; E78.5 Hyperlipidemia, unspecified; N40.0 Benign prostatic hyperplasia without lower urinary tract symptoms; Z98.41 Cataract extraction status, right eye; Z98.42 Cataract extraction status, left eye; Z86.010 Personal history of colon polyps; Z20.822 Contact with and (suspected) exposure to COVID-19; Z79.4 Long term (current) use of insulin; Z79.899 Other long term (current) drug therapy; Z91.041 Radiographic dye allergy status

== ENCOUNTER → 2021-01-04 | Outpatient (REF) | payer MEDICARE, OTHER ==
[~2021-01-04] MED LIST changes: +ACET-910 PO; +ENSULIQ8 PO; +HYDR-4468 PO; +NUPL34CA PO
[2021-01-04 14:44] LABS: APPEARANCE, URINE TURBID (CLEAR); BACTERIA, URINE AUTO 1+ (NEGATIVE); BILIRUBIN, URINE AUTO NEGATIVE (NEGATIVE); BLOOD, URINE BLOOD 1+ (NEGATIVE); COLOR, URINE YELLOW (YELLOW); GLUCOSE, URINE (UA) AUTO NEGATIVE (NEGATIVE); KETONE, URINE AUTO NEGATIVE (NEGATIVE); LEUKOCYTE ESTERASE, URINE AUTO 3+ (NEGATIVE); NITRITE, URINE AUTO NEGATIVE (NEGATIVE); PROTEIN, URINE AUTO 2+ mg/dL (NEGATIVE); RBC, URINE AUTO 63 /HPF (0-3); SQUAMOUS EPITHELIAL CELL UR AU 2 /HPF (0-6); UROBILINOGEN, URINE AUTO 0.2 mg/dL (0.0-2.0); WBC, URINE AUTO TNTC /HPF (0-3)
== END ==
LOC: M SHH 14:14
PROVIDERS: ATTEND Internal Medicine
DX: R30.0 Dysuria (principal)

== ENCOUNTER → 2021-01-10 | Outpatient (REF) | payer MEDICARE, OTHER | LOC: M LAB REF 17:04 | PROVIDERS: ATTEND Nurse Practitioner Family | DX: E83.42 Hypomagnesemia (principal); N39.0 Urinary tract infection, site not specified ==

== ENCOUNTER → 2021-02-21 | Outpatient (REF) | payer MEDICARE, OTHER | LOC: M SFHCPLAZ 14:07 | PROVIDERS: ATTEND Internal Medicine | DX: E11.29 Type 2 diabetes mellitus with other diabetic kidney complication (principal); E03.9 Hypothyroidism, unspecified; M35.3 Polymyalgia rheumatica; I25.10 Atherosclerotic heart disease of native coronary artery without angina pectoris ==

== ENCOUNTER → 2021-02-21 | Outpatient (CLI) | payer MEDICARE, OTHER ==
[2021-02-21 17:35] LABS: BASO % 0.5 % (0.0-1.0); EOS # 0.2 10^3/uL (0.0-0.5); EOS % 3.2 % (0.0-3.0); HEMATOCRIT 35.6 % (42.0-52.0); HEMOGLOBIN 11.2 g/dl (13.5-17.5); LYMPH # 0.8 10^3/uL (1.5-5.0); LYMPH % 13.7 % (24.0-44.0); MEAN CORPUSCULAR HEMOGLOBIN 30.2 pg (27.0-33.0); MEAN CORPUSCULAR HGB CONC 31.5 g/dl (32.0-36.5); MONO # 0.6 10^3/uL (0.0-0.8); NEUTROPHILS # 4.3 10^3/uL (1.5-8.5); NEUTROPHILS % 72.1 % (36.0-66.0); PLATELET COUNT, AUTOMATED 212 10^3/uL (150-450); RED BLOOD COUNT 3.71 10^6/uL (4.30-6.10)
[2021-02-21 18:06] LABS: ALBUMIN 2.9 GM/DL (3.2-5.2); BILIRUBIN,TOTAL 0.2 MG/DL (0.2-1.0); C REACTIVE PROTEIN QUANTITATIV 1.62 MG/DL (0.00-0.30); CALCIUM LEVEL 8.6 MG/DL (8.8-10.2); CHOLESTEROL RISK RATIO 2.737 (<5); CREATININE FOR GFR 1.8 MG/DL (0.70-1.30); GLOMERULAR FILTRATION RATE 38.5 (>35); THYROID STIMULATING HORMONE 3.55 uIU/ML (0.358-3.740); TOTAL PROTEIN 6.9 GM/DL (6.4-8.2)
[2021-02-21 18:47] LABS: ERYTHROCYTE SEDIMENTATION RATE 39 mm/hr (0-20)
[2021-02-21 20:08] LABS: HEMOGLOBIN A1c 7.5 %
== END ==
LOC: M PLALAB 14:25
PROVIDERS: ATTEND Internal Medicine
DX: E11.29 Type 2 diabetes mellitus with other diabetic kidney complication (principal); E03.9 Hypothyroidism, unspecified; M35.3 Polymyalgia rheumatica; I25.10 Atherosclerotic heart disease of native coronary artery without angina pectoris
CPT/HCPCS: 36415; 80053; 80061; 83036; 84443; 85025; 85652; 86140; G0463